=== PATIENT | male | born 1960 | race Caucasian/White ===

== ENCOUNTER 2019-11-17 08:56 | Emergency (ER) | payer MEDICARE, OTHER, SELFPAY ==
[2019-11-17 10:12] VITALS: BP 180/84; PULSE 76; RESP 14; TEMP 36.2; O2SAT 99
--- NOTE | 2019-11-17 10:22 | ED.SKABFB ---
HPI - Skin/Abscess/Foreign Bdy General Chief complaint: Skin/Abscess/Foreign Body Stated complaint: infected toe Time Seen by Provider: 11/17/19 09:05 Source: patient Mode of arrival: Ambulatory Limitations: no limitations History of Present Illness HPI narrative: 59-year-old male nonsmoking diabetic presents with a chief complaint of pain, swelling and redness of his left middle toe after he stubbed it a few days ago. He has known diabetic neuropathy and has a history toe infections. He is very comfortable providing his own wound care. He denies systemic findings such as fever, shaking chills nor nausea or vomiting. He has pain which increases with ambulation and range of motion and improves with rest. He is otherwise well and free of complaint. He refuses any labs or diagnostic evaluation other than x-ray MD complaint: abscess/boil Onset (ago): day(s) Tetanus up to date: yes Location: L foot Severity: moderate Quality: aching Pain Consistency: constant Relieving factors: none Exacerbating factors: none Associated symptoms: denies other symptoms Treatments prior to arrival: bandages Related Data Home Medications Medication Instructions Recorded Confirmed aspirin 81 mg PO QDAY #0 05/31/16 esomeprazole magnesium [Nexium] 40 mg PO QDAY #0 05/31/16 gabapentin 800 mg PO BID #0 05/31/16 insulin aspart U-100 [Novolog 25 unit SQ TIDCC #0 05/31/16 Flexpen U-100 Insulin] insulin glargine [Lantus U-100 70 unit SQ BID #0 05/31/16 Insulin] metoprolol tartrate PO QDAY #0 05/31/16 ranitidine HCl 75 mg PO QDAY #0 tab 05/31/16 amlodipine [Norvasc] 10 mg PO QDAY #0 11/02/16 atorvastatin [Lipitor] 80 mg PO QDAY #0 11/02/16 metformin [Glucophage XR] 500 mg PO BID #0 11/02/16 telmisartan-hydrochlorothiazid 1 tab PO QDAY #0 11/02/16 [Micardis HCT] Previous Rx's Medication Instructions Recorded clindamycin HCl 300 mg PO Q6H #28 cap 01/12/17 ciprofloxacin HCl 500 mg PO BID #20 tab 11/17/19 Allergies Allergy/AdvReac Type Severity Reaction Status Date / Time amitriptyline [AMITRIPTYLINE] Allergy Unknown Unverified 01/04/18 11:50 Review of Systems Constitutional Constitutional: Denies chills, Denies fatigue, Denies fever(s), Denies frequent falls, Denies lethargy and Denies weakness Eyes Eyes: Denies change in vision, Denies eye discharge, Denies irritation and Denies loss of vision ENT Ears, Nose, Mouth, and Throat: Denies change in voice, Denies dizziness, Denies neck pain, Denies sore throat and Denies throat swelling Cardiovascular Cardiovascular: Denies chest pain, Denies irregular heart rhythm, Denies lightheadedness, Denies palpitations, Denies dyspnea, Denies dyspnea on exertion and Denies orthopnea Respiratory Respiratory: Denies cough, Denies dyspnea, Denies dyspnea on exertion and Denies wheezing Gastrointestinal Gastrointestinal: Denies abdominal pain, Denies change in bowel habits, Denies diarrhea, Denies nausea and Denies vomiting Genitourinary Genitourinary: Denies hematuria, Denies flank pain, Denies urinary incontinence and Denies urinary urgency Musculoskeletal Musculoskeletal: Denies back pain, Reports joint swelling, Reports limited range of motion, Denies muscle weakness, Denies neck pain, Denies numbness and Denies tingling Integumentary/Breasts Skin/Breast: Denies pruritus, Denies erythema, Denies rash, Reports skin pain, Reports skin swelling, Reports skin ulcer and Denies wounds Neurologic Neurologic: Denies behavioral changes, Denies confusion, Denies dizziness, Denies frequent falls, Denies loss of vision, Denies numbness, Denies tingling and Denies weakness Psychiatric Psychiatric: Denies anxiety, Denies behavioral changes, Denies confusion, Denies depression, Denies homicidal ideation and Denies suicidal ideation Endocrine Endocrine: Denies fatigue, Denies flushing and Denies palpitations Hematologic/Lymphatic Hematologic/Lymphatic: Denies easy bruising Allergic/Immunologic Allergic/Immunologic: Denies urticaria, Denies throat swelling and Denies wheezing Patient History Substance Use Type: does not use Exam Narrative Exam Narrative: GEN: AOx3 and in mild distress EYES: Pupils are equal, round, and reactive to light and accommodation. Extraoccular muscles are intact bilaterally. There is no subconjunctival hemorrhage or exudate. CHEST: Lungs are clear to auscultation bilaterally and free of wheezes, rales, or rhonchi. Heart rate is regular rhythm, there are no murmurs, clicks, rubs, or gallops. There is no chest wall tenderness. ABD: Abdomen is soft and nontender. There is no guarding or rebound. Bowel sounds are normal in all 4 quadrants. There is no mass or organomegaly. EXT: Left 3rd toe erythematous with minimal swelling small black as sharp on tip, no drainage, no fluctuance or induration. Erythema limited to toe, no lymphangitis of Full painless ROM of all extremities with no loss of sensation or strength. SKIN: Warm, pink, and dry. No erythema or rash Initial Vital Signs Initial Vital Signs: Vital Signs Temperature 97.2 F L 11/17/19 10:12 Pulse Rate 76 11/17/19 10:12 Respiratory Rate 14 11/17/19 10:12 Blood Pressure 180/84 H 11/17/19 10:12 Pulse Oximetry 99 11/17/19 10:12 Course Orders Ordered: ED Orders 11/17/19 10:27 XR toe LT min 2V Stat Vital Signs Vital signs: Vital Signs - 8 hr 11/17/19 10:12 Temperature 97.2 F L Pulse Rate 76 Respiratory Rate 14 Blood Pressure 180/84 H Pulse Oximetry 99 MDM - Skin/Abscess/Foreign Bdy Imaging Data Extremity x-ray #1: Radiologist's Impression: [address] [address] XRay Report Signed Patient: Yasmany Ann [facility]#: [id number] : 8Acct:[id number] Age/Sex: 59 / MDate of Service: 11/17/19 Loc: ED Accession Number: [id number] Procedure: XR toe LT min 2V Ordering Provider: Peng Tobar D.O. PROCEDURE: XR TOE LT MIN 2V INDICATIONS: injury, infection, diabetic, osteo? TECHNIQUE: 3 views of the 2nd toe(s) acquired. COMPARISON: [facility], , TOE MINIMUM 2 VIEWS RIGHT, 01/12/2017, 14:17. FINDINGS: Bones: No acute fracture or dislocation is identified involving the osseous structures of the image portions of the left foot. No osseous erosions are appreciated. There is slight blunting of the distal phalanx of the 2nd toe, which is unchanged since 2017. No definitive osseous erosions are appreciated. The previously seen fracture involving the middle phalanx of the 3rd digit has healed in the interim. There are [id number] degenerative changes involving the joints of the great toe. Soft tissues: Soft tissue swelling of the 2nd toe is identified near the tip of the toe. No radiopaque foreign bodies are evident. No suspicious soft tissue densities. Scattered vascular calcifications are present. IMPRESSION: 1. No convincing radiographic evidence of osteomyelitis of the left 2nd toe. If osteomyelitis is of clinical concern, MRI may be helpful for better characterization with intravenous contrast. 2. Soft tissue swelling of the 2nd toe. No fractures. Dictated by: Ben Cisneros M.D. on 11/17/2019 at 10:09 Approved by: Ben Cisneros M.D. on 11/17/2019 at 10:11 Discharge Plan Departure Patient Disposition: Home Clinical Impression: Cellulitis of foot Discharge Date/Time: 11/17/19 11:18 Instructions: DI for Cellulitis -- Adult Activity Restrictions/Additional Instructions: *You have been diagnosed with [cellulitis of left middle toe] *What to do: *Take medications as directed *Follow up with your primary care provider in 2-3 days, call for an appointment. Let them know you were seen in the Emergency Department and that we ask that you be seen in follow up *Return to ER if you should have any new, worsening or concerning symptoms, such as [fever, shaking chills, worsening redness or swelling, other bothersome symptoms] Prescriptions: New ciprofloxacin HCl 500 mg tablet 500 mg PO BID Qty: 20 RF: 0 No Action insulin glargine [Lantus U-100 Insulin] 100 UNIT/1 ML solution 70 unit SQ BID Qty: 0 RF: 0 insulin aspart U-100 [Novolog Flexpen U-100 Insulin] 100 UNIT/1 ML insulin pen 25 unit SQ TIDCC Qty: 0 RF: 0 metoprolol tartrate 25 mg tablet PO QDAY Qty: 0 RF: 0 aspirin 81 MG tablet,delayed release (DR/EC) 81 mg PO QDAY Qty: 0 RF: 0 gabapentin 800 MG tablet 800 mg PO BID Qty: 0 RF: 0 ranitidine HCl 75 MG tablet 75 mg PO QDAY Qty: 0 RF: 0 esomeprazole magnesium [Nexium] 40 MG capsule,delayed release(DR/EC) 40 mg PO QDAY Qty: 0 RF: 0 atorvastatin [Lipitor] 80 MG tablet 80 mg PO QDAY Qty: 0 RF: 0 metformin [Glucophage XR] 500 MG tablet extended release 24 hr 500 mg PO BID Qty: 0 RF: 0 telmisartan-hydrochlorothiazid [Micardis HCT] 80 MG/25 MG tablet 1 tab PO QDAY Qty: 0 RF: 0 amlodipine [Norvasc] 10 MG tablet 10 mg PO QDAY Qty: 0 RF: 0 clindamycin HCl 300 MG capsule 300 mg PO Q6H Qty: 28 RF: 0
--- NOTE | 2019-11-17 10:27 | DI.RAD.S_ITS ---
PROCEDURE: XR TOE LT MIN 2V INDICATIONS: injury, infection, diabetic, osteo? TECHNIQUE: 3 views of the 2nd toe(s) acquired. COMPARISON: [facility], , TOE MINIMUM 2 VIEWS RIGHT, 01/12/2017, 14:17. FINDINGS: Bones: No acute fracture or dislocation is identified involving the osseous structures of the image portions of the left foot. No osseous erosions are appreciated. There is slight blunting of the distal phalanx of the 2nd toe, which is unchanged since 2017. No definitive osseous erosions are appreciated. The previously seen fracture involving the middle phalanx of the 3rd digit has healed in the interim. There are [id number] degenerative changes involving the joints of the great toe. Soft tissues: Soft tissue swelling of the 2nd toe is identified near the tip of the toe. No radiopaque foreign bodies are evident. No suspicious soft tissue densities. Scattered vascular calcifications are present. IMPRESSION: 1. No convincing radiographic evidence of osteomyelitis of the left 2nd toe. If osteomyelitis is of clinical concern, MRI may be helpful for better characterization with intravenous contrast. 2. Soft tissue swelling of the 2nd toe. No fractures. Dictated by: Ben Cisneros M.D. on 11/17/2019 at 10:09 Approved by: Ben Cisneros M.D. on 11/17/2019 at 10:11
--- NOTE | 2019-11-17 11:16 | PC.NURSE ---
scabbed over/ on toe/ no reddness noted/ will keep eye on by pt.
== END 2019-11-17 11:18 | disposition home or self-care (01) ==
PROVIDERS: Emergency Provider Emergency Medicine
DX: L03.116 Cellulitis of left lower limb (principal); E11.8 Type 2 diabetes mellitus with unspecified complications; Z79.4 Long term (current) use of insulin
CPT/HCPCS: 73660; 99283

== ENCOUNTER → 2019-11-29 13:01 | Outpatient (CLI) | payer MEDICARE, OTHER, SELFPAY | PROVIDERS: Referring Provider Podiatrist; Visit Provider Family Medicine | DX: E11.621 Type 2 diabetes mellitus with foot ulcer (principal); L97.524 Non-pressure chronic ulcer of other part of left foot with necrosis of bone; M86.172 Other acute osteomyelitis, left ankle and foot; E11.51 Type 2 diabetes mellitus with diabetic peripheral angiopathy without gangrene; E11.40 Type 2 diabetes mellitus with diabetic neuropathy, unspecified; Z79.4 Long term (current) use of insulin | CPT/HCPCS: 11044; 87070; 87075; 87077; 87176; 87186; 87205; 99203; 99214 ==

== ENCOUNTER → 2019-12-06 09:34 | Outpatient (CLI) | payer MEDICARE, OTHER, SELFPAY | PROVIDERS: Referring Provider Podiatrist; Visit Provider Family Medicine | DX: E11.621 Type 2 diabetes mellitus with foot ulcer (principal); L97.526 Non-pressure chronic ulcer of other part of left foot with bone involvement without evidence of necrosis; M86.672 Other chronic osteomyelitis, left ankle and foot; B95.7 Other staphylococcus as the cause of diseases classified elsewhere; E11.40 Type 2 diabetes mellitus with diabetic neuropathy, unspecified | CPT/HCPCS: 11042; 99214 ==

== ENCOUNTER → 2019-12-13 08:32 | Outpatient (CLI) | payer MEDICARE, OTHER, SELFPAY | PROVIDERS: PCP Internal Medicine; Referring Provider Podiatrist; Visit Provider Family Medicine | DX: E11.621 Type 2 diabetes mellitus with foot ulcer (principal); L97.526 Non-pressure chronic ulcer of other part of left foot with bone involvement without evidence of necrosis; E11.40 Type 2 diabetes mellitus with diabetic neuropathy, unspecified; M86.672 Other chronic osteomyelitis, left ankle and foot; B95.7 Other staphylococcus as the cause of diseases classified elsewhere; R60.0 Localized edema; L08.9 Local infection of the skin and subcutaneous tissue, unspecified | CPT/HCPCS: 11042; 36415; 80053; 84134; 85025; 85651; 86140 ==

== ENCOUNTER → 2019-12-13 09:28 | Outpatient (CLI) | payer MEDICARE, OTHER, SELFPAY ==
[2019-12-13 10:40] LABS: Add Manual Diff / Slide Review NO; Basophils Absolute Auto 0 /uL (0-100); Basophils Percent Auto 0.9 % (0-2); Eosinophils Absolute Auto 300 /uL (0-450); Eosinophils Percent Auto 5.2 % (2-4); Hematocrit 36.8 % (41-53); Hemoglobin 12.7 g/dL (13.5-17.5); Lymphocytes Absolute Auto 2000 /uL (1100-4500); Lymphocytes Percent Auto 40.2 % (25-40); Mean Corpuscular HGB Conc 34.6 % (30-36); Mean Corpuscular Hemoglobin 30.2 PG (26-34); Mean Corpuscular Volume 87.3 fL (80-100); Monocytes Absolute Auto 500 /uL (0-900); Neutrophils Absolute Auto 2300 /uL (1500-7000); Neutrophils Percent Auto 44.7 % (50-75); Platelet Count 189 X10^3/uL (150-400); Red Blood Cell Count 4.22 X10^6/uL (4.5-5.9); Red Cell Distribution Width 13.1 % (11.6-14.8)
[2019-12-13 10:55] LABS: Alanine Aminotransferase 16 IU/L (<50); Albumin 4.2 g/dL (3.5-5.0); Albumin Globulin Ratio 1.4 (1.0-2.8); Alkaline Phosphatase 119 U/L (38-126); Aspartate Aminotransferase 19 IU/L (17-59); Bilirubin Total 0.3 mg/dL (0.2-1.3); Blood Urea Nitrogen 17 mg/dL (9-20); Calcium 9.5 mg/dL (8.4-10.2); Carbon Dioxide 27 mmol/L (22-32); Chloride 102 mmol/L (98-107); Estimated Glomerular Filt Rate > 60.0 mL/min (>60); Globulin 3.1 g/dL (1.7-4.1); Glucose 256 mg/dL (80-110); HEMOLYSIS < 15 (0-50); Potassium 4.7 mmol/L (3.4-5.1); Sodium 138 mmol/L (137-145); Total Protein 7.3 g/dL (6.3-8.2)
[2019-12-13 10:57] LABS: C-Reactive Protein Quant < 0.5 mg/dL (<1.0)
[2019-12-13 11:00] LABS: Prealbumin 31.6 mg/dL (17.6-36.0)
[2019-12-13 14:58] LABS: Erythrocyte Sedimentation Rate 17 MM/HR (0-15)
== END ==
PROVIDERS: PCP Internal Medicine; Referring Provider Family Medicine; Visit Provider Family Medicine
DX: L08.9 Local infection of the skin and subcutaneous tissue, unspecified (principal)
CPT/HCPCS: 36415; 80053; 84134; 85025; 85651; 86140

== ENCOUNTER → 2020-03-03 14:01 | Outpatient (CLI) | payer MEDICARE, OTHER, SELFPAY | PROVIDERS: PCP Internal Medicine; Referring Provider Podiatrist; Visit Provider Family Medicine | DX: E11.621 Type 2 diabetes mellitus with foot ulcer (principal); L97.421 Non-pressure chronic ulcer of left heel and midfoot limited to breakdown of skin; E11.51 Type 2 diabetes mellitus with diabetic peripheral angiopathy without gangrene; G60.9 Hereditary and idiopathic neuropathy, unspecified | CPT/HCPCS: 97597; 99213; 99214 ==

== ENCOUNTER → 2020-03-11 09:32 | Outpatient (CLI) | payer MEDICARE, OTHER, SELFPAY | PROVIDERS: PCP Internal Medicine; Referring Provider Internal Medicine; Visit Provider Family Medicine | DX: E11.621 Type 2 diabetes mellitus with foot ulcer (principal); L97.421 Non-pressure chronic ulcer of left heel and midfoot limited to breakdown of skin; E11.40 Type 2 diabetes mellitus with diabetic neuropathy, unspecified; I16.0 Hypertensive urgency | CPT/HCPCS: 97597; 99213 ==

== ENCOUNTER → 2020-03-18 11:30 | Outpatient (CLI) | payer MEDICARE, OTHER, SELFPAY | PROVIDERS: PCP Internal Medicine; Referring Provider Internal Medicine; Visit Provider Family Medicine | DX: E11.621 Type 2 diabetes mellitus with foot ulcer (principal); L97.421 Non-pressure chronic ulcer of left heel and midfoot limited to breakdown of skin; G60.9 Hereditary and idiopathic neuropathy, unspecified; I10 Essential (primary) hypertension | CPT/HCPCS: 11042 ==

== ENCOUNTER → 2020-03-25 10:29 | Outpatient (CLI) | payer MEDICARE, OTHER, SELFPAY | PROVIDERS: PCP Internal Medicine; Referring Provider Internal Medicine; Visit Provider Family Medicine | DX: E11.621 Type 2 diabetes mellitus with foot ulcer (principal); L97.421 Non-pressure chronic ulcer of left heel and midfoot limited to breakdown of skin; G60.9 Hereditary and idiopathic neuropathy, unspecified; I10 Essential (primary) hypertension; L08.9 Local infection of the skin and subcutaneous tissue, unspecified | CPT/HCPCS: 11042; 87070; 87075; 87077; 87147; 87186; 87205; 99214 ==

== ENCOUNTER → 2020-03-27 13:41 | Outpatient (CLI) | payer MEDICARE, OTHER, SELFPAY | PROVIDERS: PCP Internal Medicine; Referring Provider Internal Medicine; Visit Provider Family Medicine | DX: E11.621 Type 2 diabetes mellitus with foot ulcer (principal); L97.421 Non-pressure chronic ulcer of left heel and midfoot limited to breakdown of skin | CPT/HCPCS: 93922; 93923; 99214 ==

== ENCOUNTER → 2020-04-01 09:57 | Outpatient (CLI) | payer MEDICARE, OTHER, SELFPAY | PROVIDERS: PCP Internal Medicine; Referring Provider Internal Medicine; Visit Provider Family Medicine | DX: E11.621 Type 2 diabetes mellitus with foot ulcer (principal); L97.421 Non-pressure chronic ulcer of left heel and midfoot limited to breakdown of skin | CPT/HCPCS: 11042 ==

== ENCOUNTER → 2020-04-03 13:30 | Outpatient (CLI) | payer MEDICARE, OTHER, SELFPAY | PROVIDERS: PCP Internal Medicine; Referring Provider Internal Medicine; Visit Provider Family Medicine | DX: E11.621 Type 2 diabetes mellitus with foot ulcer (principal); L97.421 Non-pressure chronic ulcer of left heel and midfoot limited to breakdown of skin | CPT/HCPCS: 29445; 99212 ==

== ENCOUNTER → 2020-04-08 11:02 | Outpatient (CLI) | payer MEDICARE, OTHER, SELFPAY | PROVIDERS: PCP Internal Medicine; Referring Provider Internal Medicine; Visit Provider Family Medicine | DX: E11.621 Type 2 diabetes mellitus with foot ulcer (principal); L97.421 Non-pressure chronic ulcer of left heel and midfoot limited to breakdown of skin | CPT/HCPCS: 97597 ==

== ENCOUNTER → 2020-04-15 11:14 | Outpatient (CLI) | payer MEDICARE, OTHER, SELFPAY | PROVIDERS: PCP Internal Medicine; Referring Provider Internal Medicine; Visit Provider Family Medicine | DX: E11.621 Type 2 diabetes mellitus with foot ulcer (principal); L97.421 Non-pressure chronic ulcer of left heel and midfoot limited to breakdown of skin | CPT/HCPCS: 15275; Q4105 ==

== ENCOUNTER → 2020-04-22 14:30 | Outpatient (CLI) | payer MEDICARE, OTHER, SELFPAY | PROVIDERS: PCP Internal Medicine; Referring Provider Internal Medicine; Visit Provider Family Medicine | DX: E11.621 Type 2 diabetes mellitus with foot ulcer (principal); L97.421 Non-pressure chronic ulcer of left heel and midfoot limited to breakdown of skin; L97.521 Non-pressure chronic ulcer of other part of left foot limited to breakdown of skin; L03.116 Cellulitis of left lower limb; Z91.19 Patient's noncompliance with other medical treatment and regimen | CPT/HCPCS: 97597; 99214 ==

== ENCOUNTER → 2020-04-29 10:07 | Outpatient (CLI) | payer MEDICARE, OTHER, SELFPAY | PROVIDERS: PCP Internal Medicine; Referring Provider Internal Medicine; Visit Provider Family Medicine | DX: E11.621 Type 2 diabetes mellitus with foot ulcer (principal); L97.421 Non-pressure chronic ulcer of left heel and midfoot limited to breakdown of skin; L97.521 Non-pressure chronic ulcer of other part of left foot limited to breakdown of skin; L03.116 Cellulitis of left lower limb; Z91.19 Patient's noncompliance with other medical treatment and regimen | CPT/HCPCS: 11042; 99213 ==

== ENCOUNTER → 2020-05-06 09:59 | Outpatient (CLI) | payer MEDICARE, OTHER, SELFPAY | PROVIDERS: PCP Internal Medicine; Referring Provider Internal Medicine; Visit Provider Family Medicine | DX: E11.621 Type 2 diabetes mellitus with foot ulcer (principal); L97.421 Non-pressure chronic ulcer of left heel and midfoot limited to breakdown of skin; L97.521 Non-pressure chronic ulcer of other part of left foot limited to breakdown of skin; Z91.19 Patient's noncompliance with other medical treatment and regimen; M79.672 Pain in left foot | CPT/HCPCS: 11042; 36415; 73630; 73650; 80053; 83036; 84134; 85025; 85651; 86140; 87070; 87075; 87077; 87186; 87205; 99213 ==

== ENCOUNTER → 2020-05-06 10:35 | Outpatient (CLI) | payer MEDICARE, OTHER, SELFPAY ==
--- NOTE | 2020-05-06 | DI.RAD.S_ITS ---
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 COMPARISON: [facility], , FOOT 3V LEFT, 06/06/2015, 8:59. FINDINGS: Bones: No fractures or dislocations. Tuft of the 2nd distal phalange is surgically absent. No suspicious bony lesions. No osseous erosive changes or periosteal reaction. Soft tissues: No tibiotalar joint effusion. Achilles tendon appears normal. Extensive atherosclerotic calcifications. No soft tissue gas. IMPRESSION: No ines evidence of osteomyelitis. Plain film radiographs can be insensitive to osteomyelitis during the initial 15 days of the disease process. If there is clinical concern for osteomyelitis, then three-phase nuclear medicine bone scan should be considered for further evaluation. Dictated by: Cinthia Gray MD, PhD on 05/06/2020 at 17:40 Approved by: Cinthia Gray MD, PhD on 05/06/2020 at 17:42
--- NOTE | 2020-05-06 | DI.RAD.S_ITS ---
PROCEDURE: XR CALCANEOUS LT MIN 2V INDICATIONS: non-pressue ulcer TECHNIQUE: Two views of the calcaneus were acquired. COMPARISON: None. FINDINGS: Bones: No fractures or dislocations. No suspicious bony lesions. Small dorsal and plantar calcaneal bone spurs. No osseous erosive changes or periosteal reaction. Soft tissues: No suspicious calcifications. Extensive vascular calcifications. Achilles tendon appears normal. No soft tissue gas. IMPRESSION: No ines evidence of osteomyelitis. Plain film radiographs can be insensitive to osteomyelitis during the initial 15 days of the disease process. If there is clinical concern for osteomyelitis, then three-phase nuclear medicine bone scan should be considered for further evaluation. Dictated by: Cinthia Gray MD, PhD on 05/06/2020 at 17:42 Approved by: Cinthia Gray MD, PhD on 05/06/2020 at 17:42
[2020-05-06 12:03] LABS: Add Manual Diff / Slide Review NO; Basophils Absolute Auto 100 /uL (0-100); Basophils Percent Auto 0.9 % (0-2); Eosinophils Absolute Auto 100 /uL (0-450); Eosinophils Percent Auto 2.5 % (2-4); Hematocrit 33.7 % (41-53); Hemoglobin 11.8 g/dL (13.5-17.5); Lymphocytes Absolute Auto 1800 /uL (1100-4500); Mean Corpuscular HGB Conc 34.9 % (30-36); Mean Corpuscular Volume 85.8 fL (80-100); Monocytes Absolute Auto 500 /uL (0-900); Monocytes Percent Auto 8.2 % (3-14); Neutrophils Absolute Auto 3500 /uL (1500-7000); Neutrophils Percent Auto 58.4 % (50-75); Platelet Count 191 X10^3/uL (150-400); Red Blood Cell Count 3.93 X10^6/uL (4.5-5.9); Red Cell Distribution Width 12.8 % (11.6-14.8)
[2020-05-06 12:10] LABS: Erythrocyte Sedimentation Rate 34 MM/HR (0-15)
[2020-05-06 12:14] LABS: Hemoglobin A1C% w Est Avg Glu 8.5 % (4.0-6.0)
[2020-05-06 12:36] LABS: Alanine Aminotransferase 16 IU/L (<50); Albumin 3.9 g/dL (3.5-5.0); Albumin Globulin Ratio 1.3 (1.0-2.8); Alkaline Phosphatase 78 U/L (38-126); Aspartate Aminotransferase 19 IU/L (17-59); BUN Creatinine Ratio 17.4 (6-22); Bilirubin Total 0.5 mg/dL (0.2-1.3); Blood Urea Nitrogen 21 mg/dL (9-20); Calcium 9.9 mg/dL (8.4-10.2); Carbon Dioxide 29 mmol/L (22-32); Chloride 105 mmol/L (98-107); Estimated Glomerular Filt Rate > 60.0 mL/min (>60); Glucose 156 mg/dL (80-110); HEMOLYSIS < 15 (0-50); Sodium 139 mmol/L (137-145); Total Protein 6.9 g/dL (6.3-8.2)
[2020-05-06 12:37] LABS: C-Reactive Protein Quant < 0.5 mg/dL (<1.0); Potassium 5.8 mmol/L (3.4-5.1)
[2020-05-06 12:40] LABS: Prealbumin 26.6 mg/dL (17.6-36.0)
== END ==
PROVIDERS: PCP Internal Medicine; Referring Provider Internal Medicine; Visit Provider Family Medicine
DX: E11.621 Type 2 diabetes mellitus with foot ulcer (principal); L97.421 Non-pressure chronic ulcer of left heel and midfoot limited to breakdown of skin
CPT/HCPCS: 36415; 73630; 73650; 80053; 83036; 84134; 85025; 85651; 86140

== ENCOUNTER → 2020-05-20 09:08 | Outpatient (CLI) | payer MEDICARE, OTHER, SELFPAY | PROVIDERS: PCP Internal Medicine; Referring Provider Internal Medicine; Visit Provider Family Medicine | DX: E11.621 Type 2 diabetes mellitus with foot ulcer (principal); L97.421 Non-pressure chronic ulcer of left heel and midfoot limited to breakdown of skin; L97.521 Non-pressure chronic ulcer of other part of left foot limited to breakdown of skin | CPT/HCPCS: 11042; 15275; Q4137 ==

== ENCOUNTER → 2020-05-27 13:27 | Outpatient (CLI) | payer MEDICARE, OTHER, SELFPAY | PROVIDERS: PCP Internal Medicine; Referring Provider Internal Medicine; Visit Provider Family Medicine | DX: E11.621 Type 2 diabetes mellitus with foot ulcer (principal); L97.421 Non-pressure chronic ulcer of left heel and midfoot limited to breakdown of skin; L97.521 Non-pressure chronic ulcer of other part of left foot limited to breakdown of skin; E11.40 Type 2 diabetes mellitus with diabetic neuropathy, unspecified | CPT/HCPCS: 15275; 97597; Q4137 ==

== ENCOUNTER → 2020-06-03 13:15 | Outpatient (CLI) | payer MEDICARE, OTHER, SELFPAY | PROVIDERS: PCP Internal Medicine; Referring Provider Internal Medicine; Visit Provider Family Medicine | DX: E11.621 Type 2 diabetes mellitus with foot ulcer (principal); L97.421 Non-pressure chronic ulcer of left heel and midfoot limited to breakdown of skin | CPT/HCPCS: 97597; 99213 ==

== ENCOUNTER → 2020-06-10 11:51 | Outpatient (CLI) | payer MEDICARE, OTHER, SELFPAY | PROVIDERS: PCP Internal Medicine; Referring Provider Internal Medicine; Visit Provider Family Medicine | DX: E11.621 Type 2 diabetes mellitus with foot ulcer (principal); L97.521 Non-pressure chronic ulcer of other part of left foot limited to breakdown of skin; L97.421 Non-pressure chronic ulcer of left heel and midfoot limited to breakdown of skin | CPT/HCPCS: 11042 ==

== ENCOUNTER → 2020-06-12 15:05 | Outpatient (CLI) | payer MEDICARE, OTHER, SELFPAY | PROVIDERS: PCP Internal Medicine; Referring Provider Internal Medicine; Visit Provider Family Medicine | DX: E11.621 Type 2 diabetes mellitus with foot ulcer (principal); L97.521 Non-pressure chronic ulcer of other part of left foot limited to breakdown of skin; E11.40 Type 2 diabetes mellitus with diabetic neuropathy, unspecified | CPT/HCPCS: 29445 ==

== ENCOUNTER → 2020-06-17 15:20 | Outpatient (CLI) | payer MEDICARE, OTHER, SELFPAY | PROVIDERS: PCP Internal Medicine; Referring Provider Internal Medicine; Visit Provider Family Medicine | DX: E11.621 Type 2 diabetes mellitus with foot ulcer (principal); L97.521 Non-pressure chronic ulcer of other part of left foot limited to breakdown of skin | CPT/HCPCS: 11042; 99213 ==

== ENCOUNTER → 2020-06-20 15:09 | Outpatient (CLI) | payer MEDICARE, OTHER, SELFPAY ==
--- NOTE | 2020-06-20 15:14 | DI.MRI.S_ITS ---
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 Post-contrast axial, coronal, and sagittal T1 spin echo with fat saturation through the ankle/hindfoot. COMPARISON: [facility], CR, XR FOOT LT MIN 3V, 05/06/2020, 9:44. [facility], CR, XR CALCANEOUS LT MIN 2V, 05/06/2020, 9:44. FINDINGS: Image quality: Excellent. Bones and joints: No bony cortical erosions or periosteal reaction. No bone marrow contusions or fractures. No hindfoot coalitions. No osteochondral injuries of the talar dome. No pathologic joint effusions. There is extensive periarticular subcutaneous edema and skin thickening suggestive of cellulitis without a discrete abscess collection. Medial structures: The posterior tibialis, flexor digitorum longus, and flexor hallucis longus tendons are intact. There is edema within the visualized flexor hallucis longus muscle with mild enhancement. No associated tenosynovial fluid. There is trace tenosynovial fluid along left posterior tibialis and flexor digitorum longus tendons. The posterior tibial neurovascular bundle appears normal within the tarsal tunnel, without extrinsic mass effect. The deltoid and spring ligaments appear intact. Lateral structures: The anterior talofibular, calcaneofibular, and posterior talofibular ligaments appear intact. More superiorly, the anterior and posterior tibiofibular ligaments appear intact, as is the intermalleolar ligament. The tibiofibular syndesmosis is normal in width at 2 mm or less. The peroneus longus and brevis tendons demonstrate normal location and morphology. Adjacent bony peroneal tubercle and retrotrochlear prominence are normal in size. The sinus tarsi demonstrates preserved fatty signal. The calcaneonavicular and calcaneocuboid components of the bifurcate ligament appear intact. The dorsal calcaneocuboid ligament appears intact. Anterior structures: The tibialis anterior, extensor hallucis longus, and extensor digitorum longus tendons appear intact. The dorsal talonavicular ligament appears intact. Posterior and plantar structures: Achilles tendon is intact. Medial and lateral bands of the plantar fascia are of normal thickness. No abductor digiti quinti muscle atrophy to suggest Quevedo neuropathy. There is soft tissue swelling and subcutaneous edema within the plantar soft tissues in the hindfoot with a small posterior cutaneous ulcer. No associated sinus tract or abscess collection identified. IMPRESSION: 1. Extensive periarticular soft tissue swelling with subcutaneous edema around the ankle and hindfoot are nonspecific but may reflect cellulitis. A small posterior cutaneous ulcer is demonstrated without evidence of underlying sinus tract or abscess collection. 2. No evidence of osteomyelitis. 3. Edema and enhancement of the visualized flexor hallucis longus muscle compatible with a nonspecific myositis which is incompletely evaluated on the current study. Recommend correlation clinically and if indicated dedicated imaging of the lower leg may be obtained for further evaluation. Dictated by: Yasmany Wynn M.D. on 06/20/2020 at 16:47 Approved by: Yasmany Wynn M.D. on 06/20/2020 at 17:01
== END ==
PROVIDERS: PCP Internal Medicine; Referring Provider Family Medicine; Visit Provider Family Medicine
DX: E11.621 Type 2 diabetes mellitus with foot ulcer (principal); L97.521 Non-pressure chronic ulcer of other part of left foot limited to breakdown of skin
CPT/HCPCS: 73723; A9579

== ENCOUNTER → 2020-06-24 14:17 | Outpatient (CLI) | payer MEDICARE, OTHER, SELFPAY | PROVIDERS: PCP Internal Medicine; Referring Provider Internal Medicine; Visit Provider Family Medicine | DX: E11.621 Type 2 diabetes mellitus with foot ulcer (principal); L97.421 Non-pressure chronic ulcer of left heel and midfoot limited to breakdown of skin | CPT/HCPCS: 99213 ==

== ENCOUNTER → 2020-07-01 13:51 | Outpatient (CLI) | payer MEDICARE, OTHER, SELFPAY | PROVIDERS: PCP Internal Medicine; Referring Provider Internal Medicine; Visit Provider Family Medicine | DX: E11.621 Type 2 diabetes mellitus with foot ulcer (principal); L97.521 Non-pressure chronic ulcer of other part of left foot limited to breakdown of skin; L08.9 Local infection of the skin and subcutaneous tissue, unspecified; L97.421 Non-pressure chronic ulcer of left heel and midfoot limited to breakdown of skin | CPT/HCPCS: 11042; 87070; 87075; 87205; 99214 ==

== ENCOUNTER → 2020-07-08 09:49 | Outpatient (CLI) | payer MEDICARE, OTHER, SELFPAY | PROVIDERS: PCP Internal Medicine; Referring Provider Internal Medicine; Visit Provider Family Medicine | DX: E11.621 Type 2 diabetes mellitus with foot ulcer (principal); L97.521 Non-pressure chronic ulcer of other part of left foot limited to breakdown of skin; L08.9 Local infection of the skin and subcutaneous tissue, unspecified; L03.116 Cellulitis of left lower limb | CPT/HCPCS: 36415; 80048; 85025; 85651; 86140; 99213 ==

== ENCOUNTER → 2020-07-08 10:42 | Outpatient (CLI) | payer MEDICARE, OTHER, SELFPAY ==
[2020-07-08 11:40] LABS: Add Manual Diff / Slide Review NO; Basophils Absolute Auto 0 /uL (0-100); Basophils Percent Auto 0.6 % (0-2); Eosinophils Absolute Auto 200 /uL (0-450); Hematocrit 34.8 % (41-53); Hemoglobin 11.9 g/dL (13.5-17.5); Lymphocytes Absolute Auto 1400 /uL (1100-4500); Lymphocytes Percent Auto 22.9 % (25-40); Mean Corpuscular HGB Conc 34.1 % (30-36); Mean Corpuscular Hemoglobin 29.9 PG (26-34); Mean Corpuscular Volume 87.9 fL (80-100); Monocytes Absolute Auto 500 /uL (0-900); Monocytes Percent Auto 8.3 % (3-14); Neutrophils Absolute Auto 3800 /uL (1500-7000); Neutrophils Percent Auto 64.2 % (50-75); Platelet Count 188 X10^3/uL (150-400); Red Blood Cell Count 3.97 X10^6/uL (4.5-5.9); Red Cell Distribution Width 13.8 % (11.6-14.8); White Blood Cell Count 5.9 X10^3/uL (4.5-11.0)
[2020-07-08 11:57] LABS: BUN Creatinine Ratio 15.5 (6-22); Blood Urea Nitrogen 17 mg/dL (9-20); Calcium 9.2 mg/dL (8.4-10.2); Carbon Dioxide 32 mmol/L (22-32); Chloride 106 mmol/L (98-107); Estimated Glomerular Filt Rate > 60.0 mL/min (>60); Glucose 154 mg/dL (80-110); HEMOLYSIS < 15 (0-50); Sodium 141 mmol/L (137-145)
[2020-07-08 11:59] LABS: C-Reactive Protein Quant < 0.5 mg/dL (<1.0); Potassium 5.4 mmol/L (3.4-5.1)
[2020-07-08 16:39] LABS: Erythrocyte Sedimentation Rate 23 MM/HR (0-15)
== END ==
PROVIDERS: PCP Internal Medicine; Referring Provider Family Medicine; Visit Provider Family Medicine
DX: L03.116 Cellulitis of left lower limb (principal)
CPT/HCPCS: 36415; 80048; 85025; 85651; 86140

== ENCOUNTER → 2020-07-15 10:38 | Outpatient (CLI) | payer MEDICARE, OTHER, SELFPAY | PROVIDERS: PCP Internal Medicine; Referring Provider Internal Medicine; Visit Provider Family Medicine | DX: E11.621 Type 2 diabetes mellitus with foot ulcer (principal); L97.421 Non-pressure chronic ulcer of left heel and midfoot limited to breakdown of skin | CPT/HCPCS: 99213 ==

== ENCOUNTER → 2020-07-22 09:55 | Outpatient (CLI) | payer MEDICARE, OTHER, SELFPAY | PROVIDERS: PCP Internal Medicine; Referring Provider Internal Medicine; Visit Provider Family Medicine | DX: E11.621 Type 2 diabetes mellitus with foot ulcer (principal); L97.521 Non-pressure chronic ulcer of other part of left foot limited to breakdown of skin; E87.5 Hyperkalemia; I10 Essential (primary) hypertension | CPT/HCPCS: 15275; 99213; Q4137 ==

== ENCOUNTER → 2020-07-29 10:00 | Outpatient (CLI) | payer MEDICARE, OTHER, SELFPAY | PROVIDERS: PCP Internal Medicine; Referring Provider Internal Medicine; Visit Provider Family Medicine | DX: E11.621 Type 2 diabetes mellitus with foot ulcer (principal); L97.521 Non-pressure chronic ulcer of other part of left foot limited to breakdown of skin | CPT/HCPCS: 15275; Q4105 ==

== ENCOUNTER → 2020-08-05 10:05 | Outpatient (CLI) | payer MEDICARE, OTHER, SELFPAY | PROVIDERS: PCP Internal Medicine; Referring Provider Internal Medicine; Visit Provider Family Medicine | DX: E11.621 Type 2 diabetes mellitus with foot ulcer (principal); L97.421 Non-pressure chronic ulcer of left heel and midfoot limited to breakdown of skin | CPT/HCPCS: 29445 ==

== ENCOUNTER → 2020-08-12 09:01 | Outpatient (CLI) | payer MEDICARE, OTHER, SELFPAY | PROVIDERS: PCP Internal Medicine; Referring Provider Internal Medicine; Visit Provider Family Medicine | DX: E11.621 Type 2 diabetes mellitus with foot ulcer (principal); L97.521 Non-pressure chronic ulcer of other part of left foot limited to breakdown of skin; S81.802A Unspecified open wound, left lower leg, initial encounter | CPT/HCPCS: 11042; 99214 ==

== ENCOUNTER → 2020-08-19 09:09 | Outpatient (CLI) | payer MEDICARE, OTHER, SELFPAY | PROVIDERS: PCP Internal Medicine; Referring Provider Internal Medicine; Visit Provider Family Medicine | DX: E11.621 Type 2 diabetes mellitus with foot ulcer (principal); L97.421 Non-pressure chronic ulcer of left heel and midfoot limited to breakdown of skin; S80.812A Abrasion, left lower leg, initial encounter | CPT/HCPCS: 99214 ==

== ENCOUNTER → 2020-08-26 13:02 | Outpatient (CLI) | payer MEDICARE, OTHER, SELFPAY | PROVIDERS: PCP Internal Medicine; Referring Provider Family Medicine; Visit Provider Internal Medicine | DX: E11.628 Type 2 diabetes mellitus with other skin complications (principal); S80.812A Abrasion, left lower leg, initial encounter; E11.51 Type 2 diabetes mellitus with diabetic peripheral angiopathy without gangrene; E11.40 Type 2 diabetes mellitus with diabetic neuropathy, unspecified | CPT/HCPCS: 97597; 99212 ==

== ENCOUNTER → 2020-09-02 10:35 | Outpatient (CLI) | payer MEDICARE, OTHER, SELFPAY | PROVIDERS: PCP Internal Medicine; Referring Provider Internal Medicine; Visit Provider Family Medicine | DX: E11.628 Type 2 diabetes mellitus with other skin complications (principal); S81.802A Unspecified open wound, left lower leg, initial encounter; E11.43 Type 2 diabetes mellitus with diabetic autonomic (poly)neuropathy | CPT/HCPCS: 99213 ==

== ENCOUNTER → 2020-09-09 09:22 | Outpatient (CLI) | payer MEDICARE, OTHER, SELFPAY | PROVIDERS: PCP Internal Medicine; Referring Provider Internal Medicine; Visit Provider Family Medicine | DX: E11.621 Type 2 diabetes mellitus with foot ulcer (principal); L97.421 Non-pressure chronic ulcer of left heel and midfoot limited to breakdown of skin; S80.812D Abrasion, left lower leg, subsequent encounter; E11.40 Type 2 diabetes mellitus with diabetic neuropathy, unspecified | CPT/HCPCS: 97597; 99213 ==

== ENCOUNTER → 2020-09-23 09:13 | Outpatient (CLI) | payer MEDICARE, OTHER, SELFPAY | PROVIDERS: PCP Internal Medicine; Referring Provider Internal Medicine; Visit Provider Family Medicine | DX: E11.621 Type 2 diabetes mellitus with foot ulcer (principal); E11.40 Type 2 diabetes mellitus with diabetic neuropathy, unspecified | CPT/HCPCS: 99212; 99213 ==

== ENCOUNTER → 2020-10-07 09:29 | Outpatient (CLI) | payer MEDICARE, OTHER, SELFPAY | PROVIDERS: PCP Internal Medicine; Referring Provider Internal Medicine; Visit Provider Family Medicine | DX: E11.621 Type 2 diabetes mellitus with foot ulcer (principal); E11.40 Type 2 diabetes mellitus with diabetic neuropathy, unspecified; L97.512 Non-pressure chronic ulcer of other part of right foot with fat layer exposed; R60.0 Localized edema; E11.51 Type 2 diabetes mellitus with diabetic peripheral angiopathy without gangrene; Z79.4 Long term (current) use of insulin; Z91.19 Patient's noncompliance with other medical treatment and regimen | CPT/HCPCS: 11042; 87070; 87075; 87077; 87147; 87186; 87205; 99214 ==

== ENCOUNTER 2020-10-11 20:38 | Emergency (ER) | payer MEDICARE, OTHER, SELFPAY ==
--- NOTE | 2020-10-11 20:47 | DI.RAD.S_ITS ---
PROCEDURE: XR FOOT LT MIN 3V INDICATIONS: injury to toes on left foot TECHNIQUE: 3 views of the foot were acquired. COMPARISON: [facility], CR, XR FOOT LT MIN 3V, 05/06/2020, 9:44. FINDINGS: Bones: No fractures or dislocations. No suspicious bony lesions. Scattered IP degenerative changes. Soft tissues: No tibiotalar joint effusion. Achilles tendon appears normal. IMPRESSION: No visualized acute fracture or dislocation. However, if clinical concern and/or pain persist, short interval imaging followup in 7-10 days is recommended, as occult injury cannot be definitively excluded. Dictated by: Bhavna Guevara M.D. on 10/11/2020 at 21:12 Approved by: Bhavna Guevara M.D. on 10/11/2020 at 21:13
[2020-10-11 20:50] VITALS: BP 232/100; PULSE 87; RESP 16; TEMP 37.2; O2SAT 97; BMI 27.3
--- NOTE | 2020-10-11 20:52 | ED_ITS ---
HPI - Extremity Injury (Lower) General Chief Complaint: Extremity Injury, Lower Stated Complaint: states diabetic foot issues, bruise, black toes Time Seen by Provider: 10/11/20 20:40 Source: patient and family Mode of arrival: Ambulatory Limitations: no limitations History of Present Illness HPI Narrative: 60-year-old male with a history of diabetic neuropathy presents with his significant other and injury to the toes on his left foot. He was walking and stubbed at least 3 of his toes yesterday and has developed bruising at the base of the toes. He is concerned about the presence of bruising because this is the pattern that happened when he developed osteomyelitis previously. He is currently being treated for an infection on 1 of the toes of his right foot by local wound care and is taking Augmentin. He has had a small amount of redness on the dorsum of his left foot without pain. He denies systemic findings such as fever, chills nor nausea or vomiting. MD complaint: foot injury Onset (ago): hour(s) Injury: Left: toes Type of Injury: blunt Place: home Severity: mild Relieving factors: nothing Exacerbating factors: nothing Context: direct blow Associated symptoms: ambulatory Other symptoms: none Related Data Home Medications Medication Instructions Recorded Confirmed aspirin 81 mg PO QDAY #0 05/31/16 esomeprazole magnesium [Nexium] 40 mg PO QDAY #0 05/31/16 gabapentin 800 mg PO BID #0 05/31/16 insulin aspart U-100 [Novolog 25 unit SQ TIDCC #0 05/31/16 Flexpen U-100 Insulin] insulin glargine [Lantus U-100 70 unit SQ BID #0 05/31/16 Insulin] metoprolol tartrate PO QDAY #0 05/31/16 ranitidine HCl 75 mg PO QDAY #0 tab 05/31/16 amlodipine [Norvasc] 10 mg PO QDAY #0 11/02/16 atorvastatin [Lipitor] 80 mg PO QDAY #0 11/02/16 metformin [Glucophage XR] 500 mg PO BID #0 11/02/16 telmisartan-hydrochlorothiazid 1 tab PO QDAY #0 11/02/16 [Micardis HCT] Previous Rx's Medication Instructions Recorded clindamycin HCl 300 mg PO Q6H #28 cap 01/12/17 ciprofloxacin HCl 500 mg PO BID #20 tab 11/17/19 Allergies Allergy/AdvReac Type Severity Reaction Status Date / Time amitriptyline [AMITRIPTYLINE] Allergy Unknown Unverified 01/04/18 11:50 Review of Systems Constitutional Constitutional: Denies chills, Denies fatigue, Denies fever(s), Denies frequent falls, Denies lethargy and Denies weakness Eyes Eyes: Denies change in vision, Denies eye discharge, Denies irritation and Denies loss of vision ENT Ears, Nose, Mouth, and Throat: Denies change in voice, Denies dizziness, Denies neck pain, Denies sore throat and Denies throat swelling Cardiovascular Cardiovascular: Denies chest pain, Denies irregular heart rhythm, Denies lightheadedness, Denies palpitations, Denies dyspnea, Denies dyspnea on exertion and Denies orthopnea Respiratory Respiratory: Denies cough, Denies dyspnea, Denies dyspnea on exertion and Denies wheezing Gastrointestinal Gastrointestinal: Denies abdominal pain, Denies change in bowel habits, Denies diarrhea, Denies nausea and Denies vomiting Musculoskeletal Musculoskeletal: Denies neck pain and Denies numbness Integumentary/Breasts Skin/Breast: Denies pruritus, Denies erythema, Denies rash and Denies wounds Comments: mild ecchymosis 2.3.4th toes Neurologic Neurologic: Denies behavioral changes, Denies confusion, Denies dizziness, Denies frequent falls, Denies loss of vision, Denies numbness and Denies weakness Psychiatric Psychiatric: Denies anxiety, Denies behavioral changes, Denies confusion, Denies depression, Denies homicidal ideation and Denies suicidal ideation Endocrine Endocrine: Denies fatigue, Denies flushing and Denies palpitations Hematologic/Lymphatic Hematologic/Lymphatic: Denies easy bruising Allergic/Immunologic Allergic/Immunologic: Denies urticaria, Denies throat swelling and Denies wheezing Patient History Substance Use Type: does not use Exam Narrative Exam Narrative: GEN: AOx3 and in mild distress EYES: Pupils are equal, round, and reactive to light and accommodation. Extraoccular muscles are intact bilaterally. There is no subconjunctival hemorrhage or exudate. CHEST: Lungs are clear to auscultation bilaterally and free of wheezes, rales, or rhonchi. Heart rate is regular rhythm, there are no murmurs, clicks, rubs, or gallops. There is no chest wall tenderness. ABD: Abdomen is soft and nontender. There is no guarding or rebound. Bowel sounds are normal in all 4 quadrants. There is no mass or organomegaly. EXT: Full range of motion, painless of toes of left foot. No breaks in the skin. Ecchymosis at the base of the toes, overlying metatarsophalangeal joint. Cap refill less than 2 seconds. There is some mild erythema on dorsum of foot which is free of lymphangitis, tenderness to palpation or warmth. SKIN: Otherwise exposed areas are warm, pink, and dry. No erythema or rash Initial Vital Signs Initial Vital Signs: Vital Signs Temperature 98.9 F 10/11/20 20:50 Pulse Rate 87 10/11/20 20:50 Respiratory Rate 16 10/11/20 20:50 Blood Pressure 232/100 H 10/11/20 20:50 Pulse Oximetry 97 10/11/20 20:50 Course Orders Ordered: ED Orders 10/11/20 20:47 XR foot LT min 3V Stat Vital Signs Vital signs: Vital Signs - 8 hr 10/11/20 20:50 10/11/20 21:31 Temperature 98.9 F Pulse Rate 87 80 Respiratory Rate 16 18 Blood Pressure 232/100 H 230/94 H Pulse Oximetry 97 97 MDM - Extremity Injury (Lower) Imaging Data Extremity x-ray #1: Radiologist's Impression: [address] [id number] ReportSigned Patient: Yasmany Ann [facility]#: [id number]: 8Acct:[id number]/Sex: 60 / MDate of Service: 10/11/20Loc: EDAccession Number: [id number] Procedure: XR foot LT min 3V Ordering Provider: Peng Tobar D.O. PROCEDURE: XR FOOT LT MIN 3V INDICATIONS: injury to toes on left foot TECHNIQUE: 3 views of the foot were acquired. COMPARISON: [facility] , XR FOOT LT MIN 3V, 05/06/2020, 9:44. FINDINGS: Bones: No fractures or dislocations. No suspicious bony lesions. Scattered IP degenerative changes. Soft tissues: No tibiotalar joint effusion. Achilles tendon appears normal. IMPRESSION: No visualized acute fracture or dislocation. However, if clinical concern and/or pain persist, short interval imaging followup in 7-10 days is recommended, as occult injury cannot be definitively excluded. Dictated by: Bhavna Guevara M.D. on 10/11/2020 at 21:12 Approved by: Bhavna Guevara M.D. on 10/11/2020 at 21:13 Discharge Plan Departure Patient Disposition: Home Clinical Impression: Contusion of toe of left foot Qualifiers: Encounter type: initial encounter Toe: lesser toe Damage to nail status: without damage Qualified Code(s): S90.122A - Contusion of left lesser toe(s) without damage to nail, initial encounter Instructions: DI for Contusion Activity Restrictions/Additional Instructions: *You have been diagnosed with [ contusions of toes of left foot. Xray does not show evidence of fracture or bone infection ] Your blood pressure is elevated, but you have no symptoms related to blood pressure and you have yet to take your meds tonight so there is no additional step needed. *What to do: *Continue to take medications as directed *Follow up with your wound care provider in 2-3 days, call for an appointment. Let them know you were seen in the Emergency Department and that we ask that you be seen in follow up *Return to ER if you should have any new, worsening or concerning symptoms Prescriptions: No Action insulin glargine [Lantus U-100 Insulin] 100 UNIT/1 ML solution 70 unit SQ BID Qty: 0 RF: 0 insulin aspart U-100 [Novolog Flexpen U-100 Insulin] 100 UNIT/1 ML insulin pen 25 unit SQ TIDCC Qty: 0 RF: 0 metoprolol tartrate 25 mg tablet PO QDAY Qty: 0 RF: 0 aspirin 81 MG tablet,delayed release (DR/EC) 81 mg PO QDAY Qty: 0 RF: 0 gabapentin 800 MG tablet 800 mg PO BID Qty: 0 RF: 0 ranitidine HCl 75 MG tablet 75 mg PO QDAY Qty: 0 RF: 0 esomeprazole magnesium [Nexium] 40 MG capsule,delayed release(DR/EC) 40 mg PO QDAY Qty: 0 RF: 0 atorvastatin [Lipitor] 80 MG tablet 80 mg PO QDAY Qty: 0 RF: 0 metformin [Glucophage XR] 500 MG tablet extended release 24 hr 500 mg PO BID Qty: 0 RF: 0 telmisartan-hydrochlorothiazid [Micardis HCT] 80 MG/25 MG tablet 1 tab PO QDAY Qty: 0 RF: 0 amlodipine [Norvasc] 10 MG tablet 10 mg PO QDAY Qty: 0 RF: 0 clindamycin HCl 300 MG capsule 300 mg PO Q6H Qty: 28 RF: 0 ciprofloxacin HCl 500 mg tablet 500 mg PO BID Qty: 20 RF: 0 Referrals: Sofie Orozco MD [Primary Care Provider] -
--- NOTE | 2020-10-11 21:16 | PC.NURSE ---
With OK from Dr Tobar, pt took his home BP meds: lisinopril and amlodipine for BP 230/94, will monitor for effect.
[2020-10-11 21:31] VITALS: BP 230/94; PULSE 80; RESP 18; O2SAT 97
== END 2020-10-11 21:32 | disposition home or self-care (01) ==
PROVIDERS: Emergency Provider Emergency Medicine; PCP Internal Medicine
DX: S90.122A Contusion of left lesser toe(s) without damage to nail, initial encounter (principal); W22.01XA Walked into wall, initial encounter; E11.40 Type 2 diabetes mellitus with diabetic neuropathy, unspecified; Z79.4 Long term (current) use of insulin
CPT/HCPCS: 73630; 99283

== ENCOUNTER → 2020-10-14 09:28 | Outpatient (CLI) | payer MEDICARE, OTHER, SELFPAY | PROVIDERS: PCP Internal Medicine; Referring Provider Internal Medicine; Visit Provider Family Medicine | DX: E11.621 Type 2 diabetes mellitus with foot ulcer (principal); L97.512 Non-pressure chronic ulcer of other part of right foot with fat layer exposed; E11.40 Type 2 diabetes mellitus with diabetic neuropathy, unspecified; Z91.19 Patient's noncompliance with other medical treatment and regimen | CPT/HCPCS: 11042 ==

== ENCOUNTER → 2020-10-21 08:41 | Outpatient (CLI) | payer MEDICARE, OTHER, SELFPAY | PROVIDERS: PCP Internal Medicine; Referring Provider Internal Medicine; Visit Provider Family Medicine | DX: E11.621 Type 2 diabetes mellitus with foot ulcer (principal); L97.512 Non-pressure chronic ulcer of other part of right foot with fat layer exposed; E11.40 Type 2 diabetes mellitus with diabetic neuropathy, unspecified; Z91.19 Patient's noncompliance with other medical treatment and regimen | CPT/HCPCS: 11042 ==

== ENCOUNTER → 2020-10-28 09:10 | Outpatient (CLI) | payer MEDICARE, OTHER, SELFPAY | PROVIDERS: PCP Internal Medicine; Referring Provider Internal Medicine; Visit Provider Family Medicine | DX: E11.40 Type 2 diabetes mellitus with diabetic neuropathy, unspecified (principal); L97.516 Non-pressure chronic ulcer of other part of right foot with bone involvement without evidence of necrosis; E11.621 Type 2 diabetes mellitus with foot ulcer; L97.421 Non-pressure chronic ulcer of left heel and midfoot limited to breakdown of skin; Z91.19 Patient's noncompliance with other medical treatment and regimen | CPT/HCPCS: 11042; 36415; 80053; 83036; 85025; 85651; 86140; 97597; 99214 ==

== ENCOUNTER → 2020-10-28 09:57 | Outpatient (CLI) | payer MEDICARE, OTHER, SELFPAY ==
[2020-10-28 10:49] LABS: Add Manual Diff / Slide Review NO; Basophils Absolute Auto 100 /uL (0-100); Basophils Percent Auto 0.8 % (0-2); Eosinophils Absolute Auto 300 /uL (0-450); Eosinophils Percent Auto 5.1 % (2-4); Hematocrit 31.8 % (41-53); Hemoglobin 10.8 g/dL (13.5-17.5); Lymphocytes Absolute Auto 1200 /uL (1100-4500); Lymphocytes Percent Auto 18.8 % (25-40); Mean Corpuscular HGB Conc 33.9 % (30-36); Mean Corpuscular Hemoglobin 30.5 PG (26-34); Mean Corpuscular Volume 89.9 fL (80-100); Monocytes Absolute Auto 600 /uL (0-900); Monocytes Percent Auto 9.6 % (3-14); Neutrophils Absolute Auto 4200 /uL (1500-7000); Neutrophils Percent Auto 65.7 % (50-75); Platelet Count 192 X10^3/uL (150-400); Red Blood Cell Count 3.54 X10^6/uL (4.5-5.9); Red Cell Distribution Width 12.5 % (11.6-14.8); White Blood Cell Count 6.5 X10^3/uL (4.5-11.0)
[2020-10-28 10:58] LABS: Alanine Aminotransferase 23 IU/L (<50); Albumin 3.7 g/dL (3.5-5.0); Albumin Globulin Ratio 1.2 (1.0-2.8); Alkaline Phosphatase 91 U/L (38-126); Aspartate Aminotransferase 25 IU/L (17-59); BUN Creatinine Ratio 16.7 (6-22); Bilirubin Total 0.2 mg/dL (0.2-1.3); Blood Urea Nitrogen 30 mg/dL (9-20); C-Reactive Protein Quant 0.7 mg/dL (<1.0); Calcium 9.3 mg/dL (8.4-10.2); Carbon Dioxide 29 mmol/L (22-32); Chloride 108 mmol/L (98-107); Estimated Glomerular Filt Rate 38.4 mL/min (>60); Glucose 90 mg/dL (80-110); HEMOLYSIS < 15 (0-50); Potassium 5.1 mmol/L (3.4-5.1); Sodium 141 mmol/L (137-145); Total Protein 6.7 g/dL (6.3-8.2)
[2020-10-28 12:29] LABS: Erythrocyte Sedimentation Rate 54 MM/HR (0-15)
[2020-10-28 14:47] LABS: Hemoglobin A1C% w Est Avg Glu 8.9 % (4.0-6.0)
== END ==
PROVIDERS: PCP Internal Medicine; Referring Provider Family Medicine; Visit Provider Family Medicine
DX: E11.40 Type 2 diabetes mellitus with diabetic neuropathy, unspecified (principal); L97.516 Non-pressure chronic ulcer of other part of right foot with bone involvement without evidence of necrosis
CPT/HCPCS: 36415; 80053; 83036; 85025; 85651; 86140

== ENCOUNTER → 2020-11-04 15:02 | Outpatient (CLI) | payer MEDICARE, OTHER, SELFPAY | PROVIDERS: PCP Internal Medicine; Referring Provider Internal Medicine; Visit Provider Family Medicine | DX: E11.621 Type 2 diabetes mellitus with foot ulcer (principal); L97.516 Non-pressure chronic ulcer of other part of right foot with bone involvement without evidence of necrosis; L97.421 Non-pressure chronic ulcer of left heel and midfoot limited to breakdown of skin; L97.521 Non-pressure chronic ulcer of other part of left foot limited to breakdown of skin; R60.0 Localized edema; E11.51 Type 2 diabetes mellitus with diabetic peripheral angiopathy without gangrene; E11.40 Type 2 diabetes mellitus with diabetic neuropathy, unspecified; Z91.19 Patient's noncompliance with other medical treatment and regimen | CPT/HCPCS: 97597; 99214 ==

== ENCOUNTER → 2020-11-07 11:23 | Outpatient (CLI) | payer MEDICARE, OTHER, SELFPAY ==
--- NOTE | 2020-11-07 | DI.MRI.S_ITS ---
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 Post-contrast short axis, long axis, and sagittal T1 spin echo with fat saturation through the forefoot. COMPARISON: [facility], CR, XR FOOT LT MIN 3V, 10/11/2020, 20:51. FINDINGS: Image quality: Evaluation is markedly limited by motion artifact and inhomogeneous fat saturation. Bones and joints: There is abnormal edema within the 2nd distal phalanx with associated enhancement and suspected small plantar erosion. Findings are compatible with osteomyelitis. No other definite abnormal bone marrow edema, enhancement, or erosions. There is mild degeneration at the 1st metatarsophalangeal joint. Soft tissues: There is soft tissue edema and enhancement in the 2nd toe with a suspected ulcer distally. No discrete loculated abscess collection identified. The plantar musculature demonstrates moderate fatty atrophy with diffuse mild edema. No definite associated abnormal enhancement. Visualized flexor and extensor tendons appear intact, without tenosynovitis. The distal insertions of the peroneus brevis and longus tendons appear intact. The principal Lisfranc ligament appears intact. No soft tissue ganglion cysts or bursal fluid collections. IMPRESSION: 1. Findings compatible with probable osteomyelitis involving the 2nd distal phalanx, with evaluation limited by motion artifact and inhomogeneous fat saturation. There is a suspected associated soft tissue ulcer and bony erosion. 2. No definite abscess collection identified. 3. Moderate fatty atrophy and edema within the visualized plantar musculature suggestive of denervation changes. No definite evidence of abnormal enhancement to suggest myositis. Recommend correlation clinically. Dictated by: Yasmany Wynn M.D. on 11/07/2020 at 15:25 Approved by: Yasmany Wynn M.D. on 11/07/2020 at 15:33
== END ==
PROVIDERS: PCP Internal Medicine; Referring Provider Family Medicine; Visit Provider Family Medicine
DX: L97.516 Non-pressure chronic ulcer of other part of right foot with bone involvement without evidence of necrosis (principal)
CPT/HCPCS: 73720

== ENCOUNTER → 2020-11-11 09:02 | Outpatient (CLI) | payer MEDICARE, OTHER, SELFPAY | PROVIDERS: PCP Internal Medicine; Referring Provider Internal Medicine; Visit Provider Family Medicine | DX: E11.621 Type 2 diabetes mellitus with foot ulcer (principal); L97.514 Non-pressure chronic ulcer of other part of right foot with necrosis of bone; L97.421 Non-pressure chronic ulcer of left heel and midfoot limited to breakdown of skin; L97.521 Non-pressure chronic ulcer of other part of left foot limited to breakdown of skin; L03.115 Cellulitis of right lower limb; E11.51 Type 2 diabetes mellitus with diabetic peripheral angiopathy without gangrene; E11.40 Type 2 diabetes mellitus with diabetic neuropathy, unspecified; R60.0 Localized edema; Z91.19 Patient's noncompliance with other medical treatment and regimen | CPT/HCPCS: 99213; 99215 ==

== ENCOUNTER 2020-11-11 10:04 | Inpatient (IN) | payer MEDICARE, OTHER, SELFPAY ==
[2020-11-11] VITALS (20 sets, daily range): BP systolic 149–170; BP diastolic 67–83; PULSE 70–96; RESP 14–18; TEMP 37.4–38.6; O2SAT 80–99; BMI 28.6
--- NOTE | 2020-11-11 11:05 | DI.RAD.S_ITS ---
PROCEDURE: XR CHEST FOR PICC 1V INDICATIONS: line placement COMPARISON: [facility], CHEST 2VW, 10/02/2009, 9:22. FINDINGS: PICC was placed by the intravenous therapy team from the left side. Fluoroscopic spot film demonstrates the tip of PICC projecting to the area of SVC. IMPRESSION: Tip of PICC projects to the area of SVC. Dictated by: Troy Alston M.D. on 11/11/2020 at 11:44 Approved by: Troy Alston M.D. on 11/11/2020 at 11:45
--- NOTE | 2020-11-11 11:20 | ED.EXTPRO ---
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 He stated that he was sent from Wound care clinic. Reports left foot have mild erythema started 4 days ago and became significant redness and swelling since 2 days ago with low grade fever. He reports did not started on antibiotic medication at that time on EHR it states he was on Augmentin. Patient denies fever, vomiting but has been having nausea for about a week after he had head injury. He reports shakes but not sure this is chills. The affected toe has been debrided at wound care clinic. According to the Dr. Bullock's note, on 09/26/20, patient was on his hands and knees cleaning the floor when he injured the top of his left foot. Was not wearing shoes or socks. On 09/30/20 appointment, a draining ulcer was noted at the tip of the right 2nd toe. Patient also injured Left 2nd toe after stubbed on 10/11/20. MRI test was done outpatiently on right foot by Dr. Bullock on 11/07/20 which indicated abnormal edema within the 2nd distal phalanx with associated enhancement and suspected small plantar erosion findings are compatible with osteomyelitis. there is soft tissue edema and enhancement in the 2nd toe with suspected ulcer distally. There is no discrete loculated abscess collection identified. Patient also reports he had to incidence of falls last week after wind knocked him over and hit his head. He had a brief duration of loss of consciousness for about 15-20 seconds. Since then he has been having nausea and dizziness with increased in balance difficulty. He also had injured left upper quadrant and lateral rib area when he was pushing grocery cart that was slammed on the door by strong wind and hit his side and left upper abdomen. Patient denies chest pain, breathing difficulty, dizziness prior to the fall. Patient takes baby aspirin daily but no other anticoagulants or platelets. No history of stroke or MIs. Patient has an appointment with his primary care physician today at [facility] to discuss pain management plan and he is currently takes oxycodone 30 mg q.6 hours daily. Related Data Home Medications Medication Instructions Recorded Confirmed Lantus U-100 Insulin 38 unit SQ BID #0 05/31/16 11/11/20 aspirin 81 mg PO QDAY #0 05/31/16 11/11/20 esomeprazole magnesium [Nexium] 20 mg PO QDAY #0 05/31/16 11/11/20 gabapentin 600 mg PO DAILY #0 05/31/16 11/11/20 insulin aspart U-100 [Novolog 8 unit SQ TIDCC #0 05/31/16 11/11/20 Flexpen U-100 Insulin] amlodipine [Norvasc] 10 mg PO QDAY #0 11/02/16 11/11/20 atorvastatin [Lipitor] 80 mg PO QDAY #0 11/02/16 11/11/20 lisinopril 40 mg PO DAILY 11/11/20 11/11/20 loperamide 2 mg PO Q4H PRN 11/11/20 11/11/20 oxycodone 30 mg PO Q6H 11/11/20 11/11/20 Allergies Allergy/AdvReac Type Severity Reaction Status Date / Time amitriptyline [AMITRIPTYLINE] Allergy Unknown Verified 11/11/20 12:33 Review of Systems <DANA Villa - Last Filed: 11/11/20 17:43> Review of Systems Narrative: General: Denies fever, chills, (+) shakes, fatigue, malaise, sweats. HEENT: Denies sinus pain, ear pain, sore throat, difficulty swallowing, (+) dizziness. Respiratory: Denies dyspnea, cough, wheezing, hemoptysis, sputum. Cardiovascular: Denies chest pain, palpitations, orthopnea, edema. Gastrointestinal: Denies nausea, vomiting, (+) LUQ abdominal pain, diarrhea, constipation, melena. : Denies dysuria, frequency, incontinence, hematuria, urinary retention. Musculoskeletal: See HPI Skin: See HPI Neurologic: Denies weakness, headache, numbness, change in speech, confusion, seizures, incoordination, (+) balance difficulty. Psychiatric: No concerning psychosocial issues. 12-point review of systems is negative except for those stated above. Patient History <DANA Villa - Last Filed: 11/11/20 17:43> Medical History Diabetes mellitus type 2 in nonobese Diabetic foot ulcer Fracture of left great toe Hyperlipidemia Hypertension Kidney disease, chronic, stage III (GFR 30-59 ml/min) Neuropathy Peripheral vascular disease Surgical History H/O cervical spine surgery History of appendectomy History of partial amputation of toe Social History household members: spouse Smoking Status: Never smoker alcohol intake: current Smoking Status: Former smoker alcohol intake frequency: 0-2 drinks per day Substance Use Type: does not use Exam <DANA Villa - Last Filed: 11/11/20 17:43> Narrative Exam Narrative: GEN: Alert, oriented x 3, well appearing and nourished, and in no acute distress. Head: Normal cephalic, atraumatic, no step offs. No scalp or temporal tenderness, palpable mass or rash. EYES: Pupils are equal, round, and reactive to light and accommodation. Extraocular muscles are intact bilaterally. There is no subconjunctival hemorrhage, exudate and sclera non-icteric. ENT: Hearing grossly intact. Nose without bleeding, purulent discharge or deviation. Airway patent. Neck: Trachea in midline. No JVD, non-tender without lymphadenopathy. No masses or thyroid megaly. Supple, non-tender, no step-offs and no meningeal signs. CARDIAC: Normal regular rate and rhythm without murmurs, gallops, or rubs. Left lower lateral rib pain to palpate. No step-offs, ecchymosis appreciated. No cyanosis or pallor. Capillary refill is less than 2 seconds. RESPIRATORY: Lungs are clear to auscultate bilaterally. No cough, wheezes, rales, or rhonchi. No stridor, respiratory distress, increase work of breathing, or accessary muscle used. ABD: Abdomen soft and non-distended. Tenderness to palpate in left upper quadrant. No bruise, obvious mass appreciated. No guarding or rebound tenderness to palpate. Bowel sounds are normal in all 4 quadrants. There is no palpable masses or organomegaly. SKIN/Extremity: Bright red erythema on distal to metatarsal of right foot in dorsal and plantar foot with edema which is warmth to palpate. Patient reports no sensation to bilateral foot due to neuropathy which is not new. Faint dorsal pedal pulse. Pale foot on left foot without edema. Left great toe and heel dressed with gauze and tape which is dry and intact. Right 2nd toe has small opening to the tip of distal phalange and purplish red discoloration in 2nd toe which is draining small amount of sanguinous drainage. Well healed partial amputation on left foot with 2nd distal phalange. Patient skin mildly pale, warm, dry. BACK: Nontender without deformity or crepitance. Tenderness to palpate in left flank region. NEUROLOGICAL: Alert and oriented to place, time and person. Sensation and motor function intact bilaterally. No facial droops, dysphasia. PSYCHIATRIC: Good judgement and reason, without hallucinations, abnormal affect or abnormal behaviors during the examination. Patient is not suicidal. Initial Vital Signs Initial Vital Signs: Vital Signs Temperature 99.4 F 11/11/20 10:10 Pulse Rate 96 H 11/11/20 10:10 Respiratory Rate 18 11/11/20 10:10 Blood Pressure 165/70 H 11/11/20 10:10 Pulse Oximetry 96 11/11/20 10:10 <Sharon Baires DO - Last Filed: 11/12/20 07:22> Initial Vital Signs Initial Vital Signs: Vital Signs Temperature 99.4 F 11/11/20 10:10 Pulse Rate 96 H 11/11/20 10:10 Respiratory Rate 18 11/11/20 10:10 Blood Pressure 165/70 H 11/11/20 10:10 Pulse Oximetry 96 11/11/20 10:10 Scores <DANA Villa - Last Filed: 11/11/20 17:43> GCS [place] coma scale eye opening: Spontaneous [place] coma scale verbal response: Orientated [place] coma scale motor response: Obey commands [place] coma scale total score: 15 qSOFA Altered Mental Status (GCS <15): No Respiratory rate greater than/equal to 22: No Systolic blood pressure less than or equal to 100: No qSOFA Total: 0 0-1 Not High Risk 1-3 High risk Course <DANA Villa - Last Filed: 11/11/20 17:43> Orders Ordered: Acetaminophen (Acetaminophen 325 Mg Tablet) 975 mg PO Q8H PRN PRN Reason: Pain, Mild (1-3) Amlodipine Besylate (Amlodipine 5 Mg Tablet) 10 mg PO DAILY [facility] Atorvastatin Calcium (Atorvastatin 20 Mg Tablet) 80 mg PO BEDTIME [facility] Last Admin: 11/11/20 21:06 Dose: 80 mg Documented by: LEOPOLDO Dextrose (Dextrose 50 % In Water 25 Gm/50 Ml Syringe) 25 gm IV PRN PRN PRN Reason: Hypoglycemia Dextrose (Dextrose 50 % In Water 25 Gm/50 Ml Syringe) 25 gm IV PRN PRN PRN Reason: Hypoglycemia Gabapentin (Gabapentin 600 Mg Tablet) 600 mg PO DAILY [facility] Sodium Chloride (Normal Saline 0.9%) 500 mls @ 21 mls/hr IV CONT [facility] Last Infusion: 11/12/20 05:09 Dose: 0 mls/hr Documented by: JAY JAY Infusion: 11/11/20 15:31 Dose: 0 mls/hr Documented by: Admin: 11/11/20 15:11 Dose: 21 mls/hr Documented by: SARA Cefepime HCl 2 gm/ Sodium (Chloride) 100 mls @ 200 mls/hr IV Q8H [facility] Last Admin: 11/12/20 05:44 Dose: 200 mls/hr Documented by: JAY JAY Infusion: 11/11/20 21:45 Dose: 200 mls/hr Documented by: JAY JAY Admin: 11/11/20 21:15 Dose: 200 mls/hr Documented by: LEOPOLDO Vancomycin HCl (Vancomycin) 1,250 mg in 250 mls @ 250 mls/hr IV Q24H [facility] Sodium Chloride (Normal Saline 0.9%) 1,000 mls @ 100 mls/hr IV CONT [facility] Last Infusion: 11/12/20 05:09 Dose: 125 mls/hr Documented by: JAY JAY Admin: 11/12/20 03:00 Dose: 100 mls/hr Documented by: JAY JAY Sodium Chloride (Normal Saline 0.9%) 1,000 mls @ 125 mls/hr IV CONT [facility] Insulin Aspart (Insulin Aspart 100 Unit/Ml Insuln Pen) 0 unit SUBCUT ACHS [facility]; Protocol Last Admin: 11/11/20 21:43 Dose: 3 unit Documented by: LEOPOLDO Cosigned by: CESARIO Insulin Glargine (Insulin Glargine 100 Unit/Ml 10ml Vial) 38 unit SUBCUT BID [facility] Last Admin: 11/11/20 21:44 Dose: Not Given Documented by: LEOPOLDO Lisinopril (Lisinopril 20 Mg Tablet) 40 mg PO DAILY [facility] Naloxone HCl (Naloxone 0.4 Mg/Ml Vial) 0.2 mg IV Q2MIN PRN PRN Reason: Opiate Reversal Non-Formulary Medication (Non-Formulary Medication) 0 each PO PRN PRN PRN Reason: HOME MEDICATION STORAGE Ondansetron HCl (Ondansetron 4 Mg/2 Ml Inj) 4 mg IV Q4HR PRN PRN Reason: Nausea And Vomiting Last Admin: 11/12/20 03:45 Dose: 4 mg Documented by: JAY JAY Oxycodone HCl (Oxycodone Ir 10 Mg Tablet) 30 mg PO Q6H [facility] Last Admin: 11/12/20 02:59 Dose: 30 mg Documented by: JAY JAY Admin: 11/11/20 21:08 Dose: 30 mg Documented by: LEOPOLDO Vancomycin HCl (Vancomycin Trough) 1 request MIS 1130 [facility] Stop: 11/14/20 11:31 Discontinued Medications Aspirin (Aspirin Ec 81 Mg Tablet) 81 mg PO DAILY [facility] Bacitracin (Bacitracin Oint 0.9 Gm Pckt) 1 applic TOP NOW ONE Stop: 11/11/20 14:29 Last Admin: 11/11/20 15:32 Dose: 1 applic Documented by: SARA Vancomycin HCl/Dextrose (Vancomycin) 1,500 mg in 300 mls @ 200 mls/hr IV NOW ONE Stop: 11/11/20 13:42 Last Infusion: 11/11/20 14:03 Dose: 0 mls/hr Documented by: Admin: 11/11/20 12:35 Dose: 200 mls/hr Documented by: TOM Cefepime HCl 1 gm/ Sodium (Chloride) 100 mls @ 200 mls/hr IV NOW ONE Stop: 11/11/20 13:00 Last Infusion: 11/11/20 15:09 Dose: 0 mls/hr Documented by: Admin: 11/11/20 14:03 Dose: 200 mls/hr Documented by: TOM Sodium Chloride (Normal Saline 0.9%) 1,000 mls @ 125 mls/hr IV CONT [facility] Last Admin: 11/12/20 05:08 Dose: Not Given Documented by: JAY JAY Oxycodone HCl (Oxycodone Ir 5 Mg Tablet) 30 mg PO NOW ONE Stop: 11/11/20 12:35 Last Admin: 11/11/20 12:39 Dose: 30 mg Documented by: TOM Reevaluation(s) Reevaluation #1: Patient is currently under procedure for PICC line insertion by MARCELA Boogie PICC line nurse at bedside due to unable to establish PIV access. Time: 11:21 Consultations Consultation #1: Dr. Bullock contsulted his commendation and treatment plan whether outpatient vs. inpatient and antibiotic medication treatment. Dr. Bullock requesting patient's admission to hospital since he is not compliant with off loading/no ambulation recommendation and will do better inpatient setting until infection improves with IV medication treatment with Vanco and Cefepime with renal adjusted dose. Time: 12:10 Consultation #2: Dr. Viramontes consulted with MRI, labs, physical findings and he recommended repeat foot/toe xray. Time: 13:15 Consultation #3: @1320- Waiting for Dr. Le's return call. Dr. Le consulted for admission and he kindly accepted the care for in patient for osteomyelitis, cellulitis, hyponatremia, stage III kidney disease, diabetes. Time: 14:00 Vital Signs Vital signs: Vital Signs - 8 hr 11/11/20 10:10 11/11/20 11:30 11/11/20 11:32 Temperature 99.4 F Pulse Rate 96 H Pulse Rate [Right Dorsalis Pedis] Respiratory Rate 18 Blood Pressure 165/70 H 162/83 H Pulse Oximetry 96 80 L 11/11/20 12:02 11/11/20 12:03 11/11/20 12:32 Temperature Pulse Rate 91 H 87 Pulse Rate [Right Dorsalis Pedis] Respiratory Rate Blood Pressure 152/77 H Pulse Oximetry 98 94 98 11/11/20 12:36 11/11/20 12:52 11/11/20 13:00 Temperature Pulse Rate 89 85 Pulse Rate [Right Dorsalis Pedis] Respiratory Rate 14 Blood Pressure 154/67 H 153/70 H Pulse Oximetry 98 92 11/11/20 13:31 11/11/20 13:33 11/11/20 13:57 Temperature Pulse Rate 84 Pulse Rate [Right Dorsalis Pedis] 70 Respiratory Rate Blood Pressure 153/72 H Pulse Oximetry 94 11/11/20 14:00 11/11/20 14:21 11/11/20 14:30 Temperature Pulse Rate 81 89 Pulse Rate [Right Dorsalis Pedis] Respiratory Rate Blood Pressure 161/72 H 170/74 H Pulse Oximetry 96 98 <Sharon Baires, DO - Last Filed: 11/12/20 07:22> Orders Ordered: Acetaminophen (Acetaminophen 325 Mg Tablet) 975 mg PO Q8H PRN PRN Reason: Pain, Mild (1-3) Amlodipine Besylate (Amlodipine 5 Mg Tablet) 10 mg PO DAILY [facility] Atorvastatin Calcium (Atorvastatin 20 Mg Tablet) 80 mg PO BEDTIME [facility] Last Admin: 11/11/20 21:06 Dose: 80 mg Documented by: LEOPOLDO Dextrose (Dextrose 50 % In Water 25 Gm/50 Ml Syringe) 25 gm IV PRN PRN PRN Reason: Hypoglycemia Dextrose (Dextrose 50 % In Water 25 Gm/50 Ml Syringe) 25 gm IV PRN PRN PRN Reason: Hypoglycemia Gabapentin (Gabapentin 600 Mg Tablet) 600 mg PO DAILY [facility] Sodium Chloride (Normal Saline 0.9%) 500 mls @ 21 mls/hr IV CONT [facility] Last Infusion: 11/12/20 05:09 Dose: 0 mls/hr Documented by: JAY JAY Infusion: 11/11/20 15:31 Dose: 0 mls/hr Documented by: Admin: 11/11/20 15:11 Dose: 21 mls/hr Documented by: SARA Cefepime HCl 2 gm/ Sodium (Chloride) 100 mls @ 200 mls/hr IV Q8H [facility] Last Admin: 11/12/20 05:44 Dose: 200 mls/hr Documented by: JAY JAY Infusion: 11/11/20 21:45 Dose: 200 mls/hr Documented by: JAY JAY Admin: 11/11/20 21:15 Dose: 200 mls/hr Documented by: LEOPOLDO Vancomycin HCl (Vancomycin) 1,250 mg in 250 mls @ 250 mls/hr IV Q24H [facility] Sodium Chloride (Normal Saline 0.9%) 1,000 mls @ 100 mls/hr IV CONT [facility] Last Infusion: 11/12/20 05:09 Dose: 125 mls/hr Documented by: JAY JAY Admin: 11/12/20 03:00 Dose: 100 mls/hr Documented by: JAY JAY Sodium Chloride (Normal Saline 0.9%) 1,000 mls @ 125 mls/hr IV CONT [facility] Insulin Aspart (Insulin Aspart 100 Unit/Ml Insuln Pen) 0 unit SUBCUT ACHS [facility]; Protocol Last Admin: 11/11/20 21:43 Dose: 3 unit Documented by: LEOPOLDO Cosigned by: CESARIO Insulin Glargine (Insulin Glargine 100 Unit/Ml 10ml Vial) 38 unit SUBCUT BID [facility] Last Admin: 11/11/20 21:44 Dose: Not Given Documented by: LEOPOLDO Lisinopril (Lisinopril 20 Mg Tablet) 40 mg PO DAILY [facility] Naloxone HCl (Naloxone 0.4 Mg/Ml Vial) 0.2 mg IV Q2MIN PRN PRN Reason: Opiate Reversal Non-Formulary Medication (Non-Formulary Medication) 0 each PO PRN PRN PRN Reason: HOME MEDICATION STORAGE Ondansetron HCl (Ondansetron 4 Mg/2 Ml Inj) 4 mg IV Q4HR PRN PRN Reason: Nausea And Vomiting Last Admin: 11/12/20 03:45 Dose: 4 mg Documented by: JAY JAY Oxycodone HCl (Oxycodone Ir 10 Mg Tablet) 30 mg PO Q6H [facility] Last Admin: 11/12/20 02:59 Dose: 30 mg Documented by: JAY JAY Admin: 11/11/20 21:08 Dose: 30 mg Documented by: LEOPOLDO Vancomycin HCl (Vancomycin Trough) 1 request MIS 1130 [facility] Stop: 11/14/20 11:31 Discontinued Medications Aspirin (Aspirin Ec 81 Mg Tablet) 81 mg PO DAILY [facility] Bacitracin (Bacitracin Oint 0.9 Gm Pckt) 1 applic TOP NOW ONE Stop: 11/11/20 14:29 Last Admin: 11/11/20 15:32 Dose: 1 applic Documented by: SARA Vancomycin HCl/Dextrose (Vancomycin) 1,500 mg in 300 mls @ 200 mls/hr IV NOW ONE Stop: 11/11/20 13:42 Last Infusion: 11/11/20 14:03 Dose: 0 mls/hr Documented by: Admin: 11/11/20 12:35 Dose: 200 mls/hr Documented by: TOM Cefepime HCl 1 gm/ Sodium (Chloride) 100 mls @ 200 mls/hr IV NOW ONE Stop: 11/11/20 13:00 Last Infusion: 11/11/20 15:09 Dose: 0 mls/hr Documented by: Admin: 11/11/20 14:03 Dose: 200 mls/hr Documented by: TOM Sodium Chloride (Normal Saline 0.9%) 1,000 mls @ 125 mls/hr IV CONT [facility] Last Admin: 11/12/20 05:08 Dose: Not Given Documented by: JAY JAY Oxycodone HCl (Oxycodone Ir 5 Mg Tablet) 30 mg PO NOW ONE Stop: 11/11/20 12:35 Last Admin: 11/11/20 12:39 Dose: 30 mg Documented by: TOM Vital Signs Vital signs: Vital Signs - 8 hr 11/11/20 10:10 11/11/20 11:30 11/11/20 11:32 Temperature 99.4 F Pulse Rate 96 H Pulse Rate [Right Dorsalis Pedis] Respiratory Rate 18 Blood Pressure 165/70 H 162/83 H Pulse Oximetry 96 80 L 11/11/20 12:02 11/11/20 12:03 11/11/20 12:32 Temperature Pulse Rate 91 H 87 Pulse Rate [Right Dorsalis Pedis] Respiratory Rate Blood Pressure 152/77 H Pulse Oximetry 98 94 98 11/11/20 12:36 11/11/20 12:52 11/11/20 13:00 Temperature Pulse Rate 89 85 Pulse Rate [Right Dorsalis Pedis] Respiratory Rate 14 Blood Pressure 154/67 H 153/70 H Pulse Oximetry 98 92 11/11/20 13:31 11/11/20 13:33 11/11/20 13:57 Temperature Pulse Rate 84 Pulse Rate [Right Dorsalis Pedis] 70 Respiratory Rate Blood Pressure 153/72 H Pulse Oximetry 94 11/11/20 14:00 11/11/20 14:21 11/11/20 14:30 Temperature Pulse Rate 81 89 Pulse Rate [Right Dorsalis Pedis] Respiratory Rate Blood Pressure 161/72 H 170/74 H Pulse Oximetry 96 98 MDM - Extremity (Nontraumatic) <DANA Villa - Last Filed: 11/11/20 17:43> Differential Diagnosis Differential diagnosis: Likely cellulitis and other (Osteomyelitis, hyponatremia, chronic kidney disease, closed head injury, intracranial bleed, spleen injury, renal injury, rib fracture, contusion to abdomen/ribs) Medical Records Attestation: I reviewed the patient's medical records. Lab Data Attestation: I reviewed the patient's lab results. Result diagrams: 11/12/20 05:35 11/12/20 05:35 Labs: Lab Results 11/11/20 11/11/20 11/11/20 Range/Units 11:35 11:35 11:35 WBC 20.8 H (4.5-11.0) X10^3/uL RBC 2.99 L (4.5-5.9) X10^6/uL Hgb 8.9 L (13.5-17.5) g/dL Hct 26.0 L (41-53) % MCV 87.0 (80-100) fL MCH 29.8 (26-34) PG MCHC 34.3 (30-36) % RDW 12.0 (11.6-14.8) % Plt Count 248 (150-400) X10^3/uL Neut % (Auto) 81.6 H (50-75) % Lymph % (Auto) 6.4 L (25-40) % [place] % (Auto) 10.8 (3-14) % Eos % (Auto) 0.7 L (2-4) % Baso % (Auto) 0.5 (0-2) % Neut # (Auto) 01140 H (8160-0423) /uL Lymph # (Auto) 1300 (7189-3118) /uL [place] # (Auto) 2300 H (0-900) /uL Eos # (Auto) 100 (0-450) /uL Baso # (Auto) 100 (0-100) /uL ESR 50 H (0-15) MM/HR PT 14.2 H (10.1-12.7) SECONDS INR 1.2 (0.9-1.3) APTT 28 (26.4-36.2) SECONDS Sodium 128 L (137-145) mmol/L Potassium 4.5 (3.4-5.1) mmol/L Chloride 93 L (98-107) mmol/L Carbon Dioxide 32 (22-32) mmol/L BUN 33 H (9-20) mg/dL Creatinine 2.16 H (0.66-1.25) mg/dL Estimated GFR 31.1 L (>60) mL/min BUN/Creatinine Ratio 15.3 (6-22) Glucose 297 H (80-110) mg/dL Lactate (0.7-2.1) mmol/L Calcium 8.4 (8.4-10.2) mg/dL Total Bilirubin 0.4 (0.2-1.3) mg/dL AST 24 (17-59) IU/L ALT 21 (<50) IU/L Alkaline Phosphatase 109 (38-126) U/L C-Reactive Protein 15.0 H (<1.0) mg/dL Total Protein 6.4 (6.3-8.2) g/dL Albumin 3.2 L (3.5-5.0) g/dL Globulin 3.2 (1.7-4.1) g/dL Albumin/Globulin Ratio 1.0 (1.0-2.8) Lipase 12 L (23-300) U/L Procalcitonin 0.62 H (<0.5) ng/mL SARS-CoV-2 (PCR) (Negative) 11/11/20 11/11/20 Range/Units 11:35 12:41 WBC (4.5-11.0) X10^3/uL RBC (4.5-5.9) X10^6/uL Hgb (13.5-17.5) g/dL Hct (41-53) % MCV (80-100) fL MCH (26-34) PG MCHC (30-36) % RDW (11.6-14.8) % Plt Count (150-400) X10^3/uL Neut % (Auto) (50-75) % Lymph % (Auto) (25-40) % [place] % (Auto) (3-14) % Eos % (Auto) (2-4) % Baso % (Auto) (0-2) % Neut # (Auto) (4070-8237) /uL Lymph # (Auto) (4380-0816) /uL [place] # (Auto) (0-900) /uL Eos # (Auto) (0-450) /uL Baso # (Auto) (0-100) /uL ESR (0-15) MM/HR PT (10.1-12.7) SECONDS INR (0.9-1.3) APTT (26.4-36.2) SECONDS Sodium (137-145) mmol/L Potassium (3.4-5.1) mmol/L Chloride (98-107) mmol/L Carbon Dioxide (22-32) mmol/L BUN (9-20) mg/dL Creatinine (0.66-1.25) mg/dL Estimated GFR (>60) mL/min BUN/Creatinine Ratio (6-22) Glucose (80-110) mg/dL Lactate 0.9 (0.7-2.1) mmol/L Calcium (8.4-10.2) mg/dL Total Bilirubin (0.2-1.3) mg/dL AST (17-59) IU/L ALT (<50) IU/L Alkaline Phosphatase (38-126) U/L C-Reactive Protein (<1.0) mg/dL Total Protein (6.3-8.2) g/dL Albumin (3.5-5.0) g/dL Globulin (1.7-4.1) g/dL Albumin/Globulin Ratio (1.0-2.8) Lipase (23-300) U/L Procalcitonin (<0.5) ng/mL SARS-CoV-2 (PCR) Negative (Negative) Point of Care Testing Glucose POC 219 Imaging Data XR-Foot Rt: Radiologist's Impression: [address] [id number] ReportSigned Patient: Yasmany Ann [facility]#: [id number]: 8Acct:[id number]/Sex: 60 / MDate of Service: 11/11/20Loc: [id number] Number: [id number] Procedure: XR foot RT min 3V Ordering Provider: Neto Jenkins PROCEDURE: XR FOOT RT MIN 3V INDICATIONS: right foot 2nd toe osteo and cellulitis TECHNIQUE: 3 views of the foot were acquired. COMPARISON: [facility], CR, XR FOOT LT MIN 3V, 10/11/2020, 20:51. FINDINGS: Bones: The distal phalanx of the 2nd toe is truncated, likely due to partial amputation with overlying soft tissue resection is well. The residual visualized bone of the distal phalanx of the 2nd toe demonstrates cortical irregularity consistent with osteomyelitis. There are degenerative changes of the interphalangeal joints. No focal osseous lesions. Soft tissues: No tibiotalar joint effusion. Achilles tendon appears normal. Vasculature has atherosclerotic calcifications. IMPRESSION: Likely postoperative changes of the right 2nd toe distally. The remaining visualized bone demonstrates cortical irregularity consistent with osteomyelitis. Dictated by: Toni Waters M.D. on 11/11/2020 at 17:25 Approved by: Toni Waters M.D. on 11/11/2020 at 17:29 MRI-Foot RT: Radiologist's Impression: [address] [id number] Resonance ReportSigned Patient: Yasmany Ann [facility]#: [id number]: 8Acct:[id number]/Sex: 60 / MDate of Service: 11/07/20Loc: MRIAccession Number: [id number] Procedure: MR foot RT wo/w con Ordering Provider: Nino Bullock MD PROCEDURE: MR FOOT RT WO/W CON INDICATIONS: Non-pressure chronic ulcer of other part of right TECHNIQUE: Noncontrast sagittal T1 spin echo and T2 fast spin echo with fat saturation, long-axis T1 spin echo and T2 fast spin echo with fat saturation; short-axis T1 spin echo, proton density fast spin echo, and T2 fast spin echo with fat saturation through the forefoot. Post-contrast short axis, long axis, and sagittal T1 spin echo with fat saturation through the forefoot. COMPARISON: [facility], CR, XR FOOT LT MIN 3V, 10/11/2020, 20:51. FINDINGS: Image quality: Evaluation is markedly limited by motion artifact and inhomogeneous fat saturation. Bones and joints: There is abnormal edema within the 2nd distal phalanx with associated enhancement and suspected small plantar erosion. Findings are compatible with osteomyelitis. No other definite abnormal bone marrow edema, enhancement, or erosions. There is mild degeneration at the 1st metatarsophalangeal joint. Soft tissues: There is soft tissue edema and enhancement in the 2nd toe with a suspected ulcer distally. No discrete loculated abscess collection identified. The plantar musculature demonstrates moderate fatty atrophy with diffuse mild edema. No definite associated abnormal enhancement. Visualized flexor and extensor tendons appear intact, without tenosynovitis. The distal insertions of the peroneus brevis and longus tendons appear intact. The principal Lisfranc ligament appears intact. No soft tissue ganglion cysts or bursal fluid collections. IMPRESSION: 1. Findings compatible with probable osteomyelitis involving the 2nd distal phalanx, with evaluation limited by motion artifact and inhomogeneous fat saturation. There is a suspected associated soft tissue ulcer and bony erosion. 2. No definite abscess collection identified. 3. Moderate fatty atrophy and edema within the visualized plantar musculature suggestive of denervation changes. No definite evidence of abnormal enhancement to suggest myositis. Recommend correlation clinically. Dictated by: Yasmany Wynn M.D. on 11/07/2020 at 15:25 Approved by: Yasmany Wynn M.D. on 11/07/2020 at 15:33 CT scan - head: Radiologist's Impression: [address] [id number] Scan ReportSigned Patient: Yasmany Ann [facility]#: [id number]: [id number]:[id number]/Sex: 60 / MDate of Service: 11/11/20Loc: EDAccession Number: [id number] Procedure: CT head/brain wo con Ordering Provider: Neto Jenkins [employer] PROCEDURE: CT HEAD/BRAIN WO CON INDICATIONS: head injury 1 week ago, loc, nausea since then TECHNIQUE: Noncontrast 4.5 mm thick angled axial sections acquired from the foramen magnum to the vertex, with coronal and sagittal reformats. For radiation dose reduction, the following was used: automated exposure control, adjustment of mA and/or kV according to patient size. COMPARISON: None. FINDINGS: Image quality: Excellent. CSF spaces: Basal cisterns are patent. No extra-axial fluid collections. The ventricles are symmetric in size and shape. Brain: No intracranial bleeds or masses. There is cerebral volume loss for age, with resultant ventricular and sulcal prominence. There are periventricular and deep white matter chronic small vessel ischemic changes. There is intracranial internal carotid artery atherosclerosis. Skull and face: Calvarium and visualized facial bones appear intact, without suspicious lesions. Sinuses: Visualized sinuses and mastoids are clear. IMPRESSION: No acute intracranial process is seen. No acute intracranial hemorrhage is seen. Dictated by: Hayes Seals M.D. on 11/11/2020 at 11:18 Approved by: Hayes Seals M.D. on 11/11/2020 at 11:18 XR-Ribs: Radiologist's Impression: [address] [id number] ReportSigned Patient: Yasmany Ann [facility]#: [id number]: [id number]:[id number]/Sex: 60 / MDate of Service: 11/11/20Loc: EDAccession Number: [id number] Procedure: XR ribs LT min 3V w CXR1V Ordering Provider: Neto Jenkins PROCEDURE: XR RIBS LT MIN 3V W CXR1V INDICATIONS: injury to left lower, lateral ribs 1 wks ago TECHNIQUE: 3 views of the left ribs were acquired, along with a single view chest. COMPARISON: None. FINDINGS: Surgical changes and devices: Partially visualized cervical spine fixation hardware. Left PICC line with the tip projecting in the lower SVC. Bones and chest wall: No fractures or dislocations. No suspicious bony lesions. Overlying soft tissues appear unremarkable. Lungs and pleura: No pleural effusions or pneumothorax. Lungs appear clear. Mediastinum: Mediastinal contours appear normal. Heart size is normal. IMPRESSION: No acute disease. No rib fracture radiographically identified. Dictated by: Dipak Kovacs M.D. on 11/11/2020 at 12:24 Approved by: Dipak Kovacs M.D. on 11/11/2020 at 12:26 US - abdomen: Radiologist's Impression: [address] [id number] ReportSigned Patient: Yasmany Ann [facility]#: [id number]: [id number]:[id number]/Sex: 60 / MDate of Service: 11/11/20Loc: EDAccession Number: [id number] Procedure: US abdomen limited Ordering Provider: Neto Jenkins PROCEDURE: US ABDOMEN LIMITED INDICATIONS: LUQ PAIN POST FALL 1 WEEK AGO TECHNIQUE: Real-time focused scanning was performed of the abdomen, with image documentation. COMPARISON: None. FINDINGS: The spleen and left kidney are normal in this patient with a presenting history of left upper quadrant pain post trauma. Negative for free fluid. IMPRESSION: Normal left kidney and spleen, without findings of laceration. Negative for free fluid. If there is strong clinical concern for a solid organ injury in this patient with this given history, please consider a dedicated CT of the abdomen and pelvis with IV contrast for further evaluation. Dictated by: Hayes Seals M.D. on 11/11/2020 at 11:20 Approved by: Hayes Seals M.D. on 11/11/2020 at 11:22 MDM Narrative Medical decision making narrative: This is a 60 year old male who was referred to ED from wound care clinic for osteomyelitis treatment by Dr. Terry. MRI test was done 4 days ago when he started notice mild erythema to affected foot. Patient reports significant swelling and redness since 2 days ago. Patient reports low grade temperture and shakes. Due to unable to obtain PIV access, PICC line IV nurse was contacted and established the PICC in anticipation for prolonged IV antibiotic medication therapy. Labs shows significant leukocytosis of 20.8 (10/28/20, WBC 6.5) with shift to left with neutrophil 81.6%. Mild anemia of H/H of 8.9/26 (2/2/- 10.8/31.8). Other inflammatory markers increased. ESR 50 (2/2-54), and increased CRP to 15 (10/28/20 0.7) and procalcitonin of 0.62. Normal lactate. Serum glucose elevated to 297. Decreased kidney function which is slightly decreased from his baseline. Cr 2.16 (1.8) with eGFR of 31.1 (38.4) and BUN of 33. Hyponatremia and hypochloridemia of 128/93. Normal K of 4.5. Covid test was negative. Blood cultures is pending. Head CT was negative for acute findings. Left-sided rib x-rays were negative for fractures. Left PICC line with tip projecting into lower SVC verification. No pleural effusion or pneumothorax. Abdomen ultrasound shows normal spleen and left kidney. There is negative for free fluid. Patient agrees with inpatient hospitalization for antibiotic medication treatment and taxi voucher was offered to so she could return to home. Dr. Le kindly accepted patient's care. <Sharon Baires, DO - Last Filed: 11/12/20 07:22> Lab Data Labs: Lab Results 11/11/20 11/11/20 11/11/20 Range/Units 11:35 11:35 11:35 WBC 20.8 H (4.5-11.0) X10^3/uL RBC 2.99 L (4.5-5.9) X10^6/uL Hgb 8.9 L (13.5-17.5) g/dL Hct 26.0 L (41-53) % MCV 87.0 (80-100) fL MCH 29.8 (26-34) PG MCHC 34.3 (30-36) % RDW 12.0 (11.6-14.8) % Plt Count 248 (150-400) X10^3/uL Neut % (Auto) 81.6 H (50-75) % Lymph % (Auto) 6.4 L (25-40) % [place] % (Auto) 10.8 (3-14) % Eos % (Auto) 0.7 L (2-4) % Baso % (Auto) 0.5 (0-2) % Neut # (Auto) 21565 H (5397-4979) /uL Lymph # (Auto) 1300 (9682-1947) /uL [place] # (Auto) 2300 H (0-900) /uL Eos # (Auto) 100 (0-450) /uL Baso # (Auto) 100 (0-100) /uL ESR 50 H (0-15) MM/HR PT 14.2 H (10.1-12.7) SECONDS INR 1.2 (0.9-1.3) APTT 28 (26.4-36.2) SECONDS Sodium 128 L (137-145) mmol/L Potassium 4.5 (3.4-5.1) mmol/L Chloride 93 L (98-107) mmol/L Carbon Dioxide 32 (22-32) mmol/L BUN 33 H (9-20) mg/dL Creatinine 2.16 H (0.66-1.25) mg/dL Estimated GFR 31.1 L (>60) mL/min BUN/Creatinine Ratio 15.3 (6-22) Glucose 297 H (80-110) mg/dL Lactate (0.7-2.1) mmol/L Calcium 8.4 (8.4-10.2) mg/dL Total Bilirubin 0.4 (0.2-1.3) mg/dL AST 24 (17-59) IU/L ALT 21 (<50) IU/L Alkaline Phosphatase 109 (38-126) U/L C-Reactive Protein 15.0 H (<1.0) mg/dL Total Protein 6.4 (6.3-8.2) g/dL Albumin 3.2 L (3.5-5.0) g/dL Globulin 3.2 (1.7-4.1) g/dL Albumin/Globulin Ratio 1.0 (1.0-2.8) Lipase 12 L (23-300) U/L Procalcitonin 0.62 H (<0.5) ng/mL SARS-CoV-2 (PCR) (Negative) 11/11/20 11/11/20 Range/Units 11:35 12:41 WBC (4.5-11.0) X10^3/uL RBC (4.5-5.9) X10^6/uL Hgb (13.5-17.5) g/dL Hct (41-53) % MCV (80-100) fL MCH (26-34) PG MCHC (30-36) % RDW (11.6-14.8) % Plt Count (150-400) X10^3/uL Neut % (Auto) (50-75) % Lymph % (Auto) (25-40) % [place] % (Auto) (3-14) % Eos % (Auto) (2-4) % Baso % (Auto) (0-2) % Neut # (Auto) (9432-7803) /uL Lymph # (Auto) (6704-0408) /uL [place] # (Auto) (0-900) /uL Eos # (Auto) (0-450) /uL Baso # (Auto) (0-100) /uL ESR (0-15) MM/HR PT (10.1-12.7) SECONDS INR (0.9-1.3) APTT (26.4-36.2) SECONDS Sodium (137-145) mmol/L Potassium (3.4-5.1) mmol/L Chloride (98-107) mmol/L Carbon Dioxide (22-32) mmol/L BUN (9-20) mg/dL Creatinine (0.66-1.25) mg/dL Estimated GFR (>60) mL/min BUN/Creatinine Ratio (6-22) Glucose (80-110) mg/dL Lactate 0.9 (0.7-2.1) mmol/L Calcium (8.4-10.2) mg/dL Total Bilirubin (0.2-1.3) mg/dL AST (17-59) IU/L ALT (<50) IU/L Alkaline Phosphatase (38-126) U/L C-Reactive Protein (<1.0) mg/dL Total Protein (6.3-8.2) g/dL Albumin (3.5-5.0) g/dL Globulin (1.7-4.1) g/dL Albumin/Globulin Ratio (1.0-2.8) Lipase (23-300) U/L Procalcitonin (<0.5) ng/mL SARS-CoV-2 (PCR) Negative (Negative) Point of Care Testing Glucose POC 219 Discharge Plan Departure Patient Disposition: Admitted As Inpatient Clinical Impression: Osteomyelitis, Cellulitis Admit Date/Time: 11/11/20 14:35 Admit Provider: Santy Le <Sharon Baires DO - Last Filed: 11/12/20 07:22> Cosign ED Attending Reneeature Attestation: I was immediately available in the department for consultation. Documentation has been reviewed. Agree with plan and case.
[2020-11-11 11:43] LABS: Add Manual Diff / Slide Review NO; Basophils Absolute Auto 100 /uL (0-100); Basophils Percent Auto 0.5 % (0-2); Eosinophils Absolute Auto 100 /uL (0-450); Eosinophils Percent Auto 0.7 % (2-4); Hemoglobin 8.9 g/dL (13.5-17.5); Lymphocytes Absolute Auto 1300 /uL (1100-4500); Lymphocytes Percent Auto 6.4 % (25-40); Mean Corpuscular HGB Conc 34.3 % (30-36); Mean Corpuscular Hemoglobin 29.8 PG (26-34); Monocytes Absolute Auto 2300 /uL (0-900); Monocytes Percent Auto 10.8 % (3-14); Neutrophils Absolute Auto 17000 /uL (1500-7000); Neutrophils Percent Auto 81.6 % (50-75); Platelet Count 248 X10^3/uL (150-400); Red Blood Cell Count 2.99 X10^6/uL (4.5-5.9); White Blood Cell Count 20.8 X10^3/uL (4.5-11.0)
--- NOTE | 2020-11-11 11:46 | DI.US.S_ITS ---
PROCEDURE: US ABDOMEN LIMITED INDICATIONS: LUQ PAIN POST FALL 1 WEEK AGO TECHNIQUE: Real-time focused scanning was performed of the abdomen, with image documentation. COMPARISON: None. FINDINGS: The spleen and left kidney are normal in this patient with a presenting history of left upper quadrant pain post trauma. Negative for free fluid. IMPRESSION: Normal left kidney and spleen, without findings of laceration. Negative for free fluid. If there is strong clinical concern for a solid organ injury in this patient with this given history, please consider a dedicated CT of the abdomen and pelvis with IV contrast for further evaluation. Dictated by: Hayes Seals M.D. on 11/11/2020 at 11:20 Approved by: Hayes Seals M.D. on 11/11/2020 at 11:22
--- NOTE | 2020-11-11 11:46 | DI.RAD.S_ITS ---
PROCEDURE: XR RIBS LT MIN 3V W CXR1V INDICATIONS: injury to left lower, lateral ribs 1 wks ago TECHNIQUE: 3 views of the left ribs were acquired, along with a single view chest. COMPARISON: None. FINDINGS: Surgical changes and devices: Partially visualized cervical spine fixation hardware. Left PICC line with the tip projecting in the lower SVC. Bones and chest wall: No fractures or dislocations. No suspicious bony lesions. Overlying soft tissues appear unremarkable. Lungs and pleura: No pleural effusions or pneumothorax. Lungs appear clear. Mediastinum: Mediastinal contours appear normal. Heart size is normal. IMPRESSION: No acute disease. No rib fracture radiographically identified. Dictated by: Dipak Kovacs M.D. on 11/11/2020 at 12:24 Approved by: Dipak Kovacs M.D. on 11/11/2020 at 12:26
--- NOTE | 2020-11-11 11:46 | DI.CT.S_ITS ---
PROCEDURE: CT HEAD/BRAIN WO CON INDICATIONS: head injury 1 week ago, loc, nausea since then TECHNIQUE: Noncontrast 4.5 mm thick angled axial sections acquired from the foramen magnum to the vertex, with coronal and sagittal reformats. For radiation dose reduction, the following was used: automated exposure control, adjustment of mA and/or kV according to patient size. COMPARISON: None. FINDINGS: Image quality: Excellent. CSF spaces: Basal cisterns are patent. No extra-axial fluid collections. The ventricles are symmetric in size and shape. Brain: No intracranial bleeds or masses. There is cerebral volume loss for age, with resultant ventricular and sulcal prominence. There are periventricular and deep white matter chronic small vessel ischemic changes. There is intracranial internal carotid artery atherosclerosis. Skull and face: Calvarium and visualized facial bones appear intact, without suspicious lesions. Sinuses: Visualized sinuses and mastoids are clear. IMPRESSION: No acute intracranial process is seen. No acute intracranial hemorrhage is seen. Dictated by: Hayes Seals M.D. on 11/11/2020 at 11:18 Approved by: Hayes Seals M.D. on 11/11/2020 at 11:18
[2020-11-11 11:50] LABS: INR 1.2 (0.9-1.3); Prothrombin Time 14.2 SECONDS (10.1-12.7)
[2020-11-11 11:53] LABS: PTT Partial Thromboplastin Tim 28 SECONDS (26.4-36.2)
[2020-11-11 11:58] LABS: Lactate (Lactic Acid) 0.9 mmol/L (0.7-2.1)
[2020-11-11 12:01] LABS: Alanine Aminotransferase 21 IU/L (<50); Albumin 3.2 g/dL (3.5-5.0); Alkaline Phosphatase 109 U/L (38-126); Aspartate Aminotransferase 24 IU/L (17-59); BUN Creatinine Ratio 15.3 (6-22); Bilirubin Total 0.4 mg/dL (0.2-1.3); Blood Urea Nitrogen 33 mg/dL (9-20); Calcium 8.4 mg/dL (8.4-10.2); Carbon Dioxide 32 mmol/L (22-32); Chloride 93 mmol/L (98-107); Estimated Glomerular Filt Rate 31.1 mL/min (>60); Globulin 3.2 g/dL (1.7-4.1); Glucose 297 mg/dL (80-110); HEMOLYSIS < 15 (0-50); Lipase 12 U/L (23-300); Potassium 4.5 mmol/L (3.4-5.1); Sodium 128 mmol/L (137-145); Total Protein 6.4 g/dL (6.3-8.2)
[2020-11-11 12:07] LABS: Erythrocyte Sedimentation Rate 50 MM/HR (0-15)
[2020-11-11 12:16] LABS: Procalcitonin 0.62 ng/mL (<0.5)
[2020-11-11] MEDS: VANCOMYCIN 1,500 MG/300 ML PIGGYBACK 200 MG IV (12:35)
[2020-11-11] MEDS: OXYCODONE IR 5 MG TABLET 30 MG PO (12:39)
[2020-11-11 13:03] LABS: COVID19 -Nasal RAPID Negative (Negative)
[2020-11-11] MEDS: CEFEPIME 1 GM in SODIUM CHLORIDE 0.9% 100 ML 200 ML IV (14:03)
[2020-11-11] MEDS: SODIUM CHLORIDE 0.9% 500 ML 21 ML IV (15:11)
[2020-11-11] MEDS: BACITRACIN OINT 0.9 GM PCKT 1 APPLIC TOP (15:32)
--- NOTE | 2020-11-11 16:53 | DI.RAD.S_ITS ---
PROCEDURE: XR FOOT RT MIN 3V INDICATIONS: right foot 2nd toe osteo and cellulitis TECHNIQUE: 3 views of the foot were acquired. COMPARISON: [facility], CR, XR FOOT LT MIN 3V, 10/11/2020, 20:51. FINDINGS: Bones: The distal phalanx of the 2nd toe is truncated, likely due to partial amputation with overlying soft tissue resection is well. The residual visualized bone of the distal phalanx of the 2nd toe demonstrates cortical irregularity consistent with osteomyelitis. There are degenerative changes of the interphalangeal joints. No focal osseous lesions. Soft tissues: No tibiotalar joint effusion. Achilles tendon appears normal. Vasculature has atherosclerotic calcifications. IMPRESSION: Likely postoperative changes of the right 2nd toe distally. The remaining visualized bone demonstrates cortical irregularity consistent with osteomyelitis. Dictated by: Toni Waters M.D. on 11/11/2020 at 17:25 Approved by: Toni Waters M.D. on 11/11/2020 at 17:29
[2020-11-11] MEDS: ATORVASTATIN 20 MG TABLET 80 MG PO (21:06)
--- NOTE | 2020-11-11 21:07 | PM.HP.1 ---
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 Rojo at the Wound care clinic. He states that that his right foot have mild erythema started 4 days ago, developed significant redness and swelling 2 days ago and had a low grade fever. He reports did not started on antibiotic medication at that time but notes from Dr. Gautam office indicates he was initiated on Augmentin. The affected toe was debrided at wound care clinic. Patient indicated to me, he was at [employer] when his right foot got wet, tripped and landed on a shopping cart. Per Dr. Bullock's note, on 09/26/20, patient was on his hands and knees cleaning the floor when he injured the top of his left foot. Was not wearing shoes or socks. On 09/30/20 appointment, a draining ulcer was noted at the tip of the right 2nd toe. Patient also injured Left 2nd toe after stubbed on 10/11/20. MRI test was ordered and done outpatiently on 11/07 on the right foot by Dr. Bullock on 11/07/20 which indicated abnormal edema within the 2nd distal phalanx with associated enhancement and suspected small plantar erosion findings are compatible with osteomyelitis. There is soft tissue edema and enhancement in the 2nd toe with suspected ulcer distally. There is no discrete loculated abscess collection identified. Patient also reports he had to incidence of falls last week after wind knocked him over and hit his head. He had a brief duration of loss of consciousness for about 15-20 seconds. Since then he has been having nausea and dizziness with increased in balance difficulty. He also had injured left upper quadrant and lateral rib area when he was pushing grocery cart that was slammed on the door by strong wind and hit his side and left upper abdomen. Patient denies chest pain, breathing difficulty, dizziness prior to the fall. Patient takes baby aspirin daily but no other anticoagulants or platelets. No history of stroke or MIs. Patient History Medical History Diabetes mellitus type 2 in nonobese Diabetic foot ulcer Fracture of left great toe Hyperlipidemia Hypertension Kidney disease, chronic, stage III (GFR 30-59 ml/min) Neuropathy Peripheral vascular disease Surgical History H/O cervical spine surgery History of appendectomy History of partial amputation of toe Family & Social History Social History: household members spouse Prior Living Arrangements House Safety & Behavioral: Feels Safe in Current Yes Environment Been Physically Hurt or No Threatened By a Person Suicidal Ideation Description None Suicide Plan Description No Plan Tobacco & Substance use: Smoking Status Never smoker alcohol intake current alcohol intake frequency 0-2 drinks per day Substance Use Type does not use Meds Home Medications and Allergies Home Medications Medication Instructions Recorded Confirmed Type Lantus U-100 Insulin 38 unit SQ BID #0 05/31/16 11/11/20 History aspirin 81 mg PO QDAY #0 05/31/16 11/11/20 History esomeprazole magnesium [Nexium] 20 mg PO QDAY #0 05/31/16 11/11/20 History gabapentin 600 mg PO DAILY #0 05/31/16 11/11/20 History insulin aspart U-100 [Novolog 8 unit SQ TIDCC #0 05/31/16 11/11/20 History Flexpen U-100 Insulin] amlodipine [Norvasc] 10 mg PO QDAY #0 11/02/16 11/11/20 History atorvastatin [Lipitor] 80 mg PO QDAY #0 11/02/16 11/11/20 History lisinopril 40 mg PO DAILY 11/11/20 11/11/20 History loperamide 2 mg PO Q4H PRN 11/11/20 11/11/20 History oxycodone 30 mg PO Q6H 11/11/20 11/11/20 History Allergies Allergy/AdvReac Type Severity Reaction Status Date / Time amitriptyline [AMITRIPTYLINE] Allergy Unknown Verified 11/11/20 12:33 Review of Systems Constitutional Constitutional: Reports fatigue, Reports frequent falls (5 in past 2 months) and Reports poor appetite Eyes Eyes: Reports requires corrective lenses ENT Ears, Nose, Mouth, and Throat: Yes dizziness (relieved with oxycodone) and Yes hearing loss (chronic) Cardiovascular Cardiovascular: Reports system reviewed and no additional complaints, except as documented Respiratory Respiratory: Reports system reviewed and no additional complaints, except as documented Gastrointestinal Gastrointestinal: Reports constipation (chronic), Reports nausea and Reports vomiting Genitourinary Genitourinary: Reports hematuria Musculoskeletal Musculoskeletal: Reports back pain, Reports myalgias, Reports arthralgias and Reports numbness (both feet) Neurologic Neurologic: Reports dizziness (relieved with oxycodone), Reports frequent falls (5 in past 2 months) and Reports numbness (both feet) Psychiatric Comments: Sees a pain clinician, has had unresolving pain and states has insisted on increased pain medication doses. States he does not feel high on his pain medications. Endocrine Endocrine: Reports fatigue Comments: Poorly controlled diabetes Exam Vital Signs (past 8 hours): - 11/11/20 13:31 11/11/20 13:33 11/11/20 13:57 Temperature Pulse Rate 84 Pulse Rate [Right Dorsalis Pedis] 70 Respiratory Rate Blood Pressure 153/72 H Pulse Oximetry 94 11/11/20 14:00 11/11/20 14:21 11/11/20 14:30 Temperature Pulse Rate 81 89 Pulse Rate [Right Dorsalis Pedis] Respiratory Rate Blood Pressure 161/72 H 170/74 H Pulse Oximetry 96 98 11/11/20 14:51 11/11/20 14:57 11/11/20 15:00 Temperature Pulse Rate 83 92 H 88 Pulse Rate [Right Dorsalis Pedis] Respiratory Rate 16 Blood Pressure 153/70 H Pulse Oximetry 90 L 90 L 99 11/11/20 15:40 11/11/20 20:44 Temperature 101.5 F H 99.4 F Pulse Rate 89 86 Pulse Rate [Right Dorsalis Pedis] Respiratory Rate 16 17 Blood Pressure 149/78 H 154/76 H Pulse Oximetry 98 97 Oxygen Delivery Method Room Air Oxygen Flow Rate 0 Narrative Exam Narrative: Gen: Alert, oriented, well-developed [] y.o. [] fe[]male, NAD HEENT: normocephalic, atraumatic, conjunctiva clear, sclera non-icteric, oral mucosa pink and moist Neck: supple, full ROM, no JVD, trachea is midline Resp: Lungs CTA, non-labored breathing CV: RRR, no murmur or rubs Abd: soft, non-tender, normoactive BTs Skin: no lesions or rashes, dry and intact Neuro: Alert and oriented X 4 w/no focal deficits. Speech clear and coherent. Extremities: right middle toe is purple though not necrotic appearing, large indurated area which has been outlined, moist and weeping. Appears to have a puncture wound at the tip. Left great toe and heel with healing ulcer. Multiple scars in various stages of healing, pale skin color where no wounds present. negative Ulises?s sign Psyche: anxious Objective Labs Result Diagrams: 11/11/20 11:35 11/11/20 11:35 Labs: Laboratory Results - last 24 hr 11/11/20 11/11/20 11/11/20 11:35 11:35 11:35 WBC 20.8 H RBC 2.99 L Hgb 8.9 L Hct 26.0 L MCV 87.0 MCH 29.8 MCHC 34.3 RDW 12.0 Plt Count 248 Neut % (Auto) 81.6 H Lymph % (Auto) 6.4 L [place] % (Auto) 10.8 Eos % (Auto) 0.7 L Baso % (Auto) 0.5 Neut # (Auto) 60707 H Lymph # (Auto) 1300 [place] # (Auto) 2300 H Eos # (Auto) 100 Baso # (Auto) 100 ESR 50 H PT 14.2 H INR 1.2 APTT 28 Sodium 128 L Potassium 4.5 Chloride 93 L Carbon Dioxide 32 BUN 33 H Creatinine 2.16 H Estimated GFR 31.1 L BUN/Creatinine Ratio 15.3 Glucose 297 H Lactate Calcium 8.4 Total Bilirubin 0.4 AST 24 ALT 21 Alkaline Phosphatase 109 C-Reactive Protein 15.0 H Total Protein 6.4 Albumin 3.2 L Globulin 3.2 Albumin/Globulin Ratio 1.0 Lipase 12 L Procalcitonin 0.62 H SARS-CoV-2 (PCR) 11/11/20 11/11/20 11:35 12:41 WBC RBC Hgb Hct MCV MCH MCHC RDW Plt Count Neut % (Auto) Lymph % (Auto) [place] % (Auto) Eos % (Auto) Baso % (Auto) Neut # (Auto) Lymph # (Auto) [place] # (Auto) Eos # (Auto) Baso # (Auto) ESR PT INR APTT Sodium Potassium Chloride Carbon Dioxide BUN Creatinine Estimated GFR BUN/Creatinine Ratio Glucose Lactate 0.9 Calcium Total Bilirubin AST ALT Alkaline Phosphatase C-Reactive Protein Total Protein Albumin Globulin Albumin/Globulin Ratio Lipase Procalcitonin SARS-CoV-2 (PCR) Negative Assessment & Plan Assessment & Plan narrative: Yasmany Ann will be admitted for further management and workup of a suspected osteomylitis as well as endocarditis. Osteomylitis of the right middle toe and cellulitis of the dorsal aspect of his right foot, acute and present on admission - He is intitiated on IV cefepime and vanco - Blood cultures are pending - Drs. 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 Viramontes and Darrel consult and involvement is appreciated. Patient is admitted under inpatient status with expected length of stay greater than 2 midnights due to severity of presenting symptoms, risk of adverse event, and complexity of treatment plan. FEN: NS at 100 ml/hour, NPO, BMP and magnesium in the am. Dispo: unknown at this time Code Status: Full code as discussed with patient COVID-19 COVID-19 status: Negative Result date/Date tested (Pos, Neg/Pending): 11/11/20 Scores Wells' Criteria for PE Clinical signs and symptoms of DVT: No PE is #1 Dx or equally likely: No Heart rate > 100: No Immobilization at least 3 days or surg in previous 4 weeks: No History of PE or DVT: No Hemoptysis: No Malignancy w/Treatment within 6 months or palliative: No Wells' PE Score total: 0 Quality VTE Deep Vein Thrombosis/Pulmonary Embolism Present on Admission: No
[2020-11-11] MEDS: OXYCODONE IR 10 MG TABLET 30 MG PO (21:08)
[2020-11-11] MEDS: CEFEPIME 2 GM in SODIUM CHLORIDE 0.9% 100 ML 200 ML IV (21:15)
[2020-11-11 21:35] LABS: Appearance Urine UA CLEAR; Bilirubin Urine UA NEGATIVE (NEGATIVE); Color Urine UA YELLOW; Glucose Urine UA 1+ g/dL (Negative); Ketones Urine UA NEGATIVE (NEGATIVE); Leukocyte Esterase Urine UA NEGATIVE (NEGATIVE); Nitrite Urine UA NEGATIVE (Negative); Occult Blood Urine UA TRACE-INTACT (Negative); Protein Urine UA 3+ (Negative); Urobilinogen Urine UA 0.2 E.U./dL (0.2)
[2020-11-11 21:42] LABS: Bacteria Urine Occasional (0-1); Culture Indicated Urine Cult Not Indicated; Granular Casts Urine 5-10/LPF; Hyaline Casts Urine 5-10/LPF; Mucus Urine 1+ (Negative); RBC Urine 0-1/HPF (0-5/HPF); WBC Urine 0-1/HPF (0-5/HPF)
[2020-11-11] MEDS: INSULIN ASPART 100 UNIT/ML INSULN PEN SUBCUT (21:43)
[2020-11-12] VITALS (17 sets, daily range): BP systolic 107–163; BP diastolic 52–72; PULSE 69–88; RESP 9–20; TEMP 36.4–38; O2SAT 94–100; BMI 28.6
--- NOTE | 2020-11-12 | PATH_ITS ---
[facility] Accession Number: [id number] . 01 Material submitted: . toe - RIGHT SECOND TOE . 01 Clinical history: . OSTEOMYELITIS BOTH FEET HAVE NEUROPATHY/INFECTED X3 WEEKS . 02 Diagnosis: Right Second Toe, Amputation: Toe with ulcer and deep soft tissue inflammation. Bone with paucicellular marrow; no evidence of osteomyelitis. No bacterial or fungal organisms identified on gram stain or GMS stain, respectively. No evidence of neoplasm. [facility] 11/19/2020 1146 Local . 02 Electronically signed: . Kali Butts MD, PhD, Pathologist NPI- [id number] . 01 Gross description: . The specimen is received in formalin, labeled right second toe and consists of a 3.0 x 2.5 x 2.4 cm disarticulated toe with a leyva-yellow hyperkeratotic unguis. The skin is leyva-pink near the margin and there is a 3.0 x 2.2 x 1.5 cm area of brown discoloration located 0.1 cm from the nearest skin and soft tissue margin and 1.2 cm from the nearest bone margin. Sectioning reveals leyva-pink trabeculated cut surfaces. Also received is a 1.0 x 0.8 x 0.6 cm leyva additional portion of bone. Reducer sections are submitted. . A1: bone margin, en face (following decalcification). A2: cross-section of toe (following decalcification). A3: additional fragment of bone, following decalcification. A4: entry level account representative perpendicular sections of skin in relation to skin and soft tissue margin (blue). ([id number]) /MRV 11/13/2020 1000 Local . 02 Microscopic: . A tissue gram stain is performed to evaluate for bacterial organisms, and none are identified. A GMS stain is performed to evaluate for fungal organisms, and none are identified. Control stains show appropriate reactivity. . 02 Pathologist provided ICD-10: L97.519 . 02 CPT . 034244, 960450, 189994, [id number] Performed at: 01 [facility] [address] [id number] MD Yasmany Smith MD Phone: [phone] Performed at: 02 [facility] [id number] [place] [id number] MD Estephania Lange MD Phone: [phone]
[2020-11-12] MEDS: OXYCODONE IR 10 MG TABLET 30 MG PO ×3 (02:59→20:31)
[2020-11-12] MEDS: SODIUM CHLORIDE 0.9% 1,000 ML 100 ML IV (03:00)
[2020-11-12] MEDS: ONDANSETRON 4 MG/2 ML INJ IV ×2 (03:45→09:03)
[2020-11-12] MEDS: CEFEPIME 2 GM in SODIUM CHLORIDE 0.9% 100 ML 200 ML IV ×2 (05:44→18:52)
[2020-11-12 05:52] LABS: Add Manual Diff / Slide Review NO; Basophils Absolute Auto 100 /uL (0-100); Basophils Percent Auto 0.6 % (0-2); Eosinophils Absolute Auto 300 /uL (0-450); Eosinophils Percent Auto 2.1 % (2-4); Hematocrit 22.5 % (41-53); Hemoglobin 7.7 g/dL (13.5-17.5); Lymphocytes Absolute Auto 1600 /uL (1100-4500); Lymphocytes Percent Auto 9.8 % (25-40); Mean Corpuscular HGB Conc 34.1 % (30-36); Mean Corpuscular Hemoglobin 29.6 PG (26-34); Mean Corpuscular Volume 86.7 fL (80-100); Monocytes Absolute Auto 1800 /uL (0-900); Neutrophils Absolute Auto 12500 /uL (1500-7000); Neutrophils Percent Auto 76.5 % (50-75); Platelet Count 228 X10^3/uL (150-400); Red Blood Cell Count 2.59 X10^6/uL (4.5-5.9); White Blood Cell Count 16.3 X10^3/uL (4.5-11.0)
[2020-11-12 06:01] LABS: Alanine Aminotransferase 21 IU/L (<50); Albumin 2.8 g/dL (3.5-5.0); Alkaline Phosphatase 107 U/L (38-126); Aspartate Aminotransferase 32 IU/L (17-59); BUN Creatinine Ratio 17.4 (6-22); Bilirubin Total 0.3 mg/dL (0.2-1.3); Bilirubin Unconjugated 0.2 mg/dL (0.0-1.1); Blood Urea Nitrogen 37 mg/dL (9-20); Calcium 8.1 mg/dL (8.4-10.2); Carbon Dioxide 30 mmol/L (22-32); Chloride 95 mmol/L (98-107); Estimated Glomerular Filt Rate 31.6 mL/min (>60); Globulin 2.9 g/dL (1.7-4.1); Glucose 171 mg/dL (80-110); HEMOLYSIS < 15 (0-50); Magnesium 2.3 mg/dL (1.6-2.3); Potassium 4.6 mmol/L (3.4-5.1); Sodium 126 mmol/L (137-145); Total Protein 5.7 g/dL (6.3-8.2)
--- NOTE | 2020-11-12 08:29 | P.CONS_ITS ---
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 Rojo at the Wound care clinic. He states that that his right foot have mild erythema started 4 days ago, developed significant redness and swelling 2 days ago and had a low grade fever. He reports did not started on antibiotic medication at that time but notes from Dr. Gautam office indicat es he was initiated on Augmentin. Patient has been on IV antibiotics overnight with no spreading of the cellulitis. Continues to have diffuse pain in the extremity. Meds Home Medications and Allergies Home Medications Medication Instructions Recorded Confirmed Type Lantus U-100 Insulin 38 unit SQ BID #0 05/31/16 11/11/20 History aspirin 81 mg PO QDAY #0 05/31/16 11/11/20 History esomeprazole magnesium [Nexium] 20 mg PO QDAY #0 05/31/16 11/11/20 History gabapentin 600 mg PO DAILY #0 05/31/16 11/11/20 History insulin aspart U-100 [Novolog 8 unit SQ TIDCC #0 05/31/16 11/11/20 History Flexpen U-100 Insulin] amlodipine [Norvasc] 10 mg PO QDAY #0 11/02/16 11/11/20 History atorvastatin [Lipitor] 80 mg PO QDAY #0 11/02/16 11/11/20 History lisinopril 40 mg PO DAILY 11/11/20 11/11/20 History loperamide 2 mg PO Q4H PRN 11/11/20 11/11/20 History oxycodone 30 mg PO Q6H 11/11/20 11/11/20 History Allergies Allergy/AdvReac Type Severity Reaction Status Date / Time amitriptyline [AMITRIPTYLINE] Allergy Unknown Verified 11/11/20 12:33 Exam Vital Signs (past 8 hours): - 11/12/20 03:54 11/12/20 04:00 11/12/20 08:00 Temperature 98.3 F 98.8 F Pulse Rate 86 86 Respiratory Rate 18 15 Blood Pressure 151/69 H 163/65 H Pulse Oximetry 95 95 99 Oxygen Delivery Method Room Air Oxygen Flow Rate 0 Narrative Exam Narrative: Decreased sensation in a stocking foot distribution of his right lower extremity. Sensation returned about 7-10 cm above the level of the ankle. The 2nd toe on the right foot is purple and nonviable. He has dorsal cellulitis spreading to the midfoot which had been marked by a marker yesterday at its distal extent and this has not spread outside this line since being initiated on IV antibiotics. Objective Labs Result Diagrams: 11/12/20 05:35 11/12/20 05:35 Labs: Laboratory Results - last 24 hr 11/11/20 11/11/20 11/11/20 11:35 11:35 11:35 WBC 20.8 H RBC 2.99 L Hgb 8.9 L Hct 26.0 L MCV 87.0 MCH 29.8 MCHC 34.3 RDW 12.0 Plt Count 248 Neut % (Auto) 81.6 H Lymph % (Auto) 6.4 L [place] % (Auto) 10.8 Eos % (Auto) 0.7 L Baso % (Auto) 0.5 Neut # (Auto) 82196 H Lymph # (Auto) 1300 [place] # (Auto) 2300 H Eos # (Auto) 100 Baso # (Auto) 100 ESR 50 H PT 14.2 H INR 1.2 APTT 28 Sodium 128 L Potassium 4.5 Chloride 93 L Carbon Dioxide 32 BUN 33 H Creatinine 2.16 H Estimated GFR 31.1 L BUN/Creatinine Ratio 15.3 Glucose 297 H Hemoglobin A1c Lactate Calcium 8.4 Magnesium Total Bilirubin 0.4 Conjugated Bilirubin Unconjugated Bilirubin AST 24 ALT 21 Alkaline Phosphatase 109 C-Reactive Protein 15.0 H Total Protein 6.4 Albumin 3.2 L Globulin 3.2 Albumin/Globulin Ratio 1.0 Lipase 12 L Procalcitonin 0.62 H Urine Color Urine Appearance Urine pH Ur Specific [place] Urine Protein Urine Glucose (UA) Urine Ketones Urine Occult Blood Urine Nitrate Urine Bilirubin Urine Urobilinogen Ur Leukocyte Esterase Urine RBC Urine WBC Urine Bacteria Hyaline Casts Granular Casts Urine Mucus Ur Culture Indicated? SARS-CoV-2 (PCR) 11/11/20 11/11/20 11/11/20 11:35 12:41 21:30 WBC RBC Hgb Hct MCV MCH MCHC RDW Plt Count Neut % (Auto) Lymph % (Auto) [place] % (Auto) Eos % (Auto) Baso % (Auto) Neut # (Auto) Lymph # (Auto) [place] # (Auto) Eos # (Auto) Baso # (Auto) ESR PT INR APTT Sodium Potassium Chloride Carbon Dioxide BUN Creatinine Estimated GFR BUN/Creatinine Ratio Glucose Hemoglobin A1c Lactate 0.9 Calcium Magnesium Total Bilirubin Conjugated Bilirubin Unconjugated Bilirubin AST ALT Alkaline Phosphatase C-Reactive Protein Total Protein Albumin Globulin Albumin/Globulin Ratio Lipase Procalcitonin Urine Color Yellow Urine Appearance Clear Urine pH 5.0 Ur Specific [place] 1.020 Urine Protein 3+ H Urine Glucose (UA) 1+ H Urine Ketones Negative Urine Occult Blood Trace-intact Urine Nitrate Negative Urine Bilirubin Negative Urine Urobilinogen 0.2 Ur Leukocyte Esterase Negative Urine RBC 0-1/hpf Urine WBC 0-1/hpf Urine Bacteria Occasional (0-1) Hyaline Casts 5-10/lpf Granular Casts 5-10/lpf Urine Mucus 1+ H Ur Culture Indicated? Cult not indicated SARS-CoV-2 (PCR) Negative 11/12/20 11/12/20 11/12/20 05:35 05:35 05:35 WBC 16.3 H RBC 2.59 L Hgb 7.7 L Hct 22.5 L MCV 86.7 MCH 29.6 MCHC 34.1 RDW 12.0 Plt Count 228 Neut % (Auto) 76.5 H Lymph % (Auto) 9.8 L [place] % (Auto) 11.0 Eos % (Auto) 2.1 Baso % (Auto) 0.6 Neut # (Auto) 29316 H Lymph # (Auto) 1600 [place] # (Auto) 1800 H Eos # (Auto) 300 Baso # (Auto) 100 ESR PT INR APTT Sodium 126 L Potassium 4.6 Chloride 95 L Carbon Dioxide 30 BUN 37 H Creatinine 2.13 H Estimated GFR 31.6 L BUN/Creatinine Ratio 17.4 Glucose 171 H D Hemoglobin A1c 8.0 H Lactate Calcium 8.1 L Magnesium 2.3 Total Bilirubin 0.3 Conjugated Bilirubin 0.0 Unconjugated Bilirubin 0.2 AST 32 ALT 21 Alkaline Phosphatase 107 C-Reactive Protein Total Protein 5.7 L Albumin 2.8 L Globulin 2.9 Albumin/Globulin Ratio 1.0 Lipase Procalcitonin Urine Color Urine Appearance Urine pH Ur Specific [place] Urine Protein Urine Glucose (UA) Urine Ketones Urine Occult Blood Urine Nitrate Urine Bilirubin Urine Urobilinogen Ur Leukocyte Esterase Urine RBC Urine WBC Urine Bacteria Hyaline Casts Granular Casts Urine Mucus Ur Culture Indicated? SARS-CoV-2 (PCR) Assessment & Plan Assessment & Plan narrative: Patient is a 60-year-old male who is diabetic peripheral neuropathy he has a chronic ulcer to the 2nd toe of his right foot which has been treated by the wound care clinic however this is advanced osteomyelitis with now cellulitis. Patient will require amputation of the 2nd toe. I discussed with the patient the risks and benefits of surgery. Patient demonstrates understanding and wishes to proceed. Plan will be for a 2nd toe amputation today. - NPO - OCTOR for 2nd toe amputation Time Spent With Patient Time with patient: 15-24 minutes
[2020-11-12] MEDS: GABAPENTIN 600 MG TABLET PO (08:55)
[2020-11-12] MEDS: lisinopriL 20 MG TABLET 40 MG PO (08:55)
[2020-11-12] MEDS: AMLODIPINE 5 MG TABLET 10 MG PO (08:55)
--- NOTE | 2020-11-12 11:33 | DI.US.S_ITS ---
PROCEDURE: US RENAL COMPLETE INDICATIONS: ACUTE KIDNEY INJURY. RULE OUT OBSTRUCTION. TECHNIQUE: Real-time scanning was performed of the kidneys and bladder, with image documentation. COMPARISON: None. FINDINGS: Kidneys: Kidneys are normal in size. Right kidney measures 15.4 cm long; left kidney measures 13.7 cm long. Right renal cortical thickness is 1.6 cm; left renal cortical thickness is 1.8 cm. Renal cortical echotexture is normal. No hydronephrosis or nephrolithiasis. Trace right pelvocaliectasis. No suspicious solid mass lesions. Right kidney is malrotated with the hilum directed toward Morison's pouch. Bladder: Bladder decompressed by Felton catheter. Miscellaneous: No free pelvic fluid. IMPRESSION: No hydronephrosis. Dictated by: Cinthia Gray MD, PhD on 11/12/2020 at 14:43 Approved by: Cinthia Gray MD, PhD on 11/12/2020 at 14:44
--- NOTE | 2020-11-12 11:47 | PC.NURSE ---
Addendum entered by Olga De La Cruz R.N. 11/14/20 06:11: Discussed discontinuation of urinary catheter with patient but he reports catheter placed due to urinary retention and is hesitant about having it taken out. Noted that no BPH medication has been ordered so discussed with Fermín CORTEZ, who stated not to remove catheter at this time and she will discuss medication with daytime hospitalist. Original Note: Patient has multiple skin issues please see under physical assessment. Patients r.second toe is black from toe nail bed to mid toe. into see patient and he will be having this toe removed and go to surgery at 1730. He denies pain to his r.foot as he has neuropathy and states that his l.side hurts as he had a fall a few days back. No bruising or skin issues noted when looking. Patient unable to void last night and unable to go this morning. Bladder scanned for over 400cc. Patient states that he does have some prostate issues but this has never been diagnosed. Dipak from ICU put a coude wooten in patient and was able to get a urine sample that has been sent. Patient is friendly and likes to converse alot and talk about politics. Given 30mg of oxycodone for pain and this has been helpful for discomfort. He is resting now until he goes to surgery.
--- NOTE | 2020-11-12 11:56 | PC.NURSE ---
Pt with acute urinary retention. SBA to BR, pt unable to void. On the way back to bed pt was noted to have small amount of bleeding to left 4th toe. Pt states that he had a blister there previously and denies hitting his toe on anything walking to and from bathroom. Cleaned with ns and patted dry with gauze. Pt positioned comfortably on bed and explained procedure regarding indwelling cath placement. First attempt with 16 fr unsuccessful- unable to advance cath tip past meatus. Spoke with hospitalist who requested I try a 14 fr coude. Second attempt successful and received back brisk clear/yellow urine. Pt tolerated well with minimal discomfort. Placed bed in low, call light in reach. Bed alarm on. Notified hospitalist and RN of catheter placement and open area to toe.
[2020-11-12] MEDS: INSULIN GLARGINE 100 UNIT/ML 3ML PEN 19 UNIT SUBCUT (12:40)
[2020-11-12] MEDS: SODIUM CHLORIDE 0.9% 1,000 ML 125 ML IV (12:41)
[2020-11-12] MEDS: VANCOMYCIN 1,250 MG/250 ML PIGGYBACK 250 MG IV (12:54)
[2020-11-12] MEDS: HYDROMORPHONE 2 MG INJ IV (15:44)
--- NOTE | 2020-11-12 15:55 | CM.DANOTE ---
DCP/Assessment: Reviewed chart. Patient is a 60yr old male admitted to [facility] with foot infection. PCP is Sofie Orozco. Primary payor is 1)Medicare 2)[employer]. Met with patient explained CM/SW role. Patient scheduled to undergo toe amputation this pm. Patient plans to d/c home when medically stable. It is unclear if IV abx will be needed after amputation? Patient reports that he drives and uses cane and walker to ambulate at baseline. P: CM team to follow closely for needs. JOHNSON Gill Discharge Planning/Care Management CM Discharge Assessment Start: 11/12/20 15:50 Freq: Status: Active Protocol: Document 11/12/20 15:51 KJS (Rec: 11/12/20 15:55 KJS [id number]) Discharge Planning Assessment Assigned Banking Pin Adjuster JOHNSON Gill Contact Information Jacob Ann (spouse) # [phone] Advance Directives? No History Provided By Patient,Medical Record Prior Living Arrangements House Household Members spouse Type of transporation used prior to Drives own vehicle admit Independent with ADL's Yes Is patient alert and oriented? Yes Caregiver for Another No DME Already Rented / Owned FWW / Walker,Cane Discharge Plan Home Additional Comment D/C needs pending Whiteboard Updated in Patient Room with Yes name and ext. # of Banking Pin Adjuster Review Status In Process Next Review Type Continued Stay Review
--- NOTE | 2020-11-12 16:34 | PM.PN.1 ---
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 His toe appeared necrotic, and he is scheduled for a toe amputation with Orthopedic surgery later today. A PICC line was placed in the emergency room, his blood cultures are negative. Creatinine minimally improved on todays labs. He complains of his chronic pain, and generalized malaise today. He has been nauseous recently, has known gastroparesis, but says that reglan made him feels worse. Exam Vital Signs (past 8 hours): - 11/12/20 12:00 11/12/20 15:20 Temperature 98.6 F 98.7 F Pulse Rate 88 81 Respiratory Rate 17 18 Blood Pressure 158/58 H 154/72 H Pulse Oximetry 100 100 Oxygen Delivery Method Room Air Oxygen Flow Rate 0 Narrative Exam Narrative: Gen: Alert, oriented, well-developed male in no acute distress. HEENT: normocephalic, atraumatic, conjunctiva clear, sclera non-icteric, oral mucosa pink and moist Neck: supple, full ROM, no JVD, trachea is midline Resp: Lungs CTA, non-labored breathing CV: RRR, no murmur or rubs Abd: soft, non-tender, normoactive BTs Skin: no lesions or rashes, dry and intact Neuro: Alert and oriented X 4 w/no focal deficits. Speech clear and coherent. Extremities: right 2nd toe is purple necrotic, large erythematous area which has been outlined without further progression, moist and weeping. Appears to have a puncture wound at the tip. Left great toe and heel with healing ulcer. Multiple scars in various stages of healing, pale skin color where no wounds present. negative Ulises?s sign Psyche: cooperative with stable behavior, mildly anxious Objective Labs Result Diagrams: 11/12/20 05:35 11/12/20 05:35 Labs: Laboratory Results - last 24 hr 11/11/20 11/12/20 11/12/20 21:30 05:35 05:35 WBC 16.3 H RBC 2.59 L Hgb 7.7 L Hct 22.5 L MCV 86.7 MCH 29.6 MCHC 34.1 RDW 12.0 Plt Count 228 Neut % (Auto) 76.5 H Lymph % (Auto) 9.8 L [place] % (Auto) 11.0 Eos % (Auto) 2.1 Baso % (Auto) 0.6 Neut # (Auto) 12676 H Lymph # (Auto) 1600 [place] # (Auto) 1800 H Eos # (Auto) 300 Baso # (Auto) 100 Sodium 126 L Potassium 4.6 Chloride 95 L Carbon Dioxide 30 BUN 37 H Creatinine 2.13 H Estimated GFR 31.6 L BUN/Creatinine Ratio 17.4 Glucose 171 H D Hemoglobin A1c Calcium 8.1 L Magnesium 2.3 Total Bilirubin 0.3 Conjugated Bilirubin 0.0 Unconjugated Bilirubin 0.2 AST 32 ALT 21 Alkaline Phosphatase 107 Total Protein 5.7 L Albumin 2.8 L Globulin 2.9 Albumin/Globulin Ratio 1.0 Urine Color Yellow Urine Appearance Clear Urine pH 5.0 Ur Specific [place] 1.020 Urine Protein 3+ H Urine Glucose (UA) 1+ H Urine Ketones Negative Urine Occult Blood Trace-intact Urine Nitrate Negative Urine Bilirubin Negative Urine Urobilinogen 0.2 Ur Leukocyte Esterase Negative Urine RBC 0-1/hpf Urine WBC 0-1/hpf Urine Bacteria Occasional (0-1) Hyaline Casts 5-10/lpf Granular Casts 5-10/lpf Urine Mucus 1+ H Ur Culture Indicated? Cult not indicated 11/12/20 05:35 WBC RBC Hgb Hct MCV MCH MCHC RDW Plt Count Neut % (Auto) Lymph % (Auto) [place] % (Auto) Eos % (Auto) Baso % (Auto) Neut # (Auto) Lymph # (Auto) [place] # (Auto) Eos # (Auto) Baso # (Auto) Sodium Potassium Chloride Carbon Dioxide BUN Creatinine Estimated GFR BUN/Creatinine Ratio Glucose Hemoglobin A1c 8.0 H Calcium Magnesium Total Bilirubin Conjugated Bilirubin Unconjugated Bilirubin AST ALT Alkaline Phosphatase Total Protein Albumin Globulin Albumin/Globulin Ratio Urine Color Urine Appearance Urine pH Ur Specific [place] Urine Protein Urine Glucose (UA) Urine Ketones Urine Occult Blood Urine Nitrate Urine Bilirubin Urine Urobilinogen Ur Leukocyte Esterase Urine RBC Urine WBC Urine Bacteria Hyaline Casts Granular Casts Urine Mucus Ur Culture Indicated? 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 Planned for amputation later today with orthopedic surgery. 1. Osteomylitis of the right middle toe and cellulitis of the dorsal aspect of his right foot, acute and present on admission - Started on cefepime and vancomycin per pharmacy, pending cultures. Plan for amputation of his R 2nd toe with orthopedic surgery, Dr. Viramontes. - Blood cultures are currently without growth. Fever and leukocytosis improving with antibiotics. If blood cultures are positive, PICC line placed in the ER should be removed. - further discussion regarding optimal length of antibiotics pending operative interventions. 2. 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 - Glargine 38 units bid, resume tonight. Given half usual dose this AM as he is NPO. - Medium correctional insulin dosing 3. RUPINDER on CKD 3, present on admission - Creatinine 2.18 on admission, slightly improved to 2.13. As of a few months ago Creatinine was 1.1. Likely in setting of active infection. Continue above therapies and fluids. Renal ultrasound without evidence of obstruction. 4. Opioid dependence for chronic pain syndrome - Continue home dose of oxycodone 30 mg po q 6 hours, may need adjustment after surgery slightly. 5. Essential hypertension, chronic - Continue home dose of amlodipine 10 mg po daily. Hold lisinopril for now given RUPINDER. Restart once improved. 6. Hyperlipidemia, chronic - Continue home dose of atorvastatin 80 po daily 7. Peripheral vascular disease - continue asa, statin therapy. Quality VTE Deep Vein Thrombosis/Pulmonary Embolism Present on Admission: No
--- NOTE | 2020-11-12 16:50 | PM.PREOP ---
Pre-operative Note COVID-19 COVID-19 status: Negative Result date/Date tested (Pos, Neg/Pending): 11/11/20 Interval Note History & Physical reviewed/Exam performed by Physician: Yes Changes to H&P: No H&P completed within 30 days and has changed as indicated here:: Plan for left 2nd toe amputation for diabetic ulcer with osteomyelitis
--- NOTE | 2020-11-12 17:32 | SUR.OPER ---
Supine on padded OR bed, head on pillow, arms secured on padded arm boards at <90 degrees abduction, legs uncrossed, safety belt at abdomen, tape over blanket over lower left leg, right leg controlled by surgeon.
--- NOTE | 2020-11-12 17:42 | P.OP_ITS ---
Operative Date/Time/Diagnoses Date of procedure: 11/12/20 Time of procedure: 17:42 Pre-op diagnosis: Right second toe osteomyelitis with diabetic ulcer Post-op diagnosis: same Procedure & Clinicians Procedure: Right 2nd toe transfer line joint mutation Same procedure as scheduled: Yes Indications: Right 2nd toe osteomyelitis with cellulitis and diabetic ulcer Surgeon: James Viramontes Click Yes if Unassisted: No Anesthesia Type: General Operative Notes Findings: Necrotic right 2nd toe with necrotic appearing bone nonviable soft tissue. Specimen(s): other (Bone culture) Estimated Blood Loss (mL): 5 Tourniquet time (min): 15 Procedure in detail: Patient was met in the preoperative holding area where the site and side of surgery were marked by . informed consent was reviewed with the patient including the risks and benefits of surgery risks include need for future surgeries damage to local structures such as vessels and nerves delayed wound healing etc.. Patient demonstrates understanding of the risks and benefits and wishes to proceed with a right 2nd toe amputation. Of note patient has previously had a left 2nd toe partial amputation. Patient was brought back in the operating room where she was induced under general anesthesia. A nonsterile tourniquet was then placed on right thigh and the right lower extremity was elevated for several minutes and then tourniquet was inflated 250 mm of mercury. A surgical incision of the 2nd toe was made in a fish[place] pattern for proximal phalanx transplant Hodan amputation a 15 blade was used to make the incision at which point the middle and distal phalanx were removed and the distal portion of the proximal phalanx was visualized a [place] was then used to elevate the soft tissues from the distal portion of the proximal phalanx and a bone cutter was then used to make the trans-phalangeal amputation. A bone rasp was then used to smooth out the sharp edges. No purulence was encountered. No pockets of necrotic tissue tracking proximally. The wound was then thoroughly irrigated with copious normal saline. And the plantar plate was then sutured to the extensor tendon provide a deep tissue coverage of the bone. Nylons were then loosely used to reapproximate the skin. Xeroform and 4 x 4 dressings were then applied. Complications: none Post-operative Condition: stable Disposition: PACU Plan for aftercare: Continue IV antibiotics, OK to heel weight bear RLE
--- NOTE | 2020-11-12 20:22 | RT ---
Went to assess from RT consult and eval at 1948. Pt refused.
[2020-11-12] MEDS: ATORVASTATIN 20 MG TABLET 80 MG PO (20:28)
[2020-11-12] MEDS: INSULIN GLARGINE 100 UNIT/ML 3ML PEN 38 UNIT SUBCUT (20:29)
[2020-11-13] VITALS (13 sets, daily range): BP systolic 128–158; BP diastolic 60–71; PULSE 73–88; RESP 16–19; TEMP 36.8–38.1; O2SAT 96–100
[2020-11-13] MEDS: SODIUM CHLORIDE 0.9% 1,000 ML 125 ML IV ×3 (00:38→20:56)
[2020-11-13] MEDS: ACETAMINOPHEN 325 MG TABLET 975 MG PO ×2 (02:13→23:22)
[2020-11-13] MEDS: OXYCODONE IR 10 MG TABLET 30 MG PO ×4 (02:13→22:01)
[2020-11-13] MEDS: CEFEPIME 2 GM in SODIUM CHLORIDE 0.9% 100 ML 200 ML IV (05:49)
[2020-11-13 06:28] LABS: Add Manual Diff / Slide Review NO; Basophils Absolute Auto 100 /uL (0-100); Basophils Percent Auto 0.5 % (0-2); Eosinophils Absolute Auto 300 /uL (0-450); Eosinophils Percent Auto 2.1 % (2-4); Hematocrit 23.4 % (41-53); Hemoglobin 7.9 g/dL (13.5-17.5); Lymphocytes Absolute Auto 1400 /uL (1100-4500); Lymphocytes Percent Auto 9.1 % (25-40); Mean Corpuscular HGB Conc 33.7 % (30-36); Mean Corpuscular Hemoglobin 29.4 PG (26-34); Mean Corpuscular Volume 87.4 fL (80-100); Monocytes Absolute Auto 1700 /uL (0-900); Monocytes Percent Auto 10.7 % (3-14); Neutrophils Absolute Auto 12300 /uL (1500-7000); Neutrophils Percent Auto 77.6 % (50-75); Platelet Count 253 X10^3/uL (150-400); Red Blood Cell Count 2.68 X10^6/uL (4.5-5.9); Red Cell Distribution Width 12.3 % (11.6-14.8); White Blood Cell Count 15.8 X10^3/uL (4.5-11.0)
[2020-11-13 06:35] LABS: Alanine Aminotransferase 32 IU/L (<50); Albumin 2.6 g/dL (3.5-5.0); Albumin Globulin Ratio 0.9 (1.0-2.8); Alkaline Phosphatase 99 U/L (38-126); Aspartate Aminotransferase 63 IU/L (17-59); BUN Creatinine Ratio 17.1 (6-22); Bilirubin Total 0.2 mg/dL (0.2-1.3); Bilirubin Unconjugated 0.1 mg/dL (0.0-1.1); Blood Urea Nitrogen 36 mg/dL (9-20); Calcium 7.9 mg/dL (8.4-10.2); Carbon Dioxide 29 mmol/L (22-32); Chloride 99 mmol/L (98-107); Estimated Glomerular Filt Rate 32.2 mL/min (>60); Glucose 79 mg/dL (80-110); HEMOLYSIS < 15 (0-50); Magnesium 2.3 mg/dL (1.6-2.3); Potassium 4.1 mmol/L (3.4-5.1); Sodium 130 mmol/L (137-145); Total Protein 5.6 g/dL (6.3-8.2)
--- NOTE | 2020-11-13 06:52 | PC.NURSE ---
Data Management Analyst Note-Patient dozed intermittently. CBG checked at 0200 to 55, patient was awake, alert, and oriented, ate cheese, crackers, and juice, CBG rechecked 1/2hr later 79, am lab also was 79. Tylenol given for Temp 100.4. SR. Dressing to Rt foot CDI, CMS intact.
[2020-11-13] MEDS: AMLODIPINE 5 MG TABLET 10 MG PO (09:46)
[2020-11-13] MEDS: OXYCODONE IR 5 MG TABLET PO (09:47)
[2020-11-13] MEDS: ONDANSETRON 4 MG/2 ML INJ IV ×2 (09:48→17:02)
[2020-11-13] MEDS: GABAPENTIN 600 MG TABLET PO (09:49)
--- NOTE | 2020-11-13 10:23 | P.PN_ITS ---
Subjective Subjective Date Patient Seen: 11/13/20 Time Patient Seen: 07:20 Interval history: Denies pain. no fever or chills. No N/V. Exam Vital Signs (past 8 hours): - 11/13/20 04:00 11/13/20 06:00 11/13/20 08:05 Temperature 98.3 F 98.7 F Pulse Rate 76 73 Respiratory Rate 18 17 Blood Pressure 143/63 H 139/60 Pulse Oximetry 97 96 100 Oxygen Delivery Method Nasal Cannula Oxygen Flow Rate 0 Narrative Exam Narrative: A&O. NAD. Splint and dressing is clean, dry and intact. Objective Labs Result Diagrams: 11/13/20 06:00 11/13/20 06:00 Labs: Laboratory Results - last 24 hr 11/13/20 11/13/20 06:00 06:00 WBC 15.8 H RBC 2.68 L Hgb 7.9 L Hct 23.4 L MCV 87.4 MCH 29.4 MCHC 33.7 RDW 12.3 Plt Count 253 Neut % (Auto) 77.6 H Lymph % (Auto) 9.1 L [place] % (Auto) 10.7 Eos % (Auto) 2.1 Baso % (Auto) 0.5 Neut # (Auto) 00662 H Lymph # (Auto) 1400 [place] # (Auto) 1700 H Eos # (Auto) 300 Baso # (Auto) 100 Sodium 130 L Potassium 4.1 Chloride 99 Carbon Dioxide 29 BUN 36 H Creatinine 2.10 H Estimated GFR 32.2 L BUN/Creatinine Ratio 17.1 Glucose 79 L Calcium 7.9 L Magnesium 2.3 Total Bilirubin 0.2 Conjugated Bilirubin 0.0 Unconjugated Bilirubin 0.1 AST 63 H ALT 32 Alkaline Phosphatase 99 Total Protein 5.6 L Albumin 2.6 L Globulin 3.0 Albumin/Globulin Ratio 0.9 L SPEC #: [id number] DERRICK: 11/12/20 STATUS: RES REQ #: [id number] SPDESC: Rt Second RECD: 11/12/20-[address]: James Viramontes MD SOURCE: TOE ENTR: 11/12/20-[address]: Sofie Orozco Richard D.O. FAX TO: ORDERED: WOUND Cx and GS COMMENTS: Comment right 2nd toeosteomyelitis (tissue) Procedure Result Verified Site Gram Stain Final 11/12/20- 2019 No Organism Seen No organisms seen White blood cells No WBC seen Epithelial cells Occasional (0-1) Aerobic Culture for wounds Preliminary 11/13/201001 Group B Strep pos Organism 1 Strep agalactiae - (group b) Growth HEAVY Action to follow Sensitivity to Follow Organism 2 Gram negative bacilli Growth LIGHT Action to follow Identification and Sensitivity to Follow Anaerobic Culture Pending [facility] Medical History Diabetes mellitus type 2 in nonobese Diabetic foot ulcer Fracture of left great toe Hyperlipidemia Hypertension Kidney disease, chronic, stage III (GFR 30-59 ml/min) Neuropathy Peripheral vascular disease Surgical History H/O cervical spine surgery History of appendectomy History of partial amputation of toe Social History household members: spouse Smoking Status: Never smoker alcohol intake: current Assessment & Plan Post-op Postoperative Procedures: Procedures Operation Date: 11/12/20 17:15 Actual Procedures Side Surgeon p 2nd Toe Amputation Right James Viramontes MD POD 1. Progressing as expected. Continue IV antibiotics, OK to heel weight bear RLE Quality VTE Deep Vein Thrombosis/Pulmonary Embolism Present on Admission: No
--- NOTE | 2020-11-13 11:20 | PT.IIE ---
Current Diagnoses Type 2 diabetes mellitus with other specified complication (11/11/20) Surgery Performed Operation Date: 11/12/20 17:15 Actual Procedures p 2nd Toe Amputation(Right) - James Viramontes MD Surgical History (Last Reviewed 11/13/20 @ 10:24 by Roddy Arce PA-C) H/O cervical spine surgery History of appendectomy History of partial amputation of toe Medical History (Last Reviewed 11/13/20 @ 10:24 by Roddy Arce PA-C) Diabetes mellitus type 2 in nonobese Diabetic foot ulcer Fracture of left great toe Hyperlipidemia Hypertension Kidney disease, chronic, stage III (GFR 30-59 ml/min) Neuropathy Peripheral vascular disease Physical Therapy Inpatient Evaluation/Re-Eval M1 PT/OT-IP Prior Functional Status Start: 11/13/20 13:51 Freq: NEEDED Status: Active Protocol: Document 11/13/20 11:20 AB (Rec: 11/13/20 14:46 AB [id number]) Medical Review Prior Functional Status Medical History Reviewed Yes Communication able to make needs known Mobility and Gait pt stated that he is able to mobilize by himself at home but is limited due to his vertigo and LE problems. stated that he usually stays on his couch and get up when he has to use the toilet; does not use any AD indoors but furniture cruise; uses SPC for outdoor mobility but stated that he had falls; was still able to drive Social History Household Members spouse Living Arrangements House Number of Floors (Floors) 3 or More Floors Number of Stairs To Enter/Railing? pt stays on first level of the house; has not steps to enter shower is upstairs and has ~ 35 steps with R rail to get to shower floor level Home Environment Standard Height Toilet,Tub/ Shower Home Equipment Front Wheel Walker,Straight Cane,Shower Seat with Backrest Additional Social History Comment stated that spouse works and he is alone most of the day M2 PT-IP Current Condition Start: 11/13/20 13:51 Freq: NEEDED Status: Active Protocol: Document 11/13/20 11:20 AB (Rec: 11/13/20 14:46 AB [id number]) Physical Therapy Current Condition Current Condition Evaluation Date 11/13/20 Treatment Diagnosis R 2nd toe osteomyelitis; difficulty in walking Onset Date 11/11/20 M3 PT-IP Subjective Start: 11/13/20 13:51 Freq: NEEDED Status: Active Protocol: Document 11/13/20 11:20 AB (Rec: 11/13/20 14:46 AB [id number]) Subjective Physical Therapy Visit Type Type Initial Evaluation Visit Start Time 11:20 Visit Stop Time 12:35 Total Visit Minutes 59 Notes split visits: 1120am to 1205 and 1221 to 1235 Number of [employer]LE[employer]F E[employer]REPRENEUR MEDIA PERSONALITY Visits 0 Physical Therapy Visit Comments Patient Comments pt initiall refusing to do PT stated that he cannot move; educated pt on importance of PT and agreed to try. M4 PT-IP Mobility and Gait Start: 11/13/20 13:51 Freq: NEEDED Status: Active Protocol: Document 11/13/20 11:20 AB (Rec: 11/13/20 14:46 AB [id number]) PT-Bed Mobility Assessment Supine to Sit Supine to Sit Standby Assistance Sit to Supine Sit to Supine Standby Assistance PT-Transfer Assessment Sit to and From Stand Sit to and from Stand Contact Guard Assistance,1 Person Assistance,Use of Upper Extremities Equipment Transfer Assistive Device Gait Belt,Front Wheeled Walker Orthotic/Prosthetic Devices or Brace: No Transfers Transfer Destination Toilet Transfer Technique ambulated using FWW Transfer Ability Level of Assist Standby Assistance,Use of Upper Extremities Comments Mobility Comments pt requires increase rest breaks in between tasks. educated on weight bearing restriction on RLE. assisted pt with donning of B post-op shoes. completed supine to sit SBA. pt was able to sit on EOB SBA but c/o vertigo and stated that this is chronic and he usually sits on EOB for ~ 15 before he tries to get up. completed sit to stand CGA and ambulated to the toilet SBA to CGA using FWW. reminded pt regarding RLE heel only weight bearing and pt directed his own care and did not follow direction. pt stated that he wants to use the toilet for awhile. call button placed next to pt. informed nurse. checked on pt again after using the toilet. informed pt regarding SPC but pt refused to do ambulation using SPC. stated that he already know how to use it. pt requested to lay back in bed and completed sit to supine SBA. positioned in bed. call light and table placed within reach . Gait Assessment Gait Gait Assistance Required: Standby Assistance Distance (Feet) 15 Able to Maintain Weight Bearing Status Yes During Gait Assistive Devices Assistive Device Gait Belt,Front Wheeled Walker Orthotic/Prosthetic Devices or Brace: No Gait Deviations General Gait Pattern Antalgic,Decreased Stride Length,Decreased Feet Clearance Factors Limiting Gait Function Factors Limiting Gait Function Decreased Activity Tolerance, Decreased Sensation,Decreased Strength,Difficulty Following Directions,Limited Range of Motion,Pain,Poor Balance,Poor Safety Awareness PT-Balance Assessment Sitting Balance and Reactions Static Sitting Balance Ability Good Dynamic Sitting Balance Ability Good Standing Balance and Reactions Static Standing Balance Ability Fair Dynamic Standing Balance Ability Fair Device Used FWW M5 PT-IP Objective Assessments Start: 11/13/20 13:51 Freq: NEEDED Status: Active Protocol: Document 11/13/20 11:20 AB (Rec: 11/13/20 14:46 AB [id number]) Orientation Orientation/Cognition Level of Alertness Alert Orientation Name Safety Awareness Decreased Safety Awareness Comments pt gets easily distracted Strength Lower Extremity Strength Assessment Bilaterally Impaired Hip 4-/5 Knee 4-/5 Sensation Assessment Sensation Gross Sensation Right UE Impaired,Left UE Impaired,Right LE Impaired, Left LE Impaired Light Touch Impaired Proprioception (Position) Impaired Sensation Description Numbness Muscle Tone Muscle Tone WNL Yes M6 PT-IP Treatment Start: 11/13/20 13:51 Freq: NEEDED Status: Active Protocol: Document 11/13/20 11:20 AB (Rec: 11/13/20 14:46 AB [id number]) Physical Therapy Treatment Education Education Provided Weight Bearing Status,Safety M7 PT-IP Assessment and Plan Start: 11/13/20 13:51 Freq: NEEDED Status: Active Protocol: Document 11/13/20 11:20 AB (Rec: 11/13/20 14:46 AB [id number]) PT Summary Assessment and Plan Potential Rehabilitation Potential Good Status of Condition at Evaluation Evolving Summary Impairments Pain,ROM,Strength,Balance, Coordination,Sensation,Tone, Cognition,Bed Mobility, Transfers,Gait,Activity Tolerance Assessment Summary pt requiring SBA to CGA with mobility using FWW. stated that a FWW will not work around his house and he is set up at home and can manage by himself. refused to do ambulation using SPC today but will attempt tomorrow. pt is not adhering to weight bearing restriction and will direct his own care. Goals Bed Mobility Goal Independent Transfer Goal Independent,Cane Gait Goal Independent,Cane Gait Distance 60 Other Goals ambulation without AD SBA 50 ft Days to Meet Goals 10 Frequency of Treatment Frequency Of Treatment Once a Day Treatment Plan Physical Therapy Treatment Plan Bed Mobility Training,Transfer Training,Gait Training, Therapeutic Exercise,Balance Retraining,Post Op Education, Discharge Planning,Hot or Cold Pack,Neuromuscular Re-ed, Coordination Retraining,Manual Therapy Other Recommendations and Next Treatment ambulation using SPC Focus Recommendations To Nursing Amount of Assist Needed 1 Person Assist Discharge Recommendations PT Discharge Recommendations Home with Assistance Transportation Needs at Discharge Private Vehicle
[2020-11-13] MEDS: INSULIN GLARGINE 100 UNIT/ML 3ML PEN 30 UNIT SUBCUT (11:54)
[2020-11-13] MEDS: VANCOMYCIN 1,250 MG/250 ML PIGGYBACK 250 MG IV (12:28)
--- NOTE | 2020-11-13 12:41 | DIET.PN ---
Dietary Progress Note Assessment: 60y M c hx of CKD3, DM2, s/p right second toe amputation c chronic diabetic foot ulcers followed by wound care referred to nutrition per admission assessment. Pt reports weight loss in MNA assessment but per [facility] records pt is wt stable at 88kg for past 1y. HT: 175.2cm WT: 88kg UBW: 88kg BMI: 28.6 Labs: admit BG >200, A1c 8.0, WBC 15.8 H, Cr 2.1 H, eGFR 32.2 L MNA: 9 @ risk for malnutrition [place]: 20 Pt has hx of partial left second toe amputation, has current unhealing wounds on left heel and left big toenail is purple. Pt reports vomiting after fatty meals and says he has gastroparesis. Pt has been consuming mostly a liquid diet for past 1.5y including soups, Naked Juice, full sugar red bull. Pt states he does not tolerate sugar free products, violeta those with sucralose so consumes regular sugar or skips. Pt states he ate a landjager meat stick a few weeks ago and vomited whole chunks of it up two days later. Pt is not currently followed by packing house laborer and reports not knowing what to do diet bishop to manage his kidney health. Pt was quite upset he didn't get antibiotics sooner to save his toe from being amputated. He has a bandaid on right fourth toe and states to RD he would like that one amputated too and doesn't understand why surgery won't do this. Nutrition Diagnosis: altered nutrition related laboratory values (BG, A1c, Cr, eGFR) r/t dietary indiscretion and nutrition related knowledge deficit aeb admit BG >200, A1c 8.0, eGFR 32.2, Cr 2.1, pt followed by wound care for unhealing wounds c neuropathy, pt s/p second toe amputation, pt doesn't seem to understand the gravity of his food choices in managing these chronic conditions. Interventions: 1. Discussed role of good BG management for resolving chronic wounds and avoiding further amputations. Encouraged pt to drastically reduce or eliminate intake of sugar sweetened beverages. 2. Discussed role of moderating sodium intake to preserve kidney function including reducing ultraprocessed food intake. 3. Discussed nutrients to support wound healing including pro, vit A and C as well as zinc. Diet Order: CCD3 recc low sodium EER: 2g sodium/d, 45g CHO @ meals, 30g @ snacks Monitoring/Evaluations: following POs, PO tolerance
--- NOTE | 2020-11-13 13:33 | PC.NURSE ---
c/m/s to BL feet present; PPP; drsgs c/d/i Pt is anxious about well-being, stating that his body is falling apart, and expressing concerns about infection and healing; this RN spent time educating patient about pathophysiology of neuropathy, and osteomyletis Pt reports sensitivity to smell; IV Zofran administered for nausea; pt reports moderate pain to back and feet; PO oxycodone scheduled and PRN administered
[2020-11-13] MEDS: ENOXAPARIN 40 MG/0.4 ML SYRINGE SUBCUT (14:49)
--- NOTE | 2020-11-13 15:10 | PC.NURSE ---
SUPERVISOR HOME RESTORATION SERVICE/CHIEF COMPLIANCE OFFICER Note: Patient has refused most care such as, oral care and bath/shower. Patient has not had an appetite. Martín notified. Will pass on report as well.
[2020-11-13] MEDS: BISACODYL 5 MG TABLET 10 MG PO (17:04)
[2020-11-13] MEDS: CEFTRIAXONE 1 GM/50 ML FROZ.PIGGY IV (18:04)
--- NOTE | 2020-11-13 18:17 | P.PN_ITS ---
Subjective Subjective Date Patient Seen: 11/13/20 Interval history: The patient is 60-year-old male who is status post amputation of the right 2nd digit. He has overlying cellulitis as well. The erythema of the foot is improving. The patient does however complain of nausea and constipation. His appetite is somewhat poor. Exam Vital Signs (past 8 hours): - 11/13/20 11:50 11/13/20 12:08 11/13/20 15:45 Temperature 98.5 F 99.4 F Pulse Rate 78 88 Respiratory Rate 19 17 Blood Pressure 128/71 158/70 H Pulse Oximetry 98 98 98 11/13/20 16:00 Temperature Pulse Rate Respiratory Rate Blood Pressure Pulse Oximetry 96 Oxygen Delivery Method Room Air Oxygen Flow Rate 0 Narrative Exam Narrative: Ill-appearing male lying in bed Lungs: Clear to auscultation Cardiac exam: Regular rate and rhythm normal S1-S2 Abdomen soft Extremities: Right foot with erythema progressing up the forefoot. Less warmth. It dressing in place over the 2nd Objective Labs Result Diagrams: 11/13/20 06:00 11/13/20 06:00 Labs: Laboratory Results - last 24 hr 11/13/20 11/13/20 06:00 06:00 WBC 15.8 H RBC 2.68 L Hgb 7.9 L Hct 23.4 L MCV 87.4 MCH 29.4 MCHC 33.7 RDW 12.3 Plt Count 253 Neut % (Auto) 77.6 H Lymph % (Auto) 9.[address] [place] % (Auto) 10.7 Eos % (Auto) 2.1 Baso % (Auto) 0.5 Neut # (Auto) 28264 H Lymph # (Auto) 1400 [place] # (Auto) 1700 H Eos # (Auto) 300 Baso # (Auto) 100 Sodium 130 L Potassium 4.1 Chloride 99 Carbon Dioxide 29 BUN 36 H Creatinine 2.10 H Estimated GFR 32.2 L BUN/Creatinine Ratio 17.1 Glucose 79 L Calcium 7.9 L Magnesium 2.3 Total Bilirubin 0.2 Conjugated Bilirubin 0.0 Unconjugated Bilirubin 0.1 AST 63 H ALT 32 Alkaline Phosphatase 99 Total Protein 5.6 L Albumin 2.6 L Globulin 3.0 Albumin/Globulin Ratio 0.9 L PFSH Medical History Diabetes mellitus type 2 in nonobese Diabetic foot ulcer Fracture of left great toe Hyperlipidemia Hypertension Kidney disease, chronic, stage III (GFR 30-59 ml/min) Neuropathy Peripheral vascular disease Surgical History H/O cervical spine surgery History of appendectomy History of partial amputation of toe Social History household members: spouse Smoking Status: Never smoker alcohol intake: current Assessment & Plan Assessment & Plan narrative: Assessment & Plan narrative: Yasmany Ann is a 60 -year-old male, nonsmoker, who has past medical history significant for 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 Planned for amputation later today with orthopedic surgery. 1. Osteomylitis of the right middle toe and cellulitis of the dorsal aspect of his right foot, acute and present on admission -patient is status post 2nd digit amputation -cultures growing strep agalactiae day, and Gram-negative rods -will discontinue vancomycin -will sit cefepime to ceftriaxone 2. 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 - Glargine 38 units bid, resume tonight. Given half usual dose this AM as he is NPO. - Medium correctional insulin dosing -patient became hypoglycemic overnight, his glargine was decreased to 30 units twice daily 3. RUPINDER on CKD 3, present on admission - Creatinine 2.18 on admission, slightly improved to 2.13. As of a few months ago Creatinine was 1.1. Likely in setting of active infection. Continue above therapies and fluids. Renal ultrasound without evidence of obstruction. 4. Opioid dependence for chronic pain syndrome - Continue home dose of oxycodone 30 mg po q 6 hours, may need adjustment after surgery slightly. 5. Essential hypertension, chronic - Continue home dose of amlodipine 10 mg po daily. Hold lisinopril for now given RUPINDER. Restart once improved. 6. Hyperlipidemia, chronic - Continue home dose of atorvastatin 80 po daily 7. Peripheral vascular disease - continue asa, statin therapy. Quality VTE Deep Vein Thrombosis/Pulmonary Embolism Present on Admission: No
--- NOTE | 2020-11-13 21:16 | PC.NURSE ---
emesis post med pass 2109 pt had approx 200 cc emesis. Emesis visualized and pills located whole in output.
--- NOTE | 2020-11-13 22:03 | PC.NURSE ---
bowel function/emesis 2199 pt now informed this RN that he chronically has nausea with emesis. states my stomach has been screwed up for a long time. I can really have any meat or sausage or mejia but this morning I decided to eat my mejia and than my [place] islander toast but the cinnamon and vanilla on it was horrible. Pt states food always feels to get stuck right here indicates epigastric region. Refusing cholesterol medication it just makes me feel sick. I don't think I'm going to take that anymore. Pt without BM since 11/10 and refusing miralax and senna. notified of above.
[2020-11-14] VITALS (10 sets, daily range): BP systolic 133–167; BP diastolic 72–88; PULSE 69–90; RESP 12–18; TEMP 36.3–37.5; O2SAT 97–100
[2020-11-14] MEDS: OXYCODONE IR 10 MG TABLET 30 MG PO ×4 (02:32→20:35)
--- NOTE | 2020-11-14 02:59 | PC.NURSE ---
Addendum entered by Olga De La Cruz R.N. 11/14/20 06:35: Earlier discussed discontinuation of catheter with patient and he is reluctant to do so as states catheter was placed due to urinary retention. Noted that no BPH medications have been initiated so discussed with Fermín CORTEZ, who stated to leave in catheter at this time and she will discuss medications with oncoming hospitalist. Addendum entered by Olga De La Cruz R.N. 11/14/20 06:30: Had 100cc brown liquid emesis. Patient states the nausea/vomiting started 1 week prior to hospitalization. Blames current emesis on the sandwich he ate earlier when CBG was low but that was several hours ago and no undigested food noted in emesis. Discussed with Fermín CORTEZ, and she states evening RN reported patient was self inducing vomiting. Do note patient was on Nexium prior to hospitalization. Original Note: 9984: patient is alert and oriented but vague in responses and with flat affect. Breath sounds CTA with RA sat of 98%. HRR with telemetry reading of SR. States he has chronic nausea/emesis related to gastroparesis. BT present and is passing flatus but has not had a BM since 11/10; reportedly refused Miralax and Senna on previous shift. Indwelling catheter is patent; urine is clear, yellow. Is able to move himself in bed. Up to chair with walker and 1 assist. Initially complained of generalized 4/10 pain but stated as tolerable. At this time is having 8/10 burning pain in right foot and was medicated with scheduled Oxycodone. Has chronic neuropathy in bilateral hands and bilateral LE from toe to just below knee. Dressing to right foot is CDI. CBG checked at 0235 as patient very diaphoretic and hs CBG was only 98; found to have CBG of 43 so was given snack and now CBG 64 so provided additional snack. Wearing bilateral calf SCD's. Fall risk score is high and bed/chair alarm are being used.
[2020-11-14] MEDS: SODIUM CHLORIDE 0.9% FLUSH 10 ML IV ×3 (05:25→09:51)
[2020-11-14] MEDS: ONDANSETRON 4 MG/2 ML INJ IV ×2 (05:25→09:50)
[2020-11-14 05:50] LABS: Add Manual Diff / Slide Review NO; Basophils Absolute Auto 100 /uL (0-100); Basophils Percent Auto 0.6 % (0-2); Eosinophils Absolute Auto 100 /uL (0-450); Eosinophils Percent Auto 0.6 % (2-4); Hematocrit 24.8 % (41-53); Hemoglobin 8.4 g/dL (13.5-17.5); Lymphocytes Absolute Auto 900 /uL (1100-4500); Lymphocytes Percent Auto 4.4 % (25-40); Mean Corpuscular HGB Conc 33.7 % (30-36); Mean Corpuscular Hemoglobin 29.3 PG (26-34); Monocytes Absolute Auto 2100 /uL (0-900); Monocytes Percent Auto 9.8 % (3-14); Neutrophils Absolute Auto 17800 /uL (1500-7000); Neutrophils Percent Auto 84.6 % (50-75); Platelet Count 278 X10^3/uL (150-400); Red Blood Cell Count 2.85 X10^6/uL (4.5-5.9); Red Cell Distribution Width 12.1 % (11.6-14.8)
[2020-11-14 05:57] LABS: Alanine Aminotransferase 61 IU/L (<50); Albumin 2.7 g/dL (3.5-5.0); Albumin Globulin Ratio 0.8 (1.0-2.8); Alkaline Phosphatase 143 U/L (38-126); Aspartate Aminotransferase 85 IU/L (17-59); BUN Creatinine Ratio 16.3 (6-22); Bilirubin Unconjugated 0.1 mg/dL (0.0-1.1); Blood Urea Nitrogen 33 mg/dL (9-20); Calcium 7.9 mg/dL (8.4-10.2); Carbon Dioxide 27 mmol/L (22-32); Chloride 97 mmol/L (98-107); Estimated Glomerular Filt Rate 33.6 mL/min (>60); Globulin 3.2 g/dL (1.7-4.1); Glucose 155 mg/dL (80-110); HEMOLYSIS < 15 (0-50); Magnesium 2.2 mg/dL (1.6-2.3); Potassium 4.3 mmol/L (3.4-5.1); Sodium 130 mmol/L (137-145); Total Protein 5.9 g/dL (6.3-8.2)
[2020-11-14 05:58] LABS: Bilirubin Total < 0.1 mg/dL (0.2-1.3)
[2020-11-14] MEDS: PROCHLORPERAZINE 10 MG/2 ML VIAL IV (06:52)
[2020-11-14] MEDS: PANTOPRAZOLE 40 MG VIAL IV (06:53)
--- NOTE | 2020-11-14 08:11 | PM.PNPO.1 ---
Subjective Subjective Date Patient Seen: 11/14/20 Time Patient Seen: 08:11 Interval history: POD #2 s/p amputation of the right 2nd digit with Dr. Viramontes. Patient's foot is doing fine. No complaints this AM. Exam Vital Signs (past 8 hours): - 11/14/20 00:56 11/14/20 03:00 11/14/20 06:52 Temperature 99.5 F 97.4 F L Pulse Rate 69 80 Respiratory Rate 18 Blood Pressure 133/88 161/72 H Pulse Oximetry 97 Oxygen Delivery Method Room Air Oxygen Flow Rate 0 Narrative Exam Narrative: Patient lying in bed in NAD. He is alert and oriented X3. Calves are soft, compressible, and nontender bilaterally. SILT throughout BLEs. SCDs on and functioning. Dressing on right foot is CDI. Erythema is looking much better in foot today. Objective Labs Result Diagrams: 11/14/20 05:30 11/14/20 05:30 Labs: Laboratory Results - last 24 hr 11/14/20 11/14/20 05:30 05:30 WBC 21.0 H RBC 2.85 L Hgb 8.4 L Hct 24.8 L MCV 87.0 MCH 29.3 MCHC 33.7 RDW 12.1 Plt Count 278 Neut % (Auto) 84.6 H Lymph % (Auto) 4.4 L [place] % (Auto) 9.8 Eos % (Auto) 0.6 L Baso % (Auto) 0.6 Neut # (Auto) 82507 H Lymph # (Auto) 900 L [place] # (Auto) 2100 H Eos # (Auto) 100 Baso # (Auto) 100 Sodium 130 L Potassium 4.3 Chloride 97 L Carbon Dioxide 27 BUN 33 H Creatinine 2.02 H Estimated GFR 33.6 L BUN/Creatinine Ratio 16.3 Glucose 155 H Calcium 7.9 L Magnesium 2.2 Total Bilirubin < 0.1 L Conjugated Bilirubin 0.0 Unconjugated Bilirubin 0.1 AST 85 H ALT 61 H Alkaline Phosphatase 143 H Total Protein 5.9 L Albumin 2.7 L Globulin 3.2 Albumin/Globulin Ratio 0.8 L PFSH Medical History Diabetes mellitus type 2 in nonobese Diabetic foot ulcer Fracture of left great toe Hyperlipidemia Hypertension Kidney disease, chronic, stage III (GFR 30-59 ml/min) Neuropathy Peripheral vascular disease Surgical History H/O cervical spine surgery History of appendectomy History of partial amputation of toe Social History household members: spouse Smoking Status: Never smoker alcohol intake: current Assessment & Plan Post-op Postoperative Procedures: Procedures Operation Date: 11/12/20 17:15 Actual Procedures Side Surgeon p 2nd Toe Amputation Right James Viramontes MD Patient can continue to mobilize with PT. Heel WB. Hospitalist managing multiple comorbidities. Quality VTE Deep Vein Thrombosis/Pulmonary Embolism Present on Admission: No
[2020-11-14] MEDS: polyethylene glycoL 3350 17 GM POWD.PACK PO (09:32)
[2020-11-14] MEDS: METOCLOPRAMIDE 10 MG/2 ML INJ IV (10:19)
[2020-11-14] MEDS: SODIUM CHLORIDE 0.9% 1,000 ML 125 ML IV ×2 (10:32→20:55)
[2020-11-14] MEDS: CEFEPIME 2 GM in SODIUM CHLORIDE 0.9% 100 ML 200 ML IV ×2 (10:33→20:54)
[2020-11-14] MEDS: ENOXAPARIN 40 MG/0.4 ML SYRINGE SUBCUT (10:51)
[2020-11-14] MEDS: TAMSULOSIN 0.4 MG CAPSULE PO (11:04)
[2020-11-14] MEDS: SENNOSIDES 8.6 MG TABLET 17.2 MG PO ×2 (11:04→20:35)
[2020-11-14] MEDS: AMLODIPINE 5 MG TABLET 10 MG PO (11:05)
[2020-11-14] MEDS: GABAPENTIN 600 MG TABLET PO (11:05)
[2020-11-14] MEDS: INSULIN ASPART 100 UNIT/ML INSULN PEN SUBCUT (13:25)
--- NOTE | 2020-11-14 15:30 | PT.IPTN ---
Current Diagnoses Type 2 diabetes mellitus with other specified complication (11/11/20) Surgery Performed Operation Date: 11/12/20 17:15 Actual Procedures p 2nd Toe Amputation(Right) - James Viramontes MD Physical Therapy Treatment Note M2 PT-IP Current Condition Start: 11/13/20 13:51 Freq: NEEDED Status: Active Protocol: Document 11/13/20 11:20 AB (Rec: 11/13/20 14:46 AB [id number]) Physical Therapy Current Condition Current Condition Evaluation Date 11/13/20 Treatment Diagnosis R 2nd toe osteomyelitis; difficulty in walking Onset Date 11/11/20 M3 PT-IP Subjective Start: 11/13/20 13:51 Freq: NEEDED Status: Active Protocol: Document 11/14/20 15:03 CLB (Rec: 11/14/20 16:16 CLB [id number]) Subjective Physical Therapy Visit Type Type Treatment Note Visit Start Time 15:03 Visit Stop Time 15:30 Total Visit Minutes 27 Number of PRESSURISED CONTAINER FILLER Visits 1 Physical Therapy Visit Comments Patient Comments Pt agreeable to get OOB, needed to use BR. Therapy Pain Assessment Pain When Pain Assessed At Rest Pain Present Pain Present Pain Reported Location right foot Intensity 7 Scale Used Numeric (0 - 10) Pain Management Techniques Timing of Activity with Medications M4 PT-IP Mobility and Gait Start: 11/13/20 13:51 Freq: NEEDED Status: Active Protocol: Document 11/14/20 15:03 CLB (Rec: 11/14/20 16:16 CLB [id number]) PT-Bed Mobility Assessment Supine to Sit Supine to Sit Standby Assistance Sit to Supine Sit to Supine Standby Assistance PT-Transfer Assessment Sit to and From Stand Sit to and from Stand Standby Assistance,1 Person Assistance,Use of Upper Extremities Equipment Transfer Assistive Device Gait Belt,Straight Cane Orthotic/Prosthetic Devices or Brace: No Transfers Transfer Destination Toilet Transfer Ability Level of Assist Standby Assistance,Use of Upper Extremities Comments Mobility Comments Pt required SBA to EOB then PRESSURISED CONTAINER FILLER assist pt with donning post op shoes. Pt stood SBA with SPC in right hand and pushing IV pole with other. Pt then ambulated to BR trying to urinate standing but was unable. Pt then turned and sat on toilet SBA with use of wall rails. Pt voided then performed pericare. Once in standing pt used IV pole and SPC to ambulate to sink. Pt stood SBA to wash hands then ambulated to EOB where PRESSURISED CONTAINER FILLER assist with doffing post op shoes and returned to Supine SBA. Left pt in bed with alarm on and all needs within reach , informed PLANT PRODUCTION WORKER of void. Gait Assessment Gait Gait Assistance Required: Standby Assistance Distance (Feet) 15 Assistive Devices Assistive Device Gait Belt,Straight Cane Gait Deviations General Gait Pattern Antalgic,Decreased Stride Length,Decreased Feet Clearance Factors Limiting Gait Function Factors Limiting Gait Function Decreased Activity Tolerance, Decreased Sensation,Decreased Strength,Difficulty Following Directions,Limited Range of Motion,Pain,Poor Balance,Poor Safety Awareness M5 PT-IP Objective Assessments Start: 11/13/20 13:51 Freq: NEEDED Status: Active Protocol: Document 11/13/20 11:20 AB (Rec: 11/13/20 14:46 AB [id number]) Orientation Orientation/Cognition Level of Alertness Alert Orientation Name Safety Awareness Decreased Safety Awareness Comments pt gets easily distracted Strength Lower Extremity Strength Assessment Bilaterally Impaired Hip 4-/5 Knee 4-/5 Sensation Assessment Sensation Gross Sensation Right UE Impaired,Left UE Impaired,Right LE Impaired, Left LE Impaired Light Touch Impaired Proprioception (Position) Impaired Sensation Description Numbness Muscle Tone Muscle Tone WNL Yes M6 PT-IP Treatment Start: 11/13/20 13:51 Freq: NEEDED Status: Active Protocol: Document 11/13/20 11:20 AB (Rec: 11/13/20 14:46 AB [id number]) Physical Therapy Treatment Education Education Provided Weight Bearing Status,Safety M7 PT-IP Assessment and Plan Start: 11/13/20 13:51 Freq: NEEDED Status: Active Protocol: Document 11/14/20 15:03 CLB (Rec: 11/14/20 16:16 CLB [id number]) PT Summary Assessment and Plan Potential Rehabilitation Potential Good Status of Condition at Evaluation Evolving Summary Impairments Pain,ROM,Strength,Balance, Coordination,Sensation,Tone, Cognition,Bed Mobility, Transfers,Gait,Activity Tolerance Assessment Summary Pt requiring SBA-CGA for all mobility. Pt ambulated with SPC and use of IV pole, at this time pt would benefit with continued use of FWW. Pt would also benefit from further ambulation training with SPC as pt states he can not use FWW in home. Pt has poor safety awareness and directs his own care. Goals Bed Mobility Goal Independent Transfer Goal Independent,Cane Gait Goal Independent,Cane Gait Distance 60 Other Goals ambulation without AD SBA 50 ft Days to Meet Goals 10 Frequency of Treatment Frequency Of Treatment Once a Day Treatment Plan Physical Therapy Treatment Plan Bed Mobility Training,Transfer Training,Gait Training, Therapeutic Exercise,Balance Retraining,Post Op Education, Discharge Planning,Hot or Cold Pack,Neuromuscular Re-ed, Coordination Retraining,Manual Therapy Other Recommendations and Next Treatment ambulation using SPC, gait as Focus tolerated. Recommendations To Nursing Amount of Assist Needed 1 Person Assist Discharge Recommendations PT Discharge Recommendations Home with Assistance Transportation Needs at Discharge Private Vehicle
--- NOTE | 2020-11-14 17:34 | P.PN_ITS ---
Subjective Subjective Date Patient Seen: 11/14/20 Interval history: Patient had a difficult night due to significant nausea and vomiting most likely related to his diabetic gastroparesis. He has requested to take his Nexium which has been initiated. He also has continued on IV hydration. His foot appears to be improving. He still has significant erythema, but overall the foot appears improved. Patient is very concerned about his narcotics. He apparently missed his doctor appointment and will not be able to get his follow-up medications until he sees his doctor in the office again. He requested to changes pain medication. I reiterated we will continue his usual outpatient regimen. Patient had several episodes of hypoglycemia yesterday. This appears to have improved with adjustment of his insulin Exam Vital Signs (past 8 hours): - 11/14/20 11:51 11/14/20 16:34 Temperature 98.3 F Pulse Rate 88 90 Respiratory Rate 12 18 Blood Pressure 146/73 H 139/83 Pulse Oximetry 99 98 Oxygen Delivery Method Room Air Oxygen Flow Rate 0 Narrative Exam Narrative: Pleasant gentleman resting comfortably Lungs: Clear to auscultation Cardiac exam regular rate rhythm normal S1-S2 Abdomen soft nontender nondistended Extremities: Right foot reveals amputated 2nd digit, there continues to be erythema of the forefoot and along the plantar surface which appears to be improving Objective Labs Result Diagrams: 11/14/20 05:30 11/14/20 05:30 Labs: Laboratory Results - last 24 hr 11/14/20 11/14/20 05:30 05:30 WBC 21.0 H RBC 2.85 L Hgb 8.4 L Hct 24.8 L MCV 87.0 MCH 29.3 MCHC 33.7 RDW 12.1 Plt Count 278 Neut % (Auto) 84.6 H Lymph % (Auto) 4.4 L [place] % (Auto) 9.8 Eos % (Auto) 0.6 L Baso % (Auto) 0.6 Neut # (Auto) 58242 H Lymph # (Auto) 900 L [place] # (Auto) 2100 H Eos # (Auto) 100 Baso # (Auto) 100 Sodium 130 L Potassium 4.3 Chloride 97 L Carbon Dioxide 27 BUN 33 H Creatinine 2.02 H Estimated GFR 33.6 L BUN/Creatinine Ratio 16.3 Glucose 155 H Calcium 7.9 L Magnesium 2.2 Total Bilirubin < 0.1 L Conjugated Bilirubin 0.0 Unconjugated Bilirubin 0.1 AST 85 H ALT 61 H Alkaline Phosphatase 143 H Total Protein 5.9 L Albumin 2.7 L Globulin 3.2 Albumin/Globulin Ratio 0.8 L [facility], [facility] Medical History Diabetes mellitus type 2 in nonobese Diabetic foot ulcer Fracture of left great toe Hyperlipidemia Hypertension Kidney disease, chronic, stage III (GFR 30-59 ml/min) Neuropathy Peripheral vascular disease Surgical History H/O cervical spine surgery History of appendectomy History of partial amputation of toe Social History household members: spouse Smoking Status: Never smoker alcohol intake: current Assessment & Plan Assessment & Plan narrative: Assessment & Plan narrative: Yasmany Ann is a 60-year-old male, nonsmoker, who has past medical history significant for 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 Planned for amputation later today with orthopedic surgery. 1. Osteomylitis of the right middle toe and cellulitis of the dorsal aspect of his right foot, acute and present on admission -patient is status post 2nd digit amputation -cultures growing strep agalactiae day, and Acinetobactoer -will discontinue vancomycin -given sensitivities will discontinue ceftriaxone -start cefepime -will follow white count, white count up to 21,000 today from 15,000 yesterday -will obtain procalcitonin, and repeat white count in the morning 2. 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 -insulin adjustment, resulted in improvement of blood sugars will continue - Medium correctional insulin dosing -patient became hypoglycemic overnight, his glargine was decreased to 30 units twice daily 3. RUPINDER on CKD 3, present on admission - Creatinine 2.18 on admission, slightly improved to 2.13. As of a few months ago Creatinine was 1.1. Likely in setting of active infection. Continue above therapies and fluids. Renal ultrasound without evidence of obstruction. 4. Opioid dependence for chronic pain syndrome - Continue home dose of oxycodone 30 mg po q 6 hours, may need adjustment after surgery slightly. 5. Essential hypertension, chronic - Continue home dose of amlodipine 10 mg po daily. Hold lisinopril for now given RUPINDER. Restart once improved. 6. Hyperlipidemia, chronic - Continue home dose of atorvastatin 80 po daily 7. Peripheral vascular disease - continue asa, statin therapy. 8. Anticipate discharge once white count improved Quality VTE Deep Vein Thrombosis/Pulmonary Embolism Present on Admission: No
[2020-11-15] VITALS (10 sets, daily range): BP systolic 131–176; BP diastolic 74–88; PULSE 89–96; RESP 16–18; TEMP 36.6–37.1; O2SAT 91–97
[2020-11-15] MEDS: OXYCODONE IR 10 MG TABLET 30 MG PO ×2 (02:43→08:49)
--- NOTE | 2020-11-15 02:57 | P.EN_ITS ---
Event Note Event Note: Nursing states patient is complaining of hallucinations. Complaining of nausea but will not take anti-emetics. Wants to be able to throw up. Was informed a couple of nights ago that he was observed he wasinducing vomiting. He told the nurse teofilo that scents of soaps, hand sanitizers and tissues make him nauseo us. Teofilo states he feels is going through narcotic withdrawal despite receiving the home dose of his oxycodone. He told the nurse it is different from the medication he is dispensed at the [facility]'s pain provider. She offered that he could take his own medication and he declined stating he did not have any. Recommend day team discuss with patient with intent for psyche evaluation if he is still here on Tuesday. Reported behavior sounds like drug induced cyclical vomiting.
--- NOTE | 2020-11-15 03:16 | PC.NURSE ---
pt was awake when this repairer typewriter came iin his room. pt was alert and oriented to self and place only. pt states that we were in the year 2016. pt was complaining of generalized pain, his bed, his wound dressing, and smell. pt instructed to not use the hand automation developer because of his odor sensitivity. Pt then proceeded to acuse this repairer typewriter of using hand automation developer, this repairer typewriter stated I have not used the hand automation developer, I have been washing my hands. pt then proceeded to say that it is your clothes and his clothes and the entire hospital just smells like hand automation developer this repairer typewriter offered options such as coffee grounds to mask the smell, or lip balm. Pt stated he has sensitivity to those too. pt states he was nauseaous but he does not want the anti emetics because I want to puke and it would just stop me from puking this wrter explained how antiemetics work and patient still refused to take them. wound dressing was changed to 2x2 gauze and coban to stay on his foot as he shuffles in his bed. pt was throwing pillow around and had a tantrum because his blankets were not straight. This repairer typewriter helped pt to straighten out his bed and proceeded to complain how his medications are making his body rot Pt was found making himself vomit. this repairer typewriter asked if there was a reason why he is forcing himself to vomit and pt states because I am nauseous this repairer typewriter offered anti emetic meds again but pt refused. pt states that he is having withdrawals. This repairer typewriter explained that he has 30 mg of oxycodone scheduled every 6 hours so it is highly unlikely but pt statesit is from a different hostel manager so it does not really work. This repairer typewriter offered if he has someone who can bring his meds from home and surrender it to the pharmacist and give it to him as soon as the pharmacist and doctor agrees that it is okay then we can possibly give his oxycodone that he takesfrom home. pt states he has none at home. pt complains he is hallucinating. this repairer typewriter asked for specificity and pt states when I close my eyes, I see people walking This repairer typewriter explained that RN and PERSONAL SUPPORT WORKER have been walking through the halls since it is a busy night, pt states no it is not you guys, it is in the room and in my head. pt also refused insulin for blood sugar of 218 This repairer typewriter called DANA Ortega, notified her of what is going on with pt and that his blood sugar is 218 and refused to take insulin. As per hospitalist i don't want to go in there and talk to him because he would just pull me in and jerk me around. As per hospitalist she will have a conversation with day hospitalist to see what can be done. no new orders received
[2020-11-15] MEDS: SODIUM CHLORIDE 0.9% 1,000 ML 125 ML IV (04:38)
[2020-11-15] MEDS: METOCLOPRAMIDE 10 MG/2 ML INJ IV (04:42)
[2020-11-15 05:20] LABS: Hematocrit 24.4 % (41-53); Hemoglobin 8.2 g/dL (13.5-17.5); Mean Corpuscular HGB Conc 33.4 % (30-36); Mean Corpuscular Volume 86.8 fL (80-100); Platelet Count 311 X10^3/uL (150-400); Red Blood Cell Count 2.81 X10^6/uL (4.5-5.9); Red Cell Distribution Width 12.6 % (11.6-14.8); White Blood Cell Count 27.7 X10^3/uL (4.5-11.0)
[2020-11-15 05:23] LABS: Add Manual Diff / Slide Review YES
[2020-11-15 05:34] LABS: BUN Creatinine Ratio 17.8 (6-22); Blood Urea Nitrogen 29 mg/dL (9-20); Calcium 7.9 mg/dL (8.4-10.2); Carbon Dioxide 24 mmol/L (22-32); Chloride 94 mmol/L (98-107); Estimated Glomerular Filt Rate 43.1 mL/min (>60); Glucose 210 mg/dL (80-110); HEMOLYSIS < 15 (0-50); Potassium 4.6 mmol/L (3.4-5.1); Sodium 125 mmol/L (137-145)
[2020-11-15 06:31] LABS: Neutrophils Absolute Manual 24930 /uL (3000-5900); Total Cells Counted 100
[2020-11-15] MEDS: PANTOPRAZOLE 40 MG TABLET PO (06:31)
[2020-11-15 06:32] LABS: RBC Morphology Normal Morphology
[2020-11-15] MEDS: TAMSULOSIN 0.4 MG CAPSULE PO (08:49)
[2020-11-15] MEDS: AMLODIPINE 5 MG TABLET 10 MG PO (08:49)
[2020-11-15] MEDS: SENNOSIDES 8.6 MG TABLET 17.2 MG PO ×2 (08:50→20:28)
[2020-11-15] MEDS: GABAPENTIN 600 MG TABLET PO (08:50)
[2020-11-15] MEDS: ENOXAPARIN 40 MG/0.4 ML SYRINGE SUBCUT (08:50)
[2020-11-15] MEDS: SODIUM CHLORIDE 0.9% FLUSH 10 ML IV (08:51)
[2020-11-15] MEDS: INSULIN GLARGINE 100 UNIT/ML 3ML PEN 30 UNIT SUBCUT ×2 (08:58→20:32)
[2020-11-15] MEDS: levoFLOXacin 500 MG/100 ML PIGGYBACK 100 MG IV (09:08)
--- NOTE | 2020-11-15 09:23 | PC.NURSE ---
pt refused taking vitals pt does not want me to in his room complaining about my strong odor. nurse notified. asked other nurse recruiting assistant to do it for me.
--- NOTE | 2020-11-15 10:37 | PM.PN.1 ---
Subjective Subjective Date Patient Seen: 11/15/20 Time Patient Seen: 10:37 Interval history: Patient complaining of back pain, stomach pain. His foot appears to be improving. He still has significant erythema, but overall the foot appears improved. Patient is very concerned about his narcotics. Exam Vital Signs (past 8 hours): - 11/15/20 04:00 11/15/20 05:00 Temperature 97.9 F Pulse Rate 92 H Respiratory Rate 18 Blood Pressure 131/80 Pulse Oximetry 93 96 Oxygen Delivery Method Room Air Oxygen Flow Rate 0 Narrative Exam Narrative: Dressing changed at bedside. Skin maceration from wet skin around the incision. Dry dressings placed. Receding erythema in the foot as compared to prior Objective Labs Result Diagrams: 11/15/20 04:55 11/15/20 04:55 Labs: Laboratory Results - last 24 hr 11/15/20 11/15/20 11/15/20 04:55 04:55 04:55 WBC 27.7 H RBC 2.81 L Hgb 8.2 L Hct 24.4 L MCV 86.8 MCH 29.0 MCHC 33.4 RDW 12.6 Plt Count 311 Neut % (Auto) Not Reportable Lymph % (Auto) Not Reportable [place] % (Auto) Not Reportable Eos % (Auto) Not Reportable Baso % (Auto) Not Reportable Lymph # (Auto) Not Reportable [place] # (Auto) Not Reportable Baso # (Auto) Not Reportable Total Counted 100 Seg Neutrophils % 88.0 H Band Neutrophils % 2.0 L Lymphocytes % (Manual) 4.0 L Monocytes % (Manual) 6.0 Eosinophils % (Manual) 0.0 L Neutrophils # (Manual) 91625 H RBC Morphology Normal morphology Sodium 125 L Potassium 4.6 Chloride 94 L Carbon Dioxide 24 BUN 29 H Creatinine 1.63 H Estimated GFR 43.1 L BUN/Creatinine Ratio 17.8 Glucose 210 H Calcium 7.9 L Procalcitonin 0.50 PFSH Medical History Diabetes mellitus type 2 in nonobese Diabetic foot ulcer Fracture of left great toe Hyperlipidemia Hypertension Kidney disease, chronic, stage III (GFR 30-59 ml/min) Neuropathy Peripheral vascular disease Surgical History H/O cervical spine surgery History of appendectomy History of partial amputation of toe Social History household members: spouse Smoking Status: Never smoker alcohol intake: current Assessment & Plan Assessment & Plan narrative: Foot appears to be improving despite increasing WBC count. No purulence at the incision. Recommend work-up for second source of infection. - Heal weight bearing - continue cefepime for Group B strep - Hospitalist managing multiple comorbidities. Quality VTE Deep Vein Thrombosis/Pulmonary Embolism Present on Admission: No
--- NOTE | 2020-11-15 11:15 | PT.IPTN ---
Current Diagnoses Type 2 diabetes mellitus with other specified complication (11/11/20) Surgery Performed Operation Date: 11/12/20 17:15 Actual Procedures p 2nd Toe Amputation(Right) - James Viramontes MD Physical Therapy Treatment Note M2 PT-IP Current Condition Start: 11/13/20 13:51 Freq: NEEDED Status: Active Protocol: Document 11/13/20 11:20 AB (Rec: 11/13/20 14:46 AB [id number]) Physical Therapy Current Condition Current Condition Evaluation Date 11/13/20 Treatment Diagnosis R 2nd toe osteomyelitis; difficulty in walking Onset Date 11/11/20 M3 PT-IP Subjective Start: 11/13/20 13:51 Freq: NEEDED Status: Active Protocol: Document 11/15/20 10:14 BRITTANY (Rec: 11/15/20 11:14 LJ [id number]) Subjective Physical Therapy Visit Type Type Treatment Note Visit Start Time 10:14 Visit Stop Time 10:45 Total Visit Minutes 29 Notes Co-tx with OT. OT got pt OOB prior to PT entering room. Pt needing to be taken to BR for shower Physical Therapy Visit Comments Patient Comments Pt agreeable to get OOB, needed to use BR. Therapy Pain Assessment Pain When Pain Assessed At Rest Pain Present Pain Present Pain Reported M4 PT-IP Mobility and Gait Start: 11/13/20 13:51 Freq: NEEDED Status: Active Protocol: Document 11/15/20 10:14 BRITTANY (Rec: 11/15/20 11:14 LJ [id number]) PT-Transfer Assessment Sit to and From Stand Sit to and from Stand Minimal Assistance,Moderate Assistance,2 Person Assistance ,Use of Upper Extremities Equipment Transfer Assistive Device Gait Belt,Front Wheeled Walker Orthotic/Prosthetic Devices or Brace: No Transfers Transfer Destination Chair,Toilet Transfer Technique ambulated using FWW Transfer Ability Level of Assist Minimal Assistance,Moderate Assistance,2 Person Assistance Comments Mobility Comments Pt required VENUS x2 for sit> stand from bed. Verbal cueing for hand placement required. Pt c/o shoulder painand weakness and paused shelter up in bent over position for several seconds prior to coming to complete standing position. Pt c/o lumbar pain and LE weakness, as well as inability to determine where his feet are going. Pt watched his feeet and the floor ambulating to the toilet. Pt sat onto toilet using grab bars with CGA required from one therapist. Pt sat on toilet several minutes to void and have BM. Pt then stood Venus x1 and verbal cues for hand placement using grab bars and FWW. Pt then took several small steps into the shower and used grab bars to hold onto while OT removed FWW and placed shower chair behind pt. Pt then instructed to reach back and lower himself onto shower chair using arm rails to do so. Pt able to lower himself with control. Gait Assessment Gait Gait Assistance Required: Minimum Assistance,Moderate Assistance,2 Person Assist Distance (Feet) 15 Assistive Devices Assistive Device Gait Belt,Front Wheeled Walker Gait Deviations General Gait Pattern Antalgic,Decreased Stride Length,Decreased Feet Clearance,Flexed Trunk,Narrow Based Gait Factors Limiting Gait Function Factors Limiting Gait Function Decreased Activity Tolerance, Decreased Sensation,Decreased Strength,Difficulty Following Directions,Limited Range of Motion,Pain,Poor Balance,Poor Safety Awareness Comments Gait Comments see mobility section M5 PT-IP Objective Assessments Start: 11/13/20 13:51 Freq: NEEDED Status: Active Protocol: Document 11/13/20 11:20 AB (Rec: 11/13/20 14:46 AB [id number]) Orientation Orientation/Cognition Level of Alertness Alert Orientation Name Safety Awareness Decreased Safety Awareness Comments pt gets easily distracted Strength Lower Extremity Strength Assessment Bilaterally Impaired Hip 4-/5 Knee 4-/5 Sensation Assessment Sensation Gross Sensation Right UE Impaired,Left UE Impaired,Right LE Impaired, Left LE Impaired Light Touch Impaired Proprioception (Position) Impaired Sensation Description Numbness Muscle Tone Muscle Tone WNL Yes M6 PT-IP Treatment Start: 11/13/20 13:51 Freq: NEEDED Status: Active Protocol: Document 11/15/20 10:14 BRITTANY (Rec: 11/15/20 11:14 LJ [id number]) Physical Therapy Treatment Education Education Provided Safety M7 PT-IP Assessment and Plan Start: 11/13/20 13:51 Freq: NEEDED Status: Active Protocol: Document 11/15/20 10:14 BRITTANY (Rec: 11/15/20 11:14 LJ [id number]) PT Summary Assessment and Plan Potential Rehabilitation Potential Good Status of Condition at Evaluation Evolving Summary Impairments Pain,ROM,Strength,Balance, Coordination,Sensation,Tone, Cognition,Bed Mobility, Transfers,Gait,Activity Tolerance Assessment Summary Pt requiring increased level of assistance and AD. He moves very slowly and c/o pain while ambulating. Safety awareness is poor and will need further training if sent home with FWW. Currently, pt will not be safe with SPC and will need training prior to DC home. FWW will be necessary if unable to resume using SPC and he will need training with FWW if that is the case. Pt continues to direct his care. This session he did not c/o dizziness and there was no nystagmus observed. Goals Bed Mobility Goal Independent Transfer Goal Independent,Cane Gait Goal Independent,Cane Gait Distance 60 Other Goals ambulation without AD SBA 50 ft Days to Meet Goals 10 Frequency of Treatment Frequency Of Treatment Once a Day Treatment Plan Physical Therapy Treatment Plan Bed Mobility Training,Transfer Training,Gait Training, Therapeutic Exercise,Balance Retraining,Post Op Education, Discharge Planning,Hot or Cold Pack,Neuromuscular Re-ed, Coordination Retraining,Manual Therapy Recommendations To Nursing Amount of Assist Needed 1 Person Assist Discharge Recommendations PT Discharge Recommendations Home with Assistance,Home Health Transportation Needs at Discharge Private Vehicle
--- NOTE | 2020-11-15 12:05 | PC.NURSE ---
Pt up to br to void and upon return to his bed his dressing applied by Dr. Viramontes at 1000 fell off of his foot. Replaced dsg to right foot. No drainage.
--- NOTE | 2020-11-15 12:09 | DI.CT.S_ITS ---
PROCEDURE: CT ABDOMEN PELVIS W CON INDICATIONS: LLQ abd pain, bloating, distension, rising WBC TECHNIQUE: After the administration of oral and intravenous contrast, 5 mm thick sections acquired from the diaphragms to the symphysis. 5 mm thick coronal and sagittal reformats were performed. For radiation dose reduction, the following was used: automated exposure control, adjustment of mA and/or kV according to patient size. COMPARISON: [facility], , US RENAL COMPLETE, 11/12/2020, 12:38. FINDINGS: Image quality: Excellent. ABDOMEN: Lung bases: Small bilateral pleural effusions are seen, right larger than left. Overlying presumed atelectasis can be seen. Mild cardiomegaly is seen. A small hiatal hernia is incidentally noted. Solid organs: Liver is normal in size and enhancement. Gallbladder wall is not thickened. Biliary system is non-dilated. Pancreas enhances normally. Spleen is normal in size and enhancement. No adrenal nodules. Kidneys are normal in size and enhancement, without hydronephrosis. The right kidney demonstrates a rotated axis, with an open face. Peritoneum and bowel: Stomach, small bowel, and colon loops are normal in caliber and wall thickness. No free fluid or air. Colonic diverticulosis is seen, without findings of active diverticulitis. Nodes and vessels: No retroperitoneal or mesenteric adenopathy. Aorta and inferior vena cava are normal in caliber. Atherosclerotic calcification is noted. Miscellaneous: No ventral hernias. Generalized body wall edema can be seen. PELVIS: Genitourinary: Bladder wall thickness is normal. Miscellaneous: No inguinal adenopathy. There is a right inguinal hernia seen, which contains mild fluid. Bones: No suspicious bony lesions. No vertebral body compression fractures. Mild levoconvex scoliotic curvature is noted. This patient has transitional lumbar anatomy. For the purposes of this examination, the level with the last well-developed pair of ribs is considered to be T12. By this numbering scheme, the L5 level is transitional and partially sacralized. Focal L4-L5 degenerative change is seen. IMPRESSION: Sigmoid diverticulosis can be seen, yet without findings of active diverticulitis in this patient with a presenting history of left lower quadrant pain. There is a small amount of ascites. On these images, no loculated abscess can be seen. Small bilateral pleural effusions are seen, right larger than left Anasarca is noted. Incidental note is made of: Mild cardiomegaly Small hiatal hernia Fluid containing right inguinal hernia Levoconvex scoliotic curvature Focal L4-L5 degenerative change Transitional lumbar anatomy, with a partially sacralized L5 level Dictated by: Hayes Seals M.D. on 11/15/2020 at 12:20 Approved by: Hayes Seals M.D. on 11/15/2020 at 12:28
--- NOTE | 2020-11-15 12:44 | PT-IP ANOTE ---
Pt refused 2x in am and 1x in pm. States he is going CT scan
--- NOTE | 2020-11-15 12:57 | PM.PN.1 ---
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 He has been persistently nauseous, had episodes of self induced emesis as well. He is anxious as well. Has a rising WBC count today up to 27K despite adequate antibiotic thearpy with cefepime. Based on cultures this was actually narrowed to levofloxacin today. unclear etiology at this time. Complains of abdominal bloating, distension, and nausea and some LLQ abdominal pain today. Will check an abdominal CT scan to see if there is any other infectious etiologies causing his discomfort and rising leukocytosis. Exam Vital Signs (past 8 hours): - 11/15/20 05:00 11/15/20 08:30 11/15/20 11:20 Temperature 98.7 F Pulse Rate 96 H Respiratory Rate 16 Blood Pressure 176/79 H Pulse Oximetry 96 91 91 Oxygen Delivery Method Room Air Oxygen Flow Rate 0 Narrative Exam Narrative: Gen: Alert, oriented, well-developed male in no acute distress. HEENT: normocephalic, atraumatic, conjunctiva clear, sclera non-icteric, oral mucosa pink and moist Neck: supple, full ROM, no JVD, trachea is midline Resp: Lungs CTA, non-labored breathing CV: RRR, no murmur or rubs Abd: soft, mildly distended, LLQ mild tenderness and fullness. Skin: no lesions or rashes, dry and intact Neuro: Alert and oriented X 4 w/no focal deficits. Speech clear and coherent. Extremities: R foot bandages in place appear c/d/i. LLE without edema or erythema. Objective Labs Result Diagrams: 11/15/20 04:55 11/15/20 04:55 Labs: Laboratory Results - last 24 hr 11/15/20 11/15/20 11/15/20 04:55 04:55 04:55 WBC 27.7 H RBC 2.81 L Hgb 8.2 L Hct 24.4 L MCV 86.8 MCH 29.0 MCHC 33.4 RDW 12.6 Plt Count 311 Neut % (Auto) Not Reportable Lymph % (Auto) Not Reportable [place] % (Auto) Not Reportable Eos % (Auto) Not Reportable Baso % (Auto) Not Reportable Lymph # (Auto) Not Reportable [place] # (Auto) Not Reportable Baso # (Auto) Not Reportable Total Counted 100 Seg Neutrophils % 88.0 H Band Neutrophils % 2.0 L Lymphocytes % (Manual) 4.0 L Monocytes % (Manual) 6.0 Eosinophils % (Manual) 0.0 L Neutrophils # (Manual) 99883 H RBC Morphology Normal morphology Sodium 125 L Potassium 4.6 Chloride 94 L Carbon Dioxide 24 BUN 29 H Creatinine 1.63 H Estimated GFR 43.1 L BUN/Creatinine Ratio 17.8 Glucose 210 H Calcium 7.9 L Procalcitonin 0.50 PFSH Medical History Diabetes mellitus type 2 in nonobese Diabetic foot ulcer Fracture of left great toe Hyperlipidemia Hypertension Kidney disease, chronic, stage III (GFR 30-59 ml/min) Neuropathy Peripheral vascular disease Surgical History H/O cervical spine surgery History of appendectomy History of partial amputation of toe Social History household members: spouse Smoking Status: Never smoker alcohol intake: current Assessment & Plan Assessment & Plan narrative: Yasmany Ann is a 60-year-old male, nonsmoker, who has past medical history significant for 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 S/p toe amputation with orthopedics on 11/12. 1. Osteomylitis of the right middle toe and cellulitis of the dorsal aspect of his right foot, acute and present on admission -patient is status post 2nd digit amputation -cultures growing strep agalactiae day, and Acinetobactoer -vancomycin discontinued, ceftriaxone swithched to cefepime yesterday for rising WBC. Given cultures will narrow to levaquin today. -will follow white count, white count trending up from 15 > 21 > 27 K today. Will begin to look for alternative diagnoses as noted below. -procalcitonin is not significantly changed since admission at 0.50. 2. Leukocytosis - unclear etiology at this time. Will further evaluate with abdominal CT given persistent nausea, bloating, LLQ pain. Consider leukemoid reaction or other hematologic process. - will discontinue picc line placed in the ER. 3. 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 -insulin adjustment, resulted in improvement of blood sugars will continue - Medium correctional insulin dosing -patient became hypoglycemic during his stay, his glargine was decreased to 30 units twice daily, patient stating he is only going to take 10 units today given worsened nausea. 4. RUPINDER on CKD 3, present on admission - Creatinine 2.18 on admission, slightly improved to 2.13. As of a few months ago Creatinine was 1.1. Likely in setting of active infection. Continue above therapies and fluids. Renal ultrasound without evidence of obstruction. Did improve to 1.63 today. 5. Opioid dependence for chronic pain syndrome - Continue home dose of oxycodone 30 mg po q 6 hours, may need adjustment after surgery slightly. 6. Essential hypertension, chronic - Continue home dose of amlodipine 10 mg po daily. Hold lisinopril for now given RUPINDER. Restart once improved. 7. Hyperlipidemia, chronic - Continue home dose of atorvastatin 80 po daily 8. Peripheral vascular disease - continue asa, statin therapy. 9. hyponatremia, acute, present on admission - suspect secondary to nausea and decreased PO intake as he had improved Na to 130 with fluids. Continue IVF with normal saline for now. Dispo: Anticipate discharge once white count improved Quality VTE Deep Vein Thrombosis/Pulmonary Embolism Present on Admission: No
--- NOTE | 2020-11-15 13:10 | PC.NURSE ---
pt refused lunch complaint the smell of the food
[2020-11-15] MEDS: HYDROMORPHONE 4 MG TABLET PO ×4 (13:21→23:45)
--- NOTE | 2020-11-15 14:41 | DI.ECHO.S_ITS ---
[place] +---------+ [facility] +---------+ : : [address] [place] : : : : [id number] : : : : Phone: [phone]---------+ Echocardiogram Report + + :Name: ARLETTE MORENO Study Date: 11/16/2020 Height: 69 in : :[facility] ReadingLocation: Weight: 200 lb : : Gender: Male BSA: 2.1 m2 : :: 1960 Age: 60 yrs BP: 128/92 mmHg: :Reason For Study: PLEURAL EFFUSIONS : :Ordering Physician: HILTON, : :TORY BOWMAN Performed By: Krysten Álvarez : :Referring: TORY CANELA : + + Interpretation Summary 1) Mildly enlarged left ventricle with normal wall motion and normal systolic function (EF 60-65%). 2) Normal right ventricular size and function. 3) There is mild to moderate mitral regurgitation. 4) The right ventricular systolic pressure is estimated to be at least 60 mmHg based on an estimated right atrial pressure of 15 mm Hg. 5) No prior Echo available for comparison. Procedure: A two-dimensional transthoracic echocardiogram with color flow and Doppler was performed. The study quality was technically adequate. There is no prior echocardiogram noted for this patient. The patient was in sinus rhythm with heart rates between 89-97 bpm during the exam. Left Ventricle: The left ventricle is mildly dilated. There is normal left ventricular wall thickness. The ejection fraction is estimated to be 60-65%. Left ventricular systolic function appears normal without focal wall motion abnormalities. Diastolic parameters suggest a pseudonormalization pattern, consistent with probable elevated filling pressures. Right Ventricle: The right ventricle is normal in size and function. Atria: The left atrium is moderately dilated. Right atrial size is normal. There is no Doppler evidence for an interatrial shunt. Mitral Valve: There is mild mitral annular calcification. There is mild to moderate mitral regurgitation. Aortic Valve: The aortic valve is slightly calcified. The aortic valve opens well. The aortic valve is trileaflet. There is no aortic valve stenosis. No aortic regurgitation is present. Tricuspid Valve: The tricuspid valve is normal in structure and function. There is mild tricuspid regurgitation. The right ventricular systolic pressure is estimated to be at least 60 mmHg based on an estimated right atrial pressure of 15 mm Hg. Pulmonic Valve: The pulmonic valve leaflets are thin and pliable; valve motion is normal. There is a trace or physiologic amount of pulmonic regurgitation. Great Vessels: The aortic root is normal size. The dimensions of the ascending aorta are normal. The IVC is dilated (diameter is greater than 2.1 cm) and it collapses less than 50% with a sniff. This suggests a high right atrial pressure of 15 mm Hg. Pericardium/ Pleura There is no pericardial effusion. MMode/2D Measurements & Calculations LVIDd: 6.1 cm LVOT diam: 2.1 cm LVIDs: 4.0 cm Ao root diam: 3.4 cm FS: 34.7 % asc Aorta Diam: 3.1 cm EPSS: 0.70 cm Ao Arch Diam (Prox Trans): 2.7 cm IVSd: 1.0 cm LVPWd: 0.93 cm LV nelson. diameter/BSA (cm/m^2): 3.0 LV sys. diameter/BSA (cm/m^2): 1.9 LA A2 area: 25.5 cm2 RA long axis: 4.9 cm LA A4 area: 24.3 cm2 RA area: 13.1 cm2 LA length (vol): 5.5 cm RA vol: 30.0 ml LA vol: 95.7 ml RA : 14.5 ml/m2 LA vol index: 46.3 ml/m2 RVD1 (basal): 3.2 cm TAPSE: 2.6 cm Doppler Measurements & Calculations Ao V2 max: 160.4 cm/sec LVOT Max David: 110.1 cm/sec Ao V2 mean: 119.3 cm/sec LV V1 max P.8 mmHg Ao max P.3 mmHg LV V1 VTI: 21.2 cm Ao mean P.1 mmHg LOUISA(I,D): 2.2 cm2 Ao V2 VTI: 32.7 cm LOUISA(V,D): 2.4 cm2 sev ratio: 0.65 LOUISA indexed to BSA (cm^2/m^2): 1.1 MV E max david: 107.0 cm/sec TR max david: 336.5 cm/sec MV A max david: 110.5 cm/sec TR max P.3 mmHg MV E/A: 0.97 PA V2 max: 81.9 cm/sec Med Peak E' David: 7.3 cm/sec PA V2 mean: 59.5 cm/sec E/E' med: 14.7 PA mean P.6 mmHg Lat Peak E' David: 11.2 cm/sec PA pr(Accel): 32.8 mmHg E/E' lat: 9.6 E/e' average: 12.2 MV dec time: 0.12 sec [facility] 73.0 ml Reading Physician:01:52 PM
--- NOTE | 2020-11-15 14:51 | CM.SWNOTE ---
BASKET WEAVER Note Patient discussed in multidisciplinary rounds this morning. Patient has a 2-3 day h/o challenging behaviors in room to include refusal of care and medication, complaining of severe odor sensitivity, refusing certain nurses due to smell and threatening to make himself throw up. Night provider Dr Kovacs and Dr Le this morning wonder if patient would benefit from a psych consult Tuesday (if available) as it seems these behaviors are negatively interfering w/patient's care. Met w/patient and introduced SW role. Had lengthy conversation: Patient makes good eye contact w/this BASKET WEAVER, affect is appropriate, patient tends to perseverate on the strength of all the hospital smells around him. Patient can only relate this heightened sense of smell w/the start of IV abx. Patient denies any h/o sensitivity to smells or h/o nausea. Patient admits yeah anxiety is definitely a part of it explains he cares for his who is now at home alone, also admits to a lot of financial burden and does not like being here in the hospital instead of being home. Patient has no h/o counseling, denies illicit drug use and states he does struggle w/anxiety however he will not consider any medication, states they tried that once and it made me go crazy. Patient discusses his nausea at great length, states nothing is making it better, denies being bulimic. Patient hopes his symptoms will improve, denies the need for counseling resources, states only if they can give me hernandez and refuses any anti-anxiety or anti-depressant. Patient agreeable to trying different narcotics to help in symptom management. Updated MARCELA Shi and Dr Le; According to this conversation, Psychiatric consultation does not appear to be needed, and patient would likely refuse medication management of anxiety/depressive symptoms even if offered. JW
[2020-11-15] MEDS: INSULIN ASPART 100 UNIT/ML INSULN PEN SUBCUT ×2 (17:26→20:32)
[2020-11-15] MEDS: MAGNESIUM HYDROXIDE 30 ML UDC PO (19:02)
[2020-11-15] MEDS: MAG HYDROX/ALUM/SIMETH 30 ML UDC PO (19:57)
[2020-11-15 23:54] LABS: Bacteria Urine None Seen; RBC Urine None Seen (0-5/HPF); WBC Urine None Seen (0-5/HPF)
[2020-11-15 23:55] LABS: Appearance Urine UA CLEAR; Bilirubin Urine UA NEGATIVE (NEGATIVE); Color Urine UA YELLOW; Glucose Urine UA TRACE g/dL (Negative); Ketones Urine UA NEGATIVE (NEGATIVE); Leukocyte Esterase Urine UA NEGATIVE (NEGATIVE); Nitrite Urine UA NEGATIVE (Negative); Occult Blood Urine UA 1+ (Negative); Protein Urine UA 2+ (Negative); Urobilinogen Urine UA 0.2 E.U./dL (0.2)
[2020-11-16] VITALS (12 sets, daily range): BP systolic 128–162; BP diastolic 60–92; PULSE 89–98; RESP 17–21; TEMP 36.7–37.3; O2SAT 91–99
[2020-11-16 00:11] LABS: Amorphous Sediment Urine 1+; Culture Indicated Urine Cult Not Indicated; Ur Creatinine Normal (Normal); Ur Specific Gravity Normal (Normal); Urine pH Normal (Normal)
[2020-11-16 00:12] LABS: UR Morphine/Opiate cutoff 300 Positive (Negative); Urine Amphetamines Negative (Negative); Urine Barbiturates Negative (Negative); Urine Benzodiazepines Negative (Negative); Urine Cocaine Negative (Negative); Urine MDMA Negative (Negative); Urine Methadone Negative (Negative); Urine Methamphetamines Negative (Negative); Urine Oxycodone Positive (Negative); Urine Phencyclidine Negative (Negative); Urine Tetrahydrocannabinol Negative (Negative); Urine Tricyclic Antidepressant Negative (Negative)
[2020-11-16] MEDS: SODIUM CHLORIDE 0.9% 1,000 ML 50 ML IV (01:06)
[2020-11-16] MEDS: HYDROMORPHONE 4 MG TABLET PO ×7 (02:30→23:55)
[2020-11-16] MEDS: PANTOPRAZOLE 40 MG TABLET PO (06:00)
[2020-11-16 06:54] LABS: Add Manual Diff / Slide Review NO; Basophils Absolute Auto 200 /uL (0-100); Basophils Percent Auto 1.2 % (0-2); Eosinophils Absolute Auto 200 /uL (0-450); Eosinophils Percent Auto 0.8 % (2-4); Hematocrit 24.4 % (41-53); Hemoglobin 8.3 g/dL (13.5-17.5); Lymphocytes Absolute Auto 1200 /uL (1100-4500); Lymphocytes Percent Auto 6.3 % (25-40); Mean Corpuscular HGB Conc 34.1 % (30-36); Mean Corpuscular Hemoglobin 29.1 PG (26-34); Mean Corpuscular Volume 85.4 fL (80-100); Monocytes Absolute Auto 1500 /uL (0-900); Monocytes Percent Auto 7.7 % (3-14); Neutrophils Absolute Auto 16600 /uL (1500-7000); Platelet Count 351 X10^3/uL (150-400); Red Blood Cell Count 2.85 X10^6/uL (4.5-5.9); Red Cell Distribution Width 12.5 % (11.6-14.8); White Blood Cell Count 19.7 X10^3/uL (4.5-11.0)
[2020-11-16 07:07] LABS: Alanine Aminotransferase 35 IU/L (<50); Albumin 2.6 g/dL (3.5-5.0); Albumin Globulin Ratio 0.9 (1.0-2.8); Alkaline Phosphatase 118 U/L (38-126); Aspartate Aminotransferase 30 IU/L (17-59); Bilirubin Total 0.2 mg/dL (0.2-1.3); Bilirubin Unconjugated 0.2 mg/dL (0.0-1.1); Blood Urea Nitrogen 31 mg/dL (9-20); Calcium 7.8 mg/dL (8.4-10.2); Carbon Dioxide 21 mmol/L (22-32); Chloride 96 mmol/L (98-107); Estimated Glomerular Filt Rate 45.7 mL/min (>60); Glucose 89 mg/dL (80-110); HEMOLYSIS < 15 (0-50); Magnesium 2.1 mg/dL (1.6-2.3); Potassium 4.7 mmol/L (3.4-5.1); Sodium 124 mmol/L (137-145); Total Protein 5.6 g/dL (6.3-8.2)
[2020-11-16] MEDS: SENNOSIDES 8.6 MG TABLET 17.2 MG PO ×2 (08:47→20:36)
[2020-11-16] MEDS: levoFLOXacin 500 MG/100 ML PIGGYBACK 100 MG IV (08:47)
[2020-11-16] MEDS: ENOXAPARIN 40 MG/0.4 ML SYRINGE SUBCUT (08:47)
[2020-11-16] MEDS: AMLODIPINE 5 MG TABLET 10 MG PO (08:47)
[2020-11-16] MEDS: GABAPENTIN 600 MG TABLET PO (08:47)
[2020-11-16] MEDS: TAMSULOSIN 0.4 MG CAPSULE PO (08:47)
--- NOTE | 2020-11-16 09:32 | PC.NURSE ---
pt refused breakfast pt wanted chicken broth and jello
--- NOTE | 2020-11-16 10:17 | PT-IP ANOTE ---
Pt refused working with PT
--- NOTE | 2020-11-16 10:29 | P.PN_ITS ---
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 He has been persistently nauseous, had episodes of self induced emesis as well. He is anxious as well. Had a rising WBC count up to 27K now improved to 19K after changing antibiotic therapy from cefepime to levaquin based on available cultures and removal of the patient's PICC line placed in the ER. Midline was placed instead. Complains of abdominal bloating, distension, and nausea. Abdominal CT imaging yesterday was unremarkable. UA was negative for infection, UDS only positive for opiates which have been given during his stay. His sodium has dropped to 124 today, likely in the setting of nausea / vomiting. He complains of pills getting stuck and reflux type symptoms, which he states is chronic and he has been told this was due to gastroparesis. Exam Vital Signs (past 8 hours): - 11/16/20 04:03 11/16/20 06:00 11/16/20 08:08 Temperature 98.6 F Pulse Rate 92 H Respiratory Rate 18 Blood Pressure 128/92 H Pulse Oximetry 97 99 99 11/16/20 08:15 Temperature 98.6 F Pulse Rate 90 Respiratory Rate 21 Blood Pressure 159/60 H Pulse Oximetry 91 Oxygen Delivery Method Room Air Oxygen Flow Rate 0 Narrative Exam Narrative: Gen: Alert, oriented, well-developed male in no acute distress. HEENT: normocephalic, atraumatic, conjunctiva clear, sclera non-icteric, oral mucosa pink and moist Neck: supple, full ROM, no JVD, trachea is midline Resp: Lungs CTA, non-labored breathing CV: RRR, no murmur or rubs Abd: soft, non-tender, mild distension. Skin: no lesions or rashes, dry and intact Neuro: Alert and oriented X 4 w/no focal deficits. Speech clear and coherent. Extremities: R foot bandages in place appear c/d/i. bilateral LE edema 2+ Objective Labs Result Diagrams: 11/16/20 06:05 11/16/20 06:05 Labs: Laboratory Results - last 24 hr 11/15/20 11/15/20 11/16/20 23:29 23:29 06:05 WBC 19.7 H RBC 2.85 L Hgb 8.3 L Hct 24.4 L MCV 85.4 MCH 29.1 MCHC 34.1 RDW 12.5 Plt Count 351 Neut % (Auto) 84.0 H Lymph % (Auto) 6.3 L [place] % (Auto) 7.7 Eos % (Auto) 0.8 L Baso % (Auto) 1.2 Neut # (Auto) 03906 H Lymph # (Auto) 1200 [place] # (Auto) 1500 H Eos # (Auto) 200 Baso # (Auto) 200 H Sodium Potassium Chloride Carbon Dioxide BUN Creatinine Estimated GFR BUN/Creatinine Ratio Glucose Calcium Magnesium Total Bilirubin Conjugated Bilirubin Unconjugated Bilirubin AST ALT Alkaline Phosphatase Total Protein Albumin Globulin Albumin/Globulin Ratio Urine Color Yellow Urine Appearance Clear Urine pH 5.0 Ur Specific [place] 1.010 Urine Protein 2+ H Urine Glucose (UA) Trace H Urine Ketones Negative Urine Occult Blood 1+ H Urine Nitrate Negative Urine Bilirubin Negative Urine Urobilinogen 0.2 Ur Leukocyte Esterase Negative Urine RBC None seen Urine WBC None seen Amorphous Sediment 1+ Urine Bacteria None seen Ur Culture Indicated? Cult not indicated U Opiates 300ng/mL cut Positive H Ur Oxycodone Screen Positive H Urine Methadone Screen Negative Ur Barbiturates Screen Negative U Tricyclic Antidepress Negative Ur Phencyclidine Scrn Negative Ur Amphetamines Screen Negative U Methamphetamines Scrn Negative Ur MDMA Scrn (Ecstasy) Negative U Benzodiazepines Scrn Negative Urine Cocaine Screen Negative U Marijuana (THC) Screen Negative 11/16/20 06:05 WBC RBC Hgb Hct MCV MCH MCHC RDW Plt Count Neut % (Auto) Lymph % (Auto) [place] % (Auto) Eos % (Auto) Baso % (Auto) Neut # (Auto) Lymph # (Auto) [place] # (Auto) Eos # (Auto) Baso # (Auto) Sodium 124 L Potassium 4.7 Chloride 96 L Carbon Dioxide 21 L BUN 31 H Creatinine 1.55 H Estimated GFR 45.7 L BUN/Creatinine Ratio 20.0 Glucose 89 D Calcium 7.8 L Magnesium 2.1 Total Bilirubin 0.2 Conjugated Bilirubin 0.0 Unconjugated Bilirubin 0.2 AST 30 ALT 35 Alkaline Phosphatase 118 Total Protein 5.6 L Albumin 2.6 L Globulin 3.0 Albumin/Globulin Ratio 0.9 L Urine Color Urine Appearance Urine pH Ur Specific [place] Urine Protein Urine Glucose (UA) Urine Ketones Urine Occult Blood Urine Nitrate Urine Bilirubin Urine Urobilinogen Ur Leukocyte Esterase Urine RBC Urine WBC Amorphous Sediment Urine Bacteria Ur Culture Indicated? U Opiates 300ng/mL cut Ur Oxycodone Screen Urine Methadone Screen Ur Barbiturates Screen U Tricyclic Antidepress Ur Phencyclidine Scrn Ur Amphetamines Screen U Methamphetamines Scrn Ur MDMA Scrn (Ecstasy) U Benzodiazepines Scrn Urine Cocaine Screen U Marijuana (THC) Screen [facility] Medical History Diabetes mellitus type 2 in nonobese Diabetic foot ulcer Fracture of left great toe Hyperlipidemia Hypertension Kidney disease, chronic, stage III (GFR 30-59 ml/min) Neuropathy Peripheral vascular disease Surgical History H/O cervical spine surgery History of appendectomy History of partial amputation of toe Social History household members: spouse Smoking Status: Never smoker alcohol intake: current Assessment & Plan Assessment & Plan narrative: Yasmany Ann is a 60-year-old male, nonsmoker, who has past medical history significant for 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 S/p toe amputation with orthopedics on 11/12. 1. Osteomylitis of the right middle toe and cellulitis of the dorsal aspect of his right foot, acute and present on admission -patient is status post 2nd digit amputation -cultures growing strep agalactiae day, and Acinetobactoer -vancomycin discontinued, ceftriaxone swithched to cefepime 11/14 for rising WBC without much improvement. Given cultures narrowed to levaquin 11/15 with improved WBC to 19K today. -will follow white count, 15 > 21 > 27 > 19K today. No obvious cause, consider alternative diagnoses as noted below. -procalcitonin is not significantly changed since admission at 0.50. 2. Leukocytosis - unclear etiology at this time. No obvious infectious etiologies for his leukocytosis other than his PICC line placed in the ER which was removed yesterday. Consider leukemoid reaction or hematologic process if this continues. - discontinued picc line placed in the ER. 3. 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 - A1c was 8.2 on 10/28, 7.9 on admission. -insulin adjustment, resulted in improvement of blood sugars will continue - Medium correctional insulin dosing -patient became hypoglycemic during his stay, his glargine was decreased to 30 units twice daily. -continue reglan, change to AC to see if improvement in gastroparesis symptoms should patient allow continued use (he had refused this previously). 4. RUPINDER on CKD 3, present on admission - Creatinine 2.18 on admission, slightly improved to 2.13. As of a few months ago Creatinine was 1.1. Likely in setting of active infection. Continue above therapies and fluids. Renal ultrasound without evidence of obstruction. Did improve to 1.55 today and continues to improve. 5. Opioid dependence for chronic pain syndrome - patient stating hospital medication was ineffective, changed to dilaudid with some improvement 11/15. 6. Essential hypertension, chronic - Continue home dose of amlodipine 10 mg po daily. Held lisinopril for now RUPINDER. Will resume tomorrow 11/17. 7. Hyperlipidemia, chronic - Continue home dose of atorvastatin 80 po daily 8. Peripheral vascular disease - continue asa, statin therapy. 9. hyponatremia, acute, present on admission - suspect secondary to nausea and decreased PO intake as he had improved Na to 130 with fluids. However he now appears volume overloaded on exam with LE edema and anasarca apparent on CT imaging. TTE is pending for further evaluation. 10. LE edema - possibly related to excessive fluids during hospital stay. TTE pending. Dispo: Anticipate discharge once white count improved COVID-19 COVID-19 status: Negative Quality VTE Deep Vein Thrombosis/Pulmonary Embolism Present on Admission: No
--- NOTE | 2020-11-16 10:59 | PM.PNPO.1 ---
Subjective Subjective Date Patient Seen: 11/16/20 Time Patient Seen: 11:00 Interval history: 60-year-old male with uncontrolled diabetes, chronic kidney disease and neuropathystatus post amputation partial right 2nd toe with Dr. Viramontes for osteomyelitis he has had a persistently high white blood cell count yesterday was 27 but is improved today to 19. this CT abdomen pelvis and no focal findings. Exam Vital Signs (past 8 hours): - 11/16/20 04:03 11/16/20 06:00 11/16/20 08:08 Temperature 98.6 F Pulse Rate 92 H Respiratory Rate 18 Blood Pressure 128/92 H Pulse Oximetry 97 99 99 11/16/20 08:15 Temperature 98.6 F Pulse Rate 90 Respiratory Rate 21 Blood Pressure 159/60 H Pulse Oximetry 91 Oxygen Delivery Method Room Air Oxygen Flow Rate 0 Narrative Exam Narrative: alert oriented male sitting in bed no acute distress respiratory breathing unlabored on room air CV regular rate and rhythm right foot dressing removed and changed today. Second toe partial toe amputation with sutures in place. Mild erythema no drainage. No fluctuance or purulence. A cellulitis within demarcations. Overall very dry skin moderate swelling. No focal tenderness to palpation. No evidence of ascending infection Objective Labs Result Diagrams: 11/16/20 06:05 11/16/20 06:05 Labs: Laboratory Results - last 24 hr 11/15/20 11/15/20 11/16/20 23:29 23:29 06:05 WBC 19.7 H RBC 2.85 L Hgb 8.3 L Hct 24.4 L MCV 85.4 MCH 29.1 MCHC 34.1 RDW 12.5 Plt Count 351 Neut % (Auto) 84.0 H Lymph % (Auto) 6.3 L [place] % (Auto) 7.7 Eos % (Auto) 0.8 L Baso % (Auto) 1.2 Neut # (Auto) 42629 H Lymph # (Auto) 1200 [place] # (Auto) 1500 H Eos # (Auto) 200 Baso # (Auto) 200 H Sodium Potassium Chloride Carbon Dioxide BUN Creatinine Estimated GFR BUN/Creatinine Ratio Glucose Calcium Magnesium Total Bilirubin Conjugated Bilirubin Unconjugated Bilirubin AST ALT Alkaline Phosphatase Total Protein Albumin Globulin Albumin/Globulin Ratio Urine Color Yellow Urine Appearance Clear Urine pH 5.0 Ur Specific [place] 1.010 Urine Protein 2+ H Urine Glucose (UA) Trace H Urine Ketones Negative Urine Occult Blood 1+ H Urine Nitrate Negative Urine Bilirubin Negative Urine Urobilinogen 0.2 Ur Leukocyte Esterase Negative Urine RBC None seen Urine WBC None seen Amorphous Sediment 1+ Urine Bacteria None seen Ur Culture Indicated? Cult not indicated U Opiates 300ng/mL cut Positive H Ur Oxycodone Screen Positive H Urine Methadone Screen Negative Ur Barbiturates Screen Negative U Tricyclic Antidepress Negative Ur Phencyclidine Scrn Negative Ur Amphetamines Screen Negative U Methamphetamines Scrn Negative Ur MDMA Scrn (Ecstasy) Negative U Benzodiazepines Scrn Negative Urine Cocaine Screen Negative U Marijuana (THC) Screen Negative 11/16/20 06:05 WBC RBC Hgb Hct MCV MCH MCHC RDW Plt Count Neut % (Auto) Lymph % (Auto) [place] % (Auto) Eos % (Auto) Baso % (Auto) Neut # (Auto) Lymph # (Auto) [place] # (Auto) Eos # (Auto) Baso # (Auto) Sodium 124 L Potassium 4.7 Chloride 96 L Carbon Dioxide 21 L BUN 31 H Creatinine 1.55 H Estimated GFR 45.7 L BUN/Creatinine Ratio 20.0 Glucose 89 D Calcium 7.8 L Magnesium 2.1 Total Bilirubin 0.2 Conjugated Bilirubin 0.0 Unconjugated Bilirubin 0.2 AST 30 ALT 35 Alkaline Phosphatase 118 Total Protein 5.6 L Albumin 2.6 L Globulin 3.0 Albumin/Globulin Ratio 0.9 L Urine Color Urine Appearance Urine pH Ur Specific [place] Urine Protein Urine Glucose (UA) Urine Ketones Urine Occult Blood Urine Nitrate Urine Bilirubin Urine Urobilinogen Ur Leukocyte Esterase Urine RBC Urine WBC Amorphous Sediment Urine Bacteria Ur Culture Indicated? U Opiates 300ng/mL cut Ur Oxycodone Screen Urine Methadone Screen Ur Barbiturates Screen U Tricyclic Antidepress Ur Phencyclidine Scrn Ur Amphetamines Screen U Methamphetamines Scrn Ur MDMA Scrn (Ecstasy) U Benzodiazepines Scrn Urine Cocaine Screen U Marijuana (THC) Screen [facility] Medical History Diabetes mellitus type 2 in nonobese Diabetic foot ulcer Fracture of left great toe Hyperlipidemia Hypertension Kidney disease, chronic, stage III (GFR 30-59 ml/min) Neuropathy Peripheral vascular disease Surgical History H/O cervical spine surgery History of appendectomy History of partial amputation of toe Social History household members: spouse Smoking Status: Never smoker alcohol intake: current Assessment & Plan Post-op Postoperative Procedures: Procedures Operation Date: 11/12/20 17:15 Actual Procedures Side Surgeon p 2nd Toe Amputation Right James Viramontes MD continue Antibiotics tailored for wound cultures. Dressing changes as needed. no current indication for further for surgery at this time. Did discuss with patient that a diabetic infections can worsened quickly and if his appearance worsens or does not improve may require additional larger amputations and debridement Quality VTE Deep Vein Thrombosis/Pulmonary Embolism Present on Admission: No
[2020-11-16] MEDS: METOCLOPRAMIDE 10 MG/2 ML INJ IV ×2 (12:07→16:09)
--- NOTE | 2020-11-16 15:06 | PT-IP ANOTE ---
Pt refused PT again at 1400 stating he is able to mobilize well with FWW and if his home environment is rearranged slightly, he will be able to use a FWW there. Pt denies PT needs at this time but is open to check-in in the AM. If pt refuses again, will consider discharging PT orders.
--- NOTE | 2020-11-16 15:07 | CM.DPC ---
DCP Cont: Per MD and Surgeon, pt continuing to make progress and seems less anxious but still waiting for white count to come down and then can d/c home. Pt's PICC had been changed to a midline, anticipate d/c on oral abx and meds. Per PT, pt refused today and yesterday but when pt had worked with PT prior the recommendation was home with assist and HH. SW met bedside with pt and explained role and pt confirms he is feeling a little better. SW discussed HH recommendation and discussed services and frequency and provided the HH Choice List. Per pt, he thinks he might be agreeable with HH as long as it's covered by insurance and was agreeable to SW at least initially making HH referral based on vendor calendar as he has no HH preference. Pt requesting SW make HH referral but then check in with him on day of discharge to determine if he still feels it is needed. Pt states he's been talking with his about transport home as he could be ready for d/c in the next 1-2 days pending white count. Pt states his does not drive and his truck is in the parking lot so she will likely find two people to drive over from [place] and one to take his truck home for him and the other to transport him and his home. SW made [facility] referral based on vendor calendar and faxed clinicals to review towards possible HH RN/PT at discharge pending if pt is still agreeable at discharge. If HH needed at d/c then F2F, d/c sum, and MD orders will be needed for [facility]. Plan: SW to follow closely to confirm oral meds at d/c and confirm with pt that he is still agreeable with HH at d/c and then will need to fax [facility] F2F, MD orders, and d/c summary. JOHNSON Randolph
[2020-11-16] MEDS: SODIUM CHLORIDE 0.9% FLUSH 10 ML IV ×2 (16:10→20:37)
[2020-11-16] MEDS: HYDROMORPHONE 2 MG INJ IV (17:57)
[2020-11-16] MEDS: ATORVASTATIN 20 MG TABLET 80 MG PO (20:36)
[2020-11-17] VITALS (11 sets, daily range): BP systolic 144–161; BP diastolic 69–74; PULSE 91–97; RESP 17–18; TEMP 36.5–37.5; O2SAT 92–98
[2020-11-17] MEDS: HYDROMORPHONE 4 MG TABLET PO ×5 (03:47→17:52)
[2020-11-17] MEDS: HYDROMORPHONE 2 MG INJ IV ×3 (06:05→20:47)
[2020-11-17] MEDS: PANTOPRAZOLE 40 MG TABLET PO (06:06)
[2020-11-17 06:21] LABS: Add Manual Diff / Slide Review NO; Basophils Absolute Auto 100 /uL (0-100); Basophils Percent Auto 0.9 % (0-2); Eosinophils Absolute Auto 200 /uL (0-450); Eosinophils Percent Auto 1.2 % (2-4); Hematocrit 23.7 % (41-53); Lymphocytes Absolute Auto 1100 /uL (1100-4500); Lymphocytes Percent Auto 6.5 % (25-40); Mean Corpuscular HGB Conc 33.7 % (30-36); Monocytes Absolute Auto 1500 /uL (0-900); Monocytes Percent Auto 9.3 % (3-14); Neutrophils Absolute Auto 13500 /uL (1500-7000); Neutrophils Percent Auto 82.1 % (50-75); Platelet Count 338 X10^3/uL (150-400); Red Blood Cell Count 2.76 X10^6/uL (4.5-5.9); Red Cell Distribution Width 12.6 % (11.6-14.8); White Blood Cell Count 16.4 X10^3/uL (4.5-11.0)
[2020-11-17 06:34] LABS: Alanine Aminotransferase 36 IU/L (<50); Albumin 2.6 g/dL (3.5-5.0); Albumin Globulin Ratio 0.9 (1.0-2.8); Alkaline Phosphatase 112 U/L (38-126); Aspartate Aminotransferase 36 IU/L (17-59); BUN Creatinine Ratio 20.5 (6-22); Bilirubin Total 0.3 mg/dL (0.2-1.3); Bilirubin Unconjugated 0.3 mg/dL (0.0-1.1); Blood Urea Nitrogen 34 mg/dL (9-20); Carbon Dioxide 22 mmol/L (22-32); Chloride 96 mmol/L (98-107); Estimated Glomerular Filt Rate 42.2 mL/min (>60); Glucose 101 mg/dL (80-110); HEMOLYSIS < 15 (0-50); Magnesium 2.2 mg/dL (1.6-2.3); Potassium 5.1 mmol/L (3.4-5.1); Sodium 125 mmol/L (137-145); Total Protein 5.6 g/dL (6.3-8.2)
[2020-11-17] MEDS: TAMSULOSIN 0.4 MG CAPSULE PO (08:57)
[2020-11-17] MEDS: SENNOSIDES 8.6 MG TABLET 17.2 MG PO ×2 (08:57→20:48)
[2020-11-17] MEDS: AMLODIPINE 5 MG TABLET 10 MG PO (08:57)
[2020-11-17] MEDS: GABAPENTIN 600 MG TABLET PO (08:57)
[2020-11-17] MEDS: lisinopriL 20 MG TABLET 40 MG PO (09:00)
[2020-11-17] MEDS: levoFLOXacin 500 MG/100 ML PIGGYBACK 100 MG IV (09:01)
[2020-11-17] MEDS: ENOXAPARIN 40 MG/0.4 ML SYRINGE SUBCUT (09:01)
[2020-11-17] MEDS: SODIUM CHLORIDE 0.9% FLUSH 10 ML IV ×3 (09:02→22:23)
[2020-11-17] MEDS: METOCLOPRAMIDE 10 MG/2 ML INJ IV ×3 (09:12→17:52)
--- NOTE | 2020-11-17 10:15 | PT-IP ANOTE ---
Pt refused therapy on multiple attempts to see him over the past few days. Discussed case with hospitalist at AM rounds. states ok to discharge PT orders.
--- NOTE | 2020-11-17 10:36 | P.PN_ITS ---
Subjective Subjective Date Patient Seen: 11/17/20 Interval history: The patient was seen examined at bedside. Overall patient has no new complaints today. He states his pain is well controlled. He denies fevers, chills, chest pain, shortness of breath. He reports being able to walk on his right foot without significant issue. Denies any drainage from his right toe wound. His white count continues to downtrend. It is down to 16 from 19 yesterday. He is still fairly hyponatremic with sodium down to 125. Overall he appears volume overloaded. Exam Vital Signs (past 8 hours): - 11/17/20 03:58 11/17/20 04:00 11/17/20 08:00 Temperature 98.6 F 98.1 F Pulse Rate 96 H 91 H Respiratory Rate 18 18 Blood Pressure 161/70 H 147/69 H Pulse Oximetry 93 97 92 11/17/20 08:40 Temperature Pulse Rate Respiratory Rate Blood Pressure Pulse Oximetry 98 Oxygen Delivery Method Room Air Oxygen Flow Rate 0 Const General: cooperative Orientation: alert, awake and oriented x3 [facility] Head: normal to inspection, normocephalic and atraumatic Eyes General: appearance normal, both eyes and all related structures Pupils: PERRL EOM: EOM intact bilaterally Neck Neck: normal visual inspection and full ROM Chest Chest: normal inspection of the chest and normal palpation of entire chest wall Resp Effort & Inspection: normal respiratory effort Auscultation: no rales, no rhonchi and no wheezes Cardio Palpation: normal PMI Rate: regular rate Rhythm: regular rhythm Heart Sounds: S1 normal and S2 normal GI Inspection: normal to inspection Palpation: soft, No guarding and No tender Auscultation: normal bowel sounds Neuro General: patient alert, patient awake, patient oriented x3 and CN's II-XI intact bilaterally Motor: muscle tone normal throughout Sensory Exam: no sensory deficits noted Extrem General: normal to inspection Psych Mood: congruent mood Affect: normal affect Attitude: cooperative Thought Content: normal Objective Labs Result Diagrams: 11/17/20 06:00 11/17/20 06:00 Labs: Laboratory Results - last 24 hr 11/17/20 11/17/20 06:00 06:00 WBC 16.4 H RBC 2.76 L Hgb 8.0 L Hct 23.7 L MCV 86.0 MCH 29.0 MCHC 33.7 RDW 12.6 Plt Count 338 Neut % (Auto) 82.1 H Lymph % (Auto) 6.5 L [place] % (Auto) 9.3 Eos % (Auto) 1.2 L Baso % (Auto) 0.9 Neut # (Auto) 71221 H Lymph # (Auto) 1100 [place] # (Auto) 1500 H Eos # (Auto) 200 Baso # (Auto) 100 Sodium 125 L Potassium 5.1 Chloride 96 L Carbon Dioxide 22 BUN 34 H Creatinine 1.66 H Estimated GFR 42.2 L BUN/Creatinine Ratio 20.5 Glucose 101 Calcium 8.0 L Magnesium 2.2 Total Bilirubin 0.3 Conjugated Bilirubin 0.0 Unconjugated Bilirubin 0.3 AST 36 ALT 36 Alkaline Phosphatase 112 Total Protein 5.6 L Albumin 2.6 L Globulin 3.0 Albumin/Globulin Ratio 0.9 L PFSH Medical History Diabetes mellitus type 2 in nonobese Diabetic foot ulcer Fracture of left great toe Hyperlipidemia Hypertension Kidney disease, chronic, stage III (GFR 30-59 ml/min) Neuropathy Peripheral vascular disease Surgical History H/O cervical spine surgery History of appendectomy History of partial amputation of toe Social History household members: spouse Smoking Status: Never smoker alcohol intake: current Assessment & Plan Assessment & Plan narrative: Assessment & Plan narrative: Yasmany Ann is a 60-year-old male, nonsmoker, who has past medical history significant for 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 S/p toe amputation with orthopedics on 11/12. 1. Osteomylitis of the right middle toe and cellulitis of the dorsal aspect of his right foot, acute and present on admission -patient is status post 2nd digit amputation -cultures growing strep agalactiae day, and Acinetobactoer -vancomycin discontinued, ceftriaxone swithched to cefepime 11/14 for rising WBC without much improvement. Given cultures narrowed to levaquin on 11/15. 2. Leukocytosis - unclear etiology at this time. No obvious infectious etiologies for his leukocytosis other than his PICC line placed in the ER which was removed and replaced with midline. Consider leukemoid reaction or hematologic process if this continues. - procalcitonin is not significantly changed since admission at 0.50. - downtrending, continue to monitor 3. 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 - A1c was 8.2 on 10/28, 7.9 on admission. -insulin adjustment, resulted in improvement of blood sugars will continue - Medium correctional insulin dosing -patient became hypoglycemic during his stay, his glargine was decreased to 30 units twice daily. -continue reglan, change to AC to see if improvement in gastroparesis symptoms should patient allow continued use (he had refused this previously). 4. RUPINDER on CKD 3, present on admission - Creatinine 2.18 on admission, slightly improved to 2.13. As of a few months ago Creatinine was 1.1. Likely in setting of active infection. Continue above therapies and fluids. Renal ultrasound without evidence of obstruction. -creatinine appears to have stabilized, suspect possible new baseline. Continue to monitor 5. Opioid dependence for chronic pain syndrome - patient stating hospital medication was ineffective, changed to dilaudid with some improvement 11/15. 6. Essential hypertension, chronic - Continue home amlodipine and lisinopril. 7. Hyperlipidemia, chronic - Continue home dose of atorvastatin 80 po daily 8. Peripheral vascular disease - continue asa, statin therapy. 9. hyponatremia, acute, present on admission -initially thought secondary to poor fluid intake. This improved with fluids and sodium mary to 130. Unfortunately, sodium is now down to 125. He has gross volume overload on exam. Will get urine sodium and osmolality. Will order lasix 20 mg IV x1 while awaiting results of studies. 10. LE edema -echo shows preserved EF. Does have some elevated right-sided pressures. Will attempt diuresis today. Dispo: Anticipate discharge once white count improves and Na stabalizes COVID-19 COVID-19 status: Negative Quality VTE Deep Vein Thrombosis/Pulmonary Embolism Present on Admission: No
[2020-11-17 11:46] LABS: Sodium Urine Random < 5 mmol/L (30-90)
[2020-11-17] MEDS: FUROSEMIDE 40 MG/4 ML VIAL 20 MG IV (12:30)
--- NOTE | 2020-11-17 13:40 | P.PN_ITS ---
Subjective Subjective Date Patient Seen: 11/17/20 Time Patient Seen: 13:40 Interval history: Patient states pain is well-controlled. He denies fever, chills, nausea or vomiting. Exam Vital Signs (past 8 hours): - 11/17/20 08:00 11/17/20 08:40 11/17/20 11:44 Temperature 98.1 F Pulse Rate 91 H Respiratory Rate 18 Blood Pressure 147/69 H Pulse Oximetry 92 98 97 Oxygen Delivery Method Room Air Oxygen Flow Rate 0 Narrative Exam Narrative: 60-year-old male resting comfortably in bed in no apparent distress. Dressing is clean, dry and intact. Bilateral lower extremities ed ashley. Objective Labs Result Diagrams: 11/17/20 06:00 11/17/20 06:00 Labs: Laboratory Results - last 24 hr 11/17/20 11/17/20 11/17/20 06:00 06:00 11:20 WBC 16.4 H RBC 2.76 L Hgb 8.0 L Hct 23.7 L MCV 86.0 MCH 29.0 MCHC 33.7 RDW 12.6 Plt Count 338 Neut % (Auto) 82.1 H Lymph % (Auto) 6.5 L [place] % (Auto) 9.3 Eos % (Auto) 1.2 L Baso % (Auto) 0.9 Neut # (Auto) 39874 H Lymph # (Auto) 1100 [place] # (Auto) 1500 H Eos # (Auto) 200 Baso # (Auto) 100 Sodium 125 L Potassium 5.1 Chloride 96 L Carbon Dioxide 22 BUN 34 H Creatinine 1.66 H Estimated GFR 42.2 L BUN/Creatinine Ratio 20.5 Glucose 101 Calcium 8.0 L Magnesium 2.2 Total Bilirubin 0.3 Conjugated Bilirubin 0.0 Unconjugated Bilirubin 0.3 AST 36 ALT 36 Alkaline Phosphatase 112 Total Protein 5.6 L Albumin 2.6 L Globulin 3.0 Albumin/Globulin Ratio 0.9 L Ur Random Sodium < 5 L PFSH Medical History Diabetes mellitus type 2 in nonobese Diabetic foot ulcer Fracture of left great toe Hyperlipidemia Hypertension Kidney disease, chronic, stage III (GFR 30-59 ml/min) Neuropathy Peripheral vascular disease Surgical History H/O cervical spine surgery History of appendectomy History of partial amputation of toe Social History household members: spouse Smoking Status: Never smoker alcohol intake: current Assessment & Plan Post-op Postoperative Procedures: Procedures Operation Date: 11/12/20 17:15 Actual Procedures Side Surgeon p 2nd Toe Amputation Right James Viramontes MD Status post right 2nd toe amputation November 12, 2020. Continue antibiotics per hospitalist. No current indication for further surgery at this time but will continue to monitor and if any worsening may require additional larger ampu tations and debridement. 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 due to poorly controlled with chronic gastroparesis followed by internal medicine RUPINDRE on CKD 3, present on admission followed by internal medicine Opioid dependence for chronic pain syndrome fold by Internal Medicine Essential hypertension, chronic followed by internal medicine Hyperlipidemia followed by internal medicine Peripheral vascular disease followed by internal medicine Hyponatremia followed by internal medicine placed on Lasix 20 mg IV x1 Lower extremity edema echo shows preserved EF Anticipate discharge once medically stable, internal medicine trending white count and sodium Quality VTE Deep Vein Thrombosis/Pulmonary Embolism Present on Admission: No
--- NOTE | 2020-11-17 14:53 | PM.CHAP ---
Short visit with Pt who is looking forward to getting home but concerned about transportation to [facility]. Please contact me if an additional otr tanker truck driver is needed to get Pt's truck home. [address], [facility] [phone]
--- NOTE | 2020-11-17 15:34 | CM.DPC ---
DCP Continued: ORDER CHECKER PACKER PROCESSER Student met with patient at bedside this date. Patient presented alert and oriented he is agreeable to potentially D/C to home with spouse on 11/18/20. Patient expressed a concern and enquired about wanting scripts for Oxycodone. Patient was educated this is a discussion for hospitalists/provider: Dr. Weir aware. Patient has a truck in the hospital parking lot he plans to call two friends to come and pick him up on D/C. He reported he does not have names of the friends yet. Encouraged patient to make calls to prepare for pending D/C. Patient expressed he does not want HH at this time and confirmed he and his will be able to manage wound care/dressing changes independently at home. Patient has also, refused PT for the last three days. Per previous CM notes HH initiated at this time it is unclear if patient will benefit or need HH at time of D/C. Nursing reported anticipation of dressing changes to be minimal, nursing plans to educate. Patient educated and informed about Medicare Rights: patient signed document this date. PLAN: Anticipate D/C home. CM Team to continue to follow patient for D/C needs. Will notify [facility] of HH decision if it is or is not appropriate for patient at time of D/C. JOHNSON Gill, ORDER CHECKER PACKER PROCESSER Student
[2020-11-17] MEDS: ATORVASTATIN 20 MG TABLET 80 MG PO (20:48)
[2020-11-17] MEDS: FUROSEMIDE 20 MG/2 ML VIAL IV (20:48)
[2020-11-18] VITALS: BP 161/76; PULSE 94; RESP 17; TEMP 36.8; O2SAT 95
[2020-11-18] MEDS: HYDROMORPHONE 4 MG TABLET PO ×2 (00:42→09:00)
[2020-11-18] MEDS: HYDROMORPHONE 2 MG INJ IV (03:15)
[2020-11-18 04:00] VITALS: BP 154/71; PULSE 88; RESP 16; TEMP 36.6; O2SAT 95
[2020-11-18 06:11] LABS: Add Manual Diff / Slide Review NO; Basophils Absolute Auto 100 /uL (0-100); Basophils Percent Auto 0.4 % (0-2); Eosinophils Absolute Auto 200 /uL (0-450); Eosinophils Percent Auto 1.9 % (2-4); Hemoglobin 7.4 g/dL (13.5-17.5); Lymphocytes Absolute Auto 900 /uL (1100-4500); Lymphocytes Percent Auto 7.9 % (25-40); Mean Corpuscular HGB Conc 33.3 % (30-36); Mean Corpuscular Hemoglobin 28.8 PG (26-34); Mean Corpuscular Volume 86.3 fL (80-100); Monocytes Absolute Auto 1200 /uL (0-900); Monocytes Percent Auto 10.1 % (3-14); Neutrophils Absolute Auto 9600 /uL (1500-7000); Neutrophils Percent Auto 79.7 % (50-75); Platelet Count 328 X10^3/uL (150-400); Red Blood Cell Count 2.57 X10^6/uL (4.5-5.9); Red Cell Distribution Width 12.5 % (11.6-14.8)
[2020-11-18 06:12] LABS: Hematocrit 22.2 % (41-53)
[2020-11-18] MEDS: levoFLOXacin 500 MG TABLET PO (06:16)
[2020-11-18] MEDS: PANTOPRAZOLE 40 MG TABLET PO (06:16)
[2020-11-18 06:18] LABS: Alanine Aminotransferase 33 IU/L (<50); Albumin 2.4 g/dL (3.5-5.0); Albumin Globulin Ratio 0.8 (1.0-2.8); Alkaline Phosphatase 96 U/L (38-126); Aspartate Aminotransferase 30 IU/L (17-59); BUN Creatinine Ratio 21.2 (6-22); Bilirubin Total 0.2 mg/dL (0.2-1.3); Bilirubin Unconjugated 0.2 mg/dL (0.0-1.1); Blood Urea Nitrogen 32 mg/dL (9-20); Carbon Dioxide 24 mmol/L (22-32); Chloride 99 mmol/L (98-107); Estimated Glomerular Filt Rate 47.1 mL/min (>60); Glucose 154 mg/dL (80-110); HEMOLYSIS < 15 (0-50); Magnesium 2.2 mg/dL (1.6-2.3); Potassium 5.1 mmol/L (3.4-5.1); Sodium 128 mmol/L (137-145); Total Protein 5.4 g/dL (6.3-8.2)
[2020-11-18 07:17] LABS: Chloride, Urine <20 mmol/L (Not Estab.)
[2020-11-18 07:25] VITALS: BP 162/72; PULSE 94; RESP 15; TEMP 37.2; O2SAT 96
[2020-11-18] MEDS: SENNOSIDES 8.6 MG TABLET 17.2 MG PO (08:46)
[2020-11-18] MEDS: SODIUM CHLORIDE 0.9% FLUSH 10 ML IV (08:46)
[2020-11-18 08:47] VITALS: BP 162/72; PULSE 94
[2020-11-18] MEDS: lisinopriL 20 MG TABLET 40 MG PO (08:47)
[2020-11-18] MEDS: GABAPENTIN 600 MG TABLET PO (08:47)
[2020-11-18] MEDS: ENOXAPARIN 40 MG/0.4 ML SYRINGE SUBCUT (08:47)
[2020-11-18] MEDS: AMLODIPINE 5 MG TABLET 10 MG PO (08:47)
[2020-11-18] MEDS: METOCLOPRAMIDE 10 MG/2 ML INJ IV (08:47)
[2020-11-18] MEDS: TAMSULOSIN 0.4 MG CAPSULE PO (08:47)
[2020-11-18] MEDS: FUROSEMIDE 20 MG/2 ML VIAL IV (09:50)
[2020-11-18 11:33] VITALS: BP 157/68; PULSE 95; RESP 18; O2SAT 99
--- NOTE | 2020-11-18 11:56 | CM.DPC ---
DCP Continued: ANIMAL BIOLOGIST student met with patient this date. He is agreeable to D/C from the hospital. Educated and offered HH to patient for wound care. Patient declined HH and expressed being comfortable with wound care, ?I have the wound care down?.and my can help.? Nursing staff Gabrielle reported she is familiar with the patient and will provide wound care training prior to D/C. Patient reported a friend Mario Burden will be providing transportation at time of D/C. Called Mr. Burden to inform him of time of D/C per nursing staff Gabrielle, he confirmed he will be here to pick-up patient. Patient will not be going home with IV medications. Called [facility] and canceled referral. PLAN: D/C to home with spouse and friend providing transportation, HH was declined. Message left with [facility] to cancel referral. JOHNSON Gill ANIMAL BIOLOGIST Student
--- NOTE | 2020-11-18 13:09 | PC.NURSE ---
Pt's midline was removed per MD order. Discharge education given to pt, discussed- wound care, s/s of infection, to contact surgeon's office for f/u, other f/u appts, medications, medication safety, s/s of stroke, and reasons to seek medical attention. Pt was given his home medications, all belongings packed up and given to pt. Extra dressing supplies sent with pt. All questions answered. Pt left via w/c to friend's POV, assisted by JULIA.
--- NOTE | 2020-11-18 14:00 | P.DS_ITS ---
History of Present Illness History of Present Illness Date Patient Seen: 11/18/20 Chief complaint: both feet have neuropathy/infected x3 weeks Discharge Providers Provider Date of admission: 11/11/20 14:35 Discharge Date: 11/18/20 Primary care physician: Sofie Orozco MD Consults: 11/11/20 14:06 Consult to Orthopedic Surgery Stat Comment: Consulting Provider: James Viramontes Reason for consultation: osteomyelitis 11/11/20 16:23 Consult to Dietitian, Adult Routine Comment: Reason For Exam: Reflexed from admission 11/12/20 18:36 Consult to Discharge Planning Routine Comment: Consult to Physical Therapy Evaluate & Treat Comment: Physician Instructions: Evaluate and Treat Consult to Respiratory Therapy Evaluate & Treat Comment: Physician Instructions: Evaluate and treat 11/15/20 11:31 Consult to Respiratory Therapy Evaluate & Treat Comment: Physician Instructions: Evaluate and treat Discharge provider: Edmund Weir DO Summary Hospital Course Discharge Diagnosis: Osteomyelitis of right 2nd toe Status post amputation right 2nd toe Leukocytosis Type 2 diabetes RUPINDER on CKD 3 Opioid dependence Essential hypertension Hyperlipidemia Peripheral vascular disease Hyponatremia Hospital Course: This is a 60-year-old male with past medical history of type 2 diabetes, CKD, opioid dependence on chronic pain medications, hypertension, hyperlipidemia, PVD who presented to the hospital from wound care clinic with concern for osteomyelitis of his right 2nd toe. This was seen on MRI. He was taken to the OR for amputation on 11/[address] Viramontes. He was initially treated with vancomycin. Those antibiotics were discontinued and he was switched to ceftriaxone. Due to rising white blood cell count this was again switched on 11/14 to cefepime. After cultures resulted, antibiotics were narrowed to Levaquin on 11/15. Culture grew strep agalactiae and Acinetobacter. His leukocytosis began to improve on Levaquin. Other complicating hospital problems included RUPINDER on CKD. His renal function was recovering at time of discharge. Additionally, he was found to be hyponatremic in the setting of suspected volume overload. Urine studies also appeared consistent with volume overload. He had echocardiogram which showed preserved EF. He was diuresed with improvement in his serum sodium. He will follow-up with orthopedics at discharge. Status at Discharge Cognitive/behavioral status at discharge: oriented Functional status at discharge: independent ambulation Overall status at discharge: patient is progressing back to baseline Time Spent with Patient Time spent: Greater than 30 minutes Exam Vital Signs (past 8 hours): - 11/18/20 07:25 11/18/20 08:47 11/18/20 11:33 Temperature 99 F Pulse Rate 94 H 94 H 95 H Respiratory Rate 15 18 Blood Pressure 162/72 H 162/72 H 157/68 H Pulse Oximetry 96 99 Oxygen Delivery Method Room Air Oxygen Flow Rate 0 Narrative Exam Narrative: Const General: cooperative Orientation: alert, awake and oriented x3 HENMT Head: normal to inspection, normocephalic and atraumatic Eyes General: appearance normal, both eyes and all related structures Pupils: PERRL EOM: EOM intact bilaterally Neck Neck: normal visual inspection and full ROM Chest Chest: normal inspection of the chest and normal palpation of entire chest wall Resp Effort & Inspection: normal respiratory effort Auscultation: no rales, no rhonchi and no wheezes Cardio Palpation: normal PMI Rate: regular rate Rhythm: regular rhythm Heart Sounds: S1 normal and S2 normal GI Inspection: normal to inspection Palpation: soft, No guarding and No tender Auscultation: normal bowel sounds Neuro General: patient alert, patient awake, patient oriented x3 and CN's II-XI intact bilaterally Motor: muscle tone normal throughout Sensory Exam: no sensory deficits noted Extrem Right lower extremity: Bandage is clean, dry, intact. Psych Mood: congruent mood Affect: normal affect Attitude: cooperative Thought Content: normal Objective Labs Result Diagrams: 11/18/20 05:50 11/18/20 05:50 Labs: Laboratory Results - last 24 hr 11/17/20 11/18/20 11/18/20 11:52 05:50 05:50 WBC 12.0 H RBC 2.57 L Hgb 7.4 L Hct 22.2 L MCV 86.3 MCH 28.8 MCHC 33.3 RDW 12.5 Plt Count 328 Neut % (Auto) 79.7 H Lymph % (Auto) 7.9 L [place] % (Auto) 10.1 Eos % (Auto) 1.9 L Baso % (Auto) 0.4 Neut # (Auto) 9600 H Lymph # (Auto) 900 L [place] # (Auto) 1200 H Eos # (Auto) 200 Baso # (Auto) 100 Sodium 128 L Potassium 5.1 Chloride 99 Carbon Dioxide 24 BUN 32 H Creatinine 1.51 H Estimated GFR 47.1 L BUN/Creatinine Ratio 21.2 Glucose 154 H Calcium 8.0 L Magnesium 2.2 Total Bilirubin 0.2 Conjugated Bilirubin 0.0 Unconjugated Bilirubin 0.2 AST 30 ALT 33 Alkaline Phosphatase 96 Total Protein 5.4 L Albumin 2.4 L Globulin 3.0 Albumin/Globulin Ratio 0.8 L Urine Chloride <20 [facility] Medical History Diabetes mellitus type 2 in nonobese Diabetic foot ulcer Fracture of left great toe Hyperlipidemia Hypertension Kidney disease, chronic, stage III (GFR 30-59 ml/min) Neuropathy Peripheral vascular disease Surgical History H/O cervical spine surgery History of appendectomy History of partial amputation of toe Social History household members: spouse Smoking Status: Never smoker alcohol intake: current Discharge Assessment & Plan Assessment and Plan Assessment: Assessment & Plan narrative: Assessment & Plan narrative: Yasmany Ann is a 60-year-old male, nonsmoker, who has past medical history significant for 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 S/p toe amputation with orthopedics on 11/12. 1. Osteomylitis of the right middle toe and cellulitis of the dorsal aspect of his right foot, acute and present on admission Status post amputation of right 2nd toe on 11/[address] Viramontes. Cultures grew strep agalactiae day, and Acinetobactoer sensitive to Levaquin. Initially treated with vancomycin, then switched to ceftriaxone, then cefepime due to rising white count. Was eventually switched to Levaquin on 11/15 based on results of cultures. At discharge his leukocytosis is improving. He is to continue on Levaquin to complete 10 days of antibiotics post-day of amputation. 2. Leukocytosis Had rising leukocytosis post-procedurally. No focal symptoms. Procalcitonin unchanged. It was thought that he had a leukomoid reaction but her leukocytosis appeared to in addition of Levaquin, so he was continued on Levaquin for a 10 day total course of antibiotics. 3. 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 Continued on home insulin regimen. 4. RUPINDER on CKD 3, present on admission Creatinine 2.18 on admission. As of a few months ago Creatinine was 1.1. His RUPINDER was presumed to be prerenal. Renal ultrasound was normal. His creatinine improved with IV fluid hydration and is down trending on discharge. 5. Opioid dependence for chronic pain syndrome He has a pain contract with Dr. Marcus at the [facility]. He was discharged with 5 days of oxycodone 30 mg q.6 hours as needed per discussion with his outpatient PCP. 6. Essential hypertension, chronic Continued on home antihypertensives. 7. Hyperlipidemia, chronic - Continue home dose of atorvastatin 80 po daily 8. Peripheral vascular disease - continue asa, statin therapy. 9. hyponatremia, acute, present on admission This was initially thought secondary to poor fluid intake. His sodium at presentation was 128 and improved to 130 with IV fluids. However, later dropped to 125. Fluids were held and urine studies appeared to be consistent with volume overload. Clinically the patient appeared to be volume overloaded as well. Patient was diuresed with IV Lasix and his sodium steadily improved. Discharge Plan Discharge Plan Patient Disposition: Home Provider Discharge Comment: Please schedule follow up with your PCP in 5 days Discharge orders & Medications Prescriptions: New tamsulosin [Flomax] 0.4 mg Capsule 0.4 mg PO DAILY Qty: 30 RF: 0 levofloxacin 500 mg Tablet 500 mg PO DAILY@0700 Qty: 5 RF: 0 oxycodone 30 mg tablet 30 mg PO Q6H PRN (Reason: pain) Qty: 20 RF: 0 metoclopramide HCl [Reglan] 10 mg tablet 10 mg PO Q6H PRN (Reason: nausea and vomiting) Qty: 14 RF: 0 Continued Lantus U-100 Insulin 100 UNIT/1 ML solution 38 unit SQ BID Qty: 0 RF: 0 insulin aspart U-100 [Novolog Flexpen U-100 Insulin] 100 UNIT/1 ML insulin pen 8 unit SQ TIDCC Qty: 0 RF: 0 aspirin 81 MG tablet,delayed release (DR/EC) 81 mg PO QDAY Qty: 0 RF: 0 gabapentin 800 MG tablet 600 mg PO DAILY Qty: 0 RF: 0 esomeprazole magnesium [Nexium] 40 MG capsule,delayed release(DR/EC) 20 mg PO QDAY Qty: 0 RF: 0 atorvastatin [Lipitor] 80 MG tablet 80 mg PO QDAY Qty: 0 RF: 0 amlodipine [Norvasc] 10 MG tablet 10 mg PO QDAY Qty: 0 RF: 0 loperamide 2 mg Capsule 2 mg PO Q4H PRN (Reason: Diarrhea) RF: 0 lisinopril 40 mg tablet 40 mg PO DAILY RF: 0 Discontinued oxycodone 5 mg Capsule 30 mg PO Q6H RF: 0 Follow up/Referrals: Sofie Orozco MD [Primary Care Provider] - Diet/Activity/Treatments Diet: Carb-consistent/Diabetic Skin/Wound/Dressing Care Report to your healthcare provider any signs of infection, such as:: chills, fever, night sweats, increased pain, unusual drainage and unusual redness Visit Report/Discharge Packet Instructions: [facility]: Wound Care Discharge Data Primary Care Provider: Sofie Orozco Quality VTE Deep Vein Thrombosis/Pulmonary Embolism Present on Admission: No
[2020-11-18 14:21] LABS: Osmolality Urine 207 mOsmol/kg (.)
== END 2020-11-18 12:50 | disposition home or self-care (01) | DRG 617 ==
LOC: ED 11:17 → AC 14:37
PROVIDERS: Emergency Medicine; Hospitalist; Internal Medicine; Nurse Practitioner Family; Orthopaedic Surgery Adult Reconstructive Orthopaedic Surgery; Admitting Provider Internal Medicine; Emergency Provider Nurse Practitioner Family; PCP Internal Medicine; Referring Provider Nurse Practitioner Family; Visit Provider Internal Medicine
PROC: 0Y6R0Z3 Detachment at Right 2nd Toe, Low, Open Approach (ICD-10-PCS; principal; 2020-11-12 17:15)
DX: E11.69 Type 2 diabetes mellitus with other specified complication (principal); M86.8X7 Other osteomyelitis, ankle and foot; L03.115 Cellulitis of right lower limb; E87.1 Hypo-osmolality and hyponatremia; F11.20 Opioid dependence, uncomplicated; L97.514 Non-pressure chronic ulcer of other part of right foot with necrosis of bone; E11.65 Type 2 diabetes mellitus with hyperglycemia; E11.621 Type 2 diabetes mellitus with foot ulcer; E11.40 Type 2 diabetes mellitus with diabetic neuropathy, unspecified; E87.8 Other disorders of electrolyte and fluid balance, not elsewhere classified; I12.9 Hypertensive chronic kidney disease with stage 1 through stage 4 chronic kidney disease, or unspecified chronic kidney disease; E11.22 Type 2 diabetes mellitus with diabetic chronic kidney disease; N18.30 Chronic kidney disease, stage 3 unspecified; N17.9 Acute kidney failure, unspecified; E11.43 Type 2 diabetes mellitus with diabetic autonomic (poly)neuropathy; E11.51 Type 2 diabetes mellitus with diabetic peripheral angiopathy without gangrene; K31.84 Gastroparesis; D63.8 Anemia in other chronic diseases classified elsewhere; D72.829 Elevated white blood cell count, unspecified; E87.70 Fluid overload, unspecified; E78.5 Hyperlipidemia, unspecified; G89.29 Other chronic pain; Z20.822 Contact with and (suspected) exposure to COVID-19
CPT/HCPCS: 36415; 36569; 36592; 70450; 71101; 73630; 74177; 76705; 76770; 80048; 80053; 80076; 80305; 81001; 82436; 82962; 83036; 83605; 83690; 83735; 83935; 84145; 84300; 85007; 85025; 85610; 85651; 85730; 86140; 87040; 87070; 87075; 87077; 87147; 87176; 87186; 87205; 87635; 93306; 96361; 96365; 96367; 97116; 97162; 97530; 99213; 99283; 99285; C9803; C9113; J0692; J0780; J1170; J1642; J1650; J1940; J1956; J2250; J2405; J2704; J2765; J3010; Q9967

== ENCOUNTER → 2020-11-28 11:26 | Outpatient (CLI) | payer MEDICARE, OTHER, SELFPAY ==
[2020-11-11 16:07] VITALS: BMI 28.6
== END ==
PROVIDERS: PCP Internal Medicine; Referring Provider Orthopaedic Surgery Adult Reconstructive Orthopaedic Surgery; Visit Provider Nurse Practitioner Family
DX: E11.621 Type 2 diabetes mellitus with foot ulcer (principal); L97.421 Non-pressure chronic ulcer of left heel and midfoot limited to breakdown of skin; L97.511 Non-pressure chronic ulcer of other part of right foot limited to breakdown of skin; E11.51 Type 2 diabetes mellitus with diabetic peripheral angiopathy without gangrene; E11.40 Type 2 diabetes mellitus with diabetic neuropathy, unspecified; L03.115 Cellulitis of right lower limb; Z79.4 Long term (current) use of insulin
CPT/HCPCS: 11042; 97597; 99214

== ENCOUNTER → 2020-11-28 13:43 | Outpatient (CLI) | payer MEDICARE, OTHER, SELFPAY ==
[2020-11-11 16:07] VITALS: BMI 28.6
[2020-11-28 14:38] LABS: Add Manual Diff / Slide Review NO; Basophils Absolute Auto 0 /uL (0-100); Basophils Percent Auto 0.4 % (0-2); Eosinophils Absolute Auto 100 /uL (0-450); Hematocrit 25.3 % (41-53); Hemoglobin 8.6 g/dL (13.5-17.5); Lymphocytes Absolute Auto 1000 /uL (1100-4500); Lymphocytes Percent Auto 15.3 % (25-40); Mean Corpuscular HGB Conc 33.8 % (30-36); Mean Corpuscular Volume 85.6 fL (80-100); Monocytes Absolute Auto 600 /uL (0-900); Monocytes Percent Auto 9.1 % (3-14); Neutrophils Absolute Auto 5000 /uL (1500-7000); Neutrophils Percent Auto 73.2 % (50-75); Platelet Count 291 X10^3/uL (150-400); Red Blood Cell Count 2.96 X10^6/uL (4.5-5.9); Red Cell Distribution Width 13.5 % (11.6-14.8); White Blood Cell Count 6.8 X10^3/uL (4.5-11.0)
== END ==
PROVIDERS: PCP Internal Medicine; Referring Provider Nurse Practitioner Family; Visit Provider Nurse Practitioner Family
DX: A49.9 Bacterial infection, unspecified (principal)
CPT/HCPCS: 36415; 85025; 87070; 87077; 87147; 87186; 87205

== ENCOUNTER 2020-12-01 16:21 | Inpatient (IN) | payer MEDICARE, OTHER, SELFPAY ==
[2020-11-11 16:07] VITALS: BMI 28.6
[2020-12-01] VITALS (7 sets, daily range): BP systolic 157–189; BP diastolic 78–87; PULSE 86–97; RESP 16–22; TEMP 36.7–37.3; O2SAT 94–98; BMI 30.4
--- NOTE | 2020-12-01 17:20 | DI.RAD.S_ITS ---
PROCEDURE: XR FOOT RT MIN 3V INDICATIONS: pain, drainage, concern for osteo TECHNIQUE: 3 views of the foot were acquired. COMPARISON: [facility], CR, XR FOOT RT MIN 3V, 11/11/2020, 17:03. FINDINGS: Bones: Interval 2nd toe amputation at the level of the neck of the proximal phalanx. The tip of the residual proximal phalanx is not well corticated. Surgery has occurred in the recent past. No suspicious findings involving other bones. Soft tissues: No tibiotalar joint effusion. Achilles tendon appears normal. Extensive small vessel calcifications are consistent with diabetes. IMPRESSION: Interval 2nd toe amputation at the level of the neck of the proximal phalanx. No findings in other bones which are suspicious for osteomyelitis. Comment: Consider right foot MRI with without contrast to exclude osteomyelitis. However, the 2nd toe proximal phalanx will likely have an abnormal appearance in the setting of recent surgery. Dictated by: Nestor Squires M.D. on 12/01/2020 at 16:47 Approved by: Nestor Squires M.D. on 12/01/2020 at 16:51
--- NOTE | 2020-12-01 17:20 | ED.SKABFB ---
HPI - Skin/Abscess/Foreign Bdy General Chief complaint: Skin/Abscess/Foreign Body Stated complaint: red swollen right foot / leg sp toe am 11/12 Time Seen by Provider: 12/01/20 17:00 Source: patient Mode of arrival: Ambulatory Limitations: no limitations History of Present Illness HPI narrative: 60M nonsmoker with history of poorly controlled DM presents with rapidly worsening R foot wound over the past few days. He was admitted here a few weeks ago with osteomyelitis of the 2nd toe of his right foot which required admission, antibiotics and amputation by Orthopedics. He has been taking antibiotics as directed and following up with wound care here at the hospital. He was seen and evaluated at home by his wound care nurse who noted increased redness and drainage at the base of the 2nd toe as well as increased skin breakdown in the plantar surface of that same foot and was sent to wound care. He was evaluated a wound care and they to agree that his foot looks significantly worse and sent him here for evaluation. He does have an order for an outpatient MRI but it is too late in the day to obtain this here in the department MD complaint: abscess/boil and discoloration Onset (ago): day(s) Tetanus up to date: yes Location: R foot Severity: moderate Quality: aching Relieving factors: none Exacerbating factors: none Associated symptoms: denies other symptoms Treatments prior to arrival: bandages and antibiotic Related Data Home Medications Medication Instructions Recorded Confirmed Lantus U-100 Insulin 38 unit SQ BID #0 05/31/16 12/02/20 aspirin 81 mg PO QDAY #0 05/31/16 12/02/20 esomeprazole magnesium [Nexium] 20 mg PO QDAY #0 05/31/16 12/02/20 gabapentin 600 mg PO DAILY #0 05/31/16 12/02/20 insulin aspart U-100 [Novolog 8 unit SQ TIDCC #0 05/31/16 12/02/20 Flexpen U-100 Insulin] amlodipine [Norvasc] 10 mg PO QDAY #0 11/02/16 12/01/20 atorvastatin [Lipitor] 80 mg PO QDAY #0 11/02/16 12/02/20 lisinopril 40 mg PO DAILY 11/11/20 12/02/20 loperamide 2 mg PO PRN PRN 02/16/21 02/16/21 furosemide 20 mg PO DAILY 12/01/20 12/01/20 oxycodone 10 mg PO Q6H PRN 12/01/20 12/01/20 oxycodone 30 mg PO Q12H 12/01/20 12/01/20 Previous Rx's Medication Instructions Recorded levofloxacin 500 mg PO DAILY@0700 #5 tab 11/18/20 metoclopramide HCl [Reglan] 10 mg PO Q6H PRN #14 tab 11/18/20 tamsulosin [Flomax] 0.4 mg PO DAILY #30 cap 11/18/20 Allergies Allergy/AdvReac Type Severity Reaction Status Date / Time amitriptyline [AMITRIPTYLINE] Allergy Unknown Verified 11/11/20 12:33 Review of Systems Constitutional Constitutional: Denies chills, Denies fatigue, Denies fever(s), Denies frequent falls, Denies lethargy and Denies weakness Eyes Eyes: Denies change in vision, Denies eye discharge, Denies irritation and Denies loss of vision ENT Ears, Nose, Mouth, and Throat: Denies change in voice, Denies dizziness, Denies neck pain, Denies sore throat and Denies throat swelling Cardiovascular Cardiovascular: Denies chest pain, Denies irregular heart rhythm, Denies lightheadedness, Denies palpitations, Denies dyspnea, Denies dyspnea on exertion and Denies orthopnea Respiratory Respiratory: Denies cough, Denies dyspnea, Denies dyspnea on exertion and Denies wheezing Gastrointestinal Gastrointestinal: Denies abdominal pain, Denies change in bowel habits, Denies diarrhea, Denies nausea and Denies vomiting Musculoskeletal Musculoskeletal: Denies neck pain and Denies numbness Integumentary/Breasts Skin/Breast: Denies pruritus, Denies erythema, Denies rash, Reports skin ulcer and Denies wounds Neurologic Neurologic: Denies behavioral changes, Denies confusion, Denies dizziness, Denies frequent falls, Denies loss of vision, Denies numbness and Denies weakness Psychiatric Psychiatric: Denies anxiety, Denies behavioral changes, Denies confusion, Denies depression, Denies homicidal ideation and Denies suicidal ideation Endocrine Endocrine: Denies fatigue, Denies flushing and Denies palpitations Hematologic/Lymphatic Hematologic/Lymphatic: Denies easy bruising Allergic/Immunologic Allergic/Immunologic: Denies urticaria, Denies throat swelling and Denies wheezing Patient History Medical History Diabetes mellitus type 2 in nonobese Diabetic foot ulcer Fracture of left great toe Hyperlipidemia Hypertension Kidney disease, chronic, stage III (GFR 30-59 ml/min) Neuropathy Peripheral vascular disease Surgical History H/O cervical spine surgery History of appendectomy History of partial amputation of toe Family History (Updated 12/01/20 @ 22:34 by DANA Todd) Father Diabetes mellitus Mother Alcohol abuse Smoker Hypertension Social History household members: spouse Smoking Status: Never smoker alcohol intake: current Smoking Status: Never smoker alcohol intake frequency: 0-2 drinks per day Substance Use Type: does not use Exam Narrative Exam Narrative: GENERAL: [60] year old patient appears stated age. Well-nourished, well-developed patient, in mild distress. HEAD: Atraumatic. Normocephalic. EYES: Pupils equal round and reactive. Extraocular motions intact. No scleral icterus. No injection or drainage. ENT: Nose without bleeding, purulent drainage. Throat without erythema, tonsillar hypertrophy or exudate. Airway patent. NECK: Trachea midline. Non tender CARDIOVASCULAR: Regular rate and rhythm without murmurs, gallops, or rubs. RESPIRATORY: Clear to auscultation. Breath sounds equal bilaterally. No wheezes, rales, or rhonchi. GASTROINTESTINAL: Abdomen soft, non-tender, nondistended. EXTREMITIES: Discoloration and drainage at the surgical site of the 2nd toe, increased skin breakdown over metatarsophalangeal joint. Some drainage noted, largely insensate. Sutures remain intact. A 2nd deep, insensate ulcer in the arch on the plantar surface is cultured. There is increased erythema on the dorsum of the foot with some extension onto the right anterior bernardo. BACK: Nontender without deformity or crepitance. No flank tenderness. NEURO: AOx3. SKIN: No rash or erythema of visible areas Initial Vital Signs Initial Vital Signs: Vital Signs Temperature 99.2 F 12/01/20 16:30 Pulse Rate 87 12/01/20 16:30 Respiratory Rate 22 12/01/20 16:30 Blood Pressure 183/81 H 12/01/20 16:30 Pulse Oximetry 98 12/01/20 16:30 Course Orders Ordered: Acetaminophen (Acetaminophen 325 Mg Tablet) 975 mg PO Q8H PRN PRN Reason: Pain, Mild (1-3) Al Hydrox/Mg Hydrox/Simethicone (Mag Hydrox/Alum/Simeth 30 Ml Udc) 30 ml PO Q6HR PRN PRN Reason: Dyspepsia Amlodipine Besylate (Amlodipine 5 Mg Tablet) 10 mg PO DAILY [facility] Last Admin: 12/02/20 09:19 Dose: 10 mg Documented by: MEGHAN Aspirin (Aspirin Ec 81 Mg Tablet) 81 mg PO DAILY [facility] Last Admin: 12/02/20 09:20 Dose: 81 mg Documented by: MEGHAN Atorvastatin Calcium (Atorvastatin 20 Mg Tablet) 80 mg PO BEDTIME [facility] Bisacodyl (Bisacodyl 10 Mg Supp) 10 mg TN DAILY PRN PRN Reason: Constipation Calcium Carbonate (Calcium Carbonate 500 Mg Tab) 1,000 mg PO Q4HR PRN PRN Reason: Dyspepsia Dextrose (Dextrose 50 % In Water 25 Gm/50 Ml Syringe) 25 gm IV PRN PRN; Protocol PRN Reason: Hypoglycemia Docusate Sodium (Docusate 100 Mg Capsule) 100 mg PO BID [facility] Last Admin: 12/02/20 09:19 Dose: 100 mg Documented by: Admin: 12/01/20 21:14 Dose: 100 mg Documented by: [place] Furosemide (Furosemide 20 Mg Tablet) 20 mg PO DAILY [facility] Last Admin: 12/02/20 09:23 Dose: 20 mg Documented by: MEGHAN Heparin Sodium (Porcine) (Heparin 5,000 Unit/Ml Vial) 5,000 unit SUBCUT BID [facility] Vancomycin HCl (Vancomycin) 1,000 mg in 200 mls @ 200 mls/hr IV Q12H [facility] Last Infusion: 12/02/20 10:21 Dose: 0 mls/hr Documented by: Admin: 12/02/20 06:05 Dose: 200 mls/hr Documented by: LULA Sodium Chloride (Normal Saline 0.9%) 250 mls @ 21 mls/hr IV Q24H PRN PRN Reason: Flush Cefepime HCl 2 gm/ Sodium (Chloride) 100 mls @ 200 mls/hr IV Q12H [facility] Last Infusion: 12/02/20 10:21 Dose: 0 mls/hr Documented by: Admin: 12/02/20 09:20 Dose: 150 mls/hr Documented by: MEGHAN Insulin Aspart (Insulin Aspart 100 Unit/Ml Insuln Pen) 0 unit SUBCUT ACHS [facility]; Protocol Last Admin: 12/02/20 16:58 Dose: 2 unit Documented by: TIP Cosigned by: CHANTE Admin: 12/02/20 12:26 Dose: Not Given Documented by: Admin: 12/02/20 08:48 Dose: Not Given Documented by: Admin: 12/01/20 22:13 Dose: Not Given Documented by: [place] Insulin Glargine (Insulin Glargine 100 Unit/Ml 3ml Pen) 30 unit SUBCUT BID [facility] Last Admin: 12/02/20 09:21 Dose: Not Given Documented by: MEGHAN Lisinopril (Lisinopril 20 Mg Tablet) 40 mg PO DAILY [facility] Last Admin: 12/02/20 09:19 Dose: 40 mg Documented by: MEGHAN Metoclopramide HCl (Metoclopramide Hcl 10 Mg Tablet) 10 mg PO Q6H PRN PRN Reason: nausea and vomiting Naloxone HCl (Naloxone 0.4 Mg/Ml Vial) 0.2 mg IV Q2MIN PRN PRN Reason: Opiate Reversal Non-Formulary Medication (Non-Formulary Medication) 0 each PO PRN PRN PRN Reason: HOME MEDICATION STORAGE Nf - Nexium 20 Mg 20 mg PO DAILY [facility] Last Admin: 12/02/20 17:03 Dose: 20 mg Documented by: TIP Oxycodone HCl (Oxycodone Ir 5 Mg Tablet) 5 mg PO Q6HR PRN PRN Reason: Pain, Moderate (4-6) Last Admin: 12/02/20 06:19 Dose: 5 mg Documented by: LULA Oxycodone HCl (Oxycodone Er 10 Mg Tab) 30 mg PO Q12H [facility] Last Admin: 12/02/20 09:30 Dose: 30 mg Documented by: Admin: 12/01/20 23:42 Dose: 30 mg Documented by: EDDIERSRICARDO Oxycodone HCl (Oxycodone Ir 10 Mg Tablet) 10 mg PO Q6H PRN PRN Reason: Pain, Moderate Last Admin: 12/02/20 12:29 Dose: 10 mg Documented by: BERT Sennosides (Sennosides 8.6 Mg Tablet) 17.2 mg PO BEDTIME [facility] Sodium Chloride (Sodium Chloride 0.9% Flush) 10 ml IV PRN PRN PRN Reason: Flush Last Admin: 12/02/20 06:05 Dose: 10 ml Documented by: Admin: 12/01/20 23:32 Dose: 10 ml Documented by: LULA Sodium Chloride (Sodium Chloride 0.9% Flush) 10 ml IV BID [facility] Last Admin: 12/02/20 09:21 Dose: 10 ml Documented by: Admin: 12/01/20 21:14 Dose: 10 ml Documented by: [place] Tamsulosin HCl (Tamsulosin 0.4 Mg Capsule) 0.4 mg PO DAILY [facility] Last Admin: 12/02/20 09:19 Dose: 0.4 mg Documented by: MEGHAN Vancomycin HCl (Vancomycin Trough) 1 request [facility] Stop: 12/03/20 05:31 Discontinued Medications Sodium Chloride (Normal Saline 0.9%) 1,000 mls @ 125 mls/hr IV CONT [facility] Last Infusion: 12/01/20 20:00 Dose: 0 mls/hr Documented by: Admin: 12/01/20 18:21 Dose: 125 mls/hr Documented by: NATALIA Vancomycin HCl/Dextrose (Vancomycin) 1,500 mg in 300 mls @ 200 mls/hr IV Q24H [facility] Last Infusion: 12/01/20 19:53 Dose: 0 mls/hr Documented by: Admin: 12/01/20 18:21 Dose: 200 mls/hr Documented by: NATALIA Cefepime HCl 2 gm/ Sodium (Chloride) 100 mls @ 200 mls/hr IV DAILY [facility] Last Infusion: 12/02/20 00:16 Dose: 0 mls/hr Documented by: Admin: 12/01/20 23:31 Dose: 200 mls/hr Documented by: LULA Insulin Glargine (Insulin Glargine 100 Unit/Ml 3ml Pen) 38 unit SUBCUT BID [facility] Last Admin: 12/01/20 22:13 Dose: Not Given Documented by: [place] Vital Signs Vital signs: Vital Signs - 8 hr 12/01/20 16:30 Temperature 99.2 F Pulse Rate 87 Respiratory Rate 22 Blood Pressure 183/81 H Pulse Oximetry 98 MDM - Skin/Abscess/Foreign Bdy Lab Data Result diagrams: 12/02/20 05:16 12/02/20 05:16 Labs: Lab Results 12/01/20 12/01/20 Range/Units 18:00 18:00 WBC 7.0 (4.5-11.0) X10^3/uL RBC 3.03 L (4.5-5.9) X10^6/uL Hgb 8.6 L (13.5-17.5) g/dL Hct 25.9 L (41-53) % MCV 85.6 (80-100) fL MCH 28.3 (26-34) PG MCHC 33.1 (30-36) % RDW 13.5 (11.6-14.8) % Plt Count 243 (150-400) X10^3/uL Neut % (Auto) 70.7 (50-75) % Lymph % (Auto) 17.8 L (25-40) % [place] % (Auto) 7.7 (3-14) % Eos % (Auto) 3.2 (2-4) % Baso % (Auto) 0.6 (0-2) % Neut # (Auto) 4900 (3125-4608) /uL Lymph # (Auto) 1200 (1788-3477) /uL [place] # (Auto) 500 (0-900) /uL Eos # (Auto) 200 (0-450) /uL Baso # (Auto) 0 (0-100) /uL ESR 83 H (0-15) MM/HR Sodium 135 L (137-145) mmol/L Potassium 4.6 (3.4-5.1) mmol/L Chloride 101 (98-107) mmol/L Carbon Dioxide 29 (22-32) mmol/L BUN 19 (9-20) mg/dL Creatinine 1.29 H (0.66-1.25) mg/dL Estimated GFR 56.4 L (>60) mL/min BUN/Creatinine Ratio 14.7 (6-22) Glucose 198 H (80-110) mg/dL Calcium 8.7 (8.4-10.2) mg/dL Total Bilirubin 0.2 (0.2-1.3) mg/dL AST 22 (17-59) IU/L ALT 21 (<50) IU/L Alkaline Phosphatase 184 H (38-126) U/L C-Reactive Protein 0.5 (<1.0) mg/dL Total Protein 7.2 (6.3-8.2) g/dL Albumin 3.6 (3.5-5.0) g/dL Globulin 3.6 (1.7-4.1) g/dL Albumin/Globulin Ratio 1.0 (1.0-2.8) Discharge Plan Departure Patient Disposition: Admitted As Inpatient Clinical Impression: Cellulitis Admit Date/Time: 12/01/20 18:31 Admit Provider: Santy Le
[2020-12-01 18:18] LABS: Add Manual Diff / Slide Review NO; Basophils Absolute Auto 0 /uL (0-100); Basophils Percent Auto 0.6 % (0-2); Eosinophils Absolute Auto 200 /uL (0-450); Eosinophils Percent Auto 3.2 % (2-4); Hematocrit 25.9 % (41-53); Hemoglobin 8.6 g/dL (13.5-17.5); Lymphocytes Absolute Auto 1200 /uL (1100-4500); Lymphocytes Percent Auto 17.8 % (25-40); Mean Corpuscular HGB Conc 33.1 % (30-36); Mean Corpuscular Hemoglobin 28.3 PG (26-34); Mean Corpuscular Volume 85.6 fL (80-100); Monocytes Absolute Auto 500 /uL (0-900); Monocytes Percent Auto 7.7 % (3-14); Neutrophils Absolute Auto 4900 /uL (1500-7000); Neutrophils Percent Auto 70.7 % (50-75); Platelet Count 243 X10^3/uL (150-400); Red Blood Cell Count 3.03 X10^6/uL (4.5-5.9); Red Cell Distribution Width 13.5 % (11.6-14.8)
[2020-12-01] MEDS: SODIUM CHLORIDE 0.9% 1,000 ML 125 ML IV (18:21)
[2020-12-01] MEDS: VANCOMYCIN 1,500 MG/300 ML PIGGYBACK 200 MG IV (18:21)
[2020-12-01 18:37] LABS: Erythrocyte Sedimentation Rate 83 MM/HR (0-15)
[2020-12-01 18:46] LABS: Alanine Aminotransferase 21 IU/L (<50); Albumin 3.6 g/dL (3.5-5.0); Alkaline Phosphatase 184 U/L (38-126); Aspartate Aminotransferase 22 IU/L (17-59); BUN Creatinine Ratio 14.7 (6-22); Bilirubin Total 0.2 mg/dL (0.2-1.3); Blood Urea Nitrogen 19 mg/dL (9-20); C-Reactive Protein Quant 0.5 mg/dL (<1.0); Calcium 8.7 mg/dL (8.4-10.2); Carbon Dioxide 29 mmol/L (22-32); Chloride 101 mmol/L (98-107); Estimated Glomerular Filt Rate 56.4 mL/min (>60); Globulin 3.6 g/dL (1.7-4.1); Glucose 198 mg/dL (80-110); HEMOLYSIS < 15 (0-50); Potassium 4.6 mmol/L (3.4-5.1); Sodium 135 mmol/L (137-145); Total Protein 7.2 g/dL (6.3-8.2)
--- NOTE | 2020-12-01 19:15 | PC.NURSE ---
pulse is palpable in rt foot. sutures noted to 2nd toe. foot is edematous, red, dry, flaky skin, yellow/lyeva drainage to 2nd toe.
--- NOTE | 2020-12-01 19:21 | P.CONS_ITS ---
History of Present Illness Consult details Date Patient Seen: 12/01/20 Time Patient Seen: 19:21 Chief complaint: red swollen right foot / leg sp toe am 11/12 Reason for consult: Right diabetic foot infection Requesting provider: Peng Tobar Narrative: Patient is a 60-year-old gentleman with diabetes mellitus. He un derwent a partial amputation of his right 2nd toe by my partner Dr. James Viramontes on November 12, 2020. This was for necrosis of the 2nd toe. The wound on his 2nd toe has healed well. Since that time he has [facility] He has had home visits from wound care nurse as well. Notes from those visits are not available. The patient describes a series of increasingly aggressive debridements removing dried skin and areas of ulceration over the 2nd metatarsal head and in the longitudinal arch of his foot. He reports there has been an increase in drainage as well. He returns to the emergency room today on the recommendation of his wound care team. They do not provide inpatient operative care, so an orthopedic consultation has been obtained. Meds Home Medications and Allergies Home Medications Medication Instructions Recorded Confirmed Type Lantus U-100 Insulin 38 unit SQ BID #0 05/31/16 11/11/20 History aspirin 81 mg PO QDAY #0 05/31/16 11/11/20 History esomeprazole magnesium [Nexium] 20 mg PO QDAY #0 05/31/16 11/11/20 History gabapentin 600 mg PO DAILY #0 05/31/16 11/11/20 History insulin aspart U-100 [Novolog 8 unit SQ TIDCC #0 05/31/16 11/11/20 History Flexpen U-100 Insulin] amlodipine [Norvasc] 10 mg PO QDAY #0 11/02/16 11/11/20 History atorvastatin [Lipitor] 80 mg PO QDAY #0 11/02/16 11/11/20 History lisinopril 40 mg PO DAILY 11/11/20 11/11/20 History loperamide 2 mg PO Q4H PRN 11/11/20 11/11/20 History levofloxacin 500 mg PO DAILY@0700 #5 tab 11/18/20 Rx metoclopramide HCl [Reglan] 10 mg PO Q6H PRN #14 tab 11/18/20 Rx oxycodone 30 mg PO Q6H PRN #20 tab 11/18/20 Rx tamsulosin [Flomax] 0.4 mg PO DAILY #30 cap 11/18/20 Rx Allergies Allergy/AdvReac Type Severity Reaction Status Date / Time amitriptyline [AMITRIPTYLINE] Allergy Unknown Verified 11/11/20 12:33 Exam Vital Signs (past 8 hours): - 12/01/20 16:30 Temperature 99.2 F Pulse Rate 87 Respiratory Rate 22 Blood Pressure 183/81 H Pulse Oximetry 98 Oxygen Delivery Method Room Air Narrative Exam Narrative: Right foot is examined. There is a healed amputation wound of the 2nd toe with sutures still in place. There is an approximately 5 mm x 10 mm superficial ulcer underlying the 2nd metatarsal head. There is white material potentially a tendon in the base of this but no surrounding erythema or drainage. In the longitudinal arch of the foot there is an approximately 5 mm diameter superficial ulcer which again has a white base. There is no significant surrounding erythema and no drainage. Both lower extremities are quite swollen and there is significant dried callused skin on both feet. He has a barely palpable dorsalis pedis pulse. Objective Labs Result Diagrams: 12/01/20 18:00 12/01/20 18:00 Labs: Laboratory Results - last 24 hr 12/01/20 12/01/20 18:00 18:00 WBC 7.0 RBC 3.03 L Hgb 8.6 L Hct 25.9 L MCV 85.6 MCH 28.3 MCHC 33.1 RDW 13.5 Plt Count 243 Neut % (Auto) 70.7 Lymph % (Auto) 17.8 L [place] % (Auto) 7.7 Eos % (Auto) 3.2 Baso % (Auto) 0.6 Neut # (Auto) 4900 Lymph # (Auto) 1200 [place] # (Auto) 500 Eos # (Auto) 200 Baso # (Auto) 0 ESR 83 H Sodium 135 L Potassium 4.6 Chloride 101 Carbon Dioxide 29 BUN 19 Creatinine 1.29 H Estimated GFR 56.4 L BUN/Creatinine Ratio 14.7 Glucose 198 H Calcium 8.7 Total Bilirubin 0.2 AST 22 ALT 21 Alkaline Phosphatase 184 H C-Reactive Protein 0.5 Total Protein 7.2 Albumin 3.6 Globulin 3.6 Albumin/Globulin Ratio 1.0 Radiographs of the right foot obtained December 01, 2020 show vascular calcification and amputation of the 2nd toe through the distal end of the proximal phalanx. There is no sign of osteomyelitis of the remaining proximal phalanx. There is mild soft tissue swelling but no sign of significant air or potential soft tissue abscess on the x-ray. Assessment & Plan Assessment & Plan narrative: The patient appears have a diabetic foot infection with 2 small ulcers on the sole of the foot. This is been treated aggressively with outpatient wound care. There is concern that he is having a significant infection here possibly with deep osteomyelitis. He does not appear to have cur rent sepsis or an ascending infection. I would recommend that we obtain an MRI to evaluate for deep abscess or osteomyelitis in the foot. After the MRI is available we should be able to determine whether additional treatment can be handled by the wound care center, whether more aggressive debridement is necessary or whether he requires an amputation of the foot. Time Spent With Patient Time with patient: 15-24 minutes
--- NOTE | 2020-12-01 19:33 | DI.MRI.S_ITS ---
PROCEDURE: MR FOOT RT WO/W CON INDICATIONS: evaluate for abscess and osteomyelitis TECHNIQUE: Noncontrast coronal T1 spin echo and STIR, sagittal T1 spin echo with fat saturation and STIR, axial T1 spin echo and T2 fast spin echo with fat saturation. After the administration of contrast, axial/sagittal/coronal T1 spin echo with fat saturation through the right foot. COMPARISON: [facility], MR, MR FOOT RT WO/W CON, 11/07/2020, 11:38. FINDINGS: Image quality: Excellent. Bones: There is extensive marrow edema involving mid to distal 2nd metatarsal shaft distal 3rd metatarsal shaft/head and inferior portion of 4th metatarsal head. Extensive marrow edema are also seen throughout 2nd through 4th proximal, middle and distal phalanges. Heterogeneous contrast enhancement in the above-mentioned areas are seen. Finding is consistent with extensive osteomyelitis in forefoot. No pathologic fracture. No definite bony erosion or cortical destruction. Midfoot and forefoot joint osteoarthritic changes are again seen. Soft tissues: No soft tissue masses are visualized. The scanned muscles demonstrate normal overall bulk and internal signal. Soft tissue edema and swelling predominantly over dorsal aspect of midfoot and forefoot is seen and show heterogeneous contrast enhancement. No discrete drainable fluid collection is identified. IMPRESSION: 1. Interval progression of osteomyelitis now involving 2nd through 4th metatarsal shaft/head, proximal, middle and distal phalanges as described above. No pathologic fracture. No definite bony erosion. 2. Cellulitis over dorsal aspect of midfoot and forefoot and surrounding 2nd through 4th metatarsal bones and phalanges. No discrete drainable abscess collection. Forefoot tendons and ligaments are grossly intact. Dictated by: Bud Lawrence M.D. on 12/02/2020 at 12:38 Approved by: Bud Lawrence M.D. on 12/02/2020 at 12:46
[2020-12-01 19:45] LABS: COVID19 -Nasal RAPID Negative (Negative)
[2020-12-01] MEDS: DOCUSATE 100 MG CAPSULE PO (21:14)
[2020-12-01] MEDS: SODIUM CHLORIDE 0.9% FLUSH 10 ML IV ×2 (21:14→23:32)
--- NOTE | 2020-12-01 21:25 | P.HP_ITS ---
History of Present Illness History of Present Illness Date Patient Seen: 12/01/20 Time Patient Seen: 21:18 Chief complaint: red swollen right foot / leg sp toe am 11/12 Narrative: Mr. Yasmany Ann is a 60-year-old male with past medical history significant for insulin-dependent diabetes type 2, CKD stage III, opioid dependence on chronic pain medications, hypertension, hyperlipidemia and peripheral vascular disease who presents to the ER for worsening redness and swelling of his right foot. The patient was admitted to the hospital 11/11/2020 through for wound infection with necrosis and osteomyelitis of the 2nd toe resulting in a toe amputation with preserved metatarsal head amputation by Dr. Viramontes on 11/12/2020. The patient had been gone through multiple antibiotics including vancomycin, Rocephin cefepime pain and finding Levaquin which the patient was discharged on continuing course Levaquin and followed by the wound care clinic. The patient reports progressively aggressive debridements and evolving ulcers developing what appears to be a 0.5 cm x 1 cm wound to the plantar surface underneath the 2nd metatarsal as well as a another ulcer presenting towards the medial side of the arch of the right foot. Patient has discoloration of the distal 3rd of his lower extremity which he describes as consistent since his initial hospitalization. He reports his foot has been more swollen and red and more painful despite diabetic neuropathy. Wound cultures obtained during previous hospitalization identified agalactiae and anterobacter species both susceptible to Levaquin. The patient reports continuing Levaquin 5 500 mg daily with worsening pain redness and swelling. The patient denies fevers and affect describes chills but reports this has been longstanding. Denies complaints of headaches dizziness or visual changes. He does endorse nasal congestion and will cough with phlegm. Denies chest pain or palpitations and has no shortness of breath or wheezing. He denies complaints of abdominal pain and has had no changes in bowel or bladder habits. Upon arrival to the ER the patient has temperature of 99.2?, heart rate of 87, blood pressure 183/81, respiratory rate 22 saturating 98% on room air. And x- rays taken of the foot which finds no evidence of osteo myelitis. On laboratory analysis he has white count of 7.0 with no shift, hemoglobin of 8.6, hematocrit of 25.9 and platelets of 243. His electrolytes are within normal limits and has a BUN of 19 and creatinine 1.29. His nonfasting glucose is 198. He has a total bilirubin of 0.2, AST of 22, ALT of 21 and elevated alkaline phosphatase of 184. He has an elevated ESR of 83. COVID-19 screening is negative. Orthopedics is contacted through the emergency department related to probable postoperative wound infection. Dr. Moore has evaluated the patient in the ER recommend follow-up MRI results of which will D find plan of care. The patient is admitted to the hospitalist service due to multiple comorbidities for wound infection and diabetic ulcer. Patient History Medical History Diabetes mellitus type 2 in nonobese Diabetic foot ulcer Fracture of left great toe Hyperlipidemia Hypertension Kidney disease, chronic, stage III (GFR 30-59 ml/min) Neuropathy Peripheral vascular disease Surgical History H/O cervical spine surgery History of appendectomy History of partial amputation of toe Family & Social History Family History (Updated 12/01/20 @ 22:34 by DANA Todd) Father Diabetes mellitus Mother Alcohol abuse Smoker Hypertension Social History: household members spouse Tobacco & Substance use: Smoking Status Never smoker alcohol intake current alcohol intake frequency 0-2 drinks per day Substance Use Type does not use Meds Home Medications and Allergies Home Medications Medication Instructions Recorded Confirmed Type Lantus U-100 Insulin 38 unit SQ BID #0 05/31/16 11/11/20 History aspirin 81 mg PO QDAY #0 05/31/16 11/11/20 History esomeprazole magnesium [Nexium] 20 mg PO QDAY #0 05/31/16 11/11/20 History gabapentin 600 mg PO DAILY #0 05/31/16 11/11/20 History insulin aspart U-100 [Novolog 8 unit SQ TIDCC #0 05/31/16 11/11/20 History Flexpen U-100 Insulin] amlodipine [Norvasc] 10 mg PO QDAY #0 11/02/16 12/01/20 History atorvastatin [Lipitor] 80 mg PO QDAY #0 11/02/16 11/11/20 History lisinopril 40 mg PO DAILY 11/11/20 11/11/20 History loperamide 2 mg PO PRN PRN 11/11/20 11/11/20 History levofloxacin 500 mg PO DAILY@0700 #5 tab 11/18/20 Rx metoclopramide HCl [Reglan] 10 mg PO Q6H PRN #14 tab 11/18/20 Rx tamsulosin [Flomax] 0.4 mg PO DAILY #30 cap 11/18/20 Rx furosemide 20 mg PO DAILY 12/01/20 12/01/20 History oxycodone 10 mg PO Q6H PRN 12/01/20 12/01/20 History oxycodone 30 mg PO Q12H 12/01/20 12/01/20 History Allergies Allergy/AdvReac Type Severity Reaction Status Date / Time amitriptyline [AMITRIPTYLINE] Allergy Unknown Verified 11/11/20 12:33 Review of Systems Review of Systems ROS: Yes All systems reviewed with the patient and are negative except as otherwise documented Exam Vital Signs (past 8 hours): - 12/01/20 16:30 12/01/20 19:13 12/01/20 19:30 Temperature 99.2 F Pulse Rate 87 95 H 96 H Respiratory Rate 22 Blood Pressure 183/81 H 189/87 H Pulse Oximetry 98 97 97 12/01/20 19:44 Temperature Pulse Rate 97 H Respiratory Rate 16 Blood Pressure 169/78 H Pulse Oximetry 97 Oxygen Delivery Method Room Air Narrative Exam Narrative: GENERAL APPEARANCE: well developed, overweight male in mild discomfort but in no acute distress. HEENT: Normocephalic, PERRLA, conjunctiva clear, EOMs intact without nystagmus, mucous membranes are moist and pink. NECK/THYROID: neck supple, no JVD, no thyromegaly, trachea midline. LYMPH NODES: no cervical or supraclavicular lymphadenopathy. SKIN: [place], warm and dry, multiple skin lesions bilateral lower extremities, healing surgical wound with stitches in place post amputation right 2nd toe, 0.5 x 1.0 cm ulcer plantar surface underlying right 2nd metatarsal, 5 mm wound medial arch right foot. HEART: regular rate and rhythm, S1-S2, no murmur, no rubs or gallops, brisk capillary refill, 1+ bilateral lower extremity edema LUNGS: clear to auscultation bilaterally, no coarseness crackles or wheezing, no cough present CHEST: Symmetrical movement, no accessory muscle use, good tidal volume. ABDOMEN: Soft, no distention, no abdominal tenderness, no guarding or peritoneal signs, no organomegaly, no flank or suprapubic tenderness, active bowel tones. BACK: Normal curvature, nontender to palpation. EXTREMITIES: moves all extremities, strength is 5/5 and symmetrical, no deformities or joint effusions. NEUROLOGIC: AAO x 3, cranial nerves II-XII grossly intact, fine tremors bilateral hands, peripheral neuropathy in all extremities, hearing grossly normal to speech. PSYCH: Hyperverbal, tangential thought process, cooperative, anxious appearing Objective Labs Result Diagrams: 12/01/20 18:00 12/01/20 18:00 Labs: Laboratory Results - last 24 hr 12/01/20 12/01/20 12/01/20 18:00 18:00 19:10 WBC 7.0 RBC 3.03 L Hgb 8.6 L Hct 25.9 L MCV 85.6 MCH 28.3 MCHC 33.1 RDW 13.5 Plt Count 243 Neut % (Auto) 70.7 Lymph % (Auto) 17.8 L [place] % (Auto) 7.7 Eos % (Auto) 3.2 Baso % (Auto) 0.6 Neut # (Auto) 4900 Lymph # (Auto) 1200 [place] # (Auto) 500 Eos # (Auto) 200 Baso # (Auto) 0 ESR 83 H Sodium 135 L Potassium 4.6 Chloride 101 Carbon Dioxide 29 BUN 19 Creatinine 1.29 H Estimated GFR 56.4 L BUN/Creatinine Ratio 14.7 Glucose 198 H Calcium 8.7 Total Bilirubin 0.2 AST 22 ALT 21 Alkaline Phosphatase 184 H C-Reactive Protein 0.5 Total Protein 7.2 Albumin 3.6 Globulin 3.6 Albumin/Globulin Ratio 1.0 SARS-CoV-2 (PCR) Negative Assessment & Plan Assessment & Plan narrative: This is a s a 60-year-old male, nonsmoker, who has past medical history significant for 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 1. Postoperative wound infection status post amputation right 2nd toe with plantar surface ulceration, acute and present on admission -patient is status post 2nd digit amputation, stitches remain in place. Macerated appearing plantar surface ulcer 0.5 x 1 cm underlying 2nd metatarsal head. -wound healing complicated by history poorly controlled diabetes with diabetic foot ulcers and peripheral vascular disease. -white count is normal at 7.0 with no apparent shift, chronic infection marked with elevated ESR at 83. -previous cultures growing strep agalactiae day, and Acinetobactoer patient has been treated with amoxicillin clavulanate and Levaquin with progressive redness and swelling. -antibiotics broadened to vancomycin IV pharmacy to dose and added cefepime 2 g IV daily (renal dosing). -Dr. Moore has agreed to consult and has evaluated the patient we appreciate his evaluation recommendations. -will obtain MRI the right foot from which the results dictate plan of care. 2. Diabetes type 2 with hyperglycemia, present on admission, active. -hemoglobin A1c on 11/12/2020 was 8.0, patient states he has improved his dietar y regimen, he reports continues taking Lantus 38 units twice daily however notes he has experienced low sugars in the 70s at night. -ordered Lantus 30 units twice daily. -fingerstick blood sugars a.c. and hs with low-dose correctional insulin. -will follow blood sugars closely. 3. Chronic kidney disease stage 3, present on admission, stable. -patient with a hay I during previous admission with creatinine as high as 2.16 improved 1.51 on discharge and today is found to be 1.29 with an EGFR of 54.4. -creatinine still not back to previous baseline of 1.1, the patient continues Lasix 20 mg daily. -will renally dose medications as indicated and avoid renal toxic agents able. -will follow renal function on serial chemistries. 4. Opioid dependence for chronic pain syndrome -will continue patient's home regimen of oxycodone 30 mg q.12 hours with 10 mg every 6 as needed. 5. Essential hypertension, chronic - Continue home regimen of amlodipine 10 mg and lisinopril 40 mg daily 6. Hyperlipidemia, chronic - Continue home regimen of atorvastatin 80 po daily 7. Peripheral vascular disease -continue current aspirin 81 mg and atorvastatin 80 mg daily. 8. 1+ bilateral lower extremity edema, stable -prior echocardiogram 11/07/2020 finds an EF of 60 65% with LV dilation and normal thickness, RV normal in size and function. -the patient is saline locked and will continue Lasix 20 mg daily. VTE prophylaxis: Heparin starting tomorrow night following surgical evaluation and possible debridement. IV fluid: Saline lock Diet: Consistent carbohydrate, heart healthy low-sodium Code status: Full code, the patient designates his brother to be his surrogate decision maker. The patient is admitted to the hospital due to the progression in severity of his wounds requiring IV antibiotics, further imaging and surgical evaluation. The patient is admitted as an inpatient with expected length of stay to be greater than 2 midnights. Scores GCS [place] coma scale eye opening: Spontaneous [place] coma scale verbal response: Orientated [place] coma scale motor response: Obey commands [place] coma scale total score: 15
[2020-12-01] MEDS: CEFEPIME 2 GM in SODIUM CHLORIDE 0.9% 100 ML 200 ML IV (23:31)
[2020-12-01] MEDS: OXYCODONE ER 10 MG TAB 30 MG PO (23:42)
[2020-12-02] VITALS (9 sets, daily range): BP systolic 158–182; BP diastolic 77–86; PULSE 80–95; RESP 18; TEMP 36.6–37.1; O2SAT 96–99
--- NOTE | 2020-12-02 02:01 | PC.NURSE ---
0016: patient is alert and oriented. Breath sounds CTA with RA sat of 98%. HRR with elevated BP of 159/87. Denies nausea. BT present and states he is passing flatus. Has been getting out of bed with 1 assist + cane to stand at bedside and use urinal. Is able to move himself in bed. Has 2+ bilateral LE edema. Wounds present on plantar surface of right foot as well as on heel of left foot. Amputated right 2nd toe with intact stitches. Skin on lower legs is dry and flaky and on foot is crusty in appearance. Has neuropathy in bilateral hands/feet. Complained of 5/10 sharp back pain and right foot pain and was medicated with scheduled oxycodone. Refused SCD's so machine not set up. CBG was 180 and CRUSHER AND BLENDER OPERATOR informed and he wanted patient to be given sliding scale coverage based on day time protocol but patient declined to be given insulin. Patient is on contact isolation per [employer] BLENDER OPERATOR order as he states patient has resistant bacteria and wants precautions used until bacteria can be identified; current wound culture is growing gram negative rods on gram stain. Fall risk score is high and bed alarm is activated.
[2020-12-02 05:42] LABS: Add Manual Diff / Slide Review NO; Basophils Absolute Auto 0 /uL (0-100); Basophils Percent Auto 0.9 % (0-2); Eosinophils Absolute Auto 300 /uL (0-450); Eosinophils Percent Auto 6.3 % (2-4); Hemoglobin 7.9 g/dL (13.5-17.5); Lymphocytes Absolute Auto 1100 /uL (1100-4500); Mean Corpuscular HGB Conc 33.6 % (30-36); Mean Corpuscular Hemoglobin 28.9 PG (26-34); Mean Corpuscular Volume 85.9 fL (80-100); Monocytes Absolute Auto 500 /uL (0-900); Monocytes Percent Auto 13.2 % (3-14); Neutrophils Absolute Auto 2100 /uL (1500-7000); Neutrophils Percent Auto 51.6 % (50-75); Platelet Count 188 X10^3/uL (150-400); Red Blood Cell Count 2.74 X10^6/uL (4.5-5.9); Red Cell Distribution Width 13.4 % (11.6-14.8); White Blood Cell Count 4.1 X10^3/uL (4.5-11.0)
[2020-12-02 05:45] LABS: BUN Creatinine Ratio 15.3 (6-22); Blood Urea Nitrogen 17 mg/dL (9-20); Calcium 8.4 mg/dL (8.4-10.2); Carbon Dioxide 31 mmol/L (22-32); Chloride 104 mmol/L (98-107); Estimated Glomerular Filt Rate > 60.0 mL/min (>60); Glucose 124 mg/dL (80-110); HEMOLYSIS < 15 (0-50); Potassium 4.9 mmol/L (3.4-5.1); Sodium 137 mmol/L (137-145)
[2020-12-02 05:50] LABS: Hematocrit 23.6 % (41-53)
[2020-12-02] MEDS: SODIUM CHLORIDE 0.9% FLUSH 10 ML IV ×3 (06:05→20:47)
[2020-12-02] MEDS: VANCOMYCIN 1,000 MG/200 ML PIGGYBACK 200 MG IV ×2 (06:05→18:09)
[2020-12-02] MEDS: OXYCODONE IR 5 MG TABLET PO (06:19)
--- NOTE | 2020-12-02 08:31 | PM.PN.1 ---
Subjective Subjective Date Patient Seen: 12/02/20 Time Patient Seen: 08:31 Interval history: Patient states fever and chills have decreased. No nausea or vomiting. Pain is under control. Exam Vital Signs (past 8 hours): - 12/02/20 04:05 12/02/20 07:58 12/02/20 08:00 Temperature 97.9 F 97.8 F Pulse Rate 80 85 Respiratory Rate 18 18 Blood Pressure 158/83 H 164/86 H Pulse Oximetry 99 97 98 Oxygen Delivery Method Room Air Oxygen Flow Rate 0 Narrative Exam Narrative: 60-year-old male sitting in bedside chair having breakfast in no apparent distress. Objective Labs Result Diagrams: 12/02/20 05:16 12/02/20 05:16 Labs: Laboratory Results - last 24 hr 12/01/20 12/01/20 12/01/20 18:00 18:00 19:10 WBC 7.0 RBC 3.03 L Hgb 8.6 L Hct 25.9 L MCV 85.6 MCH 28.3 MCHC 33.1 RDW 13.5 Plt Count 243 Neut % (Auto) 70.7 Lymph % (Auto) 17.8 L [place] % (Auto) 7.7 Eos % (Auto) 3.2 Baso % (Auto) 0.6 Neut # (Auto) 4900 Lymph # (Auto) 1200 [place] # (Auto) 500 Eos # (Auto) 200 Baso # (Auto) 0 ESR 83 H Sodium 135 L Potassium 4.6 Chloride 101 Carbon Dioxide 29 BUN 19 Creatinine 1.29 H Estimated GFR 56.4 L BUN/Creatinine Ratio 14.7 Glucose 198 H Calcium 8.7 Total Bilirubin 0.2 AST 22 ALT 21 Alkaline Phosphatase 184 H C-Reactive Protein 0.5 Total Protein 7.2 Albumin 3.6 Globulin 3.6 Albumin/Globulin Ratio 1.0 SARS-CoV-2 (PCR) Negative 12/02/20 12/02/20 05:16 05:16 WBC 4.1 L RBC 2.74 L Hgb 7.9 L Hct 23.6 L MCV 85.9 MCH 28.9 MCHC 33.6 RDW 13.4 Plt Count 188 Neut % (Auto) 51.6 Lymph % (Auto) 28.0 [place] % (Auto) 13.2 Eos % (Auto) 6.3 H Baso % (Auto) 0.9 Neut # (Auto) 2100 Lymph # (Auto) 1100 [place] # (Auto) 500 Eos # (Auto) 300 Baso # (Auto) 0 ESR Sodium 137 Potassium 4.9 Chloride 104 Carbon Dioxide 31 BUN 17 Creatinine 1.11 Estimated GFR > 60.0 BUN/Creatinine Ratio 15.3 Glucose 124 H Calcium 8.4 Total Bilirubin AST ALT Alkaline Phosphatase C-Reactive Protein Total Protein Albumin Globulin Albumin/Globulin Ratio SARS-CoV-2 (PCR) [facility] Medical History Diabetes mellitus type 2 in nonobese Diabetic foot ulcer Fracture of left great toe Hyperlipidemia Hypertension Kidney disease, chronic, stage III (GFR 30-59 ml/min) Neuropathy Peripheral vascular disease Surgical History H/O cervical spine surgery History of appendectomy History of partial amputation of toe Family History (Updated 12/01/20 @ 22:34 by DANA Todd) Father Diabetes mellitus Mother Alcohol abuse Smoker Hypertension Social History household members: spouse Smoking Status: Never smoker alcohol intake: current Assessment & Plan Assessment & Plan narrative: MRI scheduled for 10:30 a.m. this morning. The results from the MRI will determine whether additional treatment will be necessary surgically or can be managed through wound care center. Quality VTE Deep Vein Thrombosis/Pulmonary Embolism Present on Admission: No
[2020-12-02] MEDS: DOCUSATE 100 MG CAPSULE PO ×2 (09:19→20:41)
[2020-12-02] MEDS: lisinopriL 20 MG TABLET 40 MG PO (09:19)
[2020-12-02] MEDS: AMLODIPINE 5 MG TABLET 10 MG PO (09:19)
[2020-12-02] MEDS: TAMSULOSIN 0.4 MG CAPSULE PO (09:19)
[2020-12-02] MEDS: CEFEPIME 2 GM in SODIUM CHLORIDE 0.9% 100 ML 150 ML IV (09:20)
[2020-12-02] MEDS: ASPIRIN EC 81 MG TABLET PO (09:20)
[2020-12-02] MEDS: FUROSEMIDE 20 MG TABLET PO (09:23)
[2020-12-02] MEDS: OXYCODONE ER 10 MG TAB 30 MG PO ×2 (09:30→21:56)
--- NOTE | 2020-12-02 10:33 | PC.NURSE ---
Day shift: Pt off AC unit for MRI at approx 1033. No c/o elevated pain at this time.
--- NOTE | 2020-12-02 10:40 | CM.DANOTE ---
Addendum entered by Odilia Bravo R.N. 12/02/20 13:10: Confirmed with Nathaly at [facility] that patient is under their services for nursing only, three times a week. Noted MRI indicated osteomyelitis. Called Carlo at [facility], in case patient needs senior care IV antibiotics. Carlo indicated that secondary, [employer] would have a co-payment of approximately 20%. Faxed him over the referral, including face sheet, MRI report, H&P, as well as medication list. He will review. Original Note: DCP: Case received, EMR reviewed and called to check in on patient from his room. Introduced self and role over the phone. Was able to obtain information from patient regarding his current baseline status at home as far as mobility, and wound care. DCP assessment completed with information currently available. Patient is a 60 year old male who admitted yesterday afternoon to the care of the hospitalist team. PCP: Dr. Orozco at [facility]. Payer: confirmed: Medicare/[employer] for [place]. Patient came to the hospital via private vehicle secondary to having increased redness and swelling to his right foot. Patient has history of diabetes, and was here recently for amputation to his 2nd right toe. This occurred on 11/12. Patient is noted to have 2 ulcers on the sole of his foot, and is here for cellulitis. Patient is to be having an MRI today to rule out osteomyelitis. Called patient from his room, since he is on precautions. Confirmed that he is currently under [facility] services, nursing comes to his home 3 times a week for dressing changes. The nurse encouraged him to come to the hospital secondary to concerns of infection. He no longer has home P.T, they had seen him once and discharged. Patient resides with his , Jacob, in [place]. He is independent, other than dressing changes, and wears a boot over his foot. Discussed with him if he needs home infusion, and stated, he hasn't had to have them, but can manage at home. He is also going to [facility] wound [facility] to see Dr. Rojo. P: DCP to continue to follow. Will see what MRI notes. May need terminal make up operator IV antibiotics, he will also follow up with orthopedics. Will contact [facility] if he is positive for osteomyelitis. He has [employer] as his secondary, which could cover home infusions. Odilia Bravo RN/Janitor Supervisor
[2020-12-02] MEDS: OXYCODONE IR 10 MG TABLET PO ×2 (12:29→18:21)
--- NOTE | 2020-12-02 13:32 | P.PN_ITS ---
Subjective Subjective Date Patient Seen: 12/02/20 Time Patient Seen: 13:35 Interval history: Mr. Yasmany Ann is a 60-year-old male with past medical history significant for insulin-dependent diabetes type 2, CKD stage III, opioid dependence on chronic pain medications, hypertension, hyperlipidemia and peripheral vascular disease who presents to the ER for worsening redness and swelling of his right foot. The patient was admitted to the hospital 11/11/2020 through for wound infection with necrosis and osteomyelitis of the 2nd toe resulting in a toe amputation with preserved metatarsal head amputation by Dr. Viramontes on 11/12/2020. He had progression of his wound and was admitted over concern for possible worsening of his infection and need for IV antibiotics. MRI showing osteomyelitis of the 2nd -4th digits today, pending orthopedic surgery for potential options including possible amputation. Exam Vital Signs (past 8 hours): - 12/02/20 07:58 12/02/20 08:00 12/02/20 12:20 Temperature 97.8 F Pulse Rate 85 Respiratory Rate 18 Blood Pressure 164/86 H Pulse Oximetry 97 98 96 Oxygen Delivery Method Room Air Oxygen Flow Rate 0 Narrative Exam Narrative: GENERAL APPEARANCE: well developed, overweight male in mild discomfort but in no acute distress. HEENT: Normocephalic, PERRLA, conjunctiva clear, EOMs intact without nystagmus, mucous membranes are moist and pink. NECK/THYROID: neck supple, no JVD, no thyromegaly, trachea midline. LYMPH NODES: no cervical or supraclavicular lymphadenopathy. SKIN: [place], warm and dry, multiple skin lesions bilateral lower extremities, healing surgical wound with stitches in place post amputation right 2nd toe, 0.5 x 1.0 cm ulcer plantar surface underlying right 2nd metatarsal, 5 mm wound medial arch right foot. HEART: regular rate and rhythm, S1-S2, no murmur, no rubs or gallops, brisk capillary refill, 1+ bilateral lower extremity edema LUNGS: clear to auscultation bilaterally, no coarseness crackles or wheezing, no cough present CHEST: Symmetrical movement, no accessory muscle use, good tidal volume. ABDOMEN: Soft, no distention, no abdominal tenderness, no guarding or peritoneal signs, no organomegaly, no flank or suprapubic tenderness, active bowel tones. BACK: Normal curvature, nontender to palpation. EXTREMITIES: moves all extremities, strength is 5/5 and symmetrical, no deformities or joint effusions. NEUROLOGIC: AAO x 3, cranial nerves II-XII grossly intact, fine tremors bilater al hands, peripheral neuropathy in all extremities, hearing grossly normal to speech. PSYCH: Hyperverbal, tangential thought process, cooperative Objective Labs Result Diagrams: 12/02/20 05:16 12/02/20 05:16 Labs: Laboratory Results - last 24 hr 12/01/20 12/01/20 12/01/20 18:00 18:00 19:10 WBC 7.0 RBC 3.03 L Hgb 8.6 L Hct 25.9 L MCV 85.6 MCH 28.3 MCHC 33.1 RDW 13.5 Plt Count 243 Neut % (Auto) 70.7 Lymph % (Auto) 17.8 L [place] % (Auto) 7.7 Eos % (Auto) 3.2 Baso % (Auto) 0.6 Neut # (Auto) 4900 Lymph # (Auto) 1200 [place] # (Auto) 500 Eos # (Auto) 200 Baso # (Auto) 0 ESR 83 H Sodium 135 L Potassium 4.6 Chloride 101 Carbon Dioxide 29 BUN 19 Creatinine 1.29 H Estimated GFR 56.4 L BUN/Creatinine Ratio 14.7 Glucose 198 H Calcium 8.7 Total Bilirubin 0.2 AST 22 ALT 21 Alkaline Phosphatase 184 H C-Reactive Protein 0.5 Total Protein 7.2 Albumin 3.6 Globulin 3.6 Albumin/Globulin Ratio 1.0 SARS-CoV-2 (PCR) Negative 12/02/20 12/02/20 05:16 05:16 WBC 4.1 L RBC 2.74 L Hgb 7.9 L Hct 23.6 L MCV 85.9 MCH 28.9 MCHC 33.6 RDW 13.4 Plt Count 188 Neut % (Auto) 51.6 Lymph % (Auto) 28.0 [place] % (Auto) 13.2 Eos % (Auto) 6.3 H Baso % (Auto) 0.9 Neut # (Auto) 2100 Lymph # (Auto) 1100 [place] # (Auto) 500 Eos # (Auto) 300 Baso # (Auto) 0 ESR Sodium 137 Potassium 4.9 Chloride 104 Carbon Dioxide 31 BUN 17 Creatinine 1.11 Estimated GFR > 60.0 BUN/Creatinine Ratio 15.3 Glucose 124 H Calcium 8.4 Total Bilirubin AST ALT Alkaline Phosphatase C-Reactive Protein Total Protein Albumin Globulin Albumin/Globulin Ratio SARS-CoV-2 (PCR) [facility] Medical History Diabetes mellitus type 2 in nonobese Diabetic foot ulcer Fracture of left great toe Hyperlipidemia Hypertension Kidney disease, chronic, stage III (GFR 30-59 ml/min) Neuropathy Peripheral vascular disease Surgical History H/O cervical spine surgery History of appendectomy History of partial amputation of toe Family History (Updated 12/01/20 @ 22:34 by DANA Todd) Father Diabetes mellitus Mother Alcohol abuse Smoker Hypertension Social History household members: spouse Smoking Status: Never smoker alcohol intake: current Assessment & Plan Assessment & Plan narrative: This is a s a 60-year-old male, nonsmoker, who has past medical history significant for 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 MRI showing osteomyelitis today. 1. Progressive osteomyelitis of the right foot, acute and present on admission -patient is status post 2nd digit amputation, stitches remain in place. Macerated appearing plantar surface ulcer 0.5 x 1 cm underlying 2nd metatarsal head. -wound healing complicated by history poorly controlled diabetes with diabetic foot ulcers and peripheral vascular disease. -white count is normal at 7.0 with no apparent shift, chronic infection marked with elevated ESR at 83. -previous cultures growing strep agalactiae day, and Acinetobactoer patient has been treated with amoxicillin clavulanate and Levaquin with progressive redness and swelling. -antibiotics broadened to vancomycin IV pharmacy to dose and added cefepime 2 g IV daily (renal dosing). -Dr. Moore has agreed to consult and has evaluated the patient we appreciate his evaluation recommendations. -MRI showing osteomyelitis of the 2nd -4th digits, will await formal recommendations from orthopedic surgery regarding treatment options. 2. Diabetes type 2 with hyperglycemia, present on admission, active. -hemoglobin A1c on 11/12/2020 was 8.0, patient states he has improved his dietary regimen, he reports continues taking Lantus 38 units twice daily however notes he has experienced low sugars in the 70s at night. -ordered Lantus 30 units twice daily. -fingerstick blood sugars a.c. and hs with low-dose correctional insulin. -will follow blood sugars closely. 3. Chronic kidney disease stage 3, present on admission, stable. -patient during previous admission with creatinine as high as 2.16 improved 1.51 on discharge and today is found to be 1.29 with an EGFR of 54.4. -creatinine still not back to previous baseline of 1.1, the patient continues Lasix 20 mg daily. -will renally dose medications as indicated and avoid renal toxic agents able. -will follow renal function on serial chemistries. 4. Opioid dependence for chronic pain syndrome -will continue patient's home regimen of oxycodone 30 mg q.12 hours with 10 mg every 6 as needed. 5. Essential hypertension, chronic - Continue home regimen of amlodipine 10 mg and lisinopril 40 mg daily 6. Hyperlipidemia, chronic - Continue home regimen of atorvastatin 80 po daily 7. Peripheral vascular disease -continue current aspirin 81 mg and atorvastatin 80 mg daily. 8. 1+ bilateral lower extremity edema, stable -prior echocardiogram 11/07/2020 finds an EF of 60 65% with LV dilation and normal thickness, RV normal in size and function. -the patient is saline locked and will continue Lasix 20 mg daily. Dispo: remains inpatient, disposition depending on course moving forward with orthopedics and / or podiatry. Quality VTE Deep Vein Thrombosis/Pulmonary Embolism Present on Admission: No
--- NOTE | 2020-12-02 15:28 | DI.US.S_ITS ---
PROCEDURE: US ARTERIAL DUPLEX LE BI INDICATIONS: PVD TECHNIQUE: Color and pulse Doppler interrogation was performed of both lower extremity arterial systems, with image documentation. COMPARISON: None. FINDINGS: Right lower extremity: Common femoral artery: 122 cm/sec, with triphasic flow. Deep femoral artery: 104 cm/sec, with biphasic flow. Proximal superficial femoral artery: 86 cm/sec, with triphasic flow. Mid superficial femoral artery: 99 cm/sec, with the triphasic flow. Distal superficial femoral artery: 116 cm/sec, with biphasic flow. Popliteal artery: 171 cm/sec, with triphasic flow. Posterior tibial artery: 137 cm/sec, with monophasic flow. Anterior tibial artery/dorsalis pedis: 82 cm/sec, with monophasic flow. Soliz-scale imaging description: [id number] scattered plaque. Left lower extremity: Common femoral artery: 154 cm/sec, with triphasic flow. Deep femoral artery: 148 cm/sec, with biphasic flow. Proximal superficial femoral artery: 135 cm/sec, with triphasic flow. Mid superficial femoral artery: 125 cm/sec, with triphasic flow. Distal superficial femoral artery: 82 cm/sec, with triphasic flow. Popliteal artery: 118 cm/sec, with biphasic flow. Posterior tibial artery: 125 cm/sec, with monophasic flow. Anterior tibial artery/dorsalis pedis: 112 cm/sec, with biphasic flow. Soliz-scale imaging description: [id number] scattered plaque. IMPRESSION: No significant focal stenosis. Dictated by: Toni Waters M.D. on 12/03/2020 at 8:51 Approved by: Toni Waters M.D. on 12/03/2020 at 8:54
[2020-12-02] MEDS: INSULIN ASPART 100 UNIT/ML INSULN PEN SUBCUT ×2 (16:58→20:47)
[2020-12-02] MEDS: NEXIUM 20 MG 20 EACH PO (17:03)
[2020-12-02] MEDS: SENNOSIDES 8.6 MG TABLET 17.2 MG PO (20:41)
[2020-12-02] MEDS: CEFEPIME 2 GM in SODIUM CHLORIDE 0.9% 100 ML 200 ML IV (20:41)
[2020-12-02] MEDS: ATORVASTATIN 20 MG TABLET 80 MG PO (20:41)
[2020-12-02] MEDS: HEPARIN 5,000 UNIT/ML VIAL 5000 UNIT SUBCUT (20:42)
[2020-12-03] MEDS: ALPRAZolam 0.25 MG TABLET PO (00:33)
[2020-12-03] MEDS: OXYCODONE IR 5 MG TABLET PO (00:34)
--- NOTE | 2020-12-03 03:37 | PC.NURSE ---
patient seen and assessed at 0047. Is alert and oriented but very restless and anxious at start of shift. Had received some insurance/Medicare notification and took it to mean he was being kicked out of the hospital. Despite reassurances continues highly anxious. Willard CORTEZ, was notified and he discussed situation with patient and ordered one time dose of Alprazolam. Patient also complaining that he is cold so thermostat adjusted. Warm blankets offered but patient declined. K-pad provided per [facility] order but after being set up patient refused to use stating it was too confining. Breath sounds CTA with RA sat of 99%. HRR. BP quite elevated at 182/83 but likely increased due to anxiety. Denies nausea. BT present and is passing flatus. Voiding per urinal and denies dysuria, frequency or urgency. Is able to move himself in bed. At shift change was refusing bed alarm/staff assist and was up in room with cane and wearing ortho boot on right foot. Skin condition unchanged. Has foot cradle on bed to keep pressure off right foot. Does complain of pain in lower back and right foot and was medicated with Oxycodone. Fall risk score is high and once patient calmed down and back in bed was agreeable to having bed alarm activated again. On contact isolation per order until cultures back.
[2020-12-03 05:35] VITALS: BP 160/80; PULSE 82; RESP 18; TEMP 36.9; O2SAT 98
[2020-12-03 05:37] LABS: Add Manual Diff / Slide Review NO; Basophils Absolute Auto 0 /uL (0-100); Basophils Percent Auto 0.8 % (0-2); Eosinophils Absolute Auto 200 /uL (0-450); Hemoglobin 7.2 g/dL (13.5-17.5); Lymphocytes Absolute Auto 1200 /uL (1100-4500); Lymphocytes Percent Auto 27.2 % (25-40); Mean Corpuscular HGB Conc 33.3 % (30-36); Mean Corpuscular Hemoglobin 28.3 PG (26-34); Mean Corpuscular Volume 85.1 fL (80-100); Monocytes Absolute Auto 400 /uL (0-900); Monocytes Percent Auto 9.7 % (3-14); Neutrophils Absolute Auto 2500 /uL (1500-7000); Neutrophils Percent Auto 57.3 % (50-75); Platelet Count 183 X10^3/uL (150-400); Red Blood Cell Count 2.56 X10^6/uL (4.5-5.9); Red Cell Distribution Width 13.5 % (11.6-14.8); White Blood Cell Count 4.4 X10^3/uL (4.5-11.0)
[2020-12-03 05:46] LABS: BUN Creatinine Ratio 17.4 (6-22); Blood Urea Nitrogen 20 mg/dL (9-20); Calcium 8.3 mg/dL (8.4-10.2); Carbon Dioxide 31 mmol/L (22-32); Chloride 103 mmol/L (98-107); Estimated Glomerular Filt Rate > 60.0 mL/min (>60); Glucose 185 mg/dL (80-110); HEMOLYSIS < 15 (0-50); Potassium 4.5 mmol/L (3.4-5.1); Sodium 134 mmol/L (137-145)
[2020-12-03 05:48] LABS: Vancomycin Trough 13.9 ug/mL (10-20)
[2020-12-03 05:57] LABS: Hematocrit 21.8 % (41-53)
[2020-12-03] MEDS: VANCOMYCIN 1,000 MG/200 ML PIGGYBACK 200 MG IV (05:58)
[2020-12-03] MEDS: SODIUM CHLORIDE 0.9% 250 ML 21 ML IV (05:58)
[2020-12-03] MEDS: SODIUM CHLORIDE 0.9% FLUSH 10 ML IV (05:59)
--- NOTE | 2020-12-03 07:51 | PM.CN ---
History of Present Illness Consult details Date Patient Seen: 12/03/20 Time Patient Seen: 07:51 Chief complaint: red swollen right foot / leg sp toe am 11/12 Requesting provider: Nic Moore Narrative: Mr. Yasmany Ann is a 60-year-old male with past medical history significant for insulin-dependent diabetes type 2, CKD stage III, opioid dependence on chronic pain medications, hypertension, hyperlipidemia and peripheral vascular disease who Admitted to the hospital for worsening redness and swelling of his right foot. The patient was admitted to the hospital 11/11/2020 through 11/18/2020 for wound infection with necrosis and osteomyelitis of the 2nd toe resulting in a toe amputation with preserved metatarsal head amputation by Dr. Viramontes on 11/12/2020. He has been getting dressing changes at the [facility].He had Concern for progression of his wound and was admitted over concern for possible worsening of his infection and need for IV antibiotics. MRI read as worseningosteomyelitis of the 2nd -4th digits today, but no abscess or fluid collection identified. Additional concern for ulceration in the longitudinal arch of the foot. patient states that worsening appearance followed some moisture and is dressings. States he had some debridements at wound care and believes that the area of his longitudinal arch has been there for a long time possibly years but some of the callus and skin of fell off after his last hospitalization. Last hemoglobin A1c in October reportedly 8. has a history of a left 2nd toe partial amputation by myself about a year ago. Meds Home Medications and Allergies Home Medications Medication Instructions Recorded Confirmed Type Lantus U-100 Insulin 38 unit SQ BID #0 05/31/16 12/02/20 History aspirin 81 mg PO QDAY #0 05/31/16 12/02/20 History esomeprazole magnesium [Nexium] 20 mg PO QDAY #0 05/31/16 12/02/20 History gabapentin 600 mg PO DAILY #0 05/31/16 12/02/20 History insulin aspart U-100 [Novolog 8 unit SQ TIDCC #0 05/31/16 12/02/20 History Flexpen U-100 Insulin] amlodipine [Norvasc] 10 mg PO QDAY #0 11/02/16 12/01/20 History atorvastatin [Lipitor] 80 mg PO QDAY #0 11/02/16 12/02/20 History lisinopril 40 mg PO DAILY 11/11/20 12/02/20 History loperamide 2 mg PO PRN PRN 11/11/20 11/11/20 History levofloxacin 500 mg PO DAILY@0700 #5 tab 11/18/20 12/02/20 Rx metoclopramide HCl [Reglan] 10 mg PO Q6H PRN #14 tab 11/18/20 Rx tamsulosin [Flomax] 0.4 mg PO DAILY #30 cap 11/18/20 12/02/20 Rx furosemide 20 mg PO DAILY 12/01/20 12/01/20 History oxycodone 10 mg PO Q6H PRN 12/01/20 12/01/20 History oxycodone 30 mg PO Q12H 12/01/20 12/01/20 History Allergies Allergy/AdvReac Type Severity Reaction Status Date / Time amitriptyline [AMITRIPTYLINE] Allergy Unknown Verified 11/11/20 12:33 Exam Vital Signs (past 8 hours): - 12/03/20 05:35 Temperature 98.5 F Pulse Rate 82 Respiratory Rate 18 Blood Pressure 160/80 H Pulse Oximetry 98 Oxygen Delivery Method Room Air Oxygen Flow Rate 0 Narrative Exam Narrative: alert oriented male lying in bed answers questions appropriately, pleasant HEENT exam normocephalic atraumatic respiratory exam unlabored on room air musculoskeletal examination: right lower extremity: demonstrates a partial 2nd toe amputation with sutures in place. There is dry skin along the plantar forefoot. There is some dried blood and scab over a 2nd metatarsal head partial thickness ulceration no drainage no malodor. no ascending erythema edema. No clear cellulitis demarcation. Slightly more pink than the contralateral side. Dorsalis pedis pulses not palpable but capillary refill is brisk there is a small 0.5 by 0.5 cm full-thickness ulceration at the longitudinal arch on the plantar surface. There is no surrounding erythema. No drainage. There is some fibrin exudate, this is gentlydebrided today. Tissue bleeds well. demonstrates dorsiflexion plantar flexion of the ankle. Can reach 10? of dorsiflexion. Stocking-glove neuropathy and dorsal and plantar at the right foot. calf is soft no palpable pulse at the dorsalis pedis but brisk capillary refill. ( States he believes the site was dopplerable in wound clinic). left heel shows a her medial heel pressure lesion no drainage or erythema. Patient states has been present for a long time Objective Imaging MRI right foot: My impression: right foot MRI with and without contrast 12/02/2020 [facility]. There is a enhancement of the 2nd through 4th metatarsals and cellulitis present. There is no apparent drainable abscess demonstrated. No cortical breakthrough or erosions. Labs Result Diagrams: 12/03/20 05:16 12/03/20 05:16 Labs: Laboratory Results - last 24 hr 12/03/20 12/03/20 12/03/20 05:16 05:16 05:16 WBC 4.4 L RBC 2.56 L Hgb 7.2 L Hct 21.8 L MCV 85.1 MCH 28.3 MCHC 33.3 RDW 13.5 Plt Count 183 Neut % (Auto) 57.3 Lymph % (Auto) 27.2 [place] % (Auto) 9.7 Eos % (Auto) 5.0 H Baso % (Auto) 0.8 Neut # (Auto) 2500 Lymph # (Auto) 1200 [place] # (Auto) 400 Eos # (Auto) 200 Baso # (Auto) 0 Sodium 134 L Potassium 4.5 Chloride 103 Carbon Dioxide 31 BUN 20 Creatinine 1.15 Estimated GFR > 60.0 BUN/Creatinine Ratio 17.4 Glucose 185 H Calcium 8.3 L Vancomycin Trough 13.9 Assessment & Plan Assessment and plan (1) Cellulitis: Status: Acute (2) Osteomyelitis: Problem details: Osteomylitis of the right middle toe and cellulitis of the dorsal aspect of his right foot, acute and present on admission -patient is status post 2nd digit amputation -cultures growing strep agalactiae day, and Acinetobactoer -vancomycin discontinued, ceftriaxone swithched to cefepime 11/14 for rising WBC without much improvement. Given cultures narrowed to levaquin 11/15 with improved WBC to 19K today. -will follow white count, 15 > 21 > 27 > 19K today. No obvious cause, consider alternative diagnoses as noted below. -procalcitonin is not significantly changed since admission at 0.50. Status: Acute (3) Diabetic foot ulcer: Status: Inactive Assessment & Plan narrative: Patient is a 60-year-old male uncontrolled diabetic with a right foot and diabetic foot ulcer. Last month the had obvious cellulitis with extremely elevated inflammatory markers and white count. He had a partial 2nd toe amputation and has had antibiotics. A since this time his white cell count has completely normalized and has been between 4 and 7 at throughout his hospitalization. He has been afebrile. His ESR does remain high 87 but his CRP is stone cold normal at 0.5 I certainly in a worsening infection I would not expect this not to be normal. Does have some enhancement of his metatarsals on the MRI but no abscess and on clinical examination he has no fluctuance or signs of absence or really any sign of at and is cellulitic demarcation. He has no drainage or malodor and frankly has a more consistent appearance with a at a chronic diabetic ulcers I due to neuropathy. He is actually able to demonstrate decent ankle dorsiflexion so I do not think he needs necessarily an Achilles tendon lengthening at this point but I would do some strongly recommend nonweightbearing and the offloading with either a boot or a total contact casting. Given his ulceration I would recommend a boot at this point to facilitate dressing changes and wound checks. I want him to be nonweightbearing on the right side. Given the tissue swab came back with a highly resistant Staph I think he would benefit from IV antibiotics and would recommend Infectious Disease follow-up for this but I do not think he needs an amputation at this point and do not think any additional surgery at this juncture would do him any benefit. I would like to obtain arterial studies to make sure there is not any reversible have vascular disease that we can address to aid in his healing. I did discuss with him that diabetic foot ulcers osteomyelitis and Charcot neural arthropathy at can have overlapping presentations and reinforce the importance of nonweightbearing on that side. I discussed if he has worsening appearance as certainly amputation is always a risk factor for him and will need to pay close attention but I do not see any indication to do this at this point expectedly once his normal vital signs normal white blood cell count and normal CRP. an overall relatively benign appearance of his foot. I would like him to follow up closely with me in clinic. regarding his left foot he has a at risk a heel of her ulceration he needs to offload this strictly and obtain a heel offloading shoe COVID-19 COVID-19 status: Negative Time Spent With Patient Time with patient: 15-24 minutes
[2020-12-03 08:00] VITALS: BP 166/80; PULSE 112; RESP 14; TEMP 37.2; O2SAT 97
[2020-12-03] MEDS: DOCUSATE 100 MG CAPSULE PO (08:43)
[2020-12-03] MEDS: TAMSULOSIN 0.4 MG CAPSULE PO (08:43)
[2020-12-03] MEDS: ASPIRIN EC 81 MG TABLET PO (08:43)
[2020-12-03] MEDS: AMLODIPINE 5 MG TABLET 10 MG PO (08:48)
[2020-12-03 08:49] VITALS: BP 166/80; PULSE 112
[2020-12-03] MEDS: lisinopriL 20 MG TABLET 40 MG PO (08:49)
[2020-12-03] MEDS: NEXIUM 20 MG 20 EACH PO (08:50)
[2020-12-03] MEDS: HEPARIN 5,000 UNIT/ML VIAL 5000 UNIT SUBCUT (08:50)
[2020-12-03] MEDS: FUROSEMIDE 20 MG TABLET PO (08:52)
[2020-12-03] MEDS: OXYCODONE IR 10 MG TABLET PO (08:54)
[2020-12-03] MEDS: CEFEPIME 2 GM in SODIUM CHLORIDE 0.9% 100 ML 200 ML IV (08:57)
[2020-12-03] MEDS: INSULIN ASPART 100 UNIT/ML INSULN PEN SUBCUT (09:01)
[2020-12-03] MEDS: OXYCODONE ER 10 MG TAB 30 MG PO (10:26)
--- NOTE | 2020-12-03 11:24 | CM.DPC ---
DCP Discharge Home Per MD, Ortho Consult determined that pt does not currently have osteomyelitis and no need for further surgical intervention at this time. requests CC Lory determine if pt's insurance covers new med Linezolid oral abx otherwise pt will need to d/c on IV-Abx. NORMAN met briefly bedside with pt and his preferred Pharmacy is [facility] and he is agreeable to d/c home today and hoping to d/c by 1100 with his friend to provide transport. Per CC Lory, pt's insurance covers most of the high cost with only a $13 copay. NORMAN updated MD who is completing pt's discharge at this time for home with [facility]. NORMAN called [facility] and updated on pt d/c home today with Resume orders and faxed the d/c summary for review. Plan: Patient to d/c home today via friend POV and oral abx and Resume [facility]. JOHNSON Randolph
--- NOTE | 2020-12-03 12:07 | PC.NURSE ---
Patient is going to go home around 1300. He is non weight bearing on his r. foot as he had his 2nd toe amputated and he does have sutures. L.foot has a calused area that has a heel protector present. Patient bs 153,209. He is noncompliant with his lantus insulin and often times refuses it when his sugar is in the 200s, he has been taking his fast acting insulin. Oxycodone 10mg given for breakthrough pain, and long acting oxycontin given around 1030. He has seen ot/pt and and will be getting a special boot for that r.foot. His friend will be picking him up at 1300 or so.
--- NOTE | 2020-12-03 13:34 | OT.IPNOTE ---
Pt being discharged and PT working with pt for mobility and order for left heel off shoe therefore unable to see for OT eval.
--- NOTE | 2020-12-03 13:59 | PT.IIE ---
Current Diagnoses Type 2 diabetes mellitus with foot ulcer (12/01/20) Cellulitis of right lower limb (12/01/20) Cellulitis, unspecified (12/01/20) Non-pressure chronic ulcer of other part of unspecified foot with unspecified severity (12/01/20) Osteomyelitis, unspecified (12/01/20) Surgical History (Last Reviewed 12/01/20 @ 21:52 by DANA Todd) H/O cervical spine surgery History of appendectomy History of partial amputation of toe Medical History (Last Updated 12/03/20 @ 08:06 by Molly Small MD) Diabetes mellitus type 2 in nonobese Diabetic foot ulcer Fracture of left great toe Hyperlipidemia Hypertension Kidney disease, chronic, stage III (GFR 30-59 ml/min) Neuropathy Peripheral vascular disease Physical Therapy Inpatient Evaluation/Re-Eval M1 PT/OT-IP Prior Functional Status Start: 12/03/20 10:39 Freq: NEEDED Status: Discharge Protocol: Document 12/03/20 13:41 (Rec: 12/03/20 13:59 [email or web address]) Medical Review Prior Functional Status Medical History Reviewed Yes Diet/Fluid Consistency Regular Communication able to make needs known Mobility and Gait pt stated that he is able to mobilize by himself at home but is limited d/t his vertigo and LE problems. He usually stays on his couch and get to use bathroom. Uses SPC for outdoor mobility and he did have falls. Social History Household Members spouse Living Arrangements House Number of Floors (Floors) 3 or More Floors Number of Stairs To Enter/Railing? pt stays on main floor, no IVAN shower is upstairs and has 35 steps with R rail to get to shower floor level Home Environment Standard Height Toilet,Tub/ Shower Home Equipment Front Wheel Walker,Four Wheel Walker,Straight Cane,Shower Seat with Backrest Employment Status Unemployed Additional Social History Comment Spose works and he is alone most of the day. M2 PT-IP Current Condition Start: 12/03/20 10:39 Freq: NEEDED Status: Discharge Protocol: Document 12/03/20 13:41 HH (Rec: 12/03/20 13:59 [email or web address]) Physical Therapy Current Condition Current Condition Evaluation Date 12/03/20 Treatment Diagnosis Osteomyelitis of R foot s/p 2nd toe amputation, difficulty in walking Onset Date 12/02/20 Weight Bearing Status Weight Bearing Status Non-Weight Bearing Allowed Weight Bearing Amount (enter % per Dr Small, NWB on R side or #) (%) , wear heel offloading shoes on L side M3 PT-IP Subjective Start: 12/03/20 10:39 Freq: NEEDED Status: Discharge Protocol: Document 12/03/20 13:41 (Rec: 12/03/20 13:59 [email or web address]) Subjective Physical Therapy Visit Type Type Initial Evaluation Visit Start Time 13:01 Visit Stop Time 13:20 Total Visit Minutes 19 Number of METER RECORD CLERK Visits 0 Physical Therapy Visit Comments Patient Comments Im ready to go home Therapy Pain Assessment Pain When Pain Assessed At Rest Pain Present Pain Present Denied Pain M4 PT-IP Mobility and Gait Start: 12/03/20 10:39 Freq: NEEDED Status: Discharge Protocol: Document 12/03/20 13:41 (Rec: 12/03/20 13:59 [email or web address]) PT-Transfer Assessment Sit to and From Stand Sit to and from Stand Standby Assistance Equipment Transfer Assistive Device Gait Belt,Front Wheeled Walker ,Axillary Crutches Orthotic/Prosthetic Devices or Brace: No Transfers Transfer Destination Bed Transfer Technique Stand Step Pivot Transfer Ability Level of Assist Contact Guard Assistance,1 Person Assistance,Use of Upper Extremities Comments Mobility Comments Pt was sitting at the EOB getting ready to be DC upon PT arrival. Educated pt his current WB status : NWB on RLE and wear heel offloading shoes on Lfoot. Pt showed good understanding and agreed to try gait training with axillary crutches. Pt stood up from elevated bed with crutches. He then began to use 2point pattern by hopping with his LLE but appeared to be unsteady and slightly uncoordinated. Pt walked5 ft x 4 in total but unsafe d/t excessive sway laterally. Pt then sat down on bed and attempted with FWW. He stood up steadily first followed by hopping with LLE and FWW SBA. Pt also was able to turn well without LOB SBA. He walked 5ft x 4 again and able to keep his RLE NWB. He then went back to safely and ready for DC Gait Assessment Gait Gait Assistance Required: Contact Guard Assist Distance (Feet) 20 Able to Maintain Weight Bearing Status Yes During Gait Assistive Devices Assistive Device Gait Belt,Front Wheeled Walker ,Axillary Crutches Gait Deviations General Gait Pattern Antalgic,Decreased Stride Length,Decreased Feet Clearance,Flexed Trunk,Step-to Gait Factors Limiting Gait Function Factors Limiting Gait Function Decreased Activity Tolerance, Decreased Strength,Limited Range of Motion,Pain,Poor Balance,Poor Safety Awareness Comments Gait Comments see mboility comments. Stair Climbing Assessment Comments Stair Climbing Comments no IVAN PT-Balance Assessment Sitting Balance and Reactions Static Sitting Balance Ability Normal Dynamic Sitting Balance Ability Normal Standing Balance and Reactions Static Standing Balance Ability Good Dynamic Standing Balance Ability Fair Device Used FWW M5 PT-IP Objective Assessments Start: 12/03/20 10:39 Freq: NEEDED Status: Discharge Protocol: Document 12/03/20 13:41 (Rec: 12/03/20 13:59 [email or web address]) Orientation Orientation/Cognition Level of Alertness Alert Orientation Name,Age,Birthday,Month,Date, Year,Day of Week,Place, Situation Language Function Ability No Deficits Noted Safety Awareness Understands Safety Issues Memory Description No Deficits Noted Gross Range of Motion Upper Extremity ROM Assessment Within Functional Limits Lower Extremity ROM Assessment Right Impaired Impairments R foot is wrapped with bandage d/t osteomyelitis and ulcers Strength Upper Extremity Strength Assessment Within Functional Limits Lower Extremity Strength Assessment Right Impaired Coordination Assessment Gross Coordination Gross Coordination WNL Sensation Assessment Sensation Gross Sensation Right LE Impaired,Left LE Impaired Light Touch Impaired Proprioception (Position) Impaired M6 PT-IP Treatment Start: 12/03/20 10:39 Freq: NEEDED Status: Discharge Protocol: Document 12/03/20 13:41 (Rec: 12/03/20 13:59 [id number]) Physical Therapy Treatment Education Education Provided Precautions,Weight Bearing Status,Post-Op Packet,Safety Equipment Issued Equipment Type and Company heel off loading shoes size L M7 PT-IP Assessment and Plan Start: 12/03/20 10:39 Freq: NEEDED Status: Discharge Protocol: Document 12/03/20 13:41 (Rec: 12/03/20 13:59 [id number]) PT Summary Assessment and Plan Potential Rehabilitation Potential Good Status of Condition at Evaluation Evolving Summary Impairments Pain,ROM,Strength,Balance,Bed Mobility,Transfers,Gait, Activity Tolerance Assessment Summary Pt is a 60yo male admitted to d/t Osteomyelitis of R foot s/p 2nd toe amputation on . Orthopedic surgeon Dr. Small was consulted and she recommend pt to be NWB on RLE and wears heel offloading shoes on L foot. Upon assessment, pt was unsteady to use axillary crutches but safe and stable with FWW for 2point gait pattern. He is safe to go home at this point with home health to improve his mobility and strength. Frequency of Treatment Frequency Of Treatment Discharge Recommendations To Nursing Amount of Assist Needed 1 Person Assist Discharge Recommendations PT Discharge Recommendations Home with Assistance,Home Health Transportation Needs at Discharge Private Vehicle
--- NOTE | 2020-12-03 14:44 | PM.DS.1 ---
History of Present Illness History of Present Illness Date Patient Seen: 12/03/20 Chief complaint: red swollen right foot / leg sp toe am 11/12 Narrative: Mr. Yasmany Ann is a 60-year-old male with past medical history significant for insulin-dependent diabetes type 2, CKD stage III, opioid dependence on chronic pain medications, hypertension, hyperlipidemia and peripheral vascular disease who presents to the ER for worsening redness and swelling of his right foot. The patient was admitted to the hospital 11/11/2020 through for wound infection with necrosis and osteomyelitis of the 2nd toe resulting in a toe amputation with preserved metatarsal head amputation by Dr. Viramontes on 11/12/2020. The patient had been gone through multiple antibiotics including vancomycin, Rocephin cefepime pain and finding Levaquin which the patient was discharged on continuing course Levaquin and followed by the wound care clinic. The patient reports progressively aggressive debridements and evolving ulcers developing what appears to be a 0.5 cm x 1 cm wound to the plantar surface underneath the 2nd metatarsal as well as a another ulcer presenting towards the medial side of the arch of the right foot. Patient has discoloration of the distal 3rd of his lower extremity which he describes as consistent since his initial hospitalization. He reports his foot has been more swollen and red and more painful despite diabetic neuropathy. Wound cultures obtained during previous hospitalization identified agalactiae and anterobacter species both susceptible to Levaquin. The patient reports continuing Levaquin 5 500 mg daily with worsening pain redness and swelling. The patient denies fevers and affect describes chills but reports this has been longstanding. Denies complaints of headaches dizziness or visual changes. He does endorse nasal congestion and will cough with phlegm. Denies chest pain or palpitations and has no shortness of breath or wheezing. He denies complaints of abdominal pain and has had no changes in bowel or bladder habits. Upon arrival to the ER the patient has temperature of 99.2?, heart rate of 87, blood pressure 183/81, respiratory rate 22 saturating 98% on room air. And x-rays taken of the foot which finds no evidence of osteo myelitis. On laboratory analysis he has white count of 7.0 with no shift, hemoglobin of 8.6, hematocrit of 25.9 and platelets of 243. His electrolytes are within normal limits and has a BUN of 19 and creatinine 1.29. His nonfasting glucose is 198. He has a total bilirubin of 0.2, AST of 22, ALT of 21 and elevated alkaline phosphatase of 184. He has an elevated ESR of 83. COVID-19 screening is negative. Orthopedics is contacted through the emergency department related to probable postoperative wound infection. Dr. Moore has evaluated the patient in the ER recommend follow-up MRI results of which will D find plan of care. The patient is admitted to the hospitalist service due to multiple comorbidities for wound infection and diabetic ulcer. Discharge Providers Provider Date of admission: 12/01/20 18:31 Discharge Date: 12/03/20 Primary care physician: Sofie Orozco MD Consults: 12/01/20 18:31 Consult to Orthopedic Surgery Stat Comment: Consulting Provider: Nic Moore Reason for consultation: deep infection, likely osteomyelitis Has provider been notified: Yes 12/01/20 20:09 Consult to Discharge Planning Routine Comment: 12/03/20 08:12 Consult to Occupational Therapy Evaluate & Treat Comment: NWB RLE - equipmiment + heel offloading shoe for L Physician Instructions: Evaluate and treat 12/03/20 10:30 Consult to Physical Therapy Evaluate & Treat Comment: Physician Instructions: Evaluate and Treat Discharge provider: Arelis Vergara MD Summary Hospital Course Discharge Diagnosis: 1. Staphylococcal skin and soft tissue infection of the right foot 2. Charcot joint, on the right 3. Type 2 diabetes, poorly controlled 4. Hyperlipidemia 5. GERD 6. Hypertension 7. Chronic pain 8. Chronic kidney disease, stage III Hospital Course: Patient was admitted to the hospital for treatment of the right foot diabetic ulcer and Charcot joint. Patient underwent an MRI which initially was suggestive of osteomyelitis involving the 2nd through the 4th digits on the right foot. Patient was seen in consultation by Orthopedics. After careful evaluation it was felt that there was no evidence of osteomyelitis. It was felt that the patient had a Charcot joint with a macerated ulcerated plantar ulcer. Patient was placed on vancomycin and cefepime. Wound cultures grew resistant Staphylococcus. This was resistant to oxacillin. The patient was afebrile, white count improved, as there was felt to be no need for surgical intervention or long-term treatment for osteomyelitis patient was deemed appropriate for discharge and discharged home on linezolid, 600 mg twice daily for 14 days. The patient is followed by [facility], he will follow-up with Dr. James the next week, he is to continue nonweightbearing on the right foot and continue evaluation with wound care. Patient was in no acute distress, was deemed appropriate for discharge and discharged home accordingly. Exam Vital Signs (past 8 hours): - 12/03/20 08:00 12/03/20 08:49 Temperature 98.9 F Pulse Rate 112 H 112 H Respiratory Rate 14 Blood Pressure 166/80 H 166/80 H Pulse Oximetry 97 Oxygen Delivery Method Room Air Oxygen Flow Rate 0 Narrative Exam Narrative: Ill-appearing male lying in bed Lungs: Clear to auscultation Cardiac exam: Regular rate and rhythm normal S1-S2 with a 2/6 systolic ejection murmur Abdomen: Soft and nontender Extremities: 2+ pitting edema bilaterally, right foot with dressing in place Objective Labs Result Diagrams: 12/03/20 05:16 12/03/20 05:16 Labs: Laboratory Results - last 24 hr 12/03/20 12/03/20 12/03/20 05:16 05:16 05:16 WBC 4.4 L RBC 2.56 L Hgb 7.2 L Hct 21.8 L MCV 85.1 MCH 28.3 MCHC 33.3 RDW 13.5 Plt Count 183 Neut % (Auto) 57.3 Lymph % (Auto) 27.2 [place] % (Auto) 9.7 Eos % (Auto) 5.0 H Baso % (Auto) 0.8 Neut # (Auto) 2500 Lymph # (Auto) 1200 [place] # (Auto) 400 Eos # (Auto) 200 Baso # (Auto) 0 Sodium 134 L Potassium 4.5 Chloride 103 Carbon Dioxide 31 BUN 20 Creatinine 1.15 Estimated GFR > 60.0 BUN/Creatinine Ratio 17.4 Glucose 185 H Calcium 8.3 L Vancomycin Trough 13.9 PFSH Medical History (Updated 12/03/20 @ 08:06 by Molly Small MD) Diabetes mellitus type 2 in nonobese Diabetic foot ulcer Fracture of left great toe Hyperlipidemia Hypertension Kidney disease, chronic, stage III (GFR 30-59 ml/min) Neuropathy Peripheral vascular disease Surgical History H/O cervical spine surgery History of appendectomy History of partial amputation of toe Family History (Updated 12/01/20 @ 22:34 by DANA Todd) Father Diabetes mellitus Mother Alcohol abuse Smoker Hypertension Social History household members: spouse Smoking Status: Never smoker alcohol intake: current Discharge Assessment & Plan Assessment and Plan Assessment: 1. Resistant staphylococcal foot infection on the right 2. Charcot joint of the right lower extremity 3. Type 2 diabetes 4. Acute on chronic kidney injury, present on admission, improved 5. Hypertension 6. Hyperlipidemia Plan of Treatment: Discharge home on linezolid 600 mg twice daily for 14 days Follow-up with Dr. Viramontes as scheduled on Tuesday Discharge Plan Discharge Plan Patient Disposition: Home Discharge orders & Medications Prescriptions: New linezolid 600 mg tablet 600 mg PO BID 14 Days Qty: 28 RF: 0 Continued Lantus U-100 Insulin 100 UNIT/1 ML solution 38 unit SQ BID Qty: 0 RF: 0 insulin aspart U-100 [Novolog Flexpen U-100 Insulin] 100 UNIT/1 ML insulin pen 8 unit SQ TIDCC Qty: 0 RF: 0 aspirin 81 MG tablet,delayed release (DR/EC) 81 mg PO QDAY Qty: 0 RF: 0 gabapentin 800 MG tablet 600 mg PO DAILY Qty: 0 RF: 0 esomeprazole magnesium [Nexium] 40 MG capsule,delayed release(DR/EC) 20 mg PO QDAY Qty: 0 RF: 0 atorvastatin [Lipitor] 80 MG tablet 80 mg PO QDAY Qty: 0 RF: 0 amlodipine [Norvasc] 10 MG tablet 10 mg PO QDAY Qty: 0 RF: 0 lisinopril 40 mg tablet 40 mg PO DAILY RF: 0 tamsulosin [Flomax] 0.4 mg Capsule 0.4 mg PO DAILY Qty: 30 RF: 0 metoclopramide HCl [Reglan] 10 mg tablet 10 mg PO Q6H PRN (Reason: nausea and vomiting) Qty: 14 RF: 0 furosemide 20 mg Tablet 20 mg PO DAILY RF: 0 oxycodone 10 mg Tablet 10 mg PO Q6H PRN (Reason: Pain, Moderate) RF: 0 oxycodone 30 mg Tablet,Oral Only,Ext.Rel.12 Hr 30 mg PO Q12H RF: 0 Discontinued loperamide 2 mg Capsule 2 mg PO PRN PRN (Reason: Diarrhea) RF: 0 levofloxacin 500 mg Tablet 500 mg PO DAILY@0700 Qty: 5 RF: 0 Follow up/Referrals: Sofie Orozco MD [Primary Care Provider] - Discharge Health Status Multidrug resistant organism: MRSA Diet/Activity/Treatments Diet: Carb-consistent/Diabetic Skin/Wound/Dressing Care Report to your healthcare provider any signs of infection, such as:: chills, fever Visit Report/Discharge Packet Instructions: DI for Toe Amputation, Amputation of the Foot or Toe, Amputation -- General Overview, Oxycodone Discharge Data Primary Care Provider: Sofie Orozco Quality VTE Deep Vein Thrombosis/Pulmonary Embolism Present on Admission: No
== END 2020-12-03 13:35 | disposition home health service (06) | DRG 74 ==
LOC: ED 17:20 → AC 20:27
PROVIDERS: Nurse Practitioner Adult Health; Admitting Provider Internal Medicine; Emergency Provider Emergency Medicine; PCP Internal Medicine; Referring Provider Emergency Medicine; Visit Provider Internal Medicine
DX: E11.610 Type 2 diabetes mellitus with diabetic neuropathic arthropathy (principal); L97.411 Non-pressure chronic ulcer of right heel and midfoot limited to breakdown of skin; L03.115 Cellulitis of right lower limb; Z16.19 Resistance to other specified beta lactam antibiotics; L97.421 Non-pressure chronic ulcer of left heel and midfoot limited to breakdown of skin; E11.69 Type 2 diabetes mellitus with other specified complication; E11.65 Type 2 diabetes mellitus with hyperglycemia; E11.621 Type 2 diabetes mellitus with foot ulcer; E11.40 Type 2 diabetes mellitus with diabetic neuropathy, unspecified; I12.9 Hypertensive chronic kidney disease with stage 1 through stage 4 chronic kidney disease, or unspecified chronic kidney disease; E11.22 Type 2 diabetes mellitus with diabetic chronic kidney disease; E11.51 Type 2 diabetes mellitus with diabetic peripheral angiopathy without gangrene; G89.29 Other chronic pain; N18.30 Chronic kidney disease, stage 3 unspecified; B95.7 Other staphylococcus as the cause of diseases classified elsewhere; E78.5 Hyperlipidemia, unspecified; Z20.822 Contact with and (suspected) exposure to COVID-19; Z79.4 Long term (current) use of insulin; Z89.421 Acquired absence of other right toe(s); Z98.890 Other specified postprocedural states
CPT/HCPCS: 11042; 36415; 73630; 73720; 80048; 80053; 80202; 82962; 85025; 85651; 86140; 87040; 87070; 87075; 87077; 87147; 87186; 87205; 87635; 93925; 96365; 96366; 97162; 97597; 99214; 99282; 99284; C9803; J0692; J1644

== ENCOUNTER → 2020-12-05 12:28 | Outpatient (CLI) | payer MEDICARE, OTHER, SELFPAY ==
[2020-12-01 18:49] VITALS: BMI 30.4
== END ==
PROVIDERS: PCP Internal Medicine; Referring Provider Internal Medicine; Visit Provider Family Medicine
DX: E11.621 Type 2 diabetes mellitus with foot ulcer (principal); L97.412 Non-pressure chronic ulcer of right heel and midfoot with fat layer exposed; L97.421 Non-pressure chronic ulcer of left heel and midfoot limited to breakdown of skin; E11.40 Type 2 diabetes mellitus with diabetic neuropathy, unspecified; E11.51 Type 2 diabetes mellitus with diabetic peripheral angiopathy without gangrene; L97.411 Non-pressure chronic ulcer of right heel and midfoot limited to breakdown of skin; L03.115 Cellulitis of right lower limb; M86.171 Other acute osteomyelitis, right ankle and foot; Z91.19 Patient's noncompliance with other medical treatment and regimen
CPT/HCPCS: 11042; 97597; 99214

== ENCOUNTER → 2020-12-19 09:32 | Outpatient (CLI) | payer MEDICARE, OTHER, SELFPAY ==
[2020-12-01 18:49] VITALS: BMI 30.4
== END ==
PROVIDERS: PCP Internal Medicine; Referring Provider Internal Medicine; Visit Provider Nurse Practitioner Family
DX: E11.621 Type 2 diabetes mellitus with foot ulcer (principal); L97.412 Non-pressure chronic ulcer of right heel and midfoot with fat layer exposed; L97.421 Non-pressure chronic ulcer of left heel and midfoot limited to breakdown of skin; L03.115 Cellulitis of right lower limb; L97.512 Non-pressure chronic ulcer of other part of right foot with fat layer exposed; M86.371 Chronic multifocal osteomyelitis, right ankle and foot; E11.40 Type 2 diabetes mellitus with diabetic neuropathy, unspecified; R60.0 Localized edema; Z91.19 Patient's noncompliance with other medical treatment and regimen
CPT/HCPCS: 11042; 87070; 87077; 87147; 87186; 87205; 97597; 99215

== ENCOUNTER → 2020-12-26 09:51 | Outpatient (CLI) | payer MEDICARE, OTHER, SELFPAY ==
[2020-12-01 18:49] VITALS: BMI 30.4
== END ==
PROVIDERS: PCP Internal Medicine; Referring Provider Internal Medicine; Visit Provider Nurse Practitioner Family
DX: L08.89 Other specified local infections of the skin and subcutaneous tissue (principal); E11.621 Type 2 diabetes mellitus with foot ulcer; L03.115 Cellulitis of right lower limb; L97.512 Non-pressure chronic ulcer of other part of right foot with fat layer exposed; L97.515 Non-pressure chronic ulcer of other part of right foot with muscle involvement without evidence of necrosis; S91.301A Unspecified open wound, right foot, initial encounter; L97.421 Non-pressure chronic ulcer of left heel and midfoot limited to breakdown of skin; E11.65 Type 2 diabetes mellitus with hyperglycemia; E11.40 Type 2 diabetes mellitus with diabetic neuropathy, unspecified; E11.51 Type 2 diabetes mellitus with diabetic peripheral angiopathy without gangrene; Z91.19 Patient's noncompliance with other medical treatment and regimen; R60.0 Localized edema
CPT/HCPCS: 11042; 36415; 85025; 97597; 99214

== ENCOUNTER → 2020-12-26 10:59 | Outpatient (CLI) | payer MEDICARE, OTHER, SELFPAY ==
[2020-12-01 18:49] VITALS: BMI 30.4
[2020-12-26 11:34] LABS: Add Manual Diff / Slide Review NO; Basophils Absolute Auto 100 /uL (0-100); Eosinophils Absolute Auto 300 /uL (0-450); Eosinophils Percent Auto 4.3 % (2-4); Hematocrit 25.6 % (41-53); Hemoglobin 8.2 g/dL (13.5-17.5); Lymphocytes Absolute Auto 1700 /uL (1100-4500); Lymphocytes Percent Auto 22.6 % (25-40); Mean Corpuscular Hemoglobin 27.3 PG (26-34); Mean Corpuscular Volume 85.2 fL (80-100); Monocytes Absolute Auto 800 /uL (0-900); Monocytes Percent Auto 9.9 % (3-14); Neutrophils Absolute Auto 4800 /uL (1500-7000); Neutrophils Percent Auto 62.2 % (50-75); Platelet Count 239 X10^3/uL (150-400); Red Cell Distribution Width 14.9 % (11.6-14.8); White Blood Cell Count 7.7 X10^3/uL (4.5-11.0)
== END ==
PROVIDERS: PCP Internal Medicine; Referring Provider Nurse Practitioner Family; Visit Provider Nurse Practitioner Family
DX: L08.89 Other specified local infections of the skin and subcutaneous tissue (principal)
CPT/HCPCS: 36415; 85025

== ENCOUNTER → 2021-01-02 09:07 | Outpatient (CLI) | payer MEDICARE, OTHER, SELFPAY ==
[2020-12-01 18:49] VITALS: BMI 30.4
== END ==
PROVIDERS: PCP Internal Medicine; Referring Provider Internal Medicine; Visit Provider Nurse Practitioner Family
DX: E11.621 Type 2 diabetes mellitus with foot ulcer (principal); L97.412 Non-pressure chronic ulcer of right heel and midfoot with fat layer exposed; L97.421 Non-pressure chronic ulcer of left heel and midfoot limited to breakdown of skin; S91.301A Unspecified open wound, right foot, initial encounter; T87.89 Other complications of amputation stump; M86.371 Chronic multifocal osteomyelitis, right ankle and foot; E11.40 Type 2 diabetes mellitus with diabetic neuropathy, unspecified; E11.51 Type 2 diabetes mellitus with diabetic peripheral angiopathy without gangrene
CPT/HCPCS: 11042

== ENCOUNTER → 2021-01-02 09:46 | Outpatient (CLI) | payer MEDICARE, OTHER, SELFPAY ==
[2020-12-01 18:49] VITALS: BMI 30.4
== END ==
PROVIDERS: PCP Internal Medicine; Referring Provider Nurse Practitioner Family; Visit Provider Nurse Practitioner Family
DX: M86.371 Chronic multifocal osteomyelitis, right ankle and foot (principal)

== ENCOUNTER → 2021-01-05 11:03 | Outpatient (CLI) | payer MEDICARE, OTHER, SELFPAY ==
[2020-12-01 18:49] VITALS: BMI 30.4
== END ==
PROVIDERS: PCP Internal Medicine; Referring Provider Internal Medicine; Visit Provider Family Medicine
DX: M86.371 Chronic multifocal osteomyelitis, right ankle and foot (principal); E11.621 Type 2 diabetes mellitus with foot ulcer; L97.412 Non-pressure chronic ulcer of right heel and midfoot with fat layer exposed; L97.421 Non-pressure chronic ulcer of left heel and midfoot limited to breakdown of skin; E11.40 Type 2 diabetes mellitus with diabetic neuropathy, unspecified
CPT/HCPCS: 99183; 99214; G0277

== ENCOUNTER → 2021-01-06 11:29 | Outpatient (CLI) | payer MEDICARE, OTHER, SELFPAY ==
[2020-12-01 18:49] VITALS: BMI 30.4
== END ==
PROVIDERS: PCP Internal Medicine; Referring Provider Internal Medicine; Visit Provider Family Medicine
DX: M86.371 Chronic multifocal osteomyelitis, right ankle and foot (principal); L97.412 Non-pressure chronic ulcer of right heel and midfoot with fat layer exposed; E11.40 Type 2 diabetes mellitus with diabetic neuropathy, unspecified; L97.421 Non-pressure chronic ulcer of left heel and midfoot limited to breakdown of skin; E11.621 Type 2 diabetes mellitus with foot ulcer
CPT/HCPCS: 99213; G0277

== ENCOUNTER → 2021-01-07 12:04 | Outpatient (CLI) | payer MEDICARE, OTHER, SELFPAY ==
[2020-12-01 18:49] VITALS: BMI 30.4
== END ==
PROVIDERS: PCP Internal Medicine; Referring Provider Internal Medicine; Visit Provider Family Medicine
DX: E11.621 Type 2 diabetes mellitus with foot ulcer (principal); M86.371 Chronic multifocal osteomyelitis, right ankle and foot; L97.412 Non-pressure chronic ulcer of right heel and midfoot with fat layer exposed; L97.421 Non-pressure chronic ulcer of left heel and midfoot limited to breakdown of skin; E11.40 Type 2 diabetes mellitus with diabetic neuropathy, unspecified
CPT/HCPCS: 99183; G0277

== ENCOUNTER → 2021-01-08 13:12 | Outpatient (CLI) | payer MEDICARE, OTHER, SELFPAY ==
[2020-12-01 18:49] VITALS: BMI 30.4
== END ==
PROVIDERS: PCP Internal Medicine; Referring Provider Internal Medicine; Visit Provider Family Medicine
DX: E11.621 Type 2 diabetes mellitus with foot ulcer (principal); L97.514 Non-pressure chronic ulcer of other part of right foot with necrosis of bone; L97.515 Non-pressure chronic ulcer of other part of right foot with muscle involvement without evidence of necrosis; L97.421 Non-pressure chronic ulcer of left heel and midfoot limited to breakdown of skin; E11.40 Type 2 diabetes mellitus with diabetic neuropathy, unspecified; M86.371 Chronic multifocal osteomyelitis, right ankle and foot; L08.9 Local infection of the skin and subcutaneous tissue, unspecified; Z79.2 Long term (current) use of antibiotics
CPT/HCPCS: 11042; 87070; 87077; 87205; 97597; 99214

== ENCOUNTER → 2021-01-12 11:29 | Outpatient (CLI) | payer MEDICARE, OTHER, SELFPAY ==
[2020-12-01 18:49] VITALS: BMI 30.4
== END ==
PROVIDERS: PCP Internal Medicine; Referring Provider Internal Medicine; Visit Provider Family Medicine
DX: E11.621 Type 2 diabetes mellitus with foot ulcer (principal); M86.371 Chronic multifocal osteomyelitis, right ankle and foot; L97.412 Non-pressure chronic ulcer of right heel and midfoot with fat layer exposed; L97.421 Non-pressure chronic ulcer of left heel and midfoot limited to breakdown of skin; E11.40 Type 2 diabetes mellitus with diabetic neuropathy, unspecified
CPT/HCPCS: 99183; 99215; G0277

== ENCOUNTER → 2021-01-14 11:12 | Outpatient (CLI) | payer MEDICARE, OTHER, SELFPAY ==
[2020-12-01 18:49] VITALS: BMI 30.4
== END ==
PROVIDERS: PCP Internal Medicine; Referring Provider Internal Medicine; Visit Provider Family Medicine
DX: L97.412 Non-pressure chronic ulcer of right heel and midfoot with fat layer exposed (principal); E11.40 Type 2 diabetes mellitus with diabetic neuropathy, unspecified; L97.421 Non-pressure chronic ulcer of left heel and midfoot limited to breakdown of skin; M86.371 Chronic multifocal osteomyelitis, right ankle and foot; E11.621 Type 2 diabetes mellitus with foot ulcer
CPT/HCPCS: 99183; G0277

== ENCOUNTER → 2021-01-15 08:51 | Outpatient (CLI) | payer MEDICARE, OTHER, SELFPAY ==
[2020-12-01 18:49] VITALS: BMI 30.4
== END ==
PROVIDERS: PCP Internal Medicine; Referring Provider Internal Medicine; Visit Provider Family Medicine
DX: E11.621 Type 2 diabetes mellitus with foot ulcer (principal); L97.421 Non-pressure chronic ulcer of left heel and midfoot limited to breakdown of skin; L97.512 Non-pressure chronic ulcer of other part of right foot with fat layer exposed; S91.301A Unspecified open wound, right foot, initial encounter
CPT/HCPCS: 99213

== ENCOUNTER → 2021-01-15 09:19 | Outpatient (CLI) | payer MEDICARE, OTHER, SELFPAY ==
[2021-01-15 09:12] VITALS: BMI 30.4
[2021-01-15 10:01] LABS: Glucose 269 mg/dL (80-110)
== END ==
PROVIDERS: PCP Internal Medicine; Referring Provider Orthopaedic Surgery Foot and Ankle Surgery; Visit Provider Orthopaedic Surgery Foot and Ankle Surgery
DX: Z01.812 Encounter for preprocedural laboratory examination (principal); I10 Essential (primary) hypertension
CPT/HCPCS: 36415; 82947

== ENCOUNTER → 2021-01-16 10:36 | Outpatient (CLI) | payer MEDICARE, OTHER, SELFPAY ==
[2021-01-15 09:12] VITALS: BMI 30.4
== END ==
PROVIDERS: PCP Internal Medicine; Referring Provider Internal Medicine; Visit Provider Nurse Practitioner Family
DX: L97.412 Non-pressure chronic ulcer of right heel and midfoot with fat layer exposed (principal); E11.40 Type 2 diabetes mellitus with diabetic neuropathy, unspecified; L97.421 Non-pressure chronic ulcer of left heel and midfoot limited to breakdown of skin; M86.371 Chronic multifocal osteomyelitis, right ankle and foot; E11.621 Type 2 diabetes mellitus with foot ulcer
CPT/HCPCS: 99183; G0277

== ENCOUNTER → 2021-01-16 13:51 | Outpatient (CLI) | payer MEDICARE, OTHER, SELFPAY ==
[2021-01-15 09:12] VITALS: BMI 30.4
[2021-01-16 14:13] LABS: BUN Creatinine Ratio 24.2 (6-22); Blood Urea Nitrogen 39 mg/dL (9-20); Calcium 9.7 mg/dL (8.4-10.2); Carbon Dioxide 28 mmol/L (22-32); Chloride 99 mmol/L (98-107); Estimated Glomerular Filt Rate 43.7 mL/min (>60); Glucose 262 mg/dL (80-110); HEMOLYSIS < 15 (0-50); Potassium 4.8 mmol/L (3.4-5.1); Sodium 136 mmol/L (137-145)
== END ==
PROVIDERS: PCP Internal Medicine; Referring Provider Internal Medicine; Visit Provider Internal Medicine
DX: N18.32 Chronic kidney disease, stage 3b (principal); D50.8 Other iron deficiency anemias; N18.31 Chronic kidney disease, stage 3a; D63.1 Anemia in chronic kidney disease
CPT/HCPCS: 80048

== ENCOUNTER → 2021-01-17 11:28 | Outpatient (CLI) | payer MEDICARE, OTHER, SELFPAY ==
[2021-01-15 09:12] VITALS: BMI 30.4
[2021-01-17 13:08] LABS: COVID19 -Nasal RAPID Negative (Negative)
== END ==
PROVIDERS: PCP Internal Medicine; Visit Provider Physician Assistant
DX: Z20.822 Contact with and (suspected) exposure to COVID-19 (principal)
CPT/HCPCS: 87635; C9803

== ENCOUNTER 2021-01-19 09:23 | Day surgery (SDC) | payer MEDICARE, OTHER, SELFPAY ==
[2020-12-01 18:49] VITALS: BMI 30.4
[2021-01-15 09:12] VITALS: BMI 30.4
[2021-01-19] VITALS (8 sets, daily range): BP systolic 133–165; BP diastolic 53–87; PULSE 61–78; RESP 8–16; TEMP 36.1–37.4; O2SAT 97–100; BMI 26.1
--- NOTE | 2021-01-19 | PATH_ITS ---
[facility] Accession Number: [id number] . 01 Material submitted: . toe - RIGHT 2ND TOE . 02 Diagnosis: Right Second Toe, Amputation: Skin with ulceration and acute inflammation extending to the deep subcutaneous tissue; adipose tissue at the inked, deep soft tissue margin appears non-viable. Acute osteomyelitis is present. Regions of the inked bony margin appear non-viable. . MRV 01/26/2021 1540 Local . 02 Electronically signed: . Yadira Matt MD, Pathologist NPI- [id number] . 01 Gross description: . The specimen is received in formalin labeled right second toe and consists of a 5.5 x 4.5 x 2.5 cm disarticulated toe with a 0.6 x 0.3 cm leyva unguis. The leyva-pink skin displays an irregular 2.5 x 1.5 cm leyva-pink hemorrhagic ulcerated lesion located 0.2 cm from the bone margin and 0.2 cm from the skin and soft tissue margins. The margin is inked blue, and the specimen is sectioned to reveal leyva trabeculated cut surfaces with no grossly identifiable underlying bone involvement with the ulcerative lesion. [place] sections are submitted. . A1 - Lesion to skin and soft tissue margins (blue). A2 - Bone margin, en face (following decalcification). A3 - Bone underlying lesion, following decalcification. ([id number]) /[facility] 01/20/2021 1718 Local . 02 Pathologist provided ICD-10: E11.621 . 02 CPT . 553741, [id number] Performed at: [address], [place], [place] [id number] MD Yasmany Smith MD Phone: [phone] Performed at: 02 [facility] [place] [address] [place] [id number] MD Estephania Lange MD Phone: [phone]
[2021-01-19] MEDS: LACTATED RINGERS 1,000 ML 42 ML IV ×2 (11:21→14:36)
--- NOTE | 2021-01-19 11:36 | PM.PREOP ---
Pre-operative Note COVID-19 COVID-19 status: Negative Interval Note History & Physical reviewed/Exam performed by Physician: Yes Changes to H&P: No
[2021-01-19] MEDS: INSULIN LISPRO 100 UNIT/ML 3ML VIAL SUBCUT (11:54)
--- NOTE | 2021-01-19 11:59 | SUR.PREOP ---
4U lispro given to pt for CBg 202
[2021-01-19] MEDS: CEFAZOLIN 2 GM/100 ML FROZ.PIGGY IV (12:36)
[2021-01-19] MEDS: VANCOMYCIN 1,000 MG VIAL 1000 MG TOP (13:37)
--- NOTE | 2021-01-19 14:14 | PM.OP.1 ---
Operative Date/Time/Diagnoses Date of procedure: 01/19/21 Time of procedure: 12:45 Pre-op diagnosis: diabetic ulcer right foot with osteomyelitis and bone necrosis Post-op diagnosis: same Procedure & Clinicians Procedure: 1. Ray amputation right 2nd toe CPT code 85616 procedures performed with a modifier 58 and a T6 modifier for the 2nd toe right foot. Modifier 58 for more extensive procedure ( Ray amputation) than a partial toe amputation completed by previous surgeon. Same procedure as scheduled: Yes Indications: the patient is a 60-year-old diabetic male that had a ulceration infection of his right 2nd toe he underwent a partial toe amputation with another surgeon about 2 months ago and since that time he had the wound reopened continue to be infected and draining there is necrosis of the remaining bone and exposed bone. There was additional full-thickness ulceration under the metatarsal head. The patient has been managed with infectious disease and wound care with persistent problems. He has been indicated for ray amputation to remove the toe and most of the metatarsal to relieve the plantar pressure as well. The risks and benefits of the procedure have been discussed with the patient even opportunity to ask questions. The risks of surgery include but are not limited to infection, malunion, nonunion, persistence of pain, damage to nerves and blood vessels, posttraumatic arthritis, Amputation,DVT, PE, cardiopulmonary complications and . The patient expressed a thorough understanding of the risks and benefits of surgery and has elected to proceed. Consent was signed in the office. Additionally we discussed curette of the arch and incision and the possible placement of the suture. We discussed this may reopen. Surgeon: Molly Small Click Yes if Unassisted: Yes Anesthesia Type: General Operative Notes Findings: the history is on the wound at the end of the 2nd toe through the previous partial amputation site. This is grossly opened and tracks directly down to bone. There is no purulence. There was also full-thickness plantar ulceration to the location of the 2nd metatarsal head that is approximately 2 x 3 cm. There is a small subcentimeter laceration along the plantar medial arch without surrounding erythema or drainage. There is some fibrin and exudate. There is no cellulitis drainage or malodor. Upon removing the 2nd toe from the 2nd metatarsal excision soft tissues explored there was some scarred thickened tissue but no purulence pockets are encountered. Soft tissues bleed well. Closure Type: primary Specimen(s): other ( Bone and soft tissue were sent for culture pathology including Gram stain, aerobic anaerobic fungal and atypical) Estimated Blood Loss (mL): 30 Blood products transfused: none Tourniquet time (min): 8 Procedure in detail: Patient was seen in the preoperative area the site of surgery marked informed consent confirmed. He was brought back to the operating room by the anesthesia team positioned supine on operative table. General anesthetic was administered. The right lower extremities prepped and draped in the standard sterile fashion formal time-out procedure was performed confirming the patient's side and site of surgery and administration of antibiotics. The patient has been on scheduled antibiotics so preoperative antibiotics were given as routine. Attention was turned to the right foot. The findings above were noted. [place] exsanguination was used and the tourniquet was elevated on the thigh to 250 mm of mercury. This was only elevated for about 8 minutes until the 1st metatarsal osteotomy and then let down. Attention was turned to the right 2nd toe previous amputation site was noted an elliptical incision was taken around the toe and to include the plantar ulceration and this was extended in a Y fashion dorsally along the 2nd metatarsal. This was taken through the skin subcutaneous tissues. The remainder of the phalanges was dissected and removed and sent for pathology. Next the metatarsal shaft with isolated and under C-arm guidance was transected proximal metatarsal. This bone was divided and sent with soft tissue for cultures. Soft tissues were explored. No abscess cavity was demonstrated. Thorough debridement of the soft tissues remaining a tendon stumps was completed. The wound was thoroughly irrigated with 2 L of saline. Gloves were changed. This 1 g of vancomycin powder was placed deep into the wound. 2-0 PDS was used to approximate the web space and deep tissues. 4-0 Monocryl was then used subcutaneously and 4-0 and 3-0 nylon in the skin. This approximated the amputation site of very well. Hemostasis was achieved prior to closure. Attention was then turned to the small sub cm ulceration in the midfoot. This did have some tunneling no malodor. This was gently debrided with a curette and a 1 nylon suture was placed for approximation. The foot was washed and dressed with gauze and Xeroform 4x4s Kerlix and an Matteo bandage. The patient was woken from anesthesia and taken to recovery room in good condition. There no immediate complications from this procedure. Counts were correct. Complications: none Post-operative Condition: stable Disposition: PACU Plan for aftercare: may weightbear in the forefoot offloading shoe. Keep dressings clean dry and intact. If they become saturated may be changed. Sutures will remain in place for 4 weeks. Will continue on his home amoxicillin. Will follow up on cultures and pathology.
== END 2021-01-19 15:29 | disposition home or self-care (01) ==
PROVIDERS: PCP Internal Medicine; Referring Provider Orthopaedic Surgery Foot and Ankle Surgery; Visit Provider Orthopaedic Surgery Foot and Ankle Surgery
PROC: (CPT 28810; principal; 2021-01-19 12:15)
DX: E11.621 Type 2 diabetes mellitus with foot ulcer (principal); L97.514 Non-pressure chronic ulcer of other part of right foot with necrosis of bone; E11.69 Type 2 diabetes mellitus with other specified complication; G47.30 Sleep apnea, unspecified; I10 Essential (primary) hypertension; Z79.4 Long term (current) use of insulin; M86.9 Osteomyelitis, unspecified
CPT/HCPCS: 28810; 82962; 87070; 87075; 87077; 87102; 87116; 87205; 87206; J0690; J1815; J2405; J2704; J3010

== ENCOUNTER → 2021-01-21 16:16 | Outpatient (CLI) | payer MEDICARE, OTHER, SELFPAY ==
[2021-01-15 09:12] VITALS: BMI 30.4
== END ==
PROVIDERS: PCP Internal Medicine; Referring Provider Internal Medicine; Visit Provider Family Medicine
DX: E11.621 Type 2 diabetes mellitus with foot ulcer (principal); L97.421 Non-pressure chronic ulcer of left heel and midfoot limited to breakdown of skin
CPT/HCPCS: 99213

== ENCOUNTER → 2021-01-22 12:59 | Outpatient (CLI) | payer MEDICARE, OTHER, SELFPAY ==
[2021-01-15 09:12] VITALS: BMI 30.4
== END ==
PROVIDERS: PCP Internal Medicine; Referring Provider Internal Medicine; Visit Provider Family Medicine
DX: L97.412 Non-pressure chronic ulcer of right heel and midfoot with fat layer exposed (principal); E11.40 Type 2 diabetes mellitus with diabetic neuropathy, unspecified; L97.421 Non-pressure chronic ulcer of left heel and midfoot limited to breakdown of skin; M86.371 Chronic multifocal osteomyelitis, right ankle and foot; E11.621 Type 2 diabetes mellitus with foot ulcer
CPT/HCPCS: 99183; G0277

== ENCOUNTER → 2021-01-23 13:28 | Outpatient (CLI) | payer MEDICARE, OTHER, SELFPAY ==
[2021-01-15 09:12] VITALS: BMI 30.4
== END ==
PROVIDERS: PCP Internal Medicine; Referring Provider Internal Medicine; Visit Provider Family Medicine
DX: E11.621 Type 2 diabetes mellitus with foot ulcer (principal); L97.421 Non-pressure chronic ulcer of left heel and midfoot limited to breakdown of skin
CPT/HCPCS: 99213

== ENCOUNTER → 2021-01-27 10:58 | Outpatient (CLI) | payer MEDICARE, OTHER, SELFPAY ==
[2021-01-15 09:12] VITALS: BMI 30.4
== END ==
PROVIDERS: PCP Internal Medicine; Referring Provider Internal Medicine; Visit Provider Nurse Practitioner Family
DX: E11.621 Type 2 diabetes mellitus with foot ulcer (principal); L97.421 Non-pressure chronic ulcer of left heel and midfoot limited to breakdown of skin; L97.412 Non-pressure chronic ulcer of right heel and midfoot with fat layer exposed; E11.40 Type 2 diabetes mellitus with diabetic neuropathy, unspecified; M86.371 Chronic multifocal osteomyelitis, right ankle and foot
CPT/HCPCS: 99183; 99213; G0277

== ENCOUNTER → 2021-01-28 11:12 | Outpatient (CLI) | payer MEDICARE, OTHER, SELFPAY ==
[2021-01-15 09:12] VITALS: BMI 30.4
== END ==
PROVIDERS: PCP Internal Medicine; Referring Provider Internal Medicine; Visit Provider Nurse Practitioner Family
DX: L97.412 Non-pressure chronic ulcer of right heel and midfoot with fat layer exposed (principal); E11.40 Type 2 diabetes mellitus with diabetic neuropathy, unspecified; L97.421 Non-pressure chronic ulcer of left heel and midfoot limited to breakdown of skin; M86.371 Chronic multifocal osteomyelitis, right ankle and foot; E11.621 Type 2 diabetes mellitus with foot ulcer
CPT/HCPCS: 99183; G0277

== ENCOUNTER → 2021-01-29 11:33 | Outpatient (CLI) | payer MEDICARE, OTHER, SELFPAY ==
[2021-01-15 09:12] VITALS: BMI 30.4
== END ==
PROVIDERS: PCP Internal Medicine; Referring Provider Internal Medicine; Visit Provider Nurse Practitioner Family
DX: L97.412 Non-pressure chronic ulcer of right heel and midfoot with fat layer exposed (principal); E11.40 Type 2 diabetes mellitus with diabetic neuropathy, unspecified; L97.421 Non-pressure chronic ulcer of left heel and midfoot limited to breakdown of skin; M86.371 Chronic multifocal osteomyelitis, right ankle and foot; E11.621 Type 2 diabetes mellitus with foot ulcer
CPT/HCPCS: 99183; G0277

== ENCOUNTER → 2021-01-29 15:12 | Outpatient (CLI) | payer MEDICARE, OTHER, SELFPAY ==
[2021-01-15 09:12] VITALS: BMI 30.4
[2021-01-29 15:13] LABS: Add Manual Diff / Slide Review NO; Eosinophils Absolute Auto 400 /uL (0-450); Lymphocytes Absolute Auto 1500 /uL (1100-4500); Monocytes Absolute Auto 600 /uL (0-900); White Blood Cell Count 6.5 X10^3/uL (4.5-11.0)
[2021-01-29 15:17] LABS: Basophils Absolute Auto 100 /uL (0-100); Basophils Percent Auto 0.8 % (0-2); Eosinophils Percent Auto 5.6 % (2-4); Lymphocytes Percent Auto 23.7 % (25-40); Mean Corpuscular HGB Conc 33.3 % (30-36); Mean Corpuscular Volume 81.3 fL (80-100); Monocytes Percent Auto 9.5 % (3-14); Neutrophils Absolute Auto 3900 /uL (1500-7000); Neutrophils Percent Auto 60.4 % (50-75); Platelet Count 234 X10^3/uL (150-400); Red Blood Cell Count 2.52 X10^6/uL (4.5-5.9)
[2021-01-29 15:21] LABS: BUN Creatinine Ratio 15.2 (6-22); Blood Urea Nitrogen 23 mg/dL (9-20); Calcium 8.7 mg/dL (8.4-10.2); Carbon Dioxide 31 mmol/L (22-32); Chloride 103 mmol/L (98-107); Estimated Glomerular Filt Rate 47.1 mL/min (>60); Glucose 177 mg/dL (80-110); HEMOLYSIS < 15 (0-50); Potassium 4.2 mmol/L (3.4-5.1); Sodium 139 mmol/L (137-145)
[2021-01-29 15:29] LABS: Hematocrit 20.5 % (41-53); Hemoglobin 6.8 g/dL (13.5-17.5)
[2021-01-29 15:49] VITALS: BP 147/77; PULSE 72; RESP 18; TEMP 37; O2SAT 100
--- NOTE | 2021-01-29 15:50 | PC.NURSE ---
HH 6.8/20.5; This RN called these results to Helen MEDRANO at [facility] nephrology. Orders received by Dr. Lozano for fit test and 1 unit PRBC tomorrow. pt will receive procrit today.
[2021-01-29] MEDS: EPOETIN ALFA-EPBX 10,000 UNIT/ML VIAL 20000 UNIT SUBCUT (16:04)
[2021-01-30 11:21] VITALS: BP 176/86; PULSE 71; RESP 18; TEMP 36.9
[2021-01-30 11:42] VITALS: BP 163/78; PULSE 70; RESP 18; TEMP 37.1
[2021-01-30 13:50] VITALS: BP 173/86; PULSE 72; RESP 16; TEMP 36.8
[2021-02-02 09:43] LABS: Fecal Immunochemical Test Negative (Negative)
== END ==
PROVIDERS: Physician Assistant; PCP Internal Medicine; Referring Provider Internal Medicine; Visit Provider Internal Medicine
DX: E11.22 Type 2 diabetes mellitus with diabetic chronic kidney disease (principal); N18.30 Chronic kidney disease, stage 3 unspecified; D63.1 Anemia in chronic kidney disease; E11.621 Type 2 diabetes mellitus with foot ulcer; L97.412 Non-pressure chronic ulcer of right heel and midfoot with fat layer exposed; L97.421 Non-pressure chronic ulcer of left heel and midfoot limited to breakdown of skin; E11.40 Type 2 diabetes mellitus with diabetic neuropathy, unspecified; M86.371 Chronic multifocal osteomyelitis, right ankle and foot
CPT/HCPCS: 36430; 80048; 82274; 85025; 86850; 86900; 86901; 96372; 99213; P9016; G0277; Q5106

== ENCOUNTER → 2021-01-30 11:49 | Outpatient (CLI) | payer MEDICARE, OTHER, SELFPAY ==
[2021-01-15 09:12] VITALS: BMI 30.4
== END ==
PROVIDERS: PCP Internal Medicine; Referring Provider Internal Medicine; Visit Provider Nurse Practitioner Family
DX: E11.621 Type 2 diabetes mellitus with foot ulcer (principal); L97.421 Non-pressure chronic ulcer of left heel and midfoot limited to breakdown of skin
CPT/HCPCS: 99213

== ENCOUNTER → 2021-02-02 11:33 | Outpatient (CLI) | payer MEDICARE, OTHER, SELFPAY ==
[2021-01-15 09:12] VITALS: BMI 30.4
== END ==
PROVIDERS: PCP Internal Medicine; Referring Provider Internal Medicine; Visit Provider Family Medicine
DX: E11.621 Type 2 diabetes mellitus with foot ulcer (principal); M86.371 Chronic multifocal osteomyelitis, right ankle and foot; L97.515 Non-pressure chronic ulcer of other part of right foot with muscle involvement without evidence of necrosis; E11.40 Type 2 diabetes mellitus with diabetic neuropathy, unspecified
CPT/HCPCS: 99183; 99214; G0277

== ENCOUNTER → 2021-02-03 11:25 | Outpatient (CLI) | payer MEDICARE, OTHER, SELFPAY ==
[2021-01-15 09:12] VITALS: BMI 30.4
== END ==
PROVIDERS: PCP Internal Medicine; Referring Provider Internal Medicine; Visit Provider Family Medicine
DX: M86.371 Chronic multifocal osteomyelitis, right ankle and foot (principal); E11.621 Type 2 diabetes mellitus with foot ulcer; L97.412 Non-pressure chronic ulcer of right heel and midfoot with fat layer exposed; L97.421 Non-pressure chronic ulcer of left heel and midfoot limited to breakdown of skin; E11.40 Type 2 diabetes mellitus with diabetic neuropathy, unspecified
CPT/HCPCS: 99183; G0277

== ENCOUNTER → 2021-02-05 11:20 | Outpatient (CLI) | payer MEDICARE, OTHER, SELFPAY ==
[2021-01-15 09:12] VITALS: BMI 30.4
== END ==
PROVIDERS: PCP Internal Medicine; Referring Provider Internal Medicine; Visit Provider Family Medicine
DX: E11.621 Type 2 diabetes mellitus with foot ulcer (principal); L97.412 Non-pressure chronic ulcer of right heel and midfoot with fat layer exposed; L97.421 Non-pressure chronic ulcer of left heel and midfoot limited to breakdown of skin; M86.371 Chronic multifocal osteomyelitis, right ankle and foot; E11.40 Type 2 diabetes mellitus with diabetic neuropathy, unspecified
CPT/HCPCS: 99183; G0277

== ENCOUNTER → 2021-02-06 13:48 | Outpatient (CLI) | payer MEDICARE, OTHER, SELFPAY ==
[2021-01-15 09:12] VITALS: BMI 30.4
== END ==
PROVIDERS: PCP Internal Medicine; Referring Provider Internal Medicine; Visit Provider Nurse Practitioner Family
DX: E11.621 Type 2 diabetes mellitus with foot ulcer (principal); L97.412 Non-pressure chronic ulcer of right heel and midfoot with fat layer exposed; L97.421 Non-pressure chronic ulcer of left heel and midfoot limited to breakdown of skin; M86.371 Chronic multifocal osteomyelitis, right ankle and foot; E11.40 Type 2 diabetes mellitus with diabetic neuropathy, unspecified
CPT/HCPCS: 99183; G0277

== ENCOUNTER → 2021-02-09 09:39 | Outpatient (CLI) | payer MEDICARE, OTHER, SELFPAY ==
[2021-01-15 09:12] VITALS: BMI 30.4
== END ==
PROVIDERS: PCP Internal Medicine; Referring Provider Internal Medicine; Visit Provider Family Medicine
DX: E11.622 Type 2 diabetes mellitus with other skin ulcer (principal); M86.371 Chronic multifocal osteomyelitis, right ankle and foot; L97.412 Non-pressure chronic ulcer of right heel and midfoot with fat layer exposed; L97.421 Non-pressure chronic ulcer of left heel and midfoot limited to breakdown of skin; E11.40 Type 2 diabetes mellitus with diabetic neuropathy, unspecified; S91.301A Unspecified open wound, right foot, initial encounter; Z48.01 Encounter for change or removal of surgical wound dressing
CPT/HCPCS: 99183; 99213; G0277

== ENCOUNTER → 2021-02-10 08:31 | Outpatient (CLI) | payer MEDICARE, OTHER, SELFPAY ==
[2021-01-15 09:12] VITALS: BMI 30.4
== END ==
PROVIDERS: PCP Internal Medicine; Referring Provider Internal Medicine; Visit Provider Family Medicine
DX: L97.412 Non-pressure chronic ulcer of right heel and midfoot with fat layer exposed (principal); E11.40 Type 2 diabetes mellitus with diabetic neuropathy, unspecified; L97.421 Non-pressure chronic ulcer of left heel and midfoot limited to breakdown of skin; M86.371 Chronic multifocal osteomyelitis, right ankle and foot; E11.621 Type 2 diabetes mellitus with foot ulcer
CPT/HCPCS: 99183; G0277

== ENCOUNTER → 2021-02-11 09:23 | Outpatient (CLI) | payer MEDICARE, OTHER, SELFPAY ==
[2021-01-15 09:12] VITALS: BMI 30.4
== END ==
PROVIDERS: PCP Internal Medicine; Referring Provider Internal Medicine; Visit Provider Family Medicine
DX: E11.621 Type 2 diabetes mellitus with foot ulcer (principal); L97.412 Non-pressure chronic ulcer of right heel and midfoot with fat layer exposed; L97.421 Non-pressure chronic ulcer of left heel and midfoot limited to breakdown of skin; M86.371 Chronic multifocal osteomyelitis, right ankle and foot; E11.40 Type 2 diabetes mellitus with diabetic neuropathy, unspecified
CPT/HCPCS: 99183; G0277

== ENCOUNTER → 2021-02-12 11:51 | Outpatient (CLI) | payer MEDICARE, OTHER, SELFPAY ==
[2021-01-15 09:12] VITALS: BMI 30.4
== END ==
PROVIDERS: PCP Internal Medicine; Referring Provider Internal Medicine; Visit Provider Family Medicine
DX: E11.621 Type 2 diabetes mellitus with foot ulcer (principal); L97.412 Non-pressure chronic ulcer of right heel and midfoot with fat layer exposed; M86.371 Chronic multifocal osteomyelitis, right ankle and foot; L97.421 Non-pressure chronic ulcer of left heel and midfoot limited to breakdown of skin; E11.40 Type 2 diabetes mellitus with diabetic neuropathy, unspecified
CPT/HCPCS: 99183; G0277

== ENCOUNTER → 2021-02-12 13:42 | Outpatient (CLI) | payer MEDICARE, OTHER, SELFPAY ==
[2021-01-15 09:12] VITALS: BMI 30.4
[2021-02-12 13:59] VITALS: BP 164/78; PULSE 67; RESP 18; TEMP 36.6; O2SAT 97
[2021-02-12] MEDS: EPOETIN ALFA 10,000 UNIT/ML VIAL 20000 UNIT SUBCUT (14:10)
== END ==
PROVIDERS: PCP Internal Medicine; Referring Provider Internal Medicine; Visit Provider Internal Medicine
DX: N18.30 Chronic kidney disease, stage 3 unspecified (principal); D63.1 Anemia in chronic kidney disease; E11.621 Type 2 diabetes mellitus with foot ulcer; L97.412 Non-pressure chronic ulcer of right heel and midfoot with fat layer exposed; M86.371 Chronic multifocal osteomyelitis, right ankle and foot; L97.421 Non-pressure chronic ulcer of left heel and midfoot limited to breakdown of skin; E11.40 Type 2 diabetes mellitus with diabetic neuropathy, unspecified
CPT/HCPCS: 36415; 80048; 85025; 96372; G0277; J0885

== ENCOUNTER → 2021-02-13 09:11 | Outpatient (CLI) | payer MEDICARE, OTHER, SELFPAY ==
[2021-01-15 09:12] VITALS: BMI 30.4
== END ==
PROVIDERS: PCP Internal Medicine; Referring Provider Internal Medicine; Visit Provider Family Medicine
DX: E11.621 Type 2 diabetes mellitus with foot ulcer (principal); L97.412 Non-pressure chronic ulcer of right heel and midfoot with fat layer exposed; L97.421 Non-pressure chronic ulcer of left heel and midfoot limited to breakdown of skin; M86.371 Chronic multifocal osteomyelitis, right ankle and foot; E11.40 Type 2 diabetes mellitus with diabetic neuropathy, unspecified
CPT/HCPCS: 99183; 99213; G0277

== ENCOUNTER → 2021-02-16 09:05 | Outpatient (CLI) | payer MEDICARE, OTHER, SELFPAY ==
[2021-01-15 09:12] VITALS: BMI 30.4
== END ==
PROVIDERS: PCP Internal Medicine; Referring Provider Internal Medicine; Visit Provider Family Medicine
DX: L97.412 Non-pressure chronic ulcer of right heel and midfoot with fat layer exposed (principal); E11.40 Type 2 diabetes mellitus with diabetic neuropathy, unspecified; L97.421 Non-pressure chronic ulcer of left heel and midfoot limited to breakdown of skin; M86.371 Chronic multifocal osteomyelitis, right ankle and foot; E11.621 Type 2 diabetes mellitus with foot ulcer
CPT/HCPCS: 99183; 99213; G0277

== ENCOUNTER → 2021-02-17 09:26 | Outpatient (CLI) | payer MEDICARE, OTHER, SELFPAY ==
[2021-01-15 09:12] VITALS: BMI 30.4
== END ==
PROVIDERS: PCP Internal Medicine; Referring Provider Internal Medicine; Visit Provider Family Medicine
DX: E11.621 Type 2 diabetes mellitus with foot ulcer (principal); L97.412 Non-pressure chronic ulcer of right heel and midfoot with fat layer exposed; L97.421 Non-pressure chronic ulcer of left heel and midfoot limited to breakdown of skin; M86.371 Chronic multifocal osteomyelitis, right ankle and foot; E11.40 Type 2 diabetes mellitus with diabetic neuropathy, unspecified
CPT/HCPCS: 99183; G0277

== ENCOUNTER → 2021-02-18 09:06 | Outpatient (CLI) | payer MEDICARE, OTHER, SELFPAY ==
[2021-01-15 09:12] VITALS: BMI 30.4
== END ==
PROVIDERS: PCP Internal Medicine; Referring Provider Internal Medicine; Visit Provider Family Medicine
DX: L97.412 Non-pressure chronic ulcer of right heel and midfoot with fat layer exposed (principal); E11.621 Type 2 diabetes mellitus with foot ulcer; L97.421 Non-pressure chronic ulcer of left heel and midfoot limited to breakdown of skin; M86.371 Chronic multifocal osteomyelitis, right ankle and foot; E11.40 Type 2 diabetes mellitus with diabetic neuropathy, unspecified
CPT/HCPCS: 99183; G0277

== ENCOUNTER → 2021-02-20 14:13 | Outpatient (CLI) | payer MEDICARE, OTHER, SELFPAY ==
[2021-01-15 09:12] VITALS: BMI 30.4
== END ==
PROVIDERS: PCP Internal Medicine; Referring Provider Internal Medicine; Visit Provider Nurse Practitioner Family
DX: L08.9 Local infection of the skin and subcutaneous tissue, unspecified (principal); E11.21 Type 2 diabetes mellitus with diabetic nephropathy; N28.9 Disorder of kidney and ureter, unspecified; E11.628 Type 2 diabetes mellitus with other skin complications; E11.621 Type 2 diabetes mellitus with foot ulcer; L97.511 Non-pressure chronic ulcer of other part of right foot limited to breakdown of skin; T81.31XA Disruption of external operation (surgical) wound, not elsewhere classified, initial encounter; S91.312A Laceration without foreign body, left foot, initial encounter; L97.512 Non-pressure chronic ulcer of other part of right foot with fat layer exposed; M86.371 Chronic multifocal osteomyelitis, right ankle and foot; E11.40 Type 2 diabetes mellitus with diabetic neuropathy, unspecified
CPT/HCPCS: 11042; 36415; 73630; 80069; 85651; 86140; 87070; 87075; 87077; 87205; 97597

== ENCOUNTER → 2021-02-20 16:28 | Outpatient (CLI) | payer MEDICARE, OTHER, SELFPAY ==
[2021-01-15 09:12] VITALS: BMI 30.4
--- NOTE | 2021-02-20 | DI.RAD.S_ITS ---
PROCEDURE: XR FOOT RT MIN 3V INDICATIONS: Infection to skin and subcutaneous tissue TECHNIQUE: 3 views of the foot were acquired. COMPARISON: [facility], MR, MR FOOT RT WO/W CON, 12/02/2020, 10:50. [facility], CR, XR FOOT RT MIN 3V, 12/01/2020, 17:26. [facility], CR, XR FOOT RT MIN 3V, 11/11/2020, 17:03. FINDINGS: Bones: Right 2nd digit ray resection at the proximal metatarsal, new in the interval compared to November 2020. No obvious osseous erosion or periosteal reaction. No fractures or dislocations. No suspicious bony lesions. Soft tissues: No tibiotalar joint effusion. Achilles tendon appears normal. Vascular calcifications. IMPRESSION: No obvious erosion or periosteal reaction. However, of note the marrow edema was seen on recent MRI involving the 2nd through 4th metatarsals. Repeat MRI or three-phase bone scan could be helpful to evaluate for extent of suspected osteomyelitis. Interval 2nd digit ray resection. Dictated by: Rashawn Finnegan M.D. on 02/20/2021 at 17:14 Approved by: Rashawn Finnegan M.D. on 02/20/2021 at 17:26
[2021-02-20 18:25] LABS: Albumin 3.8 g/dL (3.5-5.0); BUN Creatinine Ratio 15.8 (6-22); Blood Urea Nitrogen 30 mg/dL (9-20); C-Reactive Protein Quant < 0.5 mg/dL (<1.0); Calcium 9.3 mg/dL (8.4-10.2); Carbon Dioxide 32 mmol/L (22-32); Chloride 101 mmol/L (98-107); Estimated Glomerular Filt Rate 36.1 mL/min (>60); Glucose 342 mg/dL (80-110); HEMOLYSIS < 15 (0-50); Potassium 4.4 mmol/L (3.4-5.1); Sodium 138 mmol/L (137-145)
[2021-02-20 18:27] LABS: Erythrocyte Sedimentation Rate 31 MM/HR (0-15)
== END ==
PROVIDERS: PCP Internal Medicine; Referring Provider Nurse Practitioner Family; Visit Provider Nurse Practitioner Family
DX: L08.9 Local infection of the skin and subcutaneous tissue, unspecified (principal); E11.21 Type 2 diabetes mellitus with diabetic nephropathy; N28.9 Disorder of kidney and ureter, unspecified
CPT/HCPCS: 36415; 73630; 80069; 85651; 86140

== ENCOUNTER → 2021-02-25 11:02 | Outpatient (CLI) | payer MEDICARE, OTHER, SELFPAY ==
[2021-01-15 09:12] VITALS: BMI 30.4
== END ==
PROVIDERS: PCP Internal Medicine; Referring Provider Internal Medicine; Visit Provider Family Medicine
DX: E11.621 Type 2 diabetes mellitus with foot ulcer (principal); L97.511 Non-pressure chronic ulcer of other part of right foot limited to breakdown of skin; L97.412 Non-pressure chronic ulcer of right heel and midfoot with fat layer exposed; L97.521 Non-pressure chronic ulcer of other part of left foot limited to breakdown of skin; S91.104A Unspecified open wound of right lesser toe(s) without damage to nail, initial encounter; M86.371 Chronic multifocal osteomyelitis, right ankle and foot
CPT/HCPCS: 11042; 11043; 97597

== ENCOUNTER → 2021-02-26 09:02 | Outpatient (CLI) | payer MEDICARE, OTHER, SELFPAY ==
[2021-01-15 09:12] VITALS: BMI 30.4
== END ==
PROVIDERS: PCP Internal Medicine; Referring Provider Internal Medicine; Visit Provider Family Medicine
DX: L97.412 Non-pressure chronic ulcer of right heel and midfoot with fat layer exposed (principal); E11.40 Type 2 diabetes mellitus with diabetic neuropathy, unspecified; L97.421 Non-pressure chronic ulcer of left heel and midfoot limited to breakdown of skin; M86.371 Chronic multifocal osteomyelitis, right ankle and foot; E11.621 Type 2 diabetes mellitus with foot ulcer
CPT/HCPCS: 99183; G0277

== ENCOUNTER → 2021-02-26 12:10 | Outpatient (CLI) | payer MEDICARE, OTHER, SELFPAY ==
[2021-01-15 09:12] VITALS: BMI 30.4
[2021-02-26 12:40] LABS: Add Manual Diff / Slide Review NO; Basophils Absolute Auto 100 /uL (0-100); Eosinophils Absolute Auto 300 /uL (0-450); Eosinophils Percent Auto 5.3 % (2-4); Hematocrit 30.4 % (41-53); Hemoglobin 10.2 g/dL (13.5-17.5); Lymphocytes Absolute Auto 1600 /uL (1100-4500); Lymphocytes Percent Auto 27.7 % (25-40); Mean Corpuscular HGB Conc 33.6 % (30-36); Mean Corpuscular Hemoglobin 27.5 PG (26-34); Mean Corpuscular Volume 81.9 fL (80-100); Monocytes Absolute Auto 500 /uL (0-900); Monocytes Percent Auto 7.7 % (3-14); Neutrophils Absolute Auto 3500 /uL (1500-7000); Neutrophils Percent Auto 58.3 % (50-75); Platelet Count 196 X10^3/uL (150-400); Red Blood Cell Count 3.71 X10^6/uL (4.5-5.9); Red Cell Distribution Width 16.9 % (11.6-14.8)
[2021-02-26 13:01] LABS: Albumin 3.7 g/dL (3.5-5.0); BUN Creatinine Ratio 15.5 (6-22); Blood Urea Nitrogen 25 mg/dL (9-20); Calcium 9.3 mg/dL (8.4-10.2); Carbon Dioxide 29 mmol/L (22-32); Chloride 101 mmol/L (98-107); Estimated Glomerular Filt Rate 43.7 mL/min (>60); Glucose 231 mg/dL (80-110); HEMOLYSIS < 15 (0-50); Phosphorous 4.2 mg/dL (2.3-3.7); Potassium 4.2 mmol/L (3.4-5.1); Sodium 138 mmol/L (137-145)
== END ==
PROVIDERS: PCP Internal Medicine; Referring Provider Internal Medicine; Visit Provider Internal Medicine
DX: D63.1 Anemia in chronic kidney disease (principal); N18.30 Chronic kidney disease, stage 3 unspecified
CPT/HCPCS: 36415; 80069; 85025

== ENCOUNTER → 2021-02-26 12:44 | Outpatient (CLI) | payer MEDICARE, OTHER, SELFPAY ==
[2021-01-15 09:12] VITALS: BMI 30.4
[2021-02-26 12:57] VITALS: BP 159/77; PULSE 66; RESP 18; TEMP 37.1; O2SAT 100
[2021-02-26] MEDS: EPOETIN ALFA-EPBX 10,000 UNIT/ML VIAL 20000 UNIT SUBCUT (13:24)
--- NOTE | 2021-02-26 13:24 | PHA.NOTE ---
EPO Injection: Patient is here for EPO 20,000 units SubQ injection every 2 weeks. Today Hgb/Hct = 10.2/30.4, BP = 159/77 Plan to give EPO dose as written today.
== END ==
PROVIDERS: PCP Internal Medicine; Referring Provider Internal Medicine; Visit Provider Internal Medicine
DX: E11.22 Type 2 diabetes mellitus with diabetic chronic kidney disease (principal); N18.30 Chronic kidney disease, stage 3 unspecified; D63.1 Anemia in chronic kidney disease; L97.412 Non-pressure chronic ulcer of right heel and midfoot with fat layer exposed; E11.40 Type 2 diabetes mellitus with diabetic neuropathy, unspecified; L97.421 Non-pressure chronic ulcer of left heel and midfoot limited to breakdown of skin; M86.371 Chronic multifocal osteomyelitis, right ankle and foot; E11.621 Type 2 diabetes mellitus with foot ulcer
CPT/HCPCS: 36415; 80069; 85025; 96372; G0277; Q5106

== ENCOUNTER → 2021-02-27 10:53 | Outpatient (CLI) | payer MEDICARE, OTHER, SELFPAY ==
[2021-01-15 09:12] VITALS: BMI 30.4
== END ==
PROVIDERS: PCP Internal Medicine; Referring Provider Internal Medicine; Visit Provider Nurse Practitioner Family
DX: E11.621 Type 2 diabetes mellitus with foot ulcer (principal); M86.371 Chronic multifocal osteomyelitis, right ankle and foot; L97.412 Non-pressure chronic ulcer of right heel and midfoot with fat layer exposed; L97.421 Non-pressure chronic ulcer of left heel and midfoot limited to breakdown of skin; E11.40 Type 2 diabetes mellitus with diabetic neuropathy, unspecified; L97.511 Non-pressure chronic ulcer of other part of right foot limited to breakdown of skin; S91.301A Unspecified open wound, right foot, initial encounter; S91.115A Laceration without foreign body of left lesser toe(s) without damage to nail, initial encounter
CPT/HCPCS: 99183; 99213; G0277

== ENCOUNTER → 2021-03-02 09:19 | Outpatient (CLI) | payer MEDICARE, OTHER, SELFPAY ==
[2021-01-15 09:12] VITALS: BMI 30.4
== END ==
PROVIDERS: PCP Internal Medicine; Referring Provider Internal Medicine; Visit Provider Family Medicine
DX: L97.412 Non-pressure chronic ulcer of right heel and midfoot with fat layer exposed (principal); E11.40 Type 2 diabetes mellitus with diabetic neuropathy, unspecified; L97.421 Non-pressure chronic ulcer of left heel and midfoot limited to breakdown of skin; M86.371 Chronic multifocal osteomyelitis, right ankle and foot; E11.621 Type 2 diabetes mellitus with foot ulcer
CPT/HCPCS: 99183; G0277

== ENCOUNTER → 2021-03-03 08:23 | Outpatient (CLI) | payer MEDICARE, OTHER, SELFPAY ==
[2021-01-15 09:12] VITALS: BMI 30.4
== END ==
PROVIDERS: PCP Internal Medicine; Referring Provider Internal Medicine; Visit Provider Family Medicine
DX: L97.412 Non-pressure chronic ulcer of right heel and midfoot with fat layer exposed (principal); E11.40 Type 2 diabetes mellitus with diabetic neuropathy, unspecified; L97.421 Non-pressure chronic ulcer of left heel and midfoot limited to breakdown of skin; M86.371 Chronic multifocal osteomyelitis, right ankle and foot; E11.621 Type 2 diabetes mellitus with foot ulcer
CPT/HCPCS: 99183; G0277

== ENCOUNTER → 2021-03-04 09:19 | Outpatient (CLI) | payer MEDICARE, OTHER, SELFPAY ==
[2021-01-15 09:12] VITALS: BMI 30.4
--- NOTE | 2021-03-04 | DI.MRI.S_ITS ---
PROCEDURE: MR FOOT RT WO/W CON INDICATIONS: Local infection of the skin TECHNIQUE: Noncontrast coronal T1 spin echo and STIR, sagittal T1 spin echo with fat saturation and STIR, axial T1 spin echo and T2 fast spin echo with fat saturation. After the administration of contrast, axial/sagittal/coronal T1 spin echo with fat saturation through the right foot. COMPARISON: [facility], CR, XR FOOT RT MIN 3V, 02/20/2021, 16:45. [facility], MR, MR FOOT RT WO/W CON, 12/02/2020, 10:50. FINDINGS: Image quality: Diagnostic. Patient motion is noted. Bones: There is interval amputation of 2nd toe at the level of proximal 2nd metatarsal shaft. Surgical margin appears clean. Very mild edema is seen at the 2nd metatarsal stump most consistent with postsurgical changes. There is mild residual marrow edema within 3rd metatarsal head and 3rd proximal phalanx. No bony erosive changes are seen. Mild marrow edema in 4th middle and distal phalanges are seen. Mild contrast enhancement in the above-mentioned areas are noted. No fracture or dislocation. No other area of abnormal marrow signal. Soft tissues: There is soft tissue edema and swelling over dorsal aspect of midfoot and forefoot and surrounding 2nd toe stump. No discrete drainable abscess collection is seen. Postsurgical changes are noted midfoot soft tissue adjacent to amputation site. Visualized flexor and extensor tendons are grossly intact. No gross marrow signal abnormality. IMPRESSION: 1. Interval amputation of 2nd toe at the level of proximal 2nd metatarsal shaft with minimal amount of edema and enhancement at 2nd metatarsal stump most consistent with postsurgical changes. 2. Mild marrow edema and contrast enhancement involving 3rd metatarsal head and 3rd proximal phalanx as well as 4th middle and distal phalanges improved compared to previous study suggestive of residual osteomyelitis. No bony erosive changes are seen. No fracture or dislocation. 3. Extensive cellulitis in dorsal aspect of midfoot and forefoot without discrete drainable abscess collection. Dictated by: Bud Lawrence M.D. on 03/04/2021 at 12:27 Approved by: Bud Lawrence M.D. on 03/04/2021 at 12:43
== END ==
PROVIDERS: PCP Internal Medicine; Referring Provider Nurse Practitioner Family; Visit Provider Nurse Practitioner Family
DX: L08.9 Local infection of the skin and subcutaneous tissue, unspecified (principal); L03.115 Cellulitis of right lower limb; Z89.421 Acquired absence of other right toe(s)
CPT/HCPCS: 73720

== ENCOUNTER → 2021-03-05 14:50 | Outpatient (CLI) | payer MEDICARE, OTHER, SELFPAY ==
[2021-01-15 09:12] VITALS: BMI 30.4
== END ==
PROVIDERS: PCP Internal Medicine; Referring Provider Internal Medicine; Visit Provider Family Medicine
DX: L97.412 Non-pressure chronic ulcer of right heel and midfoot with fat layer exposed (principal); E11.40 Type 2 diabetes mellitus with diabetic neuropathy, unspecified; L97.421 Non-pressure chronic ulcer of left heel and midfoot limited to breakdown of skin; M86.371 Chronic multifocal osteomyelitis, right ankle and foot; E11.621 Type 2 diabetes mellitus with foot ulcer
CPT/HCPCS: 99183; G0277

== ENCOUNTER → 2021-03-06 14:18 | Outpatient (CLI) | payer MEDICARE, OTHER, SELFPAY ==
[2021-01-15 09:12] VITALS: BMI 30.4
== END ==
PROVIDERS: PCP Internal Medicine; Referring Provider Internal Medicine; Visit Provider Nurse Practitioner Family
DX: L97.412 Non-pressure chronic ulcer of right heel and midfoot with fat layer exposed (principal); E11.40 Type 2 diabetes mellitus with diabetic neuropathy, unspecified; L97.421 Non-pressure chronic ulcer of left heel and midfoot limited to breakdown of skin; M86.371 Chronic multifocal osteomyelitis, right ankle and foot; E11.621 Type 2 diabetes mellitus with foot ulcer
CPT/HCPCS: 99183; G0277

== ENCOUNTER → 2021-03-09 09:17 | Outpatient (CLI) | payer MEDICARE, OTHER, SELFPAY ==
[2021-01-15 09:12] VITALS: BMI 30.4
== END ==
PROVIDERS: PCP Internal Medicine; Referring Provider Internal Medicine; Visit Provider Family Medicine
DX: S91.301A Unspecified open wound, right foot, initial encounter (principal); S91.104A Unspecified open wound of right lesser toe(s) without damage to nail, initial encounter; M86.671 Other chronic osteomyelitis, right ankle and foot; E11.621 Type 2 diabetes mellitus with foot ulcer; E11.40 Type 2 diabetes mellitus with diabetic neuropathy, unspecified; Z79.2 Long term (current) use of antibiotics; N18.32 Chronic kidney disease, stage 3b; L97.412 Non-pressure chronic ulcer of right heel and midfoot with fat layer exposed; L97.421 Non-pressure chronic ulcer of left heel and midfoot limited to breakdown of skin; M86.371 Chronic multifocal osteomyelitis, right ankle and foot
CPT/HCPCS: 11042; 15275; 99183; 99212; 99214; G0277; Q4110

== ENCOUNTER → 2021-03-10 08:14 | Outpatient (CLI) | payer MEDICARE, OTHER, SELFPAY ==
[2021-01-15 09:12] VITALS: BMI 30.4
== END ==
PROVIDERS: PCP Internal Medicine; Referring Provider Internal Medicine; Visit Provider Family Medicine
DX: L97.412 Non-pressure chronic ulcer of right heel and midfoot with fat layer exposed (principal); E11.40 Type 2 diabetes mellitus with diabetic neuropathy, unspecified; L97.421 Non-pressure chronic ulcer of left heel and midfoot limited to breakdown of skin; M86.371 Chronic multifocal osteomyelitis, right ankle and foot; E11.621 Type 2 diabetes mellitus with foot ulcer
CPT/HCPCS: 99183; G0277

== ENCOUNTER → 2021-03-12 11:46 | Outpatient (CLI) | payer MEDICARE, OTHER, SELFPAY ==
[2021-01-15 09:12] VITALS: BMI 30.4
[2021-03-12 13:21] LABS: Add Manual Diff / Slide Review NO; Basophils Absolute Auto 0 /uL (0-100); Basophils Percent Auto 0.6 % (0-2); Eosinophils Absolute Auto 400 /uL (0-450); Eosinophils Percent Auto 6.5 % (2-4); Hematocrit 30.4 % (41-53); Hemoglobin 10.2 g/dL (13.5-17.5); Lymphocytes Absolute Auto 1700 /uL (1100-4500); Lymphocytes Percent Auto 27.2 % (25-40); Mean Corpuscular HGB Conc 33.4 % (30-36); Mean Corpuscular Hemoglobin 27.5 PG (26-34); Mean Corpuscular Volume 82.2 fL (80-100); Monocytes Absolute Auto 700 /uL (0-900); Monocytes Percent Auto 11.5 % (3-14); Neutrophils Absolute Auto 3300 /uL (1500-7000); Neutrophils Percent Auto 54.2 % (50-75); Platelet Count 165 X10^3/uL (150-400); Red Cell Distribution Width 15.8 % (11.6-14.8); White Blood Cell Count 6.1 X10^3/uL (4.5-11.0)
[2021-03-12 13:43] LABS: Albumin 3.4 g/dL (3.5-5.0); BUN Creatinine Ratio 17.6 (6-22); Blood Urea Nitrogen 30 mg/dL (9-20); Calcium 9.2 mg/dL (8.4-10.2); Carbon Dioxide 31 mmol/L (22-32); Chloride 101 mmol/L (98-107); Glucose 133 mg/dL (80-110); HEMOLYSIS < 15 (0-50); Phosphorous 4.4 mg/dL (2.3-3.7); Potassium 4.9 mmol/L (3.4-5.1); Sodium 137 mmol/L (137-145)
== END ==
PROVIDERS: PCP Internal Medicine; Referring Provider Internal Medicine; Visit Provider Internal Medicine
DX: D63.1 Anemia in chronic kidney disease (principal); N18.30 Chronic kidney disease, stage 3 unspecified
CPT/HCPCS: 36415; 80069; 85025

== ENCOUNTER → 2021-03-12 13:30 | Outpatient (CLI) | payer MEDICARE, OTHER, SELFPAY ==
[2021-01-15 09:12] VITALS: BMI 30.4
[2021-03-12 13:46] VITALS: BP 166/76; PULSE 64; RESP 16; TEMP 36.9; O2SAT 97
--- NOTE | 2021-03-12 14:12 | PHA.NOTE ---
EPO Injection: Patient is here for EPO 20,000 units SubQ injection every 2 weeks order written by Dr. Mc on 01/26/2021. Today Hgb/Hct = 10.2/30.4, BP = 166/76 (around baseline) Plan to give EPO dose as written today.
[2021-03-12] MEDS: EPOETIN ALFA 10,000 UNIT/ML VIAL 20000 UNIT SUBCUT (14:31)
== END ==
PROVIDERS: PCP Internal Medicine; Referring Provider Internal Medicine; Visit Provider Internal Medicine
DX: N18.30 Chronic kidney disease, stage 3 unspecified (principal); D63.1 Anemia in chronic kidney disease
CPT/HCPCS: 36415; 80069; 85025; 96372; J0885

== ENCOUNTER → 2021-03-12 14:52 | Outpatient (CLI) | payer MEDICARE, OTHER, SELFPAY ==
[2021-01-15 09:12] VITALS: BMI 30.4
== END ==
PROVIDERS: PCP Internal Medicine; Referring Provider Internal Medicine; Visit Provider Family Medicine
DX: E11.628 Type 2 diabetes mellitus with other skin complications (principal); E11.621 Type 2 diabetes mellitus with foot ulcer; S91.301A Unspecified open wound, right foot, initial encounter; L97.511 Non-pressure chronic ulcer of other part of right foot limited to breakdown of skin; T87.89 Other complications of amputation stump; E11.22 Type 2 diabetes mellitus with diabetic chronic kidney disease; N18.30 Chronic kidney disease, stage 3 unspecified; D63.1 Anemia in chronic kidney disease
CPT/HCPCS: 36415; 80069; 85025; 96372; 99212; J0885

== ENCOUNTER → 2021-03-16 09:40 | Outpatient (CLI) | payer MEDICARE, OTHER, SELFPAY ==
[2021-01-15 09:12] VITALS: BMI 30.4
== END ==
PROVIDERS: PCP Internal Medicine; Referring Provider Internal Medicine; Visit Provider Family Medicine
DX: S91.301A Unspecified open wound, right foot, initial encounter (principal)
CPT/HCPCS: 99214

== ENCOUNTER → 2021-03-18 13:09 | Outpatient (CLI) | payer MEDICARE, OTHER, SELFPAY ==
[2021-01-15 09:12] VITALS: BMI 30.4
== END ==
PROVIDERS: PCP Internal Medicine; Referring Provider Internal Medicine; Visit Provider Nurse Practitioner Family
DX: L97.412 Non-pressure chronic ulcer of right heel and midfoot with fat layer exposed (principal); M86.371 Chronic multifocal osteomyelitis, right ankle and foot; L97.421 Non-pressure chronic ulcer of left heel and midfoot limited to breakdown of skin; E11.40 Type 2 diabetes mellitus with diabetic neuropathy, unspecified; E11.621 Type 2 diabetes mellitus with foot ulcer
CPT/HCPCS: 99183; G0277

== ENCOUNTER → 2021-03-19 08:42 | Outpatient (CLI) | payer MEDICARE, OTHER, SELFPAY ==
[2021-01-15 09:12] VITALS: BMI 30.4
== END ==
PROVIDERS: PCP Internal Medicine; Referring Provider Internal Medicine; Visit Provider Nurse Practitioner Family
DX: E11.621 Type 2 diabetes mellitus with foot ulcer (principal); L97.412 Non-pressure chronic ulcer of right heel and midfoot with fat layer exposed; L97.421 Non-pressure chronic ulcer of left heel and midfoot limited to breakdown of skin; E11.40 Type 2 diabetes mellitus with diabetic neuropathy, unspecified; M86.371 Chronic multifocal osteomyelitis, right ankle and foot; S91.301A Unspecified open wound, right foot, initial encounter
CPT/HCPCS: 99183; 99214; G0277

== ENCOUNTER → 2021-03-20 11:24 | Outpatient (CLI) | payer MEDICARE, OTHER, SELFPAY ==
[2021-01-15 09:12] VITALS: BMI 30.4
== END ==
PROVIDERS: PCP Internal Medicine; Referring Provider Internal Medicine; Visit Provider Nurse Practitioner Family
DX: L97.412 Non-pressure chronic ulcer of right heel and midfoot with fat layer exposed (principal); E11.40 Type 2 diabetes mellitus with diabetic neuropathy, unspecified; L97.421 Non-pressure chronic ulcer of left heel and midfoot limited to breakdown of skin; M86.371 Chronic multifocal osteomyelitis, right ankle and foot; E11.621 Type 2 diabetes mellitus with foot ulcer
CPT/HCPCS: 99183; G0277

== ENCOUNTER → 2021-03-23 09:53 | Outpatient (CLI) | payer MEDICARE, OTHER, SELFPAY ==
[2021-01-15 09:12] VITALS: BMI 30.4
== END ==
PROVIDERS: PCP Internal Medicine; Referring Provider Internal Medicine; Visit Provider Family Medicine
DX: E11.621 Type 2 diabetes mellitus with foot ulcer (principal); L97.412 Non-pressure chronic ulcer of right heel and midfoot with fat layer exposed; L97.421 Non-pressure chronic ulcer of left heel and midfoot limited to breakdown of skin; M86.371 Chronic multifocal osteomyelitis, right ankle and foot; E11.40 Type 2 diabetes mellitus with diabetic neuropathy, unspecified
CPT/HCPCS: 99183; G0277

== ENCOUNTER → 2021-03-24 08:51 | Outpatient (CLI) | payer MEDICARE, OTHER, SELFPAY ==
[2021-01-15 09:12] VITALS: BMI 30.4
== END ==
PROVIDERS: PCP Internal Medicine; Referring Provider Internal Medicine; Visit Provider Family Medicine
DX: L97.412 Non-pressure chronic ulcer of right heel and midfoot with fat layer exposed (principal); E11.40 Type 2 diabetes mellitus with diabetic neuropathy, unspecified; L97.421 Non-pressure chronic ulcer of left heel and midfoot limited to breakdown of skin; M86.371 Chronic multifocal osteomyelitis, right ankle and foot; E11.621 Type 2 diabetes mellitus with foot ulcer; T87.89 Other complications of amputation stump; L97.411 Non-pressure chronic ulcer of right heel and midfoot limited to breakdown of skin; L97.512 Non-pressure chronic ulcer of other part of right foot with fat layer exposed; Z79.2 Long term (current) use of antibiotics
CPT/HCPCS: 11042; 97597; 99183; 99214; G0277

== ENCOUNTER → 2021-03-25 10:02 | Outpatient (CLI) | payer MEDICARE, OTHER, SELFPAY ==
[2021-01-15 09:12] VITALS: BMI 30.4
== END ==
PROVIDERS: PCP Internal Medicine; Referring Provider Internal Medicine; Visit Provider Family Medicine
DX: L97.412 Non-pressure chronic ulcer of right heel and midfoot with fat layer exposed (principal); E11.40 Type 2 diabetes mellitus with diabetic neuropathy, unspecified; L97.421 Non-pressure chronic ulcer of left heel and midfoot limited to breakdown of skin; M86.371 Chronic multifocal osteomyelitis, right ankle and foot; E11.621 Type 2 diabetes mellitus with foot ulcer
CPT/HCPCS: 99183; G0277

== ENCOUNTER → 2021-03-26 11:30 | Outpatient (CLI) | payer MEDICARE, OTHER, SELFPAY ==
[2021-01-15 09:12] VITALS: BMI 30.4
== END ==
PROVIDERS: PCP Internal Medicine; Referring Provider Internal Medicine; Visit Provider Family Medicine
DX: E11.40 Type 2 diabetes mellitus with diabetic neuropathy, unspecified (principal); L97.412 Non-pressure chronic ulcer of right heel and midfoot with fat layer exposed; E11.621 Type 2 diabetes mellitus with foot ulcer; L97.421 Non-pressure chronic ulcer of left heel and midfoot limited to breakdown of skin
CPT/HCPCS: 99183; G0277

== ENCOUNTER → 2021-03-26 11:54 | Outpatient (CLI) | payer MEDICARE, OTHER, SELFPAY ==
[2021-01-15 09:12] VITALS: BMI 30.4
[2021-03-26 13:24] LABS: Add Manual Diff / Slide Review NO; Basophils Absolute Auto 0 /uL (0-100); Basophils Percent Auto 0.6 % (0-2); Eosinophils Absolute Auto 300 /uL (0-450); Eosinophils Percent Auto 3.7 % (2-4); Hematocrit 31.8 % (41-53); Hemoglobin 10.3 g/dL (13.5-17.5); Lymphocytes Absolute Auto 1500 /uL (1100-4500); Lymphocytes Percent Auto 18.1 % (25-40); Mean Corpuscular HGB Conc 32.5 % (30-36); Mean Corpuscular Hemoglobin 26.7 PG (26-34); Monocytes Absolute Auto 800 /uL (0-900); Monocytes Percent Auto 9.5 % (3-14); Neutrophils Absolute Auto 5700 /uL (1500-7000); Neutrophils Percent Auto 68.1 % (50-75); Platelet Count 190 X10^3/uL (150-400); Red Blood Cell Count 3.87 X10^6/uL (4.5-5.9); Red Cell Distribution Width 15.7 % (11.6-14.8); White Blood Cell Count 8.3 X10^3/uL (4.5-11.0)
[2021-03-26 13:43] LABS: Albumin 3.3 g/dL (3.5-5.0); BUN Creatinine Ratio 15.3 (6-22); Blood Urea Nitrogen 28 mg/dL (9-20); Carbon Dioxide 35 mmol/L (22-32); Chloride 102 mmol/L (98-107); Estimated Glomerular Filt Rate 37.7 mL/min (>60); Glucose 228 mg/dL (80-110); HEMOLYSIS < 15 (0-50); Potassium 4.3 mmol/L (3.4-5.1); Sodium 140 mmol/L (137-145)
== END ==
PROVIDERS: PCP Internal Medicine; Referring Provider Internal Medicine; Visit Provider Internal Medicine
DX: N18.30 Chronic kidney disease, stage 3 unspecified (principal); D63.1 Anemia in chronic kidney disease
CPT/HCPCS: 36415; 80069; 85025

== ENCOUNTER → 2021-03-26 12:57 | Outpatient (CLI) | payer MEDICARE, OTHER, SELFPAY ==
[2021-01-15 09:12] VITALS: BMI 30.4
[2021-03-26 13:45] VITALS: BP 151/64; PULSE 64; RESP 15; TEMP 37.1; O2SAT 95
[2021-03-26] MEDS: EPOETIN ALFA 10,000 UNIT/ML VIAL 20000 UNIT SUBCUT (14:06)
--- NOTE | 2021-03-26 17:55 | ONC.PHA ---
EPO Injection: Patient is here for EPO 20,000 units SubQ injection every 2 weeks. Today Hgb/Hct = 10.3/31.8, BP = 151/64 Plan to give EPO dose as written by Dr. Xuan Soriano order on 01/26/2021. Vital Signs Temperature 98.7 F Pulse Rate 64 Respiratory Rate 15 Blood Pressure 151/64 Pulse Oximetry 95 Weight 87.146 kg Allergies Allergy/AdvReac Type Severity Reaction Status Date / Time amitriptyline [AMITRIPTYLINE] Allergy Unknown Verified 11/11/20 12:33 Active Treatment Plan(s) Description Diagnosis Status Date Leukocytosis Acute
== END ==
PROVIDERS: PCP Internal Medicine; Referring Provider Internal Medicine; Visit Provider Internal Medicine
DX: E11.22 Type 2 diabetes mellitus with diabetic chronic kidney disease (principal); N18.30 Chronic kidney disease, stage 3 unspecified; D63.1 Anemia in chronic kidney disease; E11.40 Type 2 diabetes mellitus with diabetic neuropathy, unspecified; L97.412 Non-pressure chronic ulcer of right heel and midfoot with fat layer exposed; E11.621 Type 2 diabetes mellitus with foot ulcer; L97.421 Non-pressure chronic ulcer of left heel and midfoot limited to breakdown of skin
CPT/HCPCS: 36415; 80069; 85025; 96372; G0277; J0885

== ENCOUNTER → 2021-03-27 10:12 | Outpatient (CLI) | payer MEDICARE, OTHER, SELFPAY ==
[2021-01-15 09:12] VITALS: BMI 30.4
== END ==
PROVIDERS: PCP Internal Medicine; Referring Provider Internal Medicine; Visit Provider Nurse Practitioner Family
DX: E11.621 Type 2 diabetes mellitus with foot ulcer (principal); E11.628 Type 2 diabetes mellitus with other skin complications; S91.301A Unspecified open wound, right foot, initial encounter; L97.421 Non-pressure chronic ulcer of left heel and midfoot limited to breakdown of skin; R60.0 Localized edema; L97.412 Non-pressure chronic ulcer of right heel and midfoot with fat layer exposed; E11.40 Type 2 diabetes mellitus with diabetic neuropathy, unspecified; M86.371 Chronic multifocal osteomyelitis, right ankle and foot
CPT/HCPCS: 99183; 99214; G0277

== ENCOUNTER → 2021-03-31 11:47 | Outpatient (CLI) | payer MEDICARE, OTHER, SELFPAY ==
[2021-01-15 09:12] VITALS: BMI 30.4
== END ==
PROVIDERS: PCP Internal Medicine; Referring Provider Internal Medicine; Visit Provider Family Medicine
DX: L97.412 Non-pressure chronic ulcer of right heel and midfoot with fat layer exposed (principal); E11.40 Type 2 diabetes mellitus with diabetic neuropathy, unspecified; L97.421 Non-pressure chronic ulcer of left heel and midfoot limited to breakdown of skin; M86.371 Chronic multifocal osteomyelitis, right ankle and foot; E11.621 Type 2 diabetes mellitus with foot ulcer
CPT/HCPCS: 99183; G0277

== ENCOUNTER → 2021-04-02 10:56 | Outpatient (CLI) | payer MEDICARE, OTHER, SELFPAY ==
[2021-01-15 09:12] VITALS: BMI 30.4
== END ==
PROVIDERS: PCP Internal Medicine; Referring Provider Internal Medicine; Visit Provider Family Medicine
DX: E11.621 Type 2 diabetes mellitus with foot ulcer (principal); L97.512 Non-pressure chronic ulcer of other part of right foot with fat layer exposed; L51.1 Stevens-Johnson syndrome; L97.411 Non-pressure chronic ulcer of right heel and midfoot limited to breakdown of skin; L97.421 Non-pressure chronic ulcer of left heel and midfoot limited to breakdown of skin; E11.40 Type 2 diabetes mellitus with diabetic neuropathy, unspecified; M86.371 Chronic multifocal osteomyelitis, right ankle and foot; T87.89 Other complications of amputation stump; L97.412 Non-pressure chronic ulcer of right heel and midfoot with fat layer exposed
CPT/HCPCS: 11042; 15275; 99183; 99213; G0277; Q4110

== ENCOUNTER → 2021-04-07 07:25 | Outpatient (CLI) | payer MEDICARE, OTHER, SELFPAY ==
[2021-01-15 09:12] VITALS: BMI 30.4
[2021-04-07 08:15] LABS: Add Manual Diff / Slide Review NO; Basophils Absolute Auto 0 /uL (0-100); Basophils Percent Auto 0.7 % (0-2); Eosinophils Absolute Auto 300 /uL (0-450); Eosinophils Percent Auto 5.4 % (2-4); Hematocrit 31.9 % (41-53); Hemoglobin 10.5 g/dL (13.5-17.5); Lymphocytes Absolute Auto 1600 /uL (1100-4500); Lymphocytes Percent Auto 29.9 % (25-40); Mean Corpuscular Hemoglobin 26.7 PG (26-34); Monocytes Absolute Auto 600 /uL (0-900); Monocytes Percent Auto 11.6 % (3-14); Neutrophils Absolute Auto 2800 /uL (1500-7000); Neutrophils Percent Auto 52.4 % (50-75); Platelet Count 210 X10^3/uL (150-400); Red Blood Cell Count 3.94 X10^6/uL (4.5-5.9); Red Cell Distribution Width 15.1 % (11.6-14.8); White Blood Cell Count 5.3 X10^3/uL (4.5-11.0)
[2021-04-07 08:29] LABS: Albumin 3.5 g/dL (3.5-5.0); BUN Creatinine Ratio 12.2 (6-22); Blood Urea Nitrogen 22 mg/dL (9-20); Carbon Dioxide 28 mmol/L (22-32); Chloride 102 mmol/L (98-107); Estimated Glomerular Filt Rate 38.2 mL/min (>60); Glucose 348 mg/dL (80-110); HEMOLYSIS < 15 (0-50); Phosphorous 3.8 mg/dL (2.3-3.7); Potassium 4.6 mmol/L (3.4-5.1); Sodium 138 mmol/L (137-145)
== END ==
PROVIDERS: PCP Internal Medicine; Referring Provider Internal Medicine; Visit Provider Internal Medicine
DX: D63.1 Anemia in chronic kidney disease (principal); N18.30 Chronic kidney disease, stage 3 unspecified; E11.22 Type 2 diabetes mellitus with diabetic chronic kidney disease
CPT/HCPCS: 36415; 80069; 85025

== ENCOUNTER → 2021-04-07 08:03 | Outpatient (CLI) | payer MEDICARE, OTHER, SELFPAY ==
[2021-01-15 09:12] VITALS: BMI 30.4
[2021-04-07] MEDS: EPOETIN ALFA 10,000 UNIT/ML VIAL 20000 UNIT SUBCUT (09:25)
--- NOTE | 2021-04-07 09:37 | ONC.PHA ---
EPO Injection: Patient is here for EPO 20,000 units SubQ injection every 2 weeks per order written by Dr. Xuan Soriano on 01/26/2021. Today Hgb/Hct = 10.5/31.9, BP = 154/66 Plan to give today EPO dose as written. Allergies Allergy/AdvReac Type Severity Reaction Status Date / Time amitriptyline [AMITRIPTYLINE] Allergy Unknown Verified 11/11/20 12:33
== END ==
PROVIDERS: PCP Internal Medicine; Referring Provider Internal Medicine; Visit Provider Internal Medicine
DX: E11.22 Type 2 diabetes mellitus with diabetic chronic kidney disease (principal); N18.30 Chronic kidney disease, stage 3 unspecified; D63.1 Anemia in chronic kidney disease
CPT/HCPCS: 36415; 80069; 85025; 96365; 96372; J0885; J1756

== ENCOUNTER → 2021-04-08 12:12 | Outpatient (CLI) | payer MEDICARE, OTHER, SELFPAY ==
[2021-01-15 09:12] VITALS: BMI 30.4
== END ==
PROVIDERS: PCP Internal Medicine; Referring Provider Internal Medicine; Visit Provider Family Medicine
DX: E11.621 Type 2 diabetes mellitus with foot ulcer (principal); M86.371 Chronic multifocal osteomyelitis, right ankle and foot; L97.411 Non-pressure chronic ulcer of right heel and midfoot limited to breakdown of skin; L97.421 Non-pressure chronic ulcer of left heel and midfoot limited to breakdown of skin; L97.512 Non-pressure chronic ulcer of other part of right foot with fat layer exposed; E11.40 Type 2 diabetes mellitus with diabetic neuropathy, unspecified
CPT/HCPCS: 99183; G0277

== ENCOUNTER → 2021-04-09 13:00 | Outpatient (CLI) | payer MEDICARE, OTHER, SELFPAY ==
[2021-01-15 09:12] VITALS: BMI 30.4
== END ==
PROVIDERS: PCP Internal Medicine; Referring Provider Internal Medicine; Visit Provider Family Medicine
DX: E11.621 Type 2 diabetes mellitus with foot ulcer (principal); L97.411 Non-pressure chronic ulcer of right heel and midfoot limited to breakdown of skin; L97.421 Non-pressure chronic ulcer of left heel and midfoot limited to breakdown of skin; L97.512 Non-pressure chronic ulcer of other part of right foot with fat layer exposed; E11.40 Type 2 diabetes mellitus with diabetic neuropathy, unspecified; M86.371 Chronic multifocal osteomyelitis, right ankle and foot
CPT/HCPCS: 99183; G0277

== ENCOUNTER → 2021-04-10 08:30 | Outpatient (CLI) | payer MEDICARE, OTHER, SELFPAY ==
[2021-01-15 09:12] VITALS: BMI 30.4
== END ==
PROVIDERS: PCP Internal Medicine; Referring Provider Internal Medicine; Visit Provider Family Medicine
DX: E11.621 Type 2 diabetes mellitus with foot ulcer (principal); L97.512 Non-pressure chronic ulcer of other part of right foot with fat layer exposed; T87.89 Other complications of amputation stump; L97.511 Non-pressure chronic ulcer of other part of right foot limited to breakdown of skin; L97.421 Non-pressure chronic ulcer of left heel and midfoot limited to breakdown of skin
CPT/HCPCS: 99214

== ENCOUNTER → 2021-04-13 13:07 | Outpatient (CLI) | payer MEDICARE, OTHER, SELFPAY ==
[2021-01-15 09:12] VITALS: BMI 30.4
== END ==
PROVIDERS: PCP Internal Medicine; Referring Provider Internal Medicine; Visit Provider Family Medicine
DX: E11.621 Type 2 diabetes mellitus with foot ulcer (principal); L97.411 Non-pressure chronic ulcer of right heel and midfoot limited to breakdown of skin; L97.421 Non-pressure chronic ulcer of left heel and midfoot limited to breakdown of skin; L97.512 Non-pressure chronic ulcer of other part of right foot with fat layer exposed; E11.40 Type 2 diabetes mellitus with diabetic neuropathy, unspecified; M86.371 Chronic multifocal osteomyelitis, right ankle and foot
CPT/HCPCS: 99183; G0277

== ENCOUNTER → 2021-04-14 12:50 | Outpatient (CLI) | payer MEDICARE, OTHER, SELFPAY ==
[2021-01-15 09:12] VITALS: BMI 30.4
== END ==
PROVIDERS: PCP Internal Medicine; Referring Provider Internal Medicine; Visit Provider Family Medicine
DX: E11.621 Type 2 diabetes mellitus with foot ulcer (principal); L97.411 Non-pressure chronic ulcer of right heel and midfoot limited to breakdown of skin; L97.421 Non-pressure chronic ulcer of left heel and midfoot limited to breakdown of skin; L97.512 Non-pressure chronic ulcer of other part of right foot with fat layer exposed; E11.40 Type 2 diabetes mellitus with diabetic neuropathy, unspecified; M86.371 Chronic multifocal osteomyelitis, right ankle and foot
CPT/HCPCS: 99183; G0277

== ENCOUNTER → 2021-04-15 14:29 | Outpatient (CLI) | payer MEDICARE, OTHER, SELFPAY ==
[2021-01-15 09:12] VITALS: BMI 30.4
== END ==
PROVIDERS: PCP Internal Medicine; Referring Provider Internal Medicine; Visit Provider Family Medicine
DX: M86.371 Chronic multifocal osteomyelitis, right ankle and foot (principal); E11.621 Type 2 diabetes mellitus with foot ulcer; L97.411 Non-pressure chronic ulcer of right heel and midfoot limited to breakdown of skin; L97.421 Non-pressure chronic ulcer of left heel and midfoot limited to breakdown of skin; L97.512 Non-pressure chronic ulcer of other part of right foot with fat layer exposed; E11.40 Type 2 diabetes mellitus with diabetic neuropathy, unspecified
CPT/HCPCS: 99183; 99213; G0277

== ENCOUNTER → 2021-04-16 14:26 | Outpatient (CLI) | payer MEDICARE, OTHER, SELFPAY ==
[2021-01-15 09:12] VITALS: BMI 30.4
== END ==
PROVIDERS: PCP Internal Medicine; Referring Provider Internal Medicine; Visit Provider Family Medicine
DX: E11.621 Type 2 diabetes mellitus with foot ulcer (principal); L97.512 Non-pressure chronic ulcer of other part of right foot with fat layer exposed; E11.40 Type 2 diabetes mellitus with diabetic neuropathy, unspecified; M86.371 Chronic multifocal osteomyelitis, right ankle and foot
CPT/HCPCS: 99183; G0277

== ENCOUNTER → 2021-04-17 13:18 | Outpatient (CLI) | payer MEDICARE, OTHER, SELFPAY ==
[2021-01-15 09:12] VITALS: BMI 30.4
== END ==
PROVIDERS: PCP Internal Medicine; Referring Provider Internal Medicine; Visit Provider Nurse Practitioner Family
DX: E11.621 Type 2 diabetes mellitus with foot ulcer (principal); L97.512 Non-pressure chronic ulcer of other part of right foot with fat layer exposed; E11.40 Type 2 diabetes mellitus with diabetic neuropathy, unspecified; M86.371 Chronic multifocal osteomyelitis, right ankle and foot
CPT/HCPCS: 99183; G0277

== ENCOUNTER → 2021-04-21 07:14 | Outpatient (CLI) | payer MEDICARE, OTHER, SELFPAY ==
[2021-01-15 09:12] VITALS: BMI 30.4
[2021-04-21 08:02] LABS: Add Manual Diff / Slide Review NO; Basophils Absolute Auto 0 /uL (0-100); Basophils Percent Auto 0.7 % (0-2); Eosinophils Absolute Auto 300 /uL (0-450); Eosinophils Percent Auto 5.8 % (2-4); Hematocrit 32.6 % (41-53); Hemoglobin 10.7 g/dL (13.5-17.5); Lymphocytes Absolute Auto 1500 /uL (1100-4500); Lymphocytes Percent Auto 29.4 % (25-40); Mean Corpuscular HGB Conc 32.9 % (30-36); Mean Corpuscular Hemoglobin 26.8 PG (26-34); Mean Corpuscular Volume 81.7 fL (80-100); Monocytes Absolute Auto 500 /uL (0-900); Monocytes Percent Auto 10.4 % (3-14); Neutrophils Absolute Auto 2800 /uL (1500-7000); Neutrophils Percent Auto 53.7 % (50-75); Platelet Count 164 X10^3/uL (150-400); Red Cell Distribution Width 15.8 % (11.6-14.8); White Blood Cell Count 5.3 X10^3/uL (4.5-11.0)
[2021-04-21 08:45] LABS: Albumin 3.4 g/dL (3.5-5.0); BUN Creatinine Ratio 14.6 (6-22); Blood Urea Nitrogen 31 mg/dL (9-20); Calcium 9.1 mg/dL (8.4-10.2); Carbon Dioxide 33 mmol/L (22-32); Chloride 103 mmol/L (98-107); Estimated Glomerular Filt Rate 31.8 mL/min (>60); Glucose 218 mg/dL (80-110); HEMOLYSIS < 15 (0-50); Phosphorous 4.1 mg/dL (2.3-3.7); Sodium 141 mmol/L (137-145)
== END ==
PROVIDERS: PCP Internal Medicine; Referring Provider Internal Medicine; Visit Provider Internal Medicine
DX: D63.1 Anemia in chronic kidney disease (principal); N18.30 Chronic kidney disease, stage 3 unspecified
CPT/HCPCS: 36415; 80069; 85025

== ENCOUNTER → 2021-04-21 09:17 | Outpatient (CLI) | payer MEDICARE, OTHER, SELFPAY ==
[2021-01-15 09:12] VITALS: BMI 30.4
--- NOTE | 2021-04-21 09:22 | ONC.PHA ---
Allergies Allergy/AdvReac Type Severity Reaction Status Date / Time amitriptyline [AMITRIPTYLINE] Allergy Unknown Verified 11/11/20 12:33 H/H - 10.7/32.6 Scr - 2.12 Procrit 10,000 ordered
[2021-04-21] MEDS: EPOETIN ALFA-EPBX 10,000 UNIT/ML VIAL 10000 UNIT SUBCUT (09:35)
== END ==
PROVIDERS: PCP Internal Medicine; Referring Provider Internal Medicine; Visit Provider Internal Medicine
DX: N18.30 Chronic kidney disease, stage 3 unspecified (principal); D63.1 Anemia in chronic kidney disease; I87.2 Venous insufficiency (chronic) (peripheral); L97.811 Non-pressure chronic ulcer of other part of right lower leg limited to breakdown of skin; E11.622 Type 2 diabetes mellitus with other skin ulcer; I73.9 Peripheral vascular disease, unspecified; L08.9 Local infection of the skin and subcutaneous tissue, unspecified; L95.0 Livedoid vasculitis; L53.8 Other specified erythematous conditions; R60.0 Localized edema; I10 Essential (primary) hypertension
CPT/HCPCS: 36415; 80069; 85025; 96365; 96372; G0277; J1756; Q5106

== ENCOUNTER → 2021-04-21 14:23 | Outpatient (CLI) | payer MEDICARE, OTHER, SELFPAY ==
[2021-01-15 09:12] VITALS: BMI 30.4
== END ==
PROVIDERS: PCP Internal Medicine; Referring Provider Internal Medicine; Visit Provider Family Medicine
DX: E11.621 Type 2 diabetes mellitus with foot ulcer (principal); L97.512 Non-pressure chronic ulcer of other part of right foot with fat layer exposed; E11.40 Type 2 diabetes mellitus with diabetic neuropathy, unspecified; M86.371 Chronic multifocal osteomyelitis, right ankle and foot
CPT/HCPCS: 99183; G0277

== ENCOUNTER → 2021-04-22 09:41 | Outpatient (CLI) | payer MEDICARE, OTHER, SELFPAY ==
[2021-01-15 09:12] VITALS: BMI 30.4
== END ==
PROVIDERS: PCP Internal Medicine; Referring Provider Internal Medicine; Visit Provider Family Medicine
DX: E11.621 Type 2 diabetes mellitus with foot ulcer (principal); L97.512 Non-pressure chronic ulcer of other part of right foot with fat layer exposed; E11.40 Type 2 diabetes mellitus with diabetic neuropathy, unspecified; M86.371 Chronic multifocal osteomyelitis, right ankle and foot
CPT/HCPCS: 15275; 99183; G0277; Q4105

== ENCOUNTER → 2021-04-24 13:03 | Outpatient (CLI) | payer MEDICARE, OTHER, SELFPAY ==
[2021-01-15 09:12] VITALS: BMI 30.4
== END ==
PROVIDERS: PCP Internal Medicine; Referring Provider Internal Medicine; Visit Provider Nurse Practitioner Family
DX: E11.621 Type 2 diabetes mellitus with foot ulcer (principal); L97.512 Non-pressure chronic ulcer of other part of right foot with fat layer exposed; E11.40 Type 2 diabetes mellitus with diabetic neuropathy, unspecified; M86.371 Chronic multifocal osteomyelitis, right ankle and foot
CPT/HCPCS: 99183; G0277

== ENCOUNTER → 2021-04-29 13:03 | Outpatient (CLI) | payer MEDICARE, OTHER, SELFPAY ==
[2021-01-15 09:12] VITALS: BMI 30.4
== END ==
PROVIDERS: PCP Internal Medicine; Referring Provider Internal Medicine; Visit Provider Family Medicine
DX: E11.621 Type 2 diabetes mellitus with foot ulcer (principal); L97.512 Non-pressure chronic ulcer of other part of right foot with fat layer exposed; E11.40 Type 2 diabetes mellitus with diabetic neuropathy, unspecified; M86.371 Chronic multifocal osteomyelitis, right ankle and foot
CPT/HCPCS: 99213; 99214

== ENCOUNTER → 2021-05-05 06:53 | Outpatient (CLI) | payer MEDICARE, OTHER, SELFPAY ==
[2021-01-15 09:12] VITALS: BMI 30.4
[2021-05-05 07:13] LABS: Add Manual Diff / Slide Review NO; Basophils Absolute Auto 0 /uL (0-100); Basophils Percent Auto 0.9 % (0-2); Eosinophils Absolute Auto 300 /uL (0-450); Eosinophils Percent Auto 5.1 % (2-4); Hematocrit 34.2 % (41-53); Hemoglobin 11.3 g/dL (13.5-17.5); Lymphocytes Absolute Auto 1800 /uL (1100-4500); Lymphocytes Percent Auto 34.1 % (25-40); Mean Corpuscular HGB Conc 32.9 % (30-36); Monocytes Absolute Auto 600 /uL (0-900); Monocytes Percent Auto 12.2 % (3-14); Neutrophils Absolute Auto 2500 /uL (1500-7000); Neutrophils Percent Auto 47.7 % (50-75); Platelet Count 164 X10^3/uL (150-400); Red Blood Cell Count 4.17 X10^6/uL (4.5-5.9); Red Cell Distribution Width 15.9 % (11.6-14.8); White Blood Cell Count 5.2 X10^3/uL (4.5-11.0)
[2021-05-05 07:26] LABS: Albumin 3.5 g/dL (3.5-5.0); BUN Creatinine Ratio 15.7 (6-22); Blood Urea Nitrogen 33 mg/dL (9-20); Calcium 8.9 mg/dL (8.4-10.2); Carbon Dioxide 30 mmol/L (22-32); Chloride 104 mmol/L (98-107); Estimated Glomerular Filt Rate 32.2 mL/min (>60); Glucose 244 mg/dL (80-110); HEMOLYSIS < 15 (0-50); Phosphorous 4.5 mg/dL (2.3-3.7); Potassium 5.3 mmol/L (3.4-5.1); Sodium 139 mmol/L (137-145)
== END ==
PROVIDERS: PCP Internal Medicine; Referring Provider Internal Medicine; Visit Provider Internal Medicine
DX: D63.1 Anemia in chronic kidney disease (principal); N18.30 Chronic kidney disease, stage 3 unspecified
CPT/HCPCS: 36415; 80069; 85025

== ENCOUNTER → 2021-05-05 08:03 | Outpatient (CLI) | payer MEDICARE, OTHER, SELFPAY ==
[2021-01-15 09:12] VITALS: BMI 30.4
[2021-05-05 08:25] VITALS: BP 110/63; PULSE 55; RESP 16; TEMP 36.6; O2SAT 99
== END ==
PROVIDERS: PCP Internal Medicine; Referring Provider Physician Assistant; Visit Provider Physician Assistant
DX: E11.22 Type 2 diabetes mellitus with diabetic chronic kidney disease (principal); N18.30 Chronic kidney disease, stage 3 unspecified; D63.1 Anemia in chronic kidney disease

== ENCOUNTER → 2021-05-07 11:40 | Outpatient (CLI) | payer MEDICARE, OTHER, SELFPAY ==
[2021-01-15 09:12] VITALS: BMI 30.4
== END ==
PROVIDERS: PCP Internal Medicine; Referring Provider Internal Medicine; Visit Provider Family Medicine
DX: E11.621 Type 2 diabetes mellitus with foot ulcer (principal); L97.512 Non-pressure chronic ulcer of other part of right foot with fat layer exposed; T87.89 Other complications of amputation stump
CPT/HCPCS: 99214

== ENCOUNTER → 2021-05-12 10:16 | Outpatient (CLI) | payer MEDICARE, OTHER, SELFPAY ==
[2021-01-15 09:12] VITALS: BMI 30.4
== END ==
PROVIDERS: PCP Internal Medicine; Referring Provider Internal Medicine; Visit Provider Family Medicine
DX: E11.621 Type 2 diabetes mellitus with foot ulcer (principal); L97.512 Non-pressure chronic ulcer of other part of right foot with fat layer exposed; E11.40 Type 2 diabetes mellitus with diabetic neuropathy, unspecified; M86.371 Chronic multifocal osteomyelitis, right ankle and foot
CPT/HCPCS: 99183; G0277

== ENCOUNTER → 2021-05-13 08:58 | Outpatient (CLI) | payer MEDICARE, OTHER, SELFPAY ==
[2021-01-15 09:12] VITALS: BMI 30.4
== END ==
PROVIDERS: PCP Internal Medicine; Referring Provider Internal Medicine; Visit Provider Family Medicine
DX: E11.621 Type 2 diabetes mellitus with foot ulcer (principal); L97.512 Non-pressure chronic ulcer of other part of right foot with fat layer exposed; E11.40 Type 2 diabetes mellitus with diabetic neuropathy, unspecified; M86.371 Chronic multifocal osteomyelitis, right ankle and foot
CPT/HCPCS: 99183; G0277

== ENCOUNTER → 2021-05-14 14:33 | Outpatient (CLI) | payer MEDICARE, OTHER, SELFPAY ==
[2021-01-15 09:12] VITALS: BMI 30.4
== END ==
PROVIDERS: PCP Internal Medicine; Referring Provider Internal Medicine; Visit Provider Family Medicine
DX: E11.621 Type 2 diabetes mellitus with foot ulcer (principal); L97.512 Non-pressure chronic ulcer of other part of right foot with fat layer exposed; E11.40 Type 2 diabetes mellitus with diabetic neuropathy, unspecified; M86.371 Chronic multifocal osteomyelitis, right ankle and foot
CPT/HCPCS: 99183; G0277

== ENCOUNTER → 2021-05-15 11:44 | Outpatient (CLI) | payer MEDICARE, OTHER, SELFPAY ==
[2021-01-15 09:12] VITALS: BMI 30.4
== END ==
PROVIDERS: PCP Internal Medicine; Referring Provider Internal Medicine; Visit Provider Nurse Practitioner Family
DX: T87.89 Other complications of amputation stump (principal); E11.621 Type 2 diabetes mellitus with foot ulcer; L97.512 Non-pressure chronic ulcer of other part of right foot with fat layer exposed
CPT/HCPCS: 99183; 99213; G0277

== ENCOUNTER → 2021-05-18 07:54 | Outpatient (CLI) | payer MEDICARE, OTHER, SELFPAY ==
[2021-01-15 09:12] VITALS: BMI 30.4
[2021-05-18 08:50] LABS: Add Manual Diff / Slide Review NO; Basophils Absolute Auto 0 /uL (0-100); Basophils Percent Auto 0.7 % (0-2); Eosinophils Absolute Auto 300 /uL (0-450); Hematocrit 31.9 % (41-53); Hemoglobin 10.6 g/dL (13.5-17.5); Lymphocytes Absolute Auto 1500 /uL (1100-4500); Lymphocytes Percent Auto 25.7 % (25-40); Mean Corpuscular HGB Conc 33.2 % (30-36); Mean Corpuscular Hemoglobin 27.2 PG (26-34); Mean Corpuscular Volume 81.7 fL (80-100); Monocytes Absolute Auto 700 /uL (0-900); Monocytes Percent Auto 11.3 % (3-14); Neutrophils Absolute Auto 3300 /uL (1500-7000); Neutrophils Percent Auto 57.3 % (50-75); Platelet Count 139 X10^3/uL (150-400); Red Cell Distribution Width 16.3 % (11.6-14.8); White Blood Cell Count 5.8 X10^3/uL (4.5-11.0)
[2021-05-18 09:02] LABS: Albumin 3.7 g/dL (3.5-5.0); BUN Creatinine Ratio 17.4 (6-22); Blood Urea Nitrogen 41 mg/dL (9-20); Calcium 9.2 mg/dL (8.4-10.2); Carbon Dioxide 29 mmol/L (22-32); Chloride 102 mmol/L (98-107); Estimated Glomerular Filt Rate 28.2 mL/min (>60); Glucose 329 mg/dL (80-110); HEMOLYSIS < 15 (0-50); Phosphorous 4.4 mg/dL (2.3-3.7); Sodium 136 mmol/L (137-145)
[2021-05-18 09:04] LABS: Potassium 5.7 mmol/L (3.4-5.1)
== END ==
PROVIDERS: PCP Internal Medicine; Referring Provider Internal Medicine Nephrology; Visit Provider Internal Medicine
DX: N18.30 Chronic kidney disease, stage 3 unspecified (principal); D63.1 Anemia in chronic kidney disease
CPT/HCPCS: 36415; 80069; 85025

== ENCOUNTER → 2021-05-18 09:09 | Outpatient (CLI) | payer MEDICARE, OTHER, SELFPAY ==
[2021-01-15 09:12] VITALS: BMI 30.4
== END ==
PROVIDERS: PCP Internal Medicine; Referring Provider Internal Medicine; Visit Provider Family Medicine
DX: E11.621 Type 2 diabetes mellitus with foot ulcer (principal); L97.512 Non-pressure chronic ulcer of other part of right foot with fat layer exposed; E11.40 Type 2 diabetes mellitus with diabetic neuropathy, unspecified; M86.371 Chronic multifocal osteomyelitis, right ankle and foot; N18.30 Chronic kidney disease, stage 3 unspecified; D63.1 Anemia in chronic kidney disease
CPT/HCPCS: 36415; 80069; 85025; 99183; G0277

== ENCOUNTER → 2021-05-19 08:04 | Outpatient (CLI) | payer MEDICARE, OTHER, SELFPAY ==
[2021-01-15 09:12] VITALS: BMI 30.4
[2021-05-19 08:10] VITALS: BP 134/67; PULSE 56; RESP 16; TEMP 36.6; O2SAT 98
[2021-05-19] MEDS: EPOETIN ALFA-EPBX 3,000 UNIT/ML VIAL 6000 UNIT SUBCUT (12:26)
--- NOTE | 2021-05-19 14:19 | ONC.PHA ---
EPO Injection: Patient is here for EPO 6,000 units SubQ injection every 2 weeks per order written by Dr. Barrie Rivera on 05/05/2021. Today Hgb/Hct = 10.6/31.9, BP = 137/67 Plan to give today EPO dose as written. Vital Signs Temperature 98 F Pulse Rate 56 Respiratory Rate 16 Blood Pressure 134/67 Pulse Oximetry 98 Allergies Allergy/AdvReac Type Severity Reaction Status Date / Time amitriptyline [AMITRIPTYLINE] Allergy Unknown Verified 11/11/20 12:33
== END ==
PROVIDERS: PCP Internal Medicine; Referring Provider Internal Medicine Nephrology; Visit Provider Internal Medicine Nephrology
DX: N18.30 Chronic kidney disease, stage 3 unspecified (principal); D63.1 Anemia in chronic kidney disease; E11.22 Type 2 diabetes mellitus with diabetic chronic kidney disease; E11.621 Type 2 diabetes mellitus with foot ulcer; L97.512 Non-pressure chronic ulcer of other part of right foot with fat layer exposed; E11.40 Type 2 diabetes mellitus with diabetic neuropathy, unspecified; M86.371 Chronic multifocal osteomyelitis, right ankle and foot
CPT/HCPCS: 15275; 96372; G0277; Q4105; Q5106

== ENCOUNTER → 2021-05-19 09:04 | Outpatient (CLI) | payer MEDICARE, OTHER, SELFPAY ==
[2021-01-15 09:12] VITALS: BMI 30.4
== END ==
PROVIDERS: PCP Internal Medicine; Referring Provider Internal Medicine; Visit Provider Family Medicine
DX: E11.621 Type 2 diabetes mellitus with foot ulcer (principal); L97.512 Non-pressure chronic ulcer of other part of right foot with fat layer exposed; E11.40 Type 2 diabetes mellitus with diabetic neuropathy, unspecified; M86.371 Chronic multifocal osteomyelitis, right ankle and foot
CPT/HCPCS: 15275; 99183; G0277; Q4105

== ENCOUNTER → 2021-05-20 09:01 | Outpatient (CLI) | payer MEDICARE, OTHER, SELFPAY ==
[2021-01-15 09:12] VITALS: BMI 30.4
== END ==
PROVIDERS: PCP Internal Medicine; Referring Provider Internal Medicine; Visit Provider Family Medicine
DX: E11.621 Type 2 diabetes mellitus with foot ulcer (principal); L97.512 Non-pressure chronic ulcer of other part of right foot with fat layer exposed; E11.40 Type 2 diabetes mellitus with diabetic neuropathy, unspecified; M86.371 Chronic multifocal osteomyelitis, right ankle and foot
CPT/HCPCS: 99183; G0277

== ENCOUNTER → 2021-05-21 13:23 | Outpatient (CLI) | payer MEDICARE, OTHER, SELFPAY ==
[2021-01-15 09:12] VITALS: BMI 30.4
== END ==
PROVIDERS: PCP Internal Medicine; Referring Provider Internal Medicine; Visit Provider Family Medicine
DX: E11.621 Type 2 diabetes mellitus with foot ulcer (principal); L97.512 Non-pressure chronic ulcer of other part of right foot with fat layer exposed; E11.40 Type 2 diabetes mellitus with diabetic neuropathy, unspecified; M86.371 Chronic multifocal osteomyelitis, right ankle and foot
CPT/HCPCS: 99183; G0277

== ENCOUNTER → 2021-05-22 13:14 | Outpatient (CLI) | payer MEDICARE, OTHER, SELFPAY ==
[2021-01-15 09:12] VITALS: BMI 30.4
== END ==
PROVIDERS: PCP Internal Medicine; Referring Provider Internal Medicine; Visit Provider Nurse Practitioner Family
DX: E11.621 Type 2 diabetes mellitus with foot ulcer (principal); L97.512 Non-pressure chronic ulcer of other part of right foot with fat layer exposed; E11.40 Type 2 diabetes mellitus with diabetic neuropathy, unspecified; M86.371 Chronic multifocal osteomyelitis, right ankle and foot
CPT/HCPCS: 99183; G0277

== ENCOUNTER → 2021-05-26 09:10 | Outpatient (CLI) | payer MEDICARE, OTHER, SELFPAY ==
[2021-01-15 09:12] VITALS: BMI 30.4
== END ==
PROVIDERS: PCP Internal Medicine; Referring Provider Internal Medicine; Visit Provider Family Medicine
DX: E11.621 Type 2 diabetes mellitus with foot ulcer (principal); L97.512 Non-pressure chronic ulcer of other part of right foot with fat layer exposed; E11.40 Type 2 diabetes mellitus with diabetic neuropathy, unspecified; M86.371 Chronic multifocal osteomyelitis, right ankle and foot
CPT/HCPCS: 15275; 99183; G0277; Q4110

== ENCOUNTER → 2021-06-02 07:13 | Outpatient (CLI) | payer MEDICARE, OTHER, SELFPAY ==
[2021-01-15 09:12] VITALS: BMI 30.4
[2021-06-02 08:08] LABS: Add Manual Diff / Slide Review NO; Basophils Absolute Auto 0 /uL (0-100); Basophils Percent Auto 0.4 % (0-2); Eosinophils Absolute Auto 400 /uL (0-450); Eosinophils Percent Auto 6.1 % (2-4); Hematocrit 33.2 % (41-53); Lymphocytes Absolute Auto 1500 /uL (1100-4500); Lymphocytes Percent Auto 24.3 % (25-40); Mean Corpuscular HGB Conc 33.3 % (30-36); Mean Corpuscular Hemoglobin 27.3 PG (26-34); Mean Corpuscular Volume 81.9 fL (80-100); Monocytes Absolute Auto 700 /uL (0-900); Neutrophils Absolute Auto 3500 /uL (1500-7000); Neutrophils Percent Auto 57.2 % (50-75); Platelet Count 148 X10^3/uL (150-400); Red Blood Cell Count 4.05 X10^6/uL (4.5-5.9); White Blood Cell Count 6.1 X10^3/uL (4.5-11.0)
[2021-06-02 08:19] LABS: Albumin 3.8 g/dL (3.5-5.0); Blood Urea Nitrogen 48 mg/dL (9-20); Calcium 9.1 mg/dL (8.4-10.2); Carbon Dioxide 28 mmol/L (22-32); Chloride 101 mmol/L (98-107); Estimated Glomerular Filt Rate 26.1 mL/min (>60); Glucose 348 mg/dL (80-110); HEMOLYSIS < 15 (0-50); Potassium 4.7 mmol/L (3.4-5.1); Sodium 136 mmol/L (137-145)
== END ==
PROVIDERS: PCP Internal Medicine; Referring Provider Internal Medicine; Visit Provider Internal Medicine
DX: N18.30 Chronic kidney disease, stage 3 unspecified (principal); D63.1 Anemia in chronic kidney disease
CPT/HCPCS: 36415; 80069; 85025

== ENCOUNTER → 2021-06-02 08:07 | Outpatient (CLI) | payer MEDICARE, OTHER, SELFPAY ==
[2021-01-15 09:12] VITALS: BMI 30.4
[2021-06-02 08:24] VITALS: BP 158/81; PULSE 63; RESP 16; TEMP 37; O2SAT 97
== END ==
PROVIDERS: PCP Internal Medicine; Referring Provider Internal Medicine Nephrology; Visit Provider Internal Medicine Nephrology
DX: E11.22 Type 2 diabetes mellitus with diabetic chronic kidney disease (principal); N18.30 Chronic kidney disease, stage 3 unspecified; D63.1 Anemia in chronic kidney disease

== ENCOUNTER → 2021-06-03 12:23 | Outpatient (CLI) | payer MEDICARE, OTHER, SELFPAY ==
[2021-01-15 09:12] VITALS: BMI 30.4
== END ==
PROVIDERS: PCP Internal Medicine; Referring Provider Internal Medicine; Visit Provider Family Medicine
DX: T87.89 Other complications of amputation stump (principal); E11.621 Type 2 diabetes mellitus with foot ulcer; L97.511 Non-pressure chronic ulcer of other part of right foot limited to breakdown of skin; M86.671 Other chronic osteomyelitis, right ankle and foot
CPT/HCPCS: 11042

== ENCOUNTER → 2021-06-09 13:28 | Outpatient (CLI) | payer MEDICARE, OTHER, SELFPAY ==
[2021-01-15 09:12] VITALS: BMI 30.4
== END ==
PROVIDERS: PCP Internal Medicine; Referring Provider Internal Medicine; Visit Provider Family Medicine
DX: T87.89 Other complications of amputation stump (principal); E11.621 Type 2 diabetes mellitus with foot ulcer; L97.511 Non-pressure chronic ulcer of other part of right foot limited to breakdown of skin; R60.0 Localized edema; M86.671 Other chronic osteomyelitis, right ankle and foot
CPT/HCPCS: 99212; 99213

== ENCOUNTER → 2021-06-16 07:08 | Outpatient (CLI) | payer MEDICARE, OTHER, SELFPAY ==
[2021-01-15 09:12] VITALS: BMI 30.4
[2021-06-16 08:10] LABS: Add Manual Diff / Slide Review NO; Basophils Absolute Auto 0 /uL (0-100); Basophils Percent Auto 0.7 % (0-2); Eosinophils Absolute Auto 300 /uL (0-450); Hematocrit 33.4 % (41-53); Hemoglobin 11.2 g/dL (13.5-17.5); Lymphocytes Absolute Auto 1100 /uL (1100-4500); Lymphocytes Percent Auto 17.6 % (25-40); Mean Corpuscular HGB Conc 33.6 % (30-36); Mean Corpuscular Hemoglobin 27.6 PG (26-34); Mean Corpuscular Volume 82.3 fL (80-100); Monocytes Absolute Auto 800 /uL (0-900); Monocytes Percent Auto 13.3 % (3-14); Neutrophils Absolute Auto 3800 /uL (1500-7000); Neutrophils Percent Auto 63.4 % (50-75); Platelet Count 161 X10^3/uL (150-400); Red Blood Cell Count 4.06 X10^6/uL (4.5-5.9); Red Cell Distribution Width 16.4 % (11.6-14.8)
[2021-06-16 08:30] LABS: Albumin 3.8 g/dL (3.5-5.0); BUN Creatinine Ratio 12.9 (6-22); Blood Urea Nitrogen 37 mg/dL (9-20); Calcium 9.3 mg/dL (8.4-10.2); Carbon Dioxide 33 mmol/L (22-32); Chloride 100 mmol/L (98-107); Estimated Glomerular Filt Rate 22.5 mL/min (>60); Glucose 299 mg/dL (80-110); HEMOLYSIS < 15 (0-50); Phosphorous 4.7 mg/dL (2.3-3.7); Potassium 5.2 mmol/L (3.4-5.1); Sodium 138 mmol/L (137-145)
== END ==
PROVIDERS: PCP Internal Medicine; Referring Provider Internal Medicine; Visit Provider Internal Medicine
DX: N18.30 Chronic kidney disease, stage 3 unspecified (principal); D63.1 Anemia in chronic kidney disease
CPT/HCPCS: 36415; 80069; 85025

== ENCOUNTER → 2021-06-16 08:01 | Outpatient (CLI) | payer MEDICARE, OTHER, SELFPAY ==
[2021-01-15 09:12] VITALS: BMI 30.4
--- NOTE | 2021-06-16 08:40 | PC.NURSE ---
Injection lab: Injection not indicated based on labs.
== END ==
PROVIDERS: PCP Internal Medicine; Referring Provider Physician Assistant; Visit Provider Physician Assistant
DX: E11.22 Type 2 diabetes mellitus with diabetic chronic kidney disease (principal); N18.30 Chronic kidney disease, stage 3 unspecified; D63.1 Anemia in chronic kidney disease

== ENCOUNTER → 2021-06-16 09:53 | Outpatient (CLI) | payer MEDICARE, OTHER, SELFPAY ==
[2021-01-15 09:12] VITALS: BMI 30.4
== END ==
PROVIDERS: PCP Internal Medicine; Referring Provider Internal Medicine; Visit Provider Family Medicine
DX: N18.30 Chronic kidney disease, stage 3 unspecified (principal); D63.1 Anemia in chronic kidney disease; E11.40 Type 2 diabetes mellitus with diabetic neuropathy, unspecified; M86.671 Other chronic osteomyelitis, right ankle and foot
CPT/HCPCS: 36415; 80069; 85025; 99212; 99213

== ENCOUNTER → 2021-06-30 13:15 | Outpatient (CLI) | payer MEDICARE, OTHER, SELFPAY ==
[2021-01-15 09:12] VITALS: BMI 30.4
[2021-06-30 14:24] LABS: Albumin 3.3 g/dL (3.5-5.0); BUN Creatinine Ratio 19.7 (6-22); Blood Urea Nitrogen 37 mg/dL (9-20); Calcium 8.7 mg/dL (8.4-10.2); Carbon Dioxide 34 mmol/L (22-32); Chloride 96 mmol/L (98-107); Estimated Glomerular Filt Rate 36.5 mL/min (>60); Glucose 340 mg/dL (80-110); HEMOLYSIS < 15 (0-50); Phosphorous 3.7 mg/dL (2.3-3.7); Potassium 4.5 mmol/L (3.4-5.1); Sodium 136 mmol/L (137-145)
[2021-06-30 14:40] LABS: Add Manual Diff / Slide Review NO; Basophils Absolute Auto 0 /uL (0-100); Basophils Percent Auto 0.5 % (0-2); Eosinophils Absolute Auto 200 /uL (0-450); Eosinophils Percent Auto 2.8 % (2-4); Hematocrit 31.9 % (41-53); Hemoglobin 10.9 g/dL (13.5-17.5); Lymphocytes Absolute Auto 1200 /uL (1100-4500); Lymphocytes Percent Auto 18.7 % (25-40); Mean Corpuscular HGB Conc 34.2 % (30-36); Mean Corpuscular Hemoglobin 27.8 PG (26-34); Mean Corpuscular Volume 81.3 fL (80-100); Monocytes Absolute Auto 600 /uL (0-900); Monocytes Percent Auto 10.1 % (3-14); Neutrophils Absolute Auto 4200 /uL (1500-7000); Neutrophils Percent Auto 67.9 % (50-75); Platelet Count 204 X10^3/uL (150-400); Red Blood Cell Count 3.93 X10^6/uL (4.5-5.9); White Blood Cell Count 6.2 X10^3/uL (4.5-11.0)
== END ==
PROVIDERS: PCP Internal Medicine; Referring Provider Internal Medicine; Visit Provider Internal Medicine
DX: N18.30 Chronic kidney disease, stage 3 unspecified (principal); D63.1 Anemia in chronic kidney disease
CPT/HCPCS: 36415; 80069; 85025

== ENCOUNTER → 2021-07-14 07:16 | Outpatient (CLI) | payer MEDICARE, OTHER, SELFPAY ==
[2021-01-15 09:12] VITALS: BMI 30.4
[2021-07-14 08:16] LABS: Add Manual Diff / Slide Review NO; Basophils Absolute Auto 0 /uL (0-100); Basophils Percent Auto 0.3 % (0-2); Eosinophils Absolute Auto 200 /uL (0-450); Eosinophils Percent Auto 4.3 % (2-4); Hematocrit 29.4 % (41-53); Hemoglobin 9.8 g/dL (13.5-17.5); Lymphocytes Absolute Auto 1500 /uL (1100-4500); Mean Corpuscular HGB Conc 33.3 % (30-36); Mean Corpuscular Hemoglobin 27.9 PG (26-34); Mean Corpuscular Volume 83.8 fL (80-100); Monocytes Absolute Auto 700 /uL (0-900); Monocytes Percent Auto 12.1 % (3-14); Neutrophils Absolute Auto 3200 /uL (1500-7000); Neutrophils Percent Auto 56.3 % (50-75); Platelet Count 156 X10^3/uL (150-400); Red Blood Cell Count 3.51 X10^6/uL (4.5-5.9); Red Cell Distribution Width 16.2 % (11.6-14.8); White Blood Cell Count 5.6 X10^3/uL (4.5-11.0)
[2021-07-14 08:30] LABS: Albumin 3.4 g/dL (3.5-5.0); BUN Creatinine Ratio 17.2 (6-22); Blood Urea Nitrogen 42 mg/dL (9-20); Calcium 9.3 mg/dL (8.4-10.2); Carbon Dioxide 33 mmol/L (22-32); Chloride 101 mmol/L (98-107); Glucose 248 mg/dL (80-110); HEMOLYSIS < 15 (0-50); Phosphorous 4.7 mg/dL (2.3-3.7); Sodium 138 mmol/L (137-145)
[2021-07-14 08:31] LABS: Potassium 5.5 mmol/L (3.4-5.1)
== END ==
PROVIDERS: PCP Internal Medicine; Referring Provider Internal Medicine; Visit Provider Internal Medicine
DX: D63.1 Anemia in chronic kidney disease (principal); N18.30 Chronic kidney disease, stage 3 unspecified
CPT/HCPCS: 36415; 80069; 85025

== ENCOUNTER → 2021-07-14 08:08 | Outpatient (CLI) | payer MEDICARE, OTHER, SELFPAY ==
[2021-01-15 09:12] VITALS: BMI 30.4
[2021-07-14] MEDS: EPOETIN ALFA-EPBX 3,000 UNIT/ML VIAL 6000 UNIT SUBCUT (08:30)
[2021-07-14 08:47] VITALS: BP 135/63; PULSE 60; RESP 18; TEMP 37.3; O2SAT 98
--- NOTE | 2021-07-14 15:16 | ONC.PHA ---
EPO Injection: Patient is here for EPO 6,000 units SubQ injection every 2 weeks per order written by Barrie Rivera PA-C on 05/05/2021. Today Hgb/Hct = 9.8/29.4, BP = 135/63 Please note, patient missed his EPO injection appointment on 06/30/2021 due to illness. Plan to give today EPO dose as written. Vital Signs Temperature 99.1 F Pulse Rate 60 Respiratory Rate 18 Blood Pressure 135/63 Pulse Oximetry 98 Allergies Allergy/AdvReac Type Severity Reaction Status Date / Time amitriptyline [AMITRIPTYLINE] Allergy Unknown Verified 11/11/20 12:33
== END ==
PROVIDERS: PCP Internal Medicine; Referring Provider Physician Assistant; Visit Provider Physician Assistant
DX: N18.30 Chronic kidney disease, stage 3 unspecified (principal); D63.1 Anemia in chronic kidney disease; E11.22 Type 2 diabetes mellitus with diabetic chronic kidney disease
CPT/HCPCS: 36415; 80069; 85025; 96372; Q5106

== ENCOUNTER → 2021-07-30 11:23 | Outpatient (CLI) | payer MEDICARE, OTHER, SELFPAY ==
[2021-01-15 09:12] VITALS: BMI 30.4
[2021-07-30 13:09] LABS: Add Manual Diff / Slide Review NO; Basophils Absolute Auto 100 /uL (0-100); Eosinophils Absolute Auto 300 /uL (0-450); Eosinophils Percent Auto 5.7 % (2-4); Hematocrit 31.1 % (41-53); Hemoglobin 10.5 g/dL (13.5-17.5); Lymphocytes Absolute Auto 1700 /uL (1100-4500); Lymphocytes Percent Auto 30.8 % (25-40); Mean Corpuscular HGB Conc 33.7 % (30-36); Mean Corpuscular Hemoglobin 28.4 PG (26-34); Mean Corpuscular Volume 84.3 fL (80-100); Monocytes Absolute Auto 600 /uL (0-900); Monocytes Percent Auto 10.3 % (3-14); Neutrophils Absolute Auto 2900 /uL (1500-7000); Neutrophils Percent Auto 52.2 % (50-75); Platelet Count 171 X10^3/uL (150-400); Red Blood Cell Count 3.69 X10^6/uL (4.5-5.9); Red Cell Distribution Width 15.6 % (11.6-14.8); White Blood Cell Count 5.6 X10^3/uL (4.5-11.0)
[2021-07-30 14:02] LABS: HEMOLYSIS < 15 (0-50); Iron 86 ug/dL (49-181)
[2021-07-30 14:06] LABS: BUN Creatinine Ratio 17.9 (6-22); Blood Urea Nitrogen 45 mg/dL (9-20); Calcium 9.5 mg/dL (8.4-10.2); Carbon Dioxide 34 mmol/L (22-32); Chloride 100 mmol/L (98-107); Estimated Glomerular Filt Rate 26.1 mL/min (>60); Glucose 107 mg/dL (80-110); HEMOLYSIS < 15 (0-50); Potassium 4.7 mmol/L (3.4-5.1); Sodium 142 mmol/L (137-145)
[2021-07-30 14:14] LABS: Percent Iron Saturation 34 % (20-50); Total Iron Binding Capacity 250 ug/dL (261-462); Transferrin 193 mg/dL (206-381)
[2021-07-30 14:29] LABS: Ferritin 395 ng/mL (18-464)
== END ==
PROVIDERS: PCP Internal Medicine; Referring Provider Internal Medicine Nephrology; Visit Provider Internal Medicine Nephrology
DX: D63.1 Anemia in chronic kidney disease (principal); N18.4 Chronic kidney disease, stage 4 (severe); D50.9 Iron deficiency anemia, unspecified
CPT/HCPCS: 36415; 80048; 82728; 83540; 83550; 85025

== ENCOUNTER → 2021-07-30 13:30 | Outpatient (CLI) | payer MEDICARE, OTHER, SELFPAY ==
[2021-01-15 09:12] VITALS: BMI 30.4
[2021-07-30 13:37] VITALS: BP 143/64; PULSE 54; RESP 16; TEMP 36.9; O2SAT 98
[2021-07-30] MEDS: EPOETIN ALFA-EPBX 3,000 UNIT/ML VIAL 6000 UNIT SUBCUT (13:57)
--- NOTE | 2021-07-30 16:46 | ONC.PHA ---
EPO Injection: Patient is here for EPO 6000 units SubQ injection every 2 weeks per order written by Barrie Peraza PA-C on 05/05/2021. Received a new faxed order signed today by Barrie Peraza PA-C, today for EPO 10,000 units every 2 weeks. Pharmacist contacted Barrie Peraza PA-C, office ([phone]) and spoke to Helen Deng RN. Reviewed patient?s labs and doses given with Helen as followin. On 04/21/2021, patient?s Hgb = 10.7, EPO 10,000 units was given according order signed on 04/07/2021. 2. On 05/05/2021, patient?s Hgb = 11.3, EPO dose was held. 3. On 05/19/2021, patient?s Hgb = 10.6, EPO 6,000 units was given according order signed on 05/05/2021 4. On 06/02/2021, patient?s Hgb = 11.0, EPO dose was held. 5. On 06/16/2021, patient?s Hgb = 11.2, EPO dose was held. 6. On 06/30/2021, patient?s Hgb 10.5, however, patient cancelled his appointment due to illness. 7. On 07/14/2021, patient?s Hgb = 9.8, EPO 6,000 units dose was given. Per Helen, disregard the EPO 10,000 units order written today and continue the EPO 6000 units order written on 05/05/2021. Today Hgb/Hct = 10.5/31.1, BP = 144/68 Plan to give today EPO dose as written. Vital Signs Temperature 98.4 F Pulse Rate 54 Respiratory Rate 16 Blood Pressure 143/64 Pulse Oximetry 98 Allergies Allergy/AdvReac Type Severity Reaction Status Date / Time amitriptyline [AMITRIPTYLINE] Allergy Unknown Verified 11/11/20 12:33
== END ==
PROVIDERS: PCP Internal Medicine; Referring Provider Physician Assistant; Visit Provider Physician Assistant
DX: N18.4 Chronic kidney disease, stage 4 (severe) (principal); D63.1 Anemia in chronic kidney disease; E11.22 Type 2 diabetes mellitus with diabetic chronic kidney disease
CPT/HCPCS: 36415; 80048; 82728; 83540; 83550; 85025; 96372; Q5106

== ENCOUNTER → 2021-08-11 10:58 | Outpatient (CLI) | payer MEDICARE, OTHER, SELFPAY ==
[2021-01-15 09:12] VITALS: BMI 30.4
[2021-08-11 12:30] LABS: Add Manual Diff / Slide Review NO; Basophils Absolute Auto 0 /uL (0-100); Basophils Percent Auto 0.8 % (0-2); Eosinophils Absolute Auto 400 /uL (0-450); Hematocrit 27.6 % (41-53); Hemoglobin 9.4 g/dL (13.5-17.5); Lymphocytes Absolute Auto 1500 /uL (1100-4500); Lymphocytes Percent Auto 33.3 % (25-40); Mean Corpuscular Hemoglobin 28.9 PG (26-34); Mean Corpuscular Volume 84.9 fL (80-100); Monocytes Absolute Auto 500 /uL (0-900); Neutrophils Absolute Auto 2100 /uL (1500-7000); Neutrophils Percent Auto 46.9 % (50-75); Platelet Count 162 X10^3/uL (150-400); Red Blood Cell Count 3.25 X10^6/uL (4.5-5.9); Red Cell Distribution Width 15.3 % (11.6-14.8); White Blood Cell Count 4.5 X10^3/uL (4.5-11.0)
[2021-08-11 13:05] LABS: HEMOLYSIS < 15 (0-50); Iron 57 ug/dL (49-181)
[2021-08-11 13:11] LABS: BUN Creatinine Ratio 13.3 (6-22); Blood Urea Nitrogen 29 mg/dL (9-20); Calcium 9.2 mg/dL (8.4-10.2); Carbon Dioxide 33 mmol/L (22-32); Chloride 100 mmol/L (98-107); Estimated Glomerular Filt Rate 30.8 mL/min (>60); Glucose 196 mg/dL (80-110); HEMOLYSIS < 15 (0-50); Potassium 4.4 mmol/L (3.4-5.1); Sodium 139 mmol/L (137-145)
[2021-08-11 13:16] LABS: Percent Iron Saturation 23 % (20-50); Total Iron Binding Capacity 247 ug/dL (261-462); Transferrin 186 mg/dL (206-381)
[2021-08-11 13:42] LABS: Ferritin 311 ng/mL (18-464)
== END ==
PROVIDERS: PCP Internal Medicine; Referring Provider Internal Medicine Nephrology; Visit Provider Internal Medicine Nephrology
DX: D50.9 Iron deficiency anemia, unspecified (principal); D63.1 Anemia in chronic kidney disease; N18.4 Chronic kidney disease, stage 4 (severe)
CPT/HCPCS: 36415; 80048; 82728; 83540; 83550; 85025

== ENCOUNTER → 2021-08-11 14:29 | Outpatient (CLI) | payer MEDICARE, OTHER, SELFPAY ==
[2021-01-15 09:12] VITALS: BMI 30.4
[2021-08-11 15:05] VITALS: BP 149/59; PULSE 61; RESP 18; TEMP 36.6; O2SAT 98
[2021-08-11] MEDS: EPOETIN ALFA-EPBX 3,000 UNIT/ML VIAL 6000 UNIT SUBCUT (15:15)
--- NOTE | 2021-08-11 16:08 | ONC.PHA ---
EPO Injection: S/O: 60 y.o. male, with diagnosis of anemia due to CKD, is here for EPO 6,000 units SubQ injection every 2 week with hold dose if Hgb = 11. Order was written by Dr. Barrie Rivera on 05/05/2021. Reviewed today labs: Hgb/Hct = 9.4/27.6 Today iron panel is WNL Today BP = 149/59 A/P: Plan to give today EPO dose as Hgb is below 11. Vital Signs Temperature 97.8 F Pulse Rate 61 Respiratory Rate 18 Blood Pressure 149/59 Pulse Oximetry 98 Allergies Allergy/AdvReac Type Severity Reaction Status Date / Time amitriptyline [AMITRIPTYLINE] Allergy Unknown Verified 11/11/20 12:33
== END ==
PROVIDERS: PCP Internal Medicine; Referring Provider Physician Assistant; Visit Provider Physician Assistant
DX: N18.4 Chronic kidney disease, stage 4 (severe) (principal); D63.1 Anemia in chronic kidney disease
CPT/HCPCS: 36415; 80048; 82728; 83540; 83550; 85025; 96372; Q5106

== ENCOUNTER → 2021-08-25 07:26 | Outpatient (CLI) | payer MEDICARE, OTHER, SELFPAY ==
[2021-01-15 09:12] VITALS: BMI 30.4
[2021-08-25 08:32] LABS: Add Manual Diff / Slide Review NO; Basophils Absolute Auto 0 /uL (0-100); Basophils Percent Auto 0.7 % (0-2); Eosinophils Absolute Auto 300 /uL (0-450); Eosinophils Percent Auto 5.8 % (2-4); Hematocrit 28.1 % (41-53); Hemoglobin 9.8 g/dL (13.5-17.5); Lymphocytes Absolute Auto 1400 /uL (1100-4500); Lymphocytes Percent Auto 26.2 % (25-40); Mean Corpuscular HGB Conc 34.8 % (30-36); Mean Corpuscular Hemoglobin 29.5 PG (26-34); Mean Corpuscular Volume 84.7 fL (80-100); Monocytes Absolute Auto 600 /uL (0-900); Monocytes Percent Auto 10.9 % (3-14); Neutrophils Absolute Auto 2900 /uL (1500-7000); Neutrophils Percent Auto 56.4 % (50-75); Platelet Count 172 X10^3/uL (150-400); Red Blood Cell Count 3.32 X10^6/uL (4.5-5.9); Red Cell Distribution Width 14.9 % (11.6-14.8); White Blood Cell Count 5.2 X10^3/uL (4.5-11.0)
[2021-08-25 08:55] LABS: HEMOLYSIS < 15 (0-50); Iron 44 ug/dL (49-181)
[2021-08-25 08:59] LABS: BUN Creatinine Ratio 13.5 (6-22); Blood Urea Nitrogen 35 mg/dL (9-20); Calcium 9.2 mg/dL (8.4-10.2); Carbon Dioxide 32 mmol/L (22-32); Chloride 102 mmol/L (98-107); Estimated Glomerular Filt Rate 25.1 mL/min (>60); Glucose 103 mg/dL (80-110); HEMOLYSIS < 15 (0-50); Potassium 4.9 mmol/L (3.4-5.1); Sodium 141 mmol/L (137-145)
[2021-08-25 09:07] LABS: Percent Iron Saturation 18 % (20-50); Total Iron Binding Capacity 244 ug/dL (261-462); Transferrin 174 mg/dL (206-381)
[2021-08-25 09:27] LABS: Ferritin 247 ng/mL (18-464)
== END ==
PROVIDERS: PCP Internal Medicine; Referring Provider Internal Medicine Nephrology; Visit Provider Internal Medicine Nephrology
DX: N18.4 Chronic kidney disease, stage 4 (severe) (principal); D50.9 Iron deficiency anemia, unspecified; D63.1 Anemia in chronic kidney disease
CPT/HCPCS: 36415; 80048; 82728; 83540; 83550; 85025

== ENCOUNTER → 2021-08-25 08:03 | Outpatient (CLI) | payer MEDICARE, OTHER, SELFPAY ==
[2021-01-15 09:12] VITALS: BMI 30.4
[2021-08-25 08:38] VITALS: BP 153/65; PULSE 63; RESP 18; TEMP 37.1; O2SAT 100
[2021-08-25] MEDS: EPOETIN ALFA-EPBX 3,000 UNIT/ML VIAL 6000 UNIT SUBCUT (09:25)
== END ==
PROVIDERS: PCP Internal Medicine; Referring Provider Physician Assistant; Visit Provider Physician Assistant
DX: N18.4 Chronic kidney disease, stage 4 (severe) (principal); D63.1 Anemia in chronic kidney disease
CPT/HCPCS: 36415; 80048; 82728; 83540; 83550; 85025; 96372; Q5106

== ENCOUNTER → 2021-09-08 07:08 | Outpatient (CLI) | payer MEDICARE, OTHER, SELFPAY ==
[2021-01-15 09:12] VITALS: BMI 30.4
[2021-09-08 09:15] LABS: Add Manual Diff / Slide Review NO; Basophils Absolute Auto 100 /uL (0-100); Basophils Percent Auto 0.8 % (0-2); Eosinophils Absolute Auto 400 /uL (0-450); Eosinophils Percent Auto 5.7 % (2-4); Hematocrit 28.4 % (41-53); Hemoglobin 9.5 g/dL (13.5-17.5); Lymphocytes Absolute Auto 1400 /uL (1100-4500); Lymphocytes Percent Auto 20.7 % (25-40); Mean Corpuscular HGB Conc 33.6 % (30-36); Mean Corpuscular Hemoglobin 28.7 PG (26-34); Mean Corpuscular Volume 85.6 fL (80-100); Monocytes Absolute Auto 700 /uL (0-900); Monocytes Percent Auto 10.9 % (3-14); Neutrophils Absolute Auto 4200 /uL (1500-7000); Neutrophils Percent Auto 61.9 % (50-75); Platelet Count 250 X10^3/uL (150-400); Red Blood Cell Count 3.31 X10^6/uL (4.5-5.9); Red Cell Distribution Width 13.5 % (11.6-14.8); White Blood Cell Count 6.7 X10^3/uL (4.5-11.0)
[2021-09-08 09:56] LABS: BUN Creatinine Ratio 13.5 (6-22); Blood Urea Nitrogen 35 mg/dL (9-20); Calcium 9.1 mg/dL (8.4-10.2); Carbon Dioxide 38 mmol/L (22-32); Chloride 98 mmol/L (98-107); Estimated Glomerular Filt Rate 25.1 mL/min (>60); Glucose 324 mg/dL (80-110); HEMOLYSIS < 15 (0-50); Potassium 5.1 mmol/L (3.4-5.1); Sodium 141 mmol/L (137-145)
[2021-09-08 10:03] LABS: HEMOLYSIS < 15 (0-50); Iron 43 ug/dL (49-181)
[2021-09-08 10:14] LABS: Total Iron Binding Capacity 230 ug/dL (261-462); Transferrin 160 mg/dL (206-381)
[2021-09-08 10:17] LABS: Percent Iron Saturation 19 % (20-50)
[2021-09-08 10:29] LABS: Ferritin 262 ng/mL (18-464)
== END ==
PROVIDERS: PCP Internal Medicine; Referring Provider Internal Medicine Nephrology; Visit Provider Internal Medicine Nephrology
DX: D63.1 Anemia in chronic kidney disease (principal); N18.4 Chronic kidney disease, stage 4 (severe); D50.8 Other iron deficiency anemias
CPT/HCPCS: 36415; 80048; 82728; 83540; 83550; 85025; 96365; J1756

== ENCOUNTER → 2021-09-08 12:30 | Outpatient (CLI) | payer MEDICARE, OTHER, SELFPAY ==
[2021-01-15 09:12] VITALS: BMI 30.4
[2021-09-08 13:43] VITALS: BP 143/62
[2021-09-08] MEDS: EPOETIN ALFA-EPBX 3,000 UNIT/ML VIAL 6000 UNIT SUBCUT (14:17)
== END ==
PROVIDERS: PCP Internal Medicine; Referring Provider Physician Assistant; Visit Provider Physician Assistant
DX: N18.4 Chronic kidney disease, stage 4 (severe) (principal); D63.1 Anemia in chronic kidney disease
CPT/HCPCS: 36415; 80048; 82728; 83540; 83550; 85025; 96365; 96372; J1756; Q5106

== ENCOUNTER → 2021-09-22 11:40 | Outpatient (CLI) | payer MEDICARE, OTHER, SELFPAY ==
[2021-01-15 09:12] VITALS: BMI 30.4
[2021-09-22 12:17] LABS: Add Manual Diff / Slide Review NO; Basophils Absolute Auto 100 /uL (0-100); Basophils Percent Auto 0.8 % (0-2); Eosinophils Absolute Auto 400 /uL (0-450); Eosinophils Percent Auto 6.3 % (2-4); Hematocrit 29.9 % (41-53); Hemoglobin 10.1 g/dL (13.5-17.5); Lymphocytes Absolute Auto 1400 /uL (1100-4500); Lymphocytes Percent Auto 20.7 % (25-40); Mean Corpuscular HGB Conc 33.8 % (30-36); Mean Corpuscular Hemoglobin 28.2 PG (26-34); Mean Corpuscular Volume 83.7 fL (80-100); Monocytes Absolute Auto 600 /uL (0-900); Monocytes Percent Auto 9.6 % (3-14); Neutrophils Absolute Auto 4100 /uL (1500-7000); Neutrophils Percent Auto 62.6 % (50-75); Platelet Count 219 X10^3/uL (150-400); Red Blood Cell Count 3.58 X10^6/uL (4.5-5.9); Red Cell Distribution Width 14.2 % (11.6-14.8); White Blood Cell Count 6.5 X10^3/uL (4.5-11.0)
[2021-09-22 12:45] LABS: HEMOLYSIS < 15 (0-50); Iron 37 ug/dL (49-181)
[2021-09-22 12:46] LABS: Blood Urea Nitrogen 47 mg/dL (9-20); Calcium 9.1 mg/dL (8.4-10.2); Carbon Dioxide 37 mmol/L (22-32); Chloride 95 mmol/L (98-107); Estimated Glomerular Filt Rate 24.9 mL/min (>60); Glucose 357 mg/dL (80-110); HEMOLYSIS < 15 (0-50); Potassium 4.2 mmol/L (3.4-5.1); Sodium 138 mmol/L (137-145)
[2021-09-22 12:56] LABS: Percent Iron Saturation 15 % (20-50); Total Iron Binding Capacity 240 ug/dL (261-462); Transferrin 159 mg/dL (206-381)
[2021-09-22 13:21] LABS: Ferritin 431 ng/mL (18-464)
== END ==
PROVIDERS: PCP Internal Medicine; Referring Provider Internal Medicine Nephrology; Visit Provider Internal Medicine Nephrology
DX: D50.9 Iron deficiency anemia, unspecified (principal); N18.4 Chronic kidney disease, stage 4 (severe); D63.1 Anemia in chronic kidney disease
CPT/HCPCS: 36415; 80048; 82728; 83540; 83550; 85025

== ENCOUNTER → 2021-09-22 12:32 | Outpatient (CLI) | payer MEDICARE, OTHER, SELFPAY ==
[2021-01-15 09:12] VITALS: BMI 30.4
[2021-09-22] MEDS: EPOETIN ALFA-EPBX 3,000 UNIT/ML VIAL 6000 UNIT SUBCUT (13:28)
== END ==
PROVIDERS: PCP Internal Medicine; Referring Provider Physician Assistant; Visit Provider Physician Assistant
DX: N18.4 Chronic kidney disease, stage 4 (severe) (principal); D63.1 Anemia in chronic kidney disease
CPT/HCPCS: 36415; 80048; 82728; 83540; 83550; 85025; 96365; 96372; J1756; Q5106

== ENCOUNTER → 2021-09-28 14:02 | Outpatient (CLI) | payer MEDICARE, OTHER, SELFPAY ==
[2021-01-15 09:12] VITALS: BMI 30.4
== END ==
PROVIDERS: PCP Internal Medicine; Referring Provider Internal Medicine; Visit Provider Family Medicine
DX: E11.621 Type 2 diabetes mellitus with foot ulcer (principal); L97.422 Non-pressure chronic ulcer of left heel and midfoot with fat layer exposed; E11.40 Type 2 diabetes mellitus with diabetic neuropathy, unspecified; Z79.4 Long term (current) use of insulin
CPT/HCPCS: 11042; 11045; 99214

== ENCOUNTER → 2021-10-06 07:10 | Outpatient (CLI) | payer MEDICARE, OTHER, SELFPAY ==
[2021-01-15 09:12] VITALS: BMI 30.4
[2021-10-06 08:04] LABS: Add Manual Diff / Slide Review NO; Basophils Absolute Auto 0 /uL (0-100); Basophils Percent Auto 0.6 % (0-2); Eosinophils Absolute Auto 300 /uL (0-450); Eosinophils Percent Auto 4.4 % (2-4); Hematocrit 31.7 % (41-53); Hemoglobin 10.9 g/dL (13.5-17.5); Lymphocytes Absolute Auto 1500 /uL (1100-4500); Lymphocytes Percent Auto 21.2 % (25-40); Mean Corpuscular HGB Conc 34.5 % (30-36); Mean Corpuscular Hemoglobin 28.5 PG (26-34); Mean Corpuscular Volume 82.6 fL (80-100); Monocytes Absolute Auto 700 /uL (0-900); Monocytes Percent Auto 9.9 % (3-14); Neutrophils Absolute Auto 4600 /uL (1500-7000); Neutrophils Percent Auto 63.9 % (50-75); Platelet Count 211 X10^3/uL (150-400); Red Blood Cell Count 3.84 X10^6/uL (4.5-5.9); Red Cell Distribution Width 14.5 % (11.6-14.8); White Blood Cell Count 7.1 X10^3/uL (4.5-11.0)
[2021-10-06 08:10] LABS: HEMOLYSIS < 15 (0-50); Iron 60 ug/dL (49-181)
[2021-10-06 08:11] LABS: BUN Creatinine Ratio 12.8 (6-22); Blood Urea Nitrogen 30 mg/dL (9-20); Calcium 9.3 mg/dL (8.4-10.2); Carbon Dioxide 39 mmol/L (22-32); Chloride 98 mmol/L (98-107); Estimated Glomerular Filt Rate 28.3 mL/min (>60); Glucose 290 mg/dL (80-110); HEMOLYSIS < 15 (0-50); Potassium 4.1 mmol/L (3.4-5.1); Sodium 137 mmol/L (137-145)
[2021-10-06 08:22] LABS: Percent Iron Saturation 25 % (20-50); Total Iron Binding Capacity 238 ug/dL (261-462); Transferrin 163 mg/dL (206-381)
[2021-10-06 08:43] LABS: Ferritin 684 ng/mL (18-464)
== END ==
PROVIDERS: PCP Internal Medicine; Referring Provider Internal Medicine Nephrology; Visit Provider Internal Medicine Nephrology
DX: N18.4 Chronic kidney disease, stage 4 (severe); D63.1 Anemia in chronic kidney disease; D50.9 Iron deficiency anemia, unspecified
CPT/HCPCS: 36415; 80048; 82728; 83540; 83550; 85025

== ENCOUNTER → 2021-10-06 10:07 | Outpatient (CLI) | payer MEDICARE, OTHER, SELFPAY ==
[2021-01-15 09:12] VITALS: BMI 30.4
== END ==
PROVIDERS: PCP Internal Medicine; Referring Provider Internal Medicine; Visit Provider Family Medicine
DX: E11.621 Type 2 diabetes mellitus with foot ulcer (principal); L97.422 Non-pressure chronic ulcer of left heel and midfoot with fat layer exposed; E11.40 Type 2 diabetes mellitus with diabetic neuropathy, unspecified
CPT/HCPCS: 11042; 11045

== ENCOUNTER → 2021-10-06 12:15 | Outpatient (CLI) | payer MEDICARE, OTHER, SELFPAY ==
[2021-01-15 09:12] VITALS: BMI 30.4
== END ==
PROVIDERS: PCP Internal Medicine; Referring Provider Physician Assistant; Visit Provider Physician Assistant
DX: E11.22 Type 2 diabetes mellitus with diabetic chronic kidney disease (principal); N18.4 Chronic kidney disease, stage 4 (severe); D63.1 Anemia in chronic kidney disease

== ENCOUNTER → 2021-10-13 16:14 | Outpatient (CLI) | payer MEDICARE, OTHER, SELFPAY ==
[2021-01-15 09:12] VITALS: BMI 30.4
== END ==
PROVIDERS: PCP Internal Medicine; Referring Provider Internal Medicine; Visit Provider Family Medicine
DX: E11.621 Type 2 diabetes mellitus with foot ulcer (principal); L97.422 Non-pressure chronic ulcer of left heel and midfoot with fat layer exposed; E11.40 Type 2 diabetes mellitus with diabetic neuropathy, unspecified; I50.20 Unspecified systolic (congestive) heart failure; N18.9 Chronic kidney disease, unspecified
CPT/HCPCS: 11042; 11045

== ENCOUNTER → 2021-10-16 09:10 | Outpatient (CLI) | payer MEDICARE, OTHER, SELFPAY ==
[2021-01-15 09:12] VITALS: BMI 30.4
== END ==
PROVIDERS: PCP Internal Medicine; Referring Provider Internal Medicine; Visit Provider Nurse Practitioner Family
DX: E11.621 Type 2 diabetes mellitus with foot ulcer (principal); L97.422 Non-pressure chronic ulcer of left heel and midfoot with fat layer exposed; E11.40 Type 2 diabetes mellitus with diabetic neuropathy, unspecified
CPT/HCPCS: 99213

== ENCOUNTER → 2021-10-20 06:56 | Outpatient (CLI) | payer MEDICARE, OTHER, SELFPAY ==
[2021-01-15 09:12] VITALS: BMI 30.4
[2021-10-20 08:15] LABS: Add Manual Diff / Slide Review NO; Basophils Absolute Auto 0 /uL (0-100); Basophils Percent Auto 0.5 % (0-2); Eosinophils Absolute Auto 300 /uL (0-450); Eosinophils Percent Auto 5.1 % (2-4); Hematocrit 31.4 % (41-53); Hemoglobin 10.6 g/dL (13.5-17.5); Lymphocytes Absolute Auto 1100 /uL (1100-4500); Lymphocytes Percent Auto 19.1 % (25-40); Mean Corpuscular HGB Conc 33.8 % (30-36); Mean Corpuscular Hemoglobin 28.2 PG (26-34); Mean Corpuscular Volume 83.5 fL (80-100); Monocytes Absolute Auto 600 /uL (0-900); Monocytes Percent Auto 10.7 % (3-14); Neutrophils Absolute Auto 3700 /uL (1500-7000); Neutrophils Percent Auto 64.6 % (50-75); Platelet Count 210 X10^3/uL (150-400); Red Blood Cell Count 3.76 X10^6/uL (4.5-5.9); Red Cell Distribution Width 14.6 % (11.6-14.8); White Blood Cell Count 5.8 X10^3/uL (4.5-11.0)
[2021-10-20 08:42] LABS: BUN Creatinine Ratio 15.6 (6-22); Blood Urea Nitrogen 38 mg/dL (9-20); Calcium 9.2 mg/dL (8.4-10.2); Carbon Dioxide 39 mmol/L (22-32); Chloride 96 mmol/L (98-107); Glucose 347 mg/dL (80-110); HEMOLYSIS < 15 (0-50); Potassium 4.7 mmol/L (3.4-5.1); Sodium 139 mmol/L (137-145)
[2021-10-20 08:49] LABS: HEMOLYSIS < 15 (0-50); Iron 44 ug/dL (49-181)
[2021-10-20 09:01] LABS: Percent Iron Saturation 21 % (20-50); Total Iron Binding Capacity 209 ug/dL (261-462); Transferrin 166 mg/dL (206-381)
[2021-10-20 10:39] LABS: Hemoglobin A1C% w Est Avg Glu 9.5 % (4.0-6.0)
== END ==
PROVIDERS: PCP Internal Medicine; Referring Provider Internal Medicine Nephrology; Visit Provider Internal Medicine Nephrology
DX: D50.9 Iron deficiency anemia, unspecified (principal); E11.621 Type 2 diabetes mellitus with foot ulcer; N18.4 Chronic kidney disease, stage 4 (severe); D63.1 Anemia in chronic kidney disease
CPT/HCPCS: 36415; 80048; 83036; 83540; 83550; 85025

== ENCOUNTER → 2021-10-20 08:57 | Outpatient (CLI) | payer MEDICARE, OTHER, SELFPAY ==
[2021-01-15 09:12] VITALS: BMI 30.4
== END ==
PROVIDERS: PCP Internal Medicine; Referring Provider Internal Medicine; Visit Provider Family Medicine
DX: E11.621 Type 2 diabetes mellitus with foot ulcer (principal); L97.422 Non-pressure chronic ulcer of left heel and midfoot with fat layer exposed; E11.40 Type 2 diabetes mellitus with diabetic neuropathy, unspecified; L08.9 Local infection of the skin and subcutaneous tissue, unspecified; I50.20 Unspecified systolic (congestive) heart failure; E11.22 Type 2 diabetes mellitus with diabetic chronic kidney disease; N18.4 Chronic kidney disease, stage 4 (severe)
CPT/HCPCS: 11042; 87070; 87077; 87147; 87186; 87205; 99213

== ENCOUNTER → 2021-10-20 09:47 | Outpatient (CLI) | payer MEDICARE, OTHER, SELFPAY ==
[2021-01-15 09:12] VITALS: BMI 30.4
[2021-10-20 10:04] VITALS: BP 161/69; PULSE 59; RESP 18; TEMP 37; O2SAT 100
[2021-10-20 10:51] VITALS: BP 158/69
[2021-10-20] MEDS: EPOETIN ALFA-EPBX 3,000 UNIT/ML VIAL 6000 UNIT SUBCUT (11:01)
== END ==
PROVIDERS: PCP Internal Medicine; Referring Provider Physician Assistant; Visit Provider Physician Assistant
DX: N18.4 Chronic kidney disease, stage 4 (severe); D63.1 Anemia in chronic kidney disease; E11.22 Type 2 diabetes mellitus with diabetic chronic kidney disease; E11.621 Type 2 diabetes mellitus with foot ulcer; L97.422 Non-pressure chronic ulcer of left heel and midfoot with fat layer exposed; E11.40 Type 2 diabetes mellitus with diabetic neuropathy, unspecified; L08.9 Local infection of the skin and subcutaneous tissue, unspecified; I50.20 Unspecified systolic (congestive) heart failure
CPT/HCPCS: 11042; 36415; 80048; 83036; 83540; 83550; 85025; 87070; 87077; 87147; 87186; 87205; 96372; Q5106

== ENCOUNTER → 2021-10-27 14:14 | Outpatient (CLI) | payer MEDICARE, OTHER, SELFPAY ==
[2021-01-15 09:12] VITALS: BMI 30.4
== END ==
PROVIDERS: PCP Internal Medicine; Referring Provider Internal Medicine; Visit Provider Family Medicine
DX: E11.621 Type 2 diabetes mellitus with foot ulcer (principal); L97.422 Non-pressure chronic ulcer of left heel and midfoot with fat layer exposed; L08.9 Local infection of the skin and subcutaneous tissue, unspecified; B95.7 Other staphylococcus as the cause of diseases classified elsewhere; E11.40 Type 2 diabetes mellitus with diabetic neuropathy, unspecified; E11.22 Type 2 diabetes mellitus with diabetic chronic kidney disease; I12.9 Hypertensive chronic kidney disease with stage 1 through stage 4 chronic kidney disease, or unspecified chronic kidney disease; N18.4 Chronic kidney disease, stage 4 (severe); Z79.4 Long term (current) use of insulin
CPT/HCPCS: 11042; 11045; 99214

== ENCOUNTER → 2021-10-30 10:39 | Outpatient (CLI) | payer MEDICARE, OTHER, SELFPAY ==
[2021-01-15 09:12] VITALS: BMI 30.4
== END ==
PROVIDERS: PCP Internal Medicine; Referring Provider Internal Medicine; Visit Provider Nurse Practitioner Family
DX: E11.621 Type 2 diabetes mellitus with foot ulcer (principal); L97.422 Non-pressure chronic ulcer of left heel and midfoot with fat layer exposed; L84 Corns and callosities; R60.0 Localized edema
CPT/HCPCS: 99212

== ENCOUNTER → 2021-11-03 13:42 | Outpatient (CLI) | payer MEDICARE, OTHER, SELFPAY ==
[2021-01-15 09:12] VITALS: BMI 30.4
== END ==
PROVIDERS: PCP Internal Medicine; Referring Provider Internal Medicine; Visit Provider Family Medicine
DX: E11.621 Type 2 diabetes mellitus with foot ulcer (principal); L97.422 Non-pressure chronic ulcer of left heel and midfoot with fat layer exposed; L08.9 Local infection of the skin and subcutaneous tissue, unspecified; S80.212A Abrasion, left knee, initial encounter; R60.0 Localized edema; E11.40 Type 2 diabetes mellitus with diabetic neuropathy, unspecified; E11.22 Type 2 diabetes mellitus with diabetic chronic kidney disease; I12.9 Hypertensive chronic kidney disease with stage 1 through stage 4 chronic kidney disease, or unspecified chronic kidney disease; N18.4 Chronic kidney disease, stage 4 (severe); I11.0 Hypertensive heart disease with heart failure; I50.20 Unspecified systolic (congestive) heart failure
CPT/HCPCS: 11042; 11045; 73650; 87070; 87075; 87077; 87186; 87205; 99213; 99214

== ENCOUNTER → 2021-11-03 14:58 | Outpatient (CLI) | payer MEDICARE, OTHER, SELFPAY ==
[2021-01-15 09:12] VITALS: BMI 30.4
--- NOTE | 2021-11-03 15:01 | DI.RAD.S_ITS ---
PROCEDURE: XR CALCANEOUS LT MIN 2V INDICATIONS: EVAL FOR OSTEOMYELITIS TECHNIQUE: Two views of the calcaneus were acquired. COMPARISON: [facility], CR, XR FOOT RT MIN 3V, 02/20/2021, 16:45. [facility], CR, XR CALCANEOUS LT MIN 2V, 05/06/2020, 9:44. FINDINGS: Bones: No fractures or dislocations. No suspicious bony lesions. Soft tissues: No suspicious calcifications. Achilles tendon appears normal. Vascular calcifications consistent with atherosclerotic peripheral vascular disease. Soft tissue swelling in the posterior plantar soft tissue. IMPRESSION: No acute osseous abnormalities. Radiograph is not sensitive to detect osteomyelitis. If clinical suspicion is high, MRI with and without contrast is recommended. Dictated by: Troy Alston M.D. on 11/03/2021 at 16:46 Approved by: Troy Alston M.D. on 11/03/2021 at 16:47
== END ==
PROVIDERS: PCP Internal Medicine; Referring Provider Family Medicine; Visit Provider Family Medicine
DX: E11.621 Type 2 diabetes mellitus with foot ulcer (principal)
CPT/HCPCS: 73650

== ENCOUNTER → 2021-11-10 09:56 | Outpatient (CLI) | payer MEDICARE, OTHER, SELFPAY ==
[2021-01-15 09:12] VITALS: BMI 30.4
== END ==
PROVIDERS: PCP Internal Medicine; Referring Provider Internal Medicine; Visit Provider Family Medicine
DX: E11.621 Type 2 diabetes mellitus with foot ulcer (principal); L97.422 Non-pressure chronic ulcer of left heel and midfoot with fat layer exposed; L08.9 Local infection of the skin and subcutaneous tissue, unspecified; B96.4 Proteus (mirabilis) (morganii) as the cause of diseases classified elsewhere; E11.40 Type 2 diabetes mellitus with diabetic neuropathy, unspecified; S80.212A Abrasion, left knee, initial encounter; E11.22 Type 2 diabetes mellitus with diabetic chronic kidney disease; N18.4 Chronic kidney disease, stage 4 (severe); I50.20 Unspecified systolic (congestive) heart failure; Z79.4 Long term (current) use of insulin
CPT/HCPCS: 11042; 11045; 99212

== ENCOUNTER → 2021-11-10 10:55 | Outpatient (CLI) | payer MEDICARE, OTHER, SELFPAY ==
[2021-01-15 09:12] VITALS: BMI 30.4
[2021-11-10 12:40] LABS: Add Manual Diff / Slide Review NO; Basophils Absolute Auto 100 /uL (0-100); Basophils Percent Auto 0.7 % (0-2); Eosinophils Absolute Auto 300 /uL (0-450); Eosinophils Percent Auto 3.4 % (2-4); Hematocrit 28.2 % (41-53); Hemoglobin 9.7 g/dL (13.5-17.5); Lymphocytes Absolute Auto 1100 /uL (1100-4500); Lymphocytes Percent Auto 14.2 % (25-40); Mean Corpuscular HGB Conc 34.3 % (30-36); Mean Corpuscular Hemoglobin 28.8 PG (26-34); Mean Corpuscular Volume 83.8 fL (80-100); Monocytes Absolute Auto 600 /uL (0-900); Monocytes Percent Auto 7.8 % (3-14); Neutrophils Absolute Auto 5700 /uL (1500-7000); Neutrophils Percent Auto 73.9 % (50-75); Platelet Count 192 X10^3/uL (150-400); Red Blood Cell Count 3.36 X10^6/uL (4.5-5.9); Red Cell Distribution Width 14.8 % (11.6-14.8); White Blood Cell Count 7.7 X10^3/uL (4.5-11.0)
[2021-11-10 12:58] LABS: HEMOLYSIS < 15 (0-50); Iron 60 ug/dL (49-181)
[2021-11-10 13:08] LABS: BUN Creatinine Ratio 19.6 (6-22); Blood Urea Nitrogen 41 mg/dL (9-20); Calcium 8.4 mg/dL (8.4-10.2); Carbon Dioxide 39 mmol/L (22-32); Chloride 99 mmol/L (98-107); Estimated Glomerular Filt Rate 32.2 mL/min (>60); Glucose 333 mg/dL (80-110); HEMOLYSIS < 15 (0-50); Potassium 4.7 mmol/L (3.4-5.1); Sodium 139 mmol/L (137-145)
[2021-11-10 13:09] LABS: Percent Iron Saturation 32 % (20-50); Total Iron Binding Capacity 190 ug/dL (261-462); Transferrin 145 mg/dL (206-381)
[2021-11-10 13:34] LABS: Ferritin 620 ng/mL (18-464)
== END ==
PROVIDERS: PCP Internal Medicine; Referring Provider Internal Medicine Nephrology; Visit Provider Internal Medicine Nephrology
DX: N18.4 Chronic kidney disease, stage 4 (severe) (principal); D50.9 Iron deficiency anemia, unspecified; D63.1 Anemia in chronic kidney disease
CPT/HCPCS: 36415; 80048; 82728; 83540; 83550; 85025

== ENCOUNTER → 2021-11-10 12:08 | Outpatient (CLI) | payer MEDICARE, OTHER, SELFPAY ==
[2021-01-15 09:12] VITALS: BMI 30.4
[2021-11-10 12:22] VITALS: BP 169/65; PULSE 61; RESP 18; TEMP 36.7; O2SAT 99
[2021-11-10 12:57] VITALS: BP 153/63
[2021-11-10] MEDS: EPOETIN ALFA-EPBX 3,000 UNIT/ML VIAL 6000 UNIT SUBCUT (13:09)
== END ==
PROVIDERS: PCP Internal Medicine; Referring Provider Physician Assistant; Visit Provider Physician Assistant
DX: N18.4 Chronic kidney disease, stage 4 (severe) (principal); D63.1 Anemia in chronic kidney disease; E11.621 Type 2 diabetes mellitus with foot ulcer; L97.422 Non-pressure chronic ulcer of left heel and midfoot with fat layer exposed
CPT/HCPCS: 11042; 11045; 36415; 80048; 82728; 83540; 83550; 85025; 96372; 99212; Q5106

== ENCOUNTER → 2021-11-24 08:48 | Outpatient (CLI) | payer MEDICARE, OTHER, SELFPAY ==
[2021-01-15 09:12] VITALS: BMI 30.4
== END ==
PROVIDERS: PCP Internal Medicine; Referring Provider Internal Medicine; Visit Provider Family Medicine
DX: E11.621 Type 2 diabetes mellitus with foot ulcer (principal); L97.422 Non-pressure chronic ulcer of left heel and midfoot with fat layer exposed; L84 Corns and callosities; L08.9 Local infection of the skin and subcutaneous tissue, unspecified; E11.40 Type 2 diabetes mellitus with diabetic neuropathy, unspecified; E11.69 Type 2 diabetes mellitus with other specified complication; M86.172 Other acute osteomyelitis, left ankle and foot; E11.22 Type 2 diabetes mellitus with diabetic chronic kidney disease; I12.9 Hypertensive chronic kidney disease with stage 1 through stage 4 chronic kidney disease, or unspecified chronic kidney disease; N18.4 Chronic kidney disease, stage 4 (severe); D64.9 Anemia, unspecified; E87.5 Hyperkalemia; Z79.4 Long term (current) use of insulin
CPT/HCPCS: 11042; 11045; 36415; 80053; 83036; 85025; 85651; 86140; 87070; 87075; 87077; 87186; 87205; 99213

== ENCOUNTER → 2021-11-24 10:41 | Outpatient (CLI) | payer MEDICARE, OTHER, SELFPAY ==
[2021-01-15 09:12] VITALS: BMI 30.4
[2021-11-24 12:17] LABS: Add Manual Diff / Slide Review NO; Basophils Absolute Auto 0 /uL (0-100); Basophils Percent Auto 0.6 % (0-2); Eosinophils Absolute Auto 200 /uL (0-450); Eosinophils Percent Auto 2.2 % (2-4); Hematocrit 24.9 % (41-53); Hemoglobin 8.3 g/dL (13.5-17.5); Lymphocytes Absolute Auto 900 /uL (1100-4500); Lymphocytes Percent Auto 13.7 % (25-40); Mean Corpuscular HGB Conc 33.5 % (30-36); Mean Corpuscular Hemoglobin 28.6 PG (26-34); Mean Corpuscular Volume 85.3 fL (80-100); Monocytes Absolute Auto 700 /uL (0-900); Monocytes Percent Auto 9.4 % (3-14); Neutrophils Absolute Auto 5100 /uL (1500-7000); Neutrophils Percent Auto 74.1 % (50-75); Platelet Count 181 X10^3/uL (150-400); Red Blood Cell Count 2.92 X10^6/uL (4.5-5.9); White Blood Cell Count 6.9 X10^3/uL (4.5-11.0)
[2021-11-24 12:37] LABS: Erythrocyte Sedimentation Rate 50 MM/HR (0-15)
[2021-11-24 12:44] LABS: Hemoglobin A1C% w Est Avg Glu 9.6 % (4.0-6.0)
[2021-11-24 13:13] LABS: Alanine Aminotransferase 20 IU/L (<50); Albumin 3.2 g/dL (3.5-5.0); Albumin Globulin Ratio 1.1 (1.0-2.8); Alkaline Phosphatase 117 U/L (38-126); Aspartate Aminotransferase 23 IU/L (17-59); BUN Creatinine Ratio 17.3 (6-22); Bilirubin Total 0.4 mg/dL (0.2-1.3); Blood Urea Nitrogen 44 mg/dL (9-20); C-Reactive Protein Quant 1.1 mg/dL (<1.0); Calcium 8.6 mg/dL (8.4-10.2); Carbon Dioxide 32 mmol/L (22-32); Chloride 101 mmol/L (98-107); Estimated Glomerular Filt Rate 25.6 mL/min (>60); Globulin 2.9 g/dL (1.7-4.1); Glucose 237 mg/dL (80-110); HEMOLYSIS 15 (0-50); Sodium 137 mmol/L (137-145); Total Protein 6.1 g/dL (6.3-8.2)
== END ==
PROVIDERS: PCP Internal Medicine; Referring Provider Family Medicine; Visit Provider Family Medicine
DX: E11.621 Type 2 diabetes mellitus with foot ulcer (principal)
CPT/HCPCS: 36415; 80053; 83036; 85025; 85651; 86140; 87070; 87075; 87077; 87186; 87205

== ENCOUNTER → 2021-11-27 15:24 | Outpatient (CLI) | payer MEDICARE, OTHER, SELFPAY ==
[2021-01-15 09:12] VITALS: BMI 30.4
--- NOTE | 2021-11-27 | DI.MRI.S_ITS ---
PROCEDURE: MR ANKLE LT WO/W CON INDICATIONS: NON HEALING LEFT HEEL ULCER TECHNIQUE: Noncontrast sagittal T1 spin echo and T2 fast spin echo with fat saturation, axial proton density fast spin echo and T2 fast spin echo with fat saturation, axial T1 spin echo with fat saturation, coronal T1 spin echo and T2 fast spin echo with fat saturation through the ankle/hindfoot. Post-contrast axial, coronal, and sagittal T1 spin echo with fat saturation through the ankle/hindfoot. COMPARISON: [facility], MR, MR ANKLE LT WO/W CON, 06/20/2020, 15:26. FINDINGS: Image quality: Excellent. Bones and joints: There is diffuse soft tissue swelling and edema surrounding ankle and hindfoot with overlying skin thickening .. Ulceration involving plantar aspect of left heel is noted with mild surrounding soft tissue enhancement. No discrete drainable abscess collection. There is marrow edema involving underlying plantar aspect of posterior calcaneus with subtle overlying cortical erosive changes concerning for osteomyelitis. Contrast enhancement in this area is also noted. No other area of abnormal marrow signal. No acute fracture or dislocation. No suspicious intraosseous lesion. No significant joint effusion is noted. Osteoarthritic changes are seen in hindfoot and midfoot joints. Medial structures: The posterior tibialis, flexor digitorum longus, and flexor hallucis longus tendons are intact. The posterior tibial neurovascular bundle appears normal within the tarsal tunnel, without extrinsic mass effect. The deep layer (anterior and posterior tibiotalar ligaments) and superficial layer (tibionavicular, tibiospring, and tibiocalcaneal ligaments) of the deltoid ligament appear normal. The spring ligament components (superomedial calcaneonavicular, medioplantar oblique calcaneonavicular, and inferoplantar longitudinal ligaments) are intact. Lateral structures: The anterior talofibular, calcaneofibular, and posterior talofibular ligaments appear intact. More superiorly, the anterior and posterior tibiofibular ligaments appear intact, as is the intermalleolar ligament. The tibiofibular syndesmosis is normal in width at 2 mm or less. The peroneus longus and brevis tendons demonstrate normal location and morphology. Adjacent bony peroneal tubercle and retrotrochlear prominence are normal in size. The sinus tarsi demonstrates normal fatty signal, without edema, fibrosis, or cyst formation. Visualized sinus tarsi components (cervical ligament, interosseous talocalcaneal ligament, roots of the inferior extensor retinaculum) appear normal. The calcaneonavicular and calcaneocuboid components of the bifurcate ligament appear intact. The dorsal calcaneocuboid ligament appears intact. Anterior structures: The tibialis anterior, extensor hallucis longus, and extensor digitorum longus tendons appear intact. The dorsal talonavicular ligament appears intact. Posterior and plantar structures: Achilles tendon is intact. Medial and lateral bands of the plantar fascia are of normal thickness. No abductor digiti quinti muscle atrophy to suggest Quevedo neuropathy. IMPRESSION: 1. Ulceration involving plantar aspect of left heel with surrounding cellulitis. No discrete drainable abscess collection. Osteomyelitis involving underlying posterior and plantar aspect of calcaneus. 2. Diffuse ankle soft tissue swelling and edema. 3. Ankle tendons and ligaments are grossly intact. Dictated by: Bud Lawrence M.D. on 11/30/2021 at 9:48 Approved by: Bud Lawrence M.D. on 11/30/2021 at 9:51
== END ==
PROVIDERS: PCP Internal Medicine; Referring Provider Family Medicine; Visit Provider Family Medicine
DX: E11.621 Type 2 diabetes mellitus with foot ulcer (principal); L97.429 Non-pressure chronic ulcer of left heel and midfoot with unspecified severity; E11.628 Type 2 diabetes mellitus with other skin complications; L03.116 Cellulitis of left lower limb; E11.69 Type 2 diabetes mellitus with other specified complication; M86.9 Osteomyelitis, unspecified; E87.5 Hyperkalemia
CPT/HCPCS: 36415; 73723; 80048; A9579

== ENCOUNTER → 2021-11-27 15:30 | Outpatient (CLI) | payer MEDICARE, OTHER, SELFPAY ==
[2021-01-15 09:12] VITALS: BMI 30.4
[2021-11-27 16:32] LABS: BUN Creatinine Ratio 15.8 (6-22); Blood Urea Nitrogen 43 mg/dL (9-20); Calcium 8.6 mg/dL (8.4-10.2); Carbon Dioxide 39 mmol/L (22-32); Chloride 97 mmol/L (98-107); Estimated Glomerular Filt Rate 23.8 mL/min (>60); Glucose 164 mg/dL (80-110); HEMOLYSIS < 15 (0-50); Potassium 4.6 mmol/L (3.4-5.1); Sodium 137 mmol/L (137-145)
== END ==
PROVIDERS: PCP Internal Medicine; Referring Provider Internal Medicine Nephrology; Visit Provider Internal Medicine Nephrology
DX: E87.5 Hyperkalemia (principal)
CPT/HCPCS: 36415; 80048

== ENCOUNTER → 2021-12-01 08:07 | Outpatient (CLI) | payer MEDICARE, OTHER, SELFPAY ==
[2021-01-15 09:12] VITALS: BMI 30.4
[2021-12-01 10:46] LABS: Add Manual Diff / Slide Review NO; Basophils Absolute Auto 0 /uL (0-100); Basophils Percent Auto 0.5 % (0-2); Eosinophils Absolute Auto 300 /uL (0-450); Eosinophils Percent Auto 4.5 % (2-4); Hematocrit 25.5 % (41-53); Hemoglobin 8.4 g/dL (13.5-17.5); Lymphocytes Absolute Auto 1100 /uL (1100-4500); Lymphocytes Percent Auto 16.9 % (25-40); Mean Corpuscular Hemoglobin 28.7 PG (26-34); Mean Corpuscular Volume 86.9 fL (80-100); Monocytes Absolute Auto 800 /uL (0-900); Monocytes Percent Auto 12.1 % (3-14); Neutrophils Absolute Auto 4200 /uL (1500-7000); Platelet Count 220 X10^3/uL (150-400); Red Blood Cell Count 2.93 X10^6/uL (4.5-5.9); Red Cell Distribution Width 15.4 % (11.6-14.8); White Blood Cell Count 6.3 X10^3/uL (4.5-11.0)
[2021-12-01 11:07] LABS: Albumin 3.5 g/dL (3.5-5.0); BUN Creatinine Ratio 18.7 (6-22); Blood Urea Nitrogen 45 mg/dL (9-20); Calcium 8.6 mg/dL (8.4-10.2); Carbon Dioxide 32 mmol/L (22-32); Chloride 97 mmol/L (98-107); Estimated Glomerular Filt Rate 27.3 mL/min (>60); Glucose 300 mg/dL (80-110); HEMOLYSIS < 15 (0-50); Phosphorous 3.9 mg/dL (2.3-3.7); Sodium 137 mmol/L (137-145)
== END ==
PROVIDERS: PCP Internal Medicine; Referring Provider Internal Medicine; Visit Provider Internal Medicine
DX: D63.1 Anemia in chronic kidney disease (principal); N18.30 Chronic kidney disease, stage 3 unspecified; E87.5 Hyperkalemia
CPT/HCPCS: 36415; 80069; 85025

== ENCOUNTER → 2021-12-01 09:06 | Outpatient (CLI) | payer MEDICARE, OTHER, SELFPAY ==
[2021-01-15 09:12] VITALS: BMI 30.4
== END ==
PROVIDERS: PCP Internal Medicine; Referring Provider Internal Medicine; Visit Provider Family Medicine
DX: E11.621 Type 2 diabetes mellitus with foot ulcer (principal); L97.422 Non-pressure chronic ulcer of left heel and midfoot with fat layer exposed; L03.116 Cellulitis of left lower limb; E11.69 Type 2 diabetes mellitus with other specified complication; M86.172 Other acute osteomyelitis, left ankle and foot; E11.40 Type 2 diabetes mellitus with diabetic neuropathy, unspecified; E11.22 Type 2 diabetes mellitus with diabetic chronic kidney disease; N18.4 Chronic kidney disease, stage 4 (severe); D64.9 Anemia, unspecified; I50.20 Unspecified systolic (congestive) heart failure; Z79.2 Long term (current) use of antibiotics; Z79.4 Long term (current) use of insulin
CPT/HCPCS: 11042; 11045; 99213

== ENCOUNTER → 2021-12-01 09:32 | Outpatient (CLI) | payer MEDICARE, OTHER, SELFPAY ==
[2021-01-15 09:12] VITALS: BMI 30.4
[2021-12-01 10:02] VITALS: BP 171/69; PULSE 62; RESP 18
[2021-12-01] MEDS: EPOETIN ALFA-EPBX 10,000 UNIT/ML VIAL 10000 UNIT SUBCUT (11:09)
--- NOTE | 2021-12-03 16:24 | PC.NURSE ---
Dr. Mota orders: Per Dr. Mota pt is currently inpatient and will need IV antibiotics for osteomyelitis. Dr. Mota faxed over IV abx infusion orders, orders received. Per Dr. Mota pt will likely be dc'd tomorrow and receive dose in hospital but will need scheduled infusions thereafter. Pt placed on weekend schedule starting TuesdayDecember 05 at 1130, Dr. mota will notify pt of time as this clinic is closed tomorro. Coordinator Todd crisostomo.
[2021-12-06] MEDS: cefTRIAXone 2,000 MG in SODIUM CHLORIDE 0.9% 100 ML 200 ML IV (11:26)
[2021-12-06 11:27] VITALS: BP 192/72; PULSE 67; RESP 16; TEMP 36.9; O2SAT 96
[2021-12-07] MEDS: cefTRIAXone 2,000 MG in SODIUM CHLORIDE 0.9% 100 ML 200 ML IV (09:45)
== END ==
PROVIDERS: PCP Internal Medicine; Referring Provider Physician Assistant; Visit Provider Physician Assistant
DX: N18.4 Chronic kidney disease, stage 4 (severe) (principal); D63.1 Anemia in chronic kidney disease; E87.5 Hyperkalemia; E11.621 Type 2 diabetes mellitus with foot ulcer; L97.422 Non-pressure chronic ulcer of left heel and midfoot with fat layer exposed; L03.116 Cellulitis of left lower limb; E11.69 Type 2 diabetes mellitus with other specified complication; M86.172 Other acute osteomyelitis, left ankle and foot; E11.40 Type 2 diabetes mellitus with diabetic neuropathy, unspecified; E11.22 Type 2 diabetes mellitus with diabetic chronic kidney disease; D64.9 Anemia, unspecified; I50.20 Unspecified systolic (congestive) heart failure; Z79.2 Long term (current) use of antibiotics; Z79.4 Long term (current) use of insulin
CPT/HCPCS: 11042; 11045; 36415; 80069; 85025; 96372; Q5106

== ENCOUNTER → 2021-12-08 09:52 | Outpatient (CLI) | payer MEDICARE, OTHER, SELFPAY ==
[2021-01-15 09:12] VITALS: BMI 30.4
== END ==
PROVIDERS: PCP Internal Medicine; Referring Provider Internal Medicine; Visit Provider Family Medicine
DX: E11.621 Type 2 diabetes mellitus with foot ulcer (principal); L97.422 Non-pressure chronic ulcer of left heel and midfoot with fat layer exposed; E11.69 Type 2 diabetes mellitus with other specified complication; M86.172 Other acute osteomyelitis, left ankle and foot; E11.40 Type 2 diabetes mellitus with diabetic neuropathy, unspecified; R60.0 Localized edema; D64.9 Anemia, unspecified; E11.22 Type 2 diabetes mellitus with diabetic chronic kidney disease; I13.0 Hypertensive heart and chronic kidney disease with heart failure and stage 1 through stage 4 chronic kidney disease, or unspecified chronic kidney disease; N18.4 Chronic kidney disease, stage 4 (severe); I50.9 Heart failure, unspecified; Z79.2 Long term (current) use of antibiotics; Z89.421 Acquired absence of other right toe(s)
CPT/HCPCS: 11042; 11045; 99212; 99214

== ENCOUNTER → 2021-12-14 11:25 | Outpatient (CLI) | payer MEDICARE, OTHER, SELFPAY ==
[2021-01-15 09:12] VITALS: BMI 30.4
== END ==
PROVIDERS: PCP Internal Medicine; Referring Provider Internal Medicine; Visit Provider Family Medicine
DX: E11.621 Type 2 diabetes mellitus with foot ulcer (principal); L97.422 Non-pressure chronic ulcer of left heel and midfoot with fat layer exposed; R60.0 Localized edema
CPT/HCPCS: 99214

== ENCOUNTER → 2021-12-15 10:17 | Outpatient (CLI) | payer MEDICARE, OTHER, SELFPAY ==
[2021-01-15 09:12] VITALS: BMI 30.4
[2021-12-15 10:44] VITALS: BP 165/68; PULSE 74; RESP 18; TEMP 37.1; O2SAT 96
[2021-12-15 11:16] VITALS: BP 158/60
[2021-12-15] MEDS: EPOETIN ALFA 10,000 UNIT/ML VIAL 10000 UNIT SUBCUT (11:42)
[2021-12-17 11:32] LABS: Add Manual Diff / Slide Review NO; Basophils Absolute Auto 0 /uL (0-100); Basophils Percent Auto 0.8 % (0-2); Eosinophils Absolute Auto 300 /uL (0-450); Eosinophils Percent Auto 5.3 % (2-4); Hematocrit 25.4 % (41-53); Hemoglobin 8.5 g/dL (13.5-17.5); Lymphocytes Absolute Auto 1300 /uL (1100-4500); Lymphocytes Percent Auto 21.1 % (25-40); Mean Corpuscular HGB Conc 33.6 % (30-36); Mean Corpuscular Hemoglobin 29.1 PG (26-34); Mean Corpuscular Volume 86.6 fL (80-100); Monocytes Absolute Auto 700 /uL (0-900); Monocytes Percent Auto 11.2 % (3-14); Neutrophils Absolute Auto 3800 /uL (1500-7000); Neutrophils Percent Auto 61.6 % (50-75); Platelet Count 152 X10^3/uL (150-400); Red Blood Cell Count 2.93 X10^6/uL (4.5-5.9); Red Cell Distribution Width 15.4 % (11.6-14.8); White Blood Cell Count 6.1 X10^3/uL (4.5-11.0)
[2021-12-17 11:48] LABS: Alanine Aminotransferase 18 IU/L (<50); Albumin 3.2 g/dL (3.5-5.0); Alkaline Phosphatase 120 U/L (38-126); Aspartate Aminotransferase 19 IU/L (17-59); BUN Creatinine Ratio 21.6 (6-22); Bilirubin Total 0.3 mg/dL (0.2-1.3); Blood Urea Nitrogen 58 mg/dL (9-20); C-Reactive Protein Quant 2.6 mg/dL (<1.0); Calcium 8.4 mg/dL (8.4-10.2); Carbon Dioxide 34 mmol/L (22-32); Chloride 97 mmol/L (98-107); Estimated Glomerular Filt Rate 24.2 mL/min (>60); Globulin 3.1 g/dL (1.7-4.1); Glucose 265 mg/dL (80-110); HEMOLYSIS < 15 (0-50); Potassium 4.3 mmol/L (3.4-5.1); Sodium 138 mmol/L (137-145); Total Protein 6.3 g/dL (6.3-8.2)
== END ==
PROVIDERS: PCP Internal Medicine; Referring Provider Physician Assistant; Visit Provider Physician Assistant
DX: M86.172 Other acute osteomyelitis, left ankle and foot (principal); N18.4 Chronic kidney disease, stage 4 (severe); D63.1 Anemia in chronic kidney disease
CPT/HCPCS: 80053; 85025; 86140; 96365; 96372; J0696; J0885

== ENCOUNTER → 2021-12-16 10:31 | Outpatient (CLI) | payer MEDICARE, OTHER, SELFPAY ==
[2021-01-15 09:12] VITALS: BMI 30.4
== END ==
PROVIDERS: PCP Internal Medicine; Referring Provider Internal Medicine; Visit Provider Family Medicine
DX: E11.621 Type 2 diabetes mellitus with foot ulcer (principal); L97.422 Non-pressure chronic ulcer of left heel and midfoot with fat layer exposed; E11.69 Type 2 diabetes mellitus with other specified complication; M86.172 Other acute osteomyelitis, left ankle and foot; B96.4 Proteus (mirabilis) (morganii) as the cause of diseases classified elsewhere; E11.40 Type 2 diabetes mellitus with diabetic neuropathy, unspecified; R09.89 Other specified symptoms and signs involving the circulatory and respiratory systems; E11.22 Type 2 diabetes mellitus with diabetic chronic kidney disease; N18.4 Chronic kidney disease, stage 4 (severe); D64.9 Anemia, unspecified; I50.9 Heart failure, unspecified; Z79.2 Long term (current) use of antibiotics; Z79.4 Long term (current) use of insulin
CPT/HCPCS: 11042; 99214

== ENCOUNTER → 2021-12-16 13:06 | Outpatient (CLI) | payer MEDICARE, OTHER, SELFPAY ==
[2021-01-15 09:12] VITALS: BMI 30.4
--- NOTE | 2021-12-16 13:12 | DI.RAD.S_ITS ---
PROCEDURE: XR CHEST 2V INDICATIONS: Hyperbaric, LLL Rales TECHNIQUE: 2 views of the chest were acquired. COMPARISON: None. FINDINGS: Surgical changes and devices: Dual lumen PICC projects to the cavoatrial junction via right IJ approach. Lungs and pleura: Patchy opacities noted in the left lung base. Trace left-sided pleural fluid collection. No pneumothorax. Mediastinum: Mediastinal contours are normal. Heart size is normal. Bones and chest wall: No suspicious bony abnormalities. Soft tissues appear unremarkable. IMPRESSION: Left lower lobe pneumonia. Dictated by: Cinthia Gray MD, PhD on 12/16/2021 at 16:01 Approved by: Cinthia Gray MD, PhD on 12/16/2021 at 16:02
== END ==
PROVIDERS: PCP Internal Medicine; Referring Provider Family Medicine; Visit Provider Family Medicine
DX: J18.9 Pneumonia, unspecified organism (principal); R09.89 Other specified symptoms and signs involving the circulatory and respiratory systems
CPT/HCPCS: 71046

== ENCOUNTER → 2021-12-23 09:47 | Outpatient (CLI) | payer MEDICARE, OTHER, SELFPAY ==
[2021-01-15 09:12] VITALS: BMI 30.4
== END ==
PROVIDERS: PCP Internal Medicine; Referring Provider Internal Medicine; Visit Provider Family Medicine
DX: E11.621 Type 2 diabetes mellitus with foot ulcer (principal); L97.422 Non-pressure chronic ulcer of left heel and midfoot with fat layer exposed; E11.69 Type 2 diabetes mellitus with other specified complication; M86.172 Other acute osteomyelitis, left ankle and foot; E11.40 Type 2 diabetes mellitus with diabetic neuropathy, unspecified; R60.0 Localized edema; E11.22 Type 2 diabetes mellitus with diabetic chronic kidney disease; N18.4 Chronic kidney disease, stage 4 (severe); I50.9 Heart failure, unspecified; D64.9 Anemia, unspecified; R26.89 Other abnormalities of gait and mobility; R09.89 Other specified symptoms and signs involving the circulatory and respiratory systems; Z79.2 Long term (current) use of antibiotics; Z79.4 Long term (current) use of insulin
CPT/HCPCS: 11042; 99214

== ENCOUNTER → 2021-12-28 11:12 | Outpatient (CLI) | payer MEDICARE, OTHER, SELFPAY ==
[2021-01-15 09:12] VITALS: BMI 30.4
== END ==
PROVIDERS: PCP Internal Medicine; Referring Provider Internal Medicine; Visit Provider Family Medicine
DX: E11.621 Type 2 diabetes mellitus with foot ulcer (principal); L97.422 Non-pressure chronic ulcer of left heel and midfoot with fat layer exposed
CPT/HCPCS: 99213

== ENCOUNTER → 2021-12-29 10:40 | Outpatient (CLI) | payer MEDICARE, OTHER, SELFPAY ==
[2021-01-15 09:12] VITALS: BMI 30.4
--- NOTE | 2021-12-29 11:59 | PC.NURSE ---
BP: 161/60, patient confirmed that he has been taking his medications as prescribed, see confirmed med list under summary. This nurse confirmed that he took he amlodipine, carvedilol and lasix this morning.
[2021-12-29 12:01] VITALS: BP 161/60; PULSE 61; RESP 18; TEMP 36.3; O2SAT 98
[2021-12-29] MEDS: EPOETIN ALFA 10,000 UNIT/ML VIAL 10000 UNIT SUBCUT (12:39)
== END ==
PROVIDERS: PCP Internal Medicine; Referring Provider Physician Assistant; Visit Provider Physician Assistant
DX: N18.4 Chronic kidney disease, stage 4 (severe) (principal); D63.1 Anemia in chronic kidney disease; M86.172 Other acute osteomyelitis, left ankle and foot
CPT/HCPCS: 96365; 96372; 96523; J0696; J0885

== ENCOUNTER → 2021-12-30 08:37 | Outpatient (CLI) | payer MEDICARE, OTHER, SELFPAY ==
[2021-01-15 09:12] VITALS: BMI 30.4
== END ==
PROVIDERS: PCP Internal Medicine; Referring Provider Internal Medicine; Visit Provider Family Medicine
DX: E11.621 Type 2 diabetes mellitus with foot ulcer (principal); L97.425 Non-pressure chronic ulcer of left heel and midfoot with muscle involvement without evidence of necrosis; E11.69 Type 2 diabetes mellitus with other specified complication; M86.172 Other acute osteomyelitis, left ankle and foot; R60.0 Localized edema; E11.40 Type 2 diabetes mellitus with diabetic neuropathy, unspecified; E11.22 Type 2 diabetes mellitus with diabetic chronic kidney disease; N18.4 Chronic kidney disease, stage 4 (severe); I50.9 Heart failure, unspecified; D64.9 Anemia, unspecified; Z79.2 Long term (current) use of antibiotics
CPT/HCPCS: 99212; 99214

== ENCOUNTER → 2022-01-01 08:39 | Outpatient (CLI) | payer MEDICARE, OTHER, SELFPAY ==
[2021-01-15 09:12] VITALS: BMI 30.4
== END ==
PROVIDERS: PCP Internal Medicine; Referring Provider Internal Medicine; Visit Provider Nurse Practitioner Family
DX: E11.621 Type 2 diabetes mellitus with foot ulcer (principal); L97.425 Non-pressure chronic ulcer of left heel and midfoot with muscle involvement without evidence of necrosis; R60.0 Localized edema
CPT/HCPCS: 99212

== ENCOUNTER → 2022-01-04 14:04 | Outpatient (CLI) | payer MEDICARE, OTHER, SELFPAY ==
[2021-01-15 09:12] VITALS: BMI 30.4
== END ==
PROVIDERS: PCP Internal Medicine; Referring Provider Internal Medicine; Visit Provider Family Medicine
DX: E11.621 Type 2 diabetes mellitus with foot ulcer (principal); L97.425 Non-pressure chronic ulcer of left heel and midfoot with muscle involvement without evidence of necrosis
CPT/HCPCS: 99212

== ENCOUNTER → 2022-01-06 09:48 | Outpatient (CLI) | payer MEDICARE, OTHER, SELFPAY ==
[2021-01-15 09:12] VITALS: BMI 30.4
== END ==
PROVIDERS: PCP Internal Medicine; Referring Provider Internal Medicine; Visit Provider Family Medicine
DX: E11.621 Type 2 diabetes mellitus with foot ulcer (principal); L97.425 Non-pressure chronic ulcer of left heel and midfoot with muscle involvement without evidence of necrosis; E11.69 Type 2 diabetes mellitus with other specified complication; M86.172 Other acute osteomyelitis, left ankle and foot; R60.0 Localized edema; E11.40 Type 2 diabetes mellitus with diabetic neuropathy, unspecified; E11.22 Type 2 diabetes mellitus with diabetic chronic kidney disease; N18.4 Chronic kidney disease, stage 4 (severe); D64.9 Anemia, unspecified; R26.89 Other abnormalities of gait and mobility; Z79.2 Long term (current) use of antibiotics; Z79.4 Long term (current) use of insulin
CPT/HCPCS: 11042; 87070; 87205; 99214

== ENCOUNTER → 2022-01-08 08:36 | Outpatient (CLI) | payer MEDICARE, OTHER, SELFPAY ==
[2021-01-15 09:12] VITALS: BMI 30.4
== END ==
PROVIDERS: PCP Internal Medicine; Referring Provider Internal Medicine; Visit Provider Family Medicine
DX: E11.621 Type 2 diabetes mellitus with foot ulcer (principal); L97.425 Non-pressure chronic ulcer of left heel and midfoot with muscle involvement without evidence of necrosis; R60.0 Localized edema; L84 Corns and callosities
CPT/HCPCS: 99212

== ENCOUNTER → 2022-01-11 13:14 | Outpatient (CLI) | payer MEDICARE, OTHER, SELFPAY ==
[2021-01-15 09:12] VITALS: BMI 30.4
== END ==
PROVIDERS: PCP Internal Medicine; Referring Provider Internal Medicine; Visit Provider Family Medicine
DX: E11.621 Type 2 diabetes mellitus with foot ulcer (principal); L97.425 Non-pressure chronic ulcer of left heel and midfoot with muscle involvement without evidence of necrosis; L84 Corns and callosities
CPT/HCPCS: 99213

== ENCOUNTER → 2022-01-12 08:30 | Outpatient (CLI) | payer MEDICARE, OTHER, SELFPAY ==
[2021-01-15 09:12] VITALS: BMI 30.4
== END ==
PROVIDERS: PCP Internal Medicine; Referring Provider Internal Medicine; Visit Provider Family Medicine
DX: E11.621 Type 2 diabetes mellitus with foot ulcer (principal); L97.425 Non-pressure chronic ulcer of left heel and midfoot with muscle involvement without evidence of necrosis; E11.69 Type 2 diabetes mellitus with other specified complication; M86.172 Other acute osteomyelitis, left ankle and foot; R60.0 Localized edema; E11.40 Type 2 diabetes mellitus with diabetic neuropathy, unspecified; E11.22 Type 2 diabetes mellitus with diabetic chronic kidney disease; I13.0 Hypertensive heart and chronic kidney disease with heart failure and stage 1 through stage 4 chronic kidney disease, or unspecified chronic kidney disease; N18.4 Chronic kidney disease, stage 4 (severe); I50.9 Heart failure, unspecified; D64.9 Anemia, unspecified; Z79.2 Long term (current) use of antibiotics; Z79.4 Long term (current) use of insulin
CPT/HCPCS: 99214

== ENCOUNTER → 2022-01-18 13:39 | Outpatient (CLI) | payer MEDICARE, OTHER, SELFPAY ==
[2021-01-15 09:12] VITALS: BMI 30.4
== END ==
PROVIDERS: PCP Internal Medicine; Referring Provider Internal Medicine; Visit Provider Family Medicine
DX: E11.621 Type 2 diabetes mellitus with foot ulcer (principal); L97.422 Non-pressure chronic ulcer of left heel and midfoot with fat layer exposed; E11.40 Type 2 diabetes mellitus with diabetic neuropathy, unspecified; D64.9 Anemia, unspecified; N18.4 Chronic kidney disease, stage 4 (severe); M86.172 Other acute osteomyelitis, left ankle and foot; Z79.2 Long term (current) use of antibiotics
CPT/HCPCS: 99183; 99213; G0277

== ENCOUNTER → 2022-01-19 12:18 | Outpatient (CLI) | payer MEDICARE, OTHER, SELFPAY ==
[2021-01-15 09:12] VITALS: BMI 30.4
[2022-01-19 12:48] VITALS: BP 139/54; PULSE 58; RESP 18; TEMP 36.5; O2SAT 96
== END ==
PROVIDERS: PCP Internal Medicine; Referring Provider Physician Assistant; Visit Provider Physician Assistant
DX: M86.172 Other acute osteomyelitis, left ankle and foot (principal); N18.4 Chronic kidney disease, stage 4 (severe); D63.1 Anemia in chronic kidney disease

== ENCOUNTER → 2022-01-19 13:58 | Outpatient (CLI) | payer MEDICARE, OTHER, SELFPAY ==
[2021-01-15 09:12] VITALS: BMI 30.4
== END ==
PROVIDERS: PCP Internal Medicine; Referring Provider Internal Medicine; Visit Provider Family Medicine
DX: E11.621 Type 2 diabetes mellitus with foot ulcer (principal); L97.422 Non-pressure chronic ulcer of left heel and midfoot with fat layer exposed; E11.40 Type 2 diabetes mellitus with diabetic neuropathy, unspecified; D64.9 Anemia, unspecified; N18.4 Chronic kidney disease, stage 4 (severe); M86.172 Other acute osteomyelitis, left ankle and foot; Z79.2 Long term (current) use of antibiotics
CPT/HCPCS: 99183; G0277

== ENCOUNTER → 2022-01-20 10:35 | Outpatient (CLI) | payer MEDICARE, OTHER, SELFPAY ==
[2021-01-15 09:12] VITALS: BMI 30.4
[2022-01-20 11:39] LABS: Add Manual Diff / Slide Review NO; Basophils Absolute Auto 0 /uL (0-100); Basophils Percent Auto 0.7 % (0-2); Eosinophils Absolute Auto 400 /uL (0-450); Eosinophils Percent Auto 6.7 % (2-4); Hematocrit 29.5 % (41-53); Hemoglobin 9.8 g/dL (13.5-17.5); Lymphocytes Absolute Auto 1200 /uL (1100-4500); Lymphocytes Percent Auto 21.1 % (25-40); Mean Corpuscular HGB Conc 33.2 % (30-36); Mean Corpuscular Hemoglobin 28.4 PG (26-34); Mean Corpuscular Volume 85.4 fL (80-100); Monocytes Absolute Auto 600 /uL (0-900); Monocytes Percent Auto 11.4 % (3-14); Neutrophils Absolute Auto 3300 /uL (1500-7000); Neutrophils Percent Auto 60.1 % (50-75); Platelet Count 151 X10^3/uL (150-400); Red Blood Cell Count 3.46 X10^6/uL (4.5-5.9); White Blood Cell Count 5.5 X10^3/uL (4.5-11.0)
[2022-01-20 11:51] LABS: Alanine Aminotransferase 20 IU/L (<50); Albumin 3.5 g/dL (3.5-5.0); Albumin Globulin Ratio 1.3 (1.0-2.8); Alkaline Phosphatase 171 U/L (38-126); Aspartate Aminotransferase 24 IU/L (17-59); BUN Creatinine Ratio 15.9 (6-22); Bilirubin Total 0.4 mg/dL (0.2-1.3); Blood Urea Nitrogen 45 mg/dL (9-20); Calcium 8.5 mg/dL (8.4-10.2); Carbon Dioxide 39 mmol/L (22-32); Chloride 92 mmol/L (98-107); Estimated Glomerular Filt Rate 24 mL/min (>60); Globulin 2.8 g/dL (1.7-4.1); Glucose 323 mg/dL (80-110); HEMOLYSIS < 15 (0-50); Potassium 4.1 mmol/L (3.4-5.1); Sodium 138 mmol/L (137-145); Total Protein 6.3 g/dL (6.3-8.2)
== END ==
PROVIDERS: PCP Internal Medicine; Referring Provider Internal Medicine Nephrology; Visit Provider Internal Medicine Nephrology
DX: D64.9 Anemia, unspecified (principal); E87.5 Hyperkalemia; N28.9 Disorder of kidney and ureter, unspecified
CPT/HCPCS: 36415; 80053; 85025

== ENCOUNTER → 2022-01-20 15:48 | Outpatient (CLI) | payer MEDICARE, OTHER, SELFPAY ==
[2021-01-15 09:12] VITALS: BMI 30.4
[2022-01-20 15:53] VITALS: BP 152/49; PULSE 60; RESP 18; TEMP 36.4; O2SAT 95
[2022-01-20] MEDS: EPOETIN ALFA-EPBX 10,000 UNIT/ML VIAL 10000 UNIT SUBCUT (16:00)
== END ==
PROVIDERS: PCP Internal Medicine; Referring Provider Physician Assistant; Visit Provider Physician Assistant
DX: E11.22 Type 2 diabetes mellitus with diabetic chronic kidney disease (principal); I12.9 Hypertensive chronic kidney disease with stage 1 through stage 4 chronic kidney disease, or unspecified chronic kidney disease; N18.4 Chronic kidney disease, stage 4 (severe); D63.1 Anemia in chronic kidney disease; E11.621 Type 2 diabetes mellitus with foot ulcer; L97.422 Non-pressure chronic ulcer of left heel and midfoot with fat layer exposed; E11.40 Type 2 diabetes mellitus with diabetic neuropathy, unspecified; M86.172 Other acute osteomyelitis, left ankle and foot; E87.5 Hyperkalemia; Z79.2 Long term (current) use of antibiotics; D64.9 Anemia, unspecified; N28.9 Disorder of kidney and ureter, unspecified
CPT/HCPCS: 36415; 80053; 85025; 96372; G0277; Q5106

== ENCOUNTER → 2022-01-20 15:56 | Outpatient (CLI) | payer MEDICARE, OTHER, SELFPAY ==
[2021-01-15 09:12] VITALS: BMI 30.4
== END ==
PROVIDERS: PCP Internal Medicine; Referring Provider Internal Medicine; Visit Provider Family Medicine
DX: E11.621 Type 2 diabetes mellitus with foot ulcer (principal); L97.422 Non-pressure chronic ulcer of left heel and midfoot with fat layer exposed; E11.40 Type 2 diabetes mellitus with diabetic neuropathy, unspecified; D64.9 Anemia, unspecified; N18.4 Chronic kidney disease, stage 4 (severe); M86.172 Other acute osteomyelitis, left ankle and foot; Z79.2 Long term (current) use of antibiotics; L97.425 Non-pressure chronic ulcer of left heel and midfoot with muscle involvement without evidence of necrosis; R60.0 Localized edema; E11.69 Type 2 diabetes mellitus with other specified complication; B96.4 Proteus (mirabilis) (morganii) as the cause of diseases classified elsewhere; R26.89 Other abnormalities of gait and mobility; E11.22 Type 2 diabetes mellitus with diabetic chronic kidney disease; I50.9 Heart failure, unspecified; Z79.4 Long term (current) use of insulin
CPT/HCPCS: 99183; G0277

== ENCOUNTER → 2022-01-21 13:46 | Outpatient (CLI) | payer MEDICARE, OTHER, SELFPAY ==
[2021-01-15 09:12] VITALS: BMI 30.4
== END ==
PROVIDERS: PCP Internal Medicine; Referring Provider Internal Medicine; Visit Provider Family Medicine
DX: E11.621 Type 2 diabetes mellitus with foot ulcer (principal); L97.422 Non-pressure chronic ulcer of left heel and midfoot with fat layer exposed; E11.40 Type 2 diabetes mellitus with diabetic neuropathy, unspecified; D64.9 Anemia, unspecified; N18.4 Chronic kidney disease, stage 4 (severe); M86.172 Other acute osteomyelitis, left ankle and foot; Z79.2 Long term (current) use of antibiotics
CPT/HCPCS: 99183; G0277

== ENCOUNTER → 2022-01-22 08:17 | Outpatient (CLI) | payer MEDICARE, OTHER, SELFPAY ==
[2021-01-15 09:12] VITALS: BMI 30.4
== END ==
PROVIDERS: PCP Internal Medicine; Referring Provider Internal Medicine; Visit Provider Nurse Practitioner Family
DX: E11.621 Type 2 diabetes mellitus with foot ulcer (principal); L97.422 Non-pressure chronic ulcer of left heel and midfoot with fat layer exposed; L84 Corns and callosities
CPT/HCPCS: 99183; 99212; G0277

== ENCOUNTER → 2022-01-25 15:26 | Outpatient (CLI) | payer MEDICARE, OTHER, SELFPAY ==
[2021-01-15 09:12] VITALS: BMI 30.4
== END ==
PROVIDERS: PCP Internal Medicine; Referring Provider Internal Medicine; Visit Provider Family Medicine
DX: E11.621 Type 2 diabetes mellitus with foot ulcer (principal); L97.422 Non-pressure chronic ulcer of left heel and midfoot with fat layer exposed; L84 Corns and callosities
CPT/HCPCS: 99183; 99213; G0277

== ENCOUNTER → 2022-01-26 11:28 | Outpatient (CLI) | payer MEDICARE, OTHER, SELFPAY ==
[2021-01-15 09:12] VITALS: BMI 30.4
== END ==
PROVIDERS: PCP Internal Medicine; Referring Provider Internal Medicine; Visit Provider Family Medicine
DX: E11.621 Type 2 diabetes mellitus with foot ulcer (principal); L97.422 Non-pressure chronic ulcer of left heel and midfoot with fat layer exposed; E11.40 Type 2 diabetes mellitus with diabetic neuropathy, unspecified; D64.9 Anemia, unspecified; N18.4 Chronic kidney disease, stage 4 (severe); M86.172 Other acute osteomyelitis, left ankle and foot; Z79.2 Long term (current) use of antibiotics
CPT/HCPCS: 99183; G0277

== ENCOUNTER → 2022-01-27 11:36 | Outpatient (CLI) | payer MEDICARE, OTHER, SELFPAY ==
[2021-01-15 09:12] VITALS: BMI 30.4
== END ==
PROVIDERS: PCP Internal Medicine; Referring Provider Internal Medicine; Visit Provider Family Medicine
DX: E11.621 Type 2 diabetes mellitus with foot ulcer (principal); L97.422 Non-pressure chronic ulcer of left heel and midfoot with fat layer exposed; R60.0 Localized edema; E11.69 Type 2 diabetes mellitus with other specified complication; M86.172 Other acute osteomyelitis, left ankle and foot; B96.4 Proteus (mirabilis) (morganii) as the cause of diseases classified elsewhere; R26.89 Other abnormalities of gait and mobility; E11.40 Type 2 diabetes mellitus with diabetic neuropathy, unspecified; E11.22 Type 2 diabetes mellitus with diabetic chronic kidney disease; N18.4 Chronic kidney disease, stage 4 (severe); I50.9 Heart failure, unspecified; D64.9 Anemia, unspecified; Z79.2 Long term (current) use of antibiotics
CPT/HCPCS: 93923; 99183; 99213; 99214; G0277

== ENCOUNTER → 2022-01-28 11:57 | Outpatient (CLI) | payer MEDICARE, OTHER, SELFPAY ==
[2021-01-15 09:12] VITALS: BMI 30.4
== END ==
PROVIDERS: PCP Internal Medicine; Referring Provider Internal Medicine; Visit Provider Family Medicine
DX: E11.621 Type 2 diabetes mellitus with foot ulcer (principal); L97.422 Non-pressure chronic ulcer of left heel and midfoot with fat layer exposed; E11.40 Type 2 diabetes mellitus with diabetic neuropathy, unspecified; D64.9 Anemia, unspecified; N18.4 Chronic kidney disease, stage 4 (severe); M86.172 Other acute osteomyelitis, left ankle and foot; Z79.2 Long term (current) use of antibiotics
CPT/HCPCS: 99183; G0277

== ENCOUNTER → 2022-02-01 13:06 | Outpatient (CLI) | payer MEDICARE, OTHER, SELFPAY ==
[2021-01-15 09:12] VITALS: BMI 30.4
== END ==
PROVIDERS: PCP Internal Medicine; Referring Provider Internal Medicine; Visit Provider Family Medicine
DX: E11.621 Type 2 diabetes mellitus with foot ulcer (principal); L97.422 Non-pressure chronic ulcer of left heel and midfoot with fat layer exposed; L84 Corns and callosities; E11.40 Type 2 diabetes mellitus with diabetic neuropathy, unspecified; D64.9 Anemia, unspecified; N18.4 Chronic kidney disease, stage 4 (severe); M86.172 Other acute osteomyelitis, left ankle and foot; Z79.2 Long term (current) use of antibiotics
CPT/HCPCS: 99183; 99213; G0277

== ENCOUNTER → 2022-02-03 07:12 | Outpatient (CLI) | payer MEDICARE, OTHER, SELFPAY ==
[2021-01-15 09:12] VITALS: BMI 30.4
[2022-02-03 08:31] LABS: Add Manual Diff / Slide Review NO; Basophils Absolute Auto 100 /uL (0-100); Eosinophils Absolute Auto 200 /uL (0-450); Eosinophils Percent Auto 4.7 % (2-4); Hematocrit 33.8 % (41-53); Hemoglobin 11.2 g/dL (13.5-17.5); Lymphocytes Absolute Auto 1000 /uL (1100-4500); Lymphocytes Percent Auto 20.3 % (25-40); Mean Corpuscular HGB Conc 33.2 % (30-36); Mean Corpuscular Volume 84.1 fL (80-100); Monocytes Absolute Auto 400 /uL (0-900); Monocytes Percent Auto 7.6 % (3-14); Neutrophils Absolute Auto 3300 /uL (1500-7000); Neutrophils Percent Auto 66.4 % (50-75); Platelet Count 192 X10^3/uL (150-400); Red Blood Cell Count 4.02 X10^6/uL (4.5-5.9); Red Cell Distribution Width 15.3 % (11.6-14.8)
[2022-02-03 08:58] LABS: BUN Creatinine Ratio 11.7 (6-22); Blood Urea Nitrogen 31 mg/dL (9-20); Calcium 8.6 mg/dL (8.4-10.2); Carbon Dioxide 34 mmol/L (22-32); Chloride 91 mmol/L (98-107); Estimated Glomerular Filt Rate 26 mL/min (>60); Glucose 414 mg/dL (80-110); HEMOLYSIS < 15 (0-50); Potassium 4.4 mmol/L (3.4-5.1); Sodium 131 mmol/L (137-145)
[2022-02-03 09:04] LABS: HEMOLYSIS < 15 (0-50); Iron 82 ug/dL (49-181)
[2022-02-03 09:15] LABS: Percent Iron Saturation 37 % (20-50); Total Iron Binding Capacity 224 ug/dL (261-462); Transferrin 164 mg/dL (206-381)
[2022-02-03 09:29] LABS: Ferritin 394 ng/mL (18-464)
== END ==
PROVIDERS: PCP Internal Medicine; Referring Provider Internal Medicine Nephrology; Visit Provider Internal Medicine Nephrology
DX: D50.9 Iron deficiency anemia, unspecified (principal); N18.4 Chronic kidney disease, stage 4 (severe); D63.1 Anemia in chronic kidney disease
CPT/HCPCS: 36415; 80048; 82728; 83540; 83550; 85025

== ENCOUNTER → 2022-02-03 08:43 | Outpatient (CLI) | payer MEDICARE, OTHER, SELFPAY ==
[2021-01-15 09:12] VITALS: BMI 30.4
--- NOTE | 2022-02-03 14:05 | PC.NURSE ---
Injection: Injection held r/t lab result. Pt verbalized understanding.
== END ==
PROVIDERS: PCP Internal Medicine; Referring Provider Physician Assistant; Visit Provider Physician Assistant
DX: N18.4 Chronic kidney disease, stage 4 (severe) (principal); D63.1 Anemia in chronic kidney disease

== ENCOUNTER → 2022-02-08 11:00 | Outpatient (CLI) | payer MEDICARE, OTHER, SELFPAY ==
[2021-01-15 09:12] VITALS: BMI 30.4
== END ==
PROVIDERS: PCP Internal Medicine; Referring Provider Internal Medicine; Visit Provider Family Medicine
DX: E11.621 Type 2 diabetes mellitus with foot ulcer (principal); L97.422 Non-pressure chronic ulcer of left heel and midfoot with fat layer exposed; L84 Corns and callosities; E11.40 Type 2 diabetes mellitus with diabetic neuropathy, unspecified; D64.9 Anemia, unspecified; N18.4 Chronic kidney disease, stage 4 (severe); M86.172 Other acute osteomyelitis, left ankle and foot; Z79.2 Long term (current) use of antibiotics
CPT/HCPCS: 99183; 99213; G0277

== ENCOUNTER → 2022-02-09 08:40 | Outpatient (CLI) | payer MEDICARE, OTHER, SELFPAY ==
[2021-01-15 09:12] VITALS: BMI 30.4
== END ==
PROVIDERS: PCP Internal Medicine; Referring Provider Internal Medicine; Visit Provider Family Medicine
DX: E11.621 Type 2 diabetes mellitus with foot ulcer (principal); L97.422 Non-pressure chronic ulcer of left heel and midfoot with fat layer exposed; E11.40 Type 2 diabetes mellitus with diabetic neuropathy, unspecified; D64.9 Anemia, unspecified; N18.4 Chronic kidney disease, stage 4 (severe); M86.172 Other acute osteomyelitis, left ankle and foot; Z79.2 Long term (current) use of antibiotics
CPT/HCPCS: 99183; G0277

== ENCOUNTER → 2022-02-10 08:17 | Outpatient (CLI) | payer MEDICARE, OTHER, SELFPAY ==
[2021-01-15 09:12] VITALS: BMI 30.4
== END ==
PROVIDERS: PCP Internal Medicine; Referring Provider Internal Medicine; Visit Provider Family Medicine
DX: E11.621 Type 2 diabetes mellitus with foot ulcer (principal); L97.422 Non-pressure chronic ulcer of left heel and midfoot with fat layer exposed; E11.40 Type 2 diabetes mellitus with diabetic neuropathy, unspecified; D64.9 Anemia, unspecified; N18.4 Chronic kidney disease, stage 4 (severe); M86.172 Other acute osteomyelitis, left ankle and foot; Z79.2 Long term (current) use of antibiotics
CPT/HCPCS: 97597; 97598; 99183; 99213; 99214; G0277

== ENCOUNTER → 2022-02-11 09:13 | Outpatient (CLI) | payer MEDICARE, OTHER, SELFPAY ==
[2021-01-15 09:12] VITALS: BMI 30.4
== END ==
PROVIDERS: PCP Internal Medicine; Referring Provider Internal Medicine; Visit Provider Family Medicine
DX: E11.621 Type 2 diabetes mellitus with foot ulcer (principal); L97.422 Non-pressure chronic ulcer of left heel and midfoot with fat layer exposed; E11.40 Type 2 diabetes mellitus with diabetic neuropathy, unspecified; D64.9 Anemia, unspecified; N18.4 Chronic kidney disease, stage 4 (severe); M86.172 Other acute osteomyelitis, left ankle and foot; Z79.2 Long term (current) use of antibiotics
CPT/HCPCS: 99183; G0277

== ENCOUNTER → 2022-02-12 09:10 | Outpatient (CLI) | payer MEDICARE, OTHER, SELFPAY ==
[2021-01-15 09:12] VITALS: BMI 30.4
== END ==
PROVIDERS: PCP Internal Medicine; Referring Provider Internal Medicine; Visit Provider Nurse Practitioner Family
DX: E11.621 Type 2 diabetes mellitus with foot ulcer (principal); L97.422 Non-pressure chronic ulcer of left heel and midfoot with fat layer exposed; L84 Corns and callosities; R60.0 Localized edema; E11.40 Type 2 diabetes mellitus with diabetic neuropathy, unspecified; D64.9 Anemia, unspecified; N18.4 Chronic kidney disease, stage 4 (severe); M86.172 Other acute osteomyelitis, left ankle and foot; Z79.2 Long term (current) use of antibiotics
CPT/HCPCS: 99183; 99213; G0277

== ENCOUNTER → 2022-02-15 11:47 | Outpatient (CLI) | payer MEDICARE, OTHER, SELFPAY ==
[2021-01-15 09:12] VITALS: BMI 30.4
== END ==
PROVIDERS: PCP Internal Medicine; Referring Provider Internal Medicine; Visit Provider Family Medicine
DX: E11.621 Type 2 diabetes mellitus with foot ulcer (principal); L97.422 Non-pressure chronic ulcer of left heel and midfoot with fat layer exposed; L84 Corns and callosities; E11.40 Type 2 diabetes mellitus with diabetic neuropathy, unspecified; D64.9 Anemia, unspecified; N18.4 Chronic kidney disease, stage 4 (severe); M86.172 Other acute osteomyelitis, left ankle and foot; Z79.2 Long term (current) use of antibiotics
CPT/HCPCS: 99183; 99212; G0277

== ENCOUNTER → 2022-02-16 07:02 | Outpatient (CLI) | payer MEDICARE, OTHER, SELFPAY ==
[2021-01-15 09:12] VITALS: BMI 30.4
[2022-02-16 07:55] LABS: Add Manual Diff / Slide Review NO; Basophils Absolute Auto 200 /uL (0-100); Basophils Percent Auto 3.2 % (0-2); Eosinophils Absolute Auto 400 /uL (0-450); Eosinophils Percent Auto 5.4 % (2-4); Hematocrit 30.7 % (41-53); Hemoglobin 10.2 g/dL (13.5-17.5); Lymphocytes Absolute Auto 1100 /uL (1100-4500); Lymphocytes Percent Auto 15.6 % (25-40); Mean Corpuscular HGB Conc 33.1 % (30-36); Mean Corpuscular Hemoglobin 27.6 PG (26-34); Mean Corpuscular Volume 83.4 fL (80-100); Monocytes Absolute Auto 700 /uL (0-900); Monocytes Percent Auto 9.4 % (3-14); Neutrophils Absolute Auto 4700 /uL (1500-7000); Neutrophils Percent Auto 66.4 % (50-75); Platelet Count 160 X10^3/uL (150-400); Red Blood Cell Count 3.68 X10^6/uL (4.5-5.9); Red Cell Distribution Width 15.3 % (11.6-14.8); White Blood Cell Count 7.1 X10^3/uL (4.5-11.0)
[2022-02-16 08:03] LABS: BUN Creatinine Ratio 16.1 (6-22); Blood Urea Nitrogen 47 mg/dL (9-20); Calcium 8.9 mg/dL (8.4-10.2); Carbon Dioxide 39 mmol/L (22-32); Chloride 98 mmol/L (98-107); Estimated Glomerular Filt Rate 23 mL/min (>60); Glucose 241 mg/dL (80-110); HEMOLYSIS < 15 (0-50); Potassium 3.7 mmol/L (3.4-5.1); Sodium 141 mmol/L (137-145)
[2022-02-16 08:08] LABS: HEMOLYSIS < 15 (0-50); Iron 68 ug/dL (49-181)
[2022-02-16 08:19] LABS: Percent Iron Saturation 32 % (20-50); Total Iron Binding Capacity 210 ug/dL (261-462); Transferrin 145 mg/dL (206-381)
[2022-02-16 08:39] LABS: Ferritin 461 ng/mL (18-464)
== END ==
PROVIDERS: PCP Internal Medicine; Referring Provider Internal Medicine Nephrology; Visit Provider Internal Medicine Nephrology
DX: N18.4 Chronic kidney disease, stage 4 (severe) (principal); D50.9 Iron deficiency anemia, unspecified; D63.1 Anemia in chronic kidney disease
CPT/HCPCS: 36415; 80048; 82728; 83540; 83550; 85025

== ENCOUNTER → 2022-02-16 08:47 | Outpatient (CLI) | payer MEDICARE, OTHER, SELFPAY ==
[2021-01-15 09:12] VITALS: BMI 30.4
== END ==
PROVIDERS: PCP Internal Medicine; Referring Provider Internal Medicine; Visit Provider Family Medicine
DX: E11.621 Type 2 diabetes mellitus with foot ulcer (principal); L97.422 Non-pressure chronic ulcer of left heel and midfoot with fat layer exposed; E11.40 Type 2 diabetes mellitus with diabetic neuropathy, unspecified; D64.9 Anemia, unspecified; N18.4 Chronic kidney disease, stage 4 (severe); M86.172 Other acute osteomyelitis, left ankle and foot; Z79.2 Long term (current) use of antibiotics; D50.9 Iron deficiency anemia, unspecified; D63.1 Anemia in chronic kidney disease
CPT/HCPCS: 36415; 80048; 82728; 83540; 83550; 85025; 99183; G0277

== ENCOUNTER → 2022-02-17 08:30 | Outpatient (CLI) | payer MEDICARE, OTHER, SELFPAY ==
[2021-01-15 09:12] VITALS: BMI 30.4
== END ==
PROVIDERS: PCP Internal Medicine; Referring Provider Internal Medicine; Visit Provider Nurse Practitioner Family
DX: E11.621 Type 2 diabetes mellitus with foot ulcer (principal); L97.422 Non-pressure chronic ulcer of left heel and midfoot with fat layer exposed; L84 Corns and callosities
CPT/HCPCS: 99212

== ENCOUNTER → 2022-02-17 09:32 | Outpatient (CLI) | payer MEDICARE, OTHER, SELFPAY ==
[2021-01-15 09:12] VITALS: BMI 30.4
[2022-02-17 10:03] VITALS: BP 181/71; PULSE 60; RESP 16; TEMP 36.6; O2SAT 98
[2022-02-17 10:15] VITALS: BP 179/70
[2022-02-17 10:46] VITALS: BP 167/64
[2022-02-17] MEDS: EPOETIN ALFA-EPBX 3,000 UNIT/ML VIAL 6000 UNIT SUBCUT (11:00)
== END ==
PROVIDERS: PCP Internal Medicine; Referring Provider Physician Assistant; Visit Provider Physician Assistant
DX: N18.4 Chronic kidney disease, stage 4 (severe) (principal); D63.1 Anemia in chronic kidney disease; E11.621 Type 2 diabetes mellitus with foot ulcer; L97.422 Non-pressure chronic ulcer of left heel and midfoot with fat layer exposed; L84 Corns and callosities
CPT/HCPCS: 96372; 99212; Q5106

== ENCOUNTER → 2022-02-23 11:44 | Outpatient (CLI) | payer MEDICARE, OTHER, SELFPAY ==
[2021-01-15 09:12] VITALS: BMI 30.4
== END ==
PROVIDERS: PCP Internal Medicine; Referring Provider Internal Medicine; Visit Provider Family Medicine
DX: E11.621 Type 2 diabetes mellitus with foot ulcer (principal); L97.422 Non-pressure chronic ulcer of left heel and midfoot with fat layer exposed; E11.40 Type 2 diabetes mellitus with diabetic neuropathy, unspecified; D64.9 Anemia, unspecified; N18.4 Chronic kidney disease, stage 4 (severe); M86.172 Other acute osteomyelitis, left ankle and foot; Z79.2 Long term (current) use of antibiotics
CPT/HCPCS: 99183; G0277

== ENCOUNTER → 2022-02-24 10:15 | Outpatient (CLI) | payer MEDICARE, OTHER, SELFPAY ==
[2021-01-15 09:12] VITALS: BMI 30.4
== END ==
PROVIDERS: PCP Internal Medicine; Referring Provider Internal Medicine; Visit Provider Family Medicine
DX: E11.621 Type 2 diabetes mellitus with foot ulcer (principal); L97.422 Non-pressure chronic ulcer of left heel and midfoot with fat layer exposed; E11.69 Type 2 diabetes mellitus with other specified complication; M86.172 Other acute osteomyelitis, left ankle and foot; B96.4 Proteus (mirabilis) (morganii) as the cause of diseases classified elsewhere; E11.40 Type 2 diabetes mellitus with diabetic neuropathy, unspecified; E11.22 Type 2 diabetes mellitus with diabetic chronic kidney disease; N18.4 Chronic kidney disease, stage 4 (severe); D64.9 Anemia, unspecified; I50.9 Heart failure, unspecified; Z79.2 Long term (current) use of antibiotics
CPT/HCPCS: 11042; 99183; G0277

== ENCOUNTER → 2022-02-25 12:09 | Outpatient (CLI) | payer MEDICARE, OTHER, SELFPAY ==
[2021-01-15 09:12] VITALS: BMI 30.4
== END ==
PROVIDERS: PCP Internal Medicine; Referring Provider Internal Medicine; Visit Provider Family Medicine
DX: E11.621 Type 2 diabetes mellitus with foot ulcer (principal); L97.422 Non-pressure chronic ulcer of left heel and midfoot with fat layer exposed; E11.40 Type 2 diabetes mellitus with diabetic neuropathy, unspecified; D64.9 Anemia, unspecified; N18.4 Chronic kidney disease, stage 4 (severe); M86.172 Other acute osteomyelitis, left ankle and foot; Z79.2 Long term (current) use of antibiotics
CPT/HCPCS: 99183; G0277

== ENCOUNTER → 2022-02-26 10:14 | Outpatient (CLI) | payer MEDICARE, OTHER, SELFPAY ==
[2021-01-15 09:12] VITALS: BMI 30.4
== END ==
PROVIDERS: PCP Internal Medicine; Referring Provider Internal Medicine; Visit Provider Nurse Practitioner Family
DX: E11.621 Type 2 diabetes mellitus with foot ulcer (principal); L97.422 Non-pressure chronic ulcer of left heel and midfoot with fat layer exposed; E11.40 Type 2 diabetes mellitus with diabetic neuropathy, unspecified; D64.9 Anemia, unspecified; N18.4 Chronic kidney disease, stage 4 (severe); M86.172 Other acute osteomyelitis, left ankle and foot; Z79.2 Long term (current) use of antibiotics
CPT/HCPCS: 99183; 99212; G0277

== ENCOUNTER → 2022-03-01 11:26 | Outpatient (CLI) | payer MEDICARE, OTHER, SELFPAY ==
[2021-01-15 09:12] VITALS: BMI 30.4
== END ==
PROVIDERS: PCP Internal Medicine; Referring Provider Internal Medicine; Visit Provider Family Medicine
DX: E11.621 Type 2 diabetes mellitus with foot ulcer (principal); L97.422 Non-pressure chronic ulcer of left heel and midfoot with fat layer exposed; E11.69 Type 2 diabetes mellitus with other specified complication; M86.172 Other acute osteomyelitis, left ankle and foot; B96.4 Proteus (mirabilis) (morganii) as the cause of diseases classified elsewhere; E11.65 Type 2 diabetes mellitus with hyperglycemia; E11.40 Type 2 diabetes mellitus with diabetic neuropathy, unspecified; E11.22 Type 2 diabetes mellitus with diabetic chronic kidney disease; N18.4 Chronic kidney disease, stage 4 (severe); D64.9 Anemia, unspecified; I50.9 Heart failure, unspecified; Z79.2 Long term (current) use of antibiotics; Z79.4 Long term (current) use of insulin
CPT/HCPCS: 99212; 99213

== ENCOUNTER → 2022-03-02 09:42 | Outpatient (CLI) | payer MEDICARE, OTHER, SELFPAY ==
[2021-01-15 09:12] VITALS: BMI 30.4
== END ==
PROVIDERS: PCP Internal Medicine; Referring Provider Internal Medicine; Visit Provider Family Medicine
DX: E11.621 Type 2 diabetes mellitus with foot ulcer (principal); L97.422 Non-pressure chronic ulcer of left heel and midfoot with fat layer exposed; E11.40 Type 2 diabetes mellitus with diabetic neuropathy, unspecified; D64.9 Anemia, unspecified; N18.4 Chronic kidney disease, stage 4 (severe); M86.172 Other acute osteomyelitis, left ankle and foot; Z79.2 Long term (current) use of antibiotics; E11.65 Type 2 diabetes mellitus with hyperglycemia
CPT/HCPCS: 99183; G0277

== ENCOUNTER → 2022-03-03 06:58 | Outpatient (CLI) | payer MEDICARE, OTHER, SELFPAY ==
[2021-01-15 09:12] VITALS: BMI 30.4
[2022-03-03 07:52] LABS: BUN Creatinine Ratio 21.5 (6-22); Blood Urea Nitrogen 58 mg/dL (9-20); Calcium 8.5 mg/dL (8.4-10.2); Carbon Dioxide 35 mmol/L (22-32); Chloride 95 mmol/L (98-107); Estimated Glomerular Filt Rate 26 mL/min (>60); Glucose 287 mg/dL (80-110); HEMOLYSIS < 15 (0-50); Potassium 3.9 mmol/L (3.4-5.1); Sodium 138 mmol/L (137-145)
== END ==
PROVIDERS: PCP Internal Medicine; Referring Provider Internal Medicine Nephrology; Visit Provider Internal Medicine Nephrology
DX: E87.5 Hyperkalemia (principal)
CPT/HCPCS: 36415; 80048

== ENCOUNTER → 2022-03-03 09:31 | Outpatient (CLI) | payer MEDICARE, OTHER, SELFPAY ==
[2021-01-15 09:12] VITALS: BMI 30.4
[2022-03-03 12:23] LABS: Add Manual Diff / Slide Review NO; Basophils Absolute Auto 100 /uL (0-100); Basophils Percent Auto 1.2 % (0-2); Eosinophils Absolute Auto 300 /uL (0-450); Eosinophils Percent Auto 5.4 % (2-4); Hematocrit 31.1 % (41-53); Hemoglobin 10.5 g/dL (13.5-17.5); Lymphocytes Absolute Auto 1500 /uL (1100-4500); Lymphocytes Percent Auto 31.7 % (25-40); Mean Corpuscular HGB Conc 33.8 % (30-36); Mean Corpuscular Hemoglobin 27.9 PG (26-34); Mean Corpuscular Volume 82.7 fL (80-100); Monocytes Absolute Auto 500 /uL (0-900); Monocytes Percent Auto 10.1 % (3-14); Neutrophils Absolute Auto 2400 /uL (1500-7000); Neutrophils Percent Auto 51.6 % (50-75); Platelet Count 148 X10^3/uL (150-400); Red Blood Cell Count 3.76 X10^6/uL (4.5-5.9); Red Cell Distribution Width 15.7 % (11.6-14.8); White Blood Cell Count 4.7 X10^3/uL (4.5-11.0)
== END ==
PROVIDERS: Internal Medicine Nephrology; PCP Internal Medicine; Referring Provider Internal Medicine; Visit Provider Family Medicine
DX: D63.1 Anemia in chronic kidney disease (principal); E11.621 Type 2 diabetes mellitus with foot ulcer; L97.422 Non-pressure chronic ulcer of left heel and midfoot with fat layer exposed; E11.40 Type 2 diabetes mellitus with diabetic neuropathy, unspecified; D64.9 Anemia, unspecified; N18.4 Chronic kidney disease, stage 4 (severe); M86.172 Other acute osteomyelitis, left ankle and foot; Z79.2 Long term (current) use of antibiotics; E11.65 Type 2 diabetes mellitus with hyperglycemia
CPT/HCPCS: 85025; 99183; G0277

== ENCOUNTER → 2022-03-03 13:17 | Outpatient (CLI) | payer MEDICARE, OTHER, SELFPAY ==
[2021-01-15 09:12] VITALS: BMI 30.4
[2022-03-03 13:41] VITALS: BP 177/65; PULSE 57; RESP 16; TEMP 36.6; O2SAT 99
[2022-03-03 13:49] VITALS: BP 170/66
[2022-03-03 14:10] VITALS: BP 176/63
[2022-03-03] MEDS: EPOETIN ALFA-EPBX 3,000 UNIT/ML VIAL 6000 UNIT SUBCUT (14:15)
--- NOTE | 2022-03-03 14:22 | PC.NURSE ---
HYPERTENSION Pt reports to clinic post hyperbaric oxygen treatment for diabetic foot ulcer. Pt states I am always high after being in the tank. BP 177/65. Pt stated he took his BP medications as prescribed this morning. Ten minutes later BP was 170/66. Pt denied chest pain, shortness of breath. Final BP taken 30 minutes post arrival time and was 176/63. Procrit administered per MD orders/parameters. Encouraged Pt to recheck his BP tonight and continue to monitor his BP frequently until his follow-up with Dr. Wood next month. Also instructed Pt to seek medical attention if chest pain, vison changes, shortness of breath. Pt voiced understanding.
== END ==
PROVIDERS: PCP Internal Medicine; Referring Provider Physician Assistant; Visit Provider Physician Assistant
DX: E11.621 Type 2 diabetes mellitus with foot ulcer; N18.4 Chronic kidney disease, stage 4 (severe); D63.1 Anemia in chronic kidney disease; L97.422 Non-pressure chronic ulcer of left heel and midfoot with fat layer exposed; M86.172 Other acute osteomyelitis, left ankle and foot; E11.40 Type 2 diabetes mellitus with diabetic neuropathy, unspecified; E11.65 Type 2 diabetes mellitus with hyperglycemia; Z79.2 Long term (current) use of antibiotics
CPT/HCPCS: 36415; 80048; 85025; 96372; G0277; Q5106

== ENCOUNTER → 2022-03-04 09:16 | Outpatient (CLI) | payer MEDICARE, OTHER, SELFPAY ==
[2021-01-15 09:12] VITALS: BMI 30.4
== END ==
PROVIDERS: PCP Internal Medicine; Referring Provider Internal Medicine; Visit Provider Family Medicine
DX: E11.621 Type 2 diabetes mellitus with foot ulcer (principal); L97.422 Non-pressure chronic ulcer of left heel and midfoot with fat layer exposed; E11.40 Type 2 diabetes mellitus with diabetic neuropathy, unspecified; D64.9 Anemia, unspecified; N18.4 Chronic kidney disease, stage 4 (severe); M86.172 Other acute osteomyelitis, left ankle and foot; Z79.2 Long term (current) use of antibiotics; E11.65 Type 2 diabetes mellitus with hyperglycemia
CPT/HCPCS: 99183; G0277

== ENCOUNTER → 2022-03-08 08:51 | Outpatient (CLI) | payer MEDICARE, OTHER, SELFPAY ==
[2021-01-15 09:12] VITALS: BMI 30.4
== END ==
PROVIDERS: PCP Internal Medicine; Referring Provider Internal Medicine; Visit Provider Family Medicine
DX: E11.621 Type 2 diabetes mellitus with foot ulcer (principal); L97.422 Non-pressure chronic ulcer of left heel and midfoot with fat layer exposed; B35.3 Tinea pedis; E11.65 Type 2 diabetes mellitus with hyperglycemia; E11.40 Type 2 diabetes mellitus with diabetic neuropathy, unspecified; E11.69 Type 2 diabetes mellitus with other specified complication; M86.172 Other acute osteomyelitis, left ankle and foot; B96.4 Proteus (mirabilis) (morganii) as the cause of diseases classified elsewhere; E11.22 Type 2 diabetes mellitus with diabetic chronic kidney disease; N18.4 Chronic kidney disease, stage 4 (severe); D64.9 Anemia, unspecified; I50.9 Heart failure, unspecified; Z79.2 Long term (current) use of antibiotics; Z79.4 Long term (current) use of insulin
CPT/HCPCS: 99183; 99213; 99214; G0277

== ENCOUNTER → 2022-03-09 08:47 | Outpatient (CLI) | payer MEDICARE, OTHER, SELFPAY ==
[2021-01-15 09:12] VITALS: BMI 30.4
== END ==
PROVIDERS: PCP Internal Medicine; Referring Provider Internal Medicine; Visit Provider Family Medicine
DX: E11.621 Type 2 diabetes mellitus with foot ulcer (principal); L97.422 Non-pressure chronic ulcer of left heel and midfoot with fat layer exposed; E11.40 Type 2 diabetes mellitus with diabetic neuropathy, unspecified; D64.9 Anemia, unspecified; N18.4 Chronic kidney disease, stage 4 (severe); M86.172 Other acute osteomyelitis, left ankle and foot; Z79.2 Long term (current) use of antibiotics; E11.65 Type 2 diabetes mellitus with hyperglycemia
CPT/HCPCS: 99183; G0277

== ENCOUNTER → 2022-03-12 08:43 | Outpatient (CLI) | payer MEDICARE, OTHER, SELFPAY ==
[2021-01-15 09:12] VITALS: BMI 30.4
== END ==
PROVIDERS: PCP Internal Medicine; Referring Provider Internal Medicine; Visit Provider Nurse Practitioner Family
DX: E11.621 Type 2 diabetes mellitus with foot ulcer (principal); L97.422 Non-pressure chronic ulcer of left heel and midfoot with fat layer exposed; E11.40 Type 2 diabetes mellitus with diabetic neuropathy, unspecified; D64.9 Anemia, unspecified; N18.4 Chronic kidney disease, stage 4 (severe); M86.172 Other acute osteomyelitis, left ankle and foot; Z79.2 Long term (current) use of antibiotics; E11.65 Type 2 diabetes mellitus with hyperglycemia
CPT/HCPCS: 99183; G0277

== ENCOUNTER → 2022-03-16 11:41 | Outpatient (CLI) | payer MEDICARE, OTHER, SELFPAY ==
[2021-01-15 09:12] VITALS: BMI 30.4
== END ==
PROVIDERS: PCP Internal Medicine; Referring Provider Internal Medicine; Visit Provider Nurse Practitioner Family
DX: E11.621 Type 2 diabetes mellitus with foot ulcer (principal); L97.422 Non-pressure chronic ulcer of left heel and midfoot with fat layer exposed; E11.40 Type 2 diabetes mellitus with diabetic neuropathy, unspecified; D64.9 Anemia, unspecified; N18.4 Chronic kidney disease, stage 4 (severe); M86.172 Other acute osteomyelitis, left ankle and foot; Z79.2 Long term (current) use of antibiotics; E11.65 Type 2 diabetes mellitus with hyperglycemia
CPT/HCPCS: 99183; G0277

== ENCOUNTER → 2022-03-17 09:43 | Outpatient (CLI) | payer MEDICARE, OTHER, SELFPAY ==
[2021-01-15 09:12] VITALS: BMI 30.4
== END ==
PROVIDERS: PCP Internal Medicine; Referring Provider Internal Medicine; Visit Provider Family Medicine
DX: E11.621 Type 2 diabetes mellitus with foot ulcer (principal); L97.422 Non-pressure chronic ulcer of left heel and midfoot with fat layer exposed; E11.40 Type 2 diabetes mellitus with diabetic neuropathy, unspecified; D64.9 Anemia, unspecified; N18.4 Chronic kidney disease, stage 4 (severe); M86.172 Other acute osteomyelitis, left ankle and foot; Z79.2 Long term (current) use of antibiotics; E11.65 Type 2 diabetes mellitus with hyperglycemia; R60.0 Localized edema; E11.69 Type 2 diabetes mellitus with other specified complication; B96.4 Proteus (mirabilis) (morganii) as the cause of diseases classified elsewhere; E11.22 Type 2 diabetes mellitus with diabetic chronic kidney disease; I50.9 Heart failure, unspecified; Z79.4 Long term (current) use of insulin
CPT/HCPCS: 11042; 99183; 99213; 99214; G0277

== ENCOUNTER → 2022-03-17 12:26 | Outpatient (CLI) | payer MEDICARE, OTHER, SELFPAY ==
[2021-01-15 09:12] VITALS: BMI 30.4
[2022-03-17 12:57] VITALS: BP 151/58; PULSE 50; RESP 18; TEMP 36.2
[2022-03-17] MEDS: EPOETIN ALFA-EPBX 3,000 UNIT/ML VIAL 6000 UNIT SUBCUT (13:59)
== END ==
PROVIDERS: PCP Internal Medicine; Referring Provider Physician Assistant; Visit Provider Physician Assistant
DX: I12.9 Hypertensive chronic kidney disease with stage 1 through stage 4 chronic kidney disease, or unspecified chronic kidney disease; N18.4 Chronic kidney disease, stage 4 (severe); D63.1 Anemia in chronic kidney disease; E11.621 Type 2 diabetes mellitus with foot ulcer; L97.422 Non-pressure chronic ulcer of left heel and midfoot with fat layer exposed; E11.40 Type 2 diabetes mellitus with diabetic neuropathy, unspecified; D64.9 Anemia, unspecified; M86.172 Other acute osteomyelitis, left ankle and foot; Z79.2 Long term (current) use of antibiotics; E11.65 Type 2 diabetes mellitus with hyperglycemia; R60.0 Localized edema; E11.69 Type 2 diabetes mellitus with other specified complication; B96.4 Proteus (mirabilis) (morganii) as the cause of diseases classified elsewhere; E11.22 Type 2 diabetes mellitus with diabetic chronic kidney disease; I50.9 Heart failure, unspecified; Z79.4 Long term (current) use of insulin
CPT/HCPCS: 11042; 36415; 80048; 82728; 83540; 83550; 85025; 96372; 99213; G0277; Q5106

== ENCOUNTER → 2022-03-18 09:54 | Outpatient (CLI) | payer MEDICARE, OTHER, SELFPAY ==
[2021-01-15 09:12] VITALS: BMI 30.4
== END ==
PROVIDERS: PCP Internal Medicine; Referring Provider Internal Medicine; Visit Provider Family Medicine
DX: E11.621 Type 2 diabetes mellitus with foot ulcer (principal); L97.422 Non-pressure chronic ulcer of left heel and midfoot with fat layer exposed; E11.40 Type 2 diabetes mellitus with diabetic neuropathy, unspecified; D64.9 Anemia, unspecified; N18.4 Chronic kidney disease, stage 4 (severe); M86.172 Other acute osteomyelitis, left ankle and foot; Z79.2 Long term (current) use of antibiotics; E11.65 Type 2 diabetes mellitus with hyperglycemia
CPT/HCPCS: 99183; G0277

== ENCOUNTER → 2022-03-19 08:58 | Outpatient (CLI) | payer MEDICARE, OTHER, SELFPAY ==
[2021-01-15 09:12] VITALS: BMI 30.4
== END ==
PROVIDERS: PCP Internal Medicine; Referring Provider Internal Medicine; Visit Provider Nurse Practitioner Family
DX: E11.621 Type 2 diabetes mellitus with foot ulcer (principal); L97.422 Non-pressure chronic ulcer of left heel and midfoot with fat layer exposed; E11.40 Type 2 diabetes mellitus with diabetic neuropathy, unspecified; D64.9 Anemia, unspecified; N18.4 Chronic kidney disease, stage 4 (severe); M86.172 Other acute osteomyelitis, left ankle and foot; Z79.2 Long term (current) use of antibiotics; E11.65 Type 2 diabetes mellitus with hyperglycemia
CPT/HCPCS: 99183; 99213; G0277

== ENCOUNTER → 2022-03-22 09:46 | Outpatient (CLI) | payer MEDICARE, OTHER, SELFPAY ==
[2021-01-15 09:12] VITALS: BMI 30.4
== END ==
PROVIDERS: PCP Internal Medicine; Referring Provider Internal Medicine; Visit Provider Family Medicine
DX: E11.621 Type 2 diabetes mellitus with foot ulcer (principal); L97.422 Non-pressure chronic ulcer of left heel and midfoot with fat layer exposed; E11.40 Type 2 diabetes mellitus with diabetic neuropathy, unspecified; D64.9 Anemia, unspecified; N18.4 Chronic kidney disease, stage 4 (severe); M86.172 Other acute osteomyelitis, left ankle and foot; Z79.2 Long term (current) use of antibiotics; E11.65 Type 2 diabetes mellitus with hyperglycemia
CPT/HCPCS: 99183; 99212; 99214; G0277

== ENCOUNTER → 2022-03-23 09:16 | Outpatient (CLI) | payer MEDICARE, OTHER, SELFPAY ==
[2021-01-15 09:12] VITALS: BMI 30.4
== END ==
PROVIDERS: PCP Internal Medicine; Referring Provider Internal Medicine; Visit Provider Family Medicine
DX: E11.621 Type 2 diabetes mellitus with foot ulcer (principal); L97.422 Non-pressure chronic ulcer of left heel and midfoot with fat layer exposed; E11.40 Type 2 diabetes mellitus with diabetic neuropathy, unspecified; D64.9 Anemia, unspecified; N18.4 Chronic kidney disease, stage 4 (severe); M86.172 Other acute osteomyelitis, left ankle and foot; Z79.2 Long term (current) use of antibiotics; E11.65 Type 2 diabetes mellitus with hyperglycemia
CPT/HCPCS: 99183; G0277

== ENCOUNTER → 2022-03-24 08:53 | Outpatient (CLI) | payer MEDICARE, OTHER, SELFPAY ==
[2021-01-15 09:12] VITALS: BMI 30.4
== END ==
PROVIDERS: PCP Internal Medicine; Referring Provider Internal Medicine; Visit Provider Family Medicine
DX: E11.621 Type 2 diabetes mellitus with foot ulcer (principal); L97.422 Non-pressure chronic ulcer of left heel and midfoot with fat layer exposed; E11.65 Type 2 diabetes mellitus with hyperglycemia; E11.69 Type 2 diabetes mellitus with other specified complication; M86.172 Other acute osteomyelitis, left ankle and foot; B96.4 Proteus (mirabilis) (morganii) as the cause of diseases classified elsewhere; L89.153 Pressure ulcer of sacral region, stage 3; E11.40 Type 2 diabetes mellitus with diabetic neuropathy, unspecified; E11.22 Type 2 diabetes mellitus with diabetic chronic kidney disease; N18.4 Chronic kidney disease, stage 4 (severe); D64.9 Anemia, unspecified; I50.9 Heart failure, unspecified; Z79.2 Long term (current) use of antibiotics
CPT/HCPCS: 99214

== ENCOUNTER → 2022-03-31 08:30 | Outpatient (CLI) | payer MEDICARE, OTHER, SELFPAY ==
[2021-01-15 09:12] VITALS: BMI 30.4
[2022-03-31 09:15] LABS: Add Manual Diff / Slide Review NO; Basophils Absolute Auto 0 /uL (0-100); Basophils Percent Auto 0.7 % (0-2); Eosinophils Absolute Auto 200 /uL (0-450); Eosinophils Percent Auto 5.1 % (2-4); Hematocrit 29.9 % (41-53); Hemoglobin 10.2 g/dL (13.5-17.5); Lymphocytes Absolute Auto 1400 /uL (1100-4500); Lymphocytes Percent Auto 29.7 % (25-40); Mean Corpuscular HGB Conc 34.1 % (30-36); Mean Corpuscular Hemoglobin 28.6 PG (26-34); Mean Corpuscular Volume 83.9 fL (80-100); Monocytes Absolute Auto 500 /uL (0-900); Monocytes Percent Auto 10.1 % (3-14); Neutrophils Absolute Auto 2600 /uL (1500-7000); Neutrophils Percent Auto 54.4 % (50-75); Platelet Count 170 X10^3/uL (150-400); Red Blood Cell Count 3.56 X10^6/uL (4.5-5.9); Red Cell Distribution Width 15.8 % (11.6-14.8); White Blood Cell Count 4.7 X10^3/uL (4.5-11.0)
[2022-03-31 09:24] LABS: BUN Creatinine Ratio 19.6 (6-22); Blood Urea Nitrogen 50 mg/dL (9-20); Calcium 8.7 mg/dL (8.4-10.2); Chloride 92 mmol/L (98-107); Estimated Glomerular Filt Rate 28 mL/min (>60); Glucose 347 mg/dL (80-110); HEMOLYSIS < 15 (0-50); Potassium 4.7 mmol/L (3.4-5.1); Sodium 137 mmol/L (137-145)
[2022-03-31 09:49] LABS: Carbon Dioxide 40 mmol/L (22-32)
[2022-03-31 09:58] LABS: Ferritin 398 ng/mL (18-464)
[2022-03-31 13:16] LABS: HEMOLYSIS < 15 (0-50); Iron 72 ug/dL (49-181)
[2022-03-31 13:25] LABS: Percent Iron Saturation 31 % (20-50); Total Iron Binding Capacity 234 ug/dL (261-462); Transferrin 189 mg/dL (206-381)
== END ==
PROVIDERS: PCP Internal Medicine; Referring Provider Internal Medicine Nephrology; Visit Provider Internal Medicine Nephrology
DX: D50.9 Iron deficiency anemia, unspecified (principal); N18.4 Chronic kidney disease, stage 4 (severe); D63.1 Anemia in chronic kidney disease
CPT/HCPCS: 36415; 80048; 82728; 83540; 83550; 85025

== ENCOUNTER → 2022-03-31 10:28 | Outpatient (CLI) | payer MEDICARE, OTHER, SELFPAY ==
[2021-01-15 09:12] VITALS: BMI 30.4
== END ==
PROVIDERS: PCP Internal Medicine; Referring Provider Internal Medicine; Visit Provider Family Medicine
DX: E11.621 Type 2 diabetes mellitus with foot ulcer (principal); L97.422 Non-pressure chronic ulcer of left heel and midfoot with fat layer exposed; E11.69 Type 2 diabetes mellitus with other specified complication; M86.172 Other acute osteomyelitis, left ankle and foot; B96.4 Proteus (mirabilis) (morganii) as the cause of diseases classified elsewhere; L89.153 Pressure ulcer of sacral region, stage 3; E11.65 Type 2 diabetes mellitus with hyperglycemia; E11.40 Type 2 diabetes mellitus with diabetic neuropathy, unspecified; N18.4 Chronic kidney disease, stage 4 (severe); D64.9 Anemia, unspecified; I50.9 Heart failure, unspecified; Z79.2 Long term (current) use of antibiotics; Z79.4 Long term (current) use of insulin
CPT/HCPCS: 11042; 99212

== ENCOUNTER → 2022-03-31 11:41 | Outpatient (CLI) | payer MEDICARE, OTHER, SELFPAY ==
[2021-01-15 09:12] VITALS: BMI 30.4
[2022-03-31 11:55] VITALS: BP 168/61; PULSE 58; RESP 18; TEMP 36.8; O2SAT 99
[2022-03-31] MEDS: EPOETIN ALFA-EPBX 3,000 UNIT/ML VIAL 6000 UNIT SUBCUT (12:03)
== END ==
PROVIDERS: PCP Internal Medicine; Referring Provider Internal Medicine; Visit Provider Physician Assistant
DX: E11.22 Type 2 diabetes mellitus with diabetic chronic kidney disease (principal); N18.4 Chronic kidney disease, stage 4 (severe); D63.1 Anemia in chronic kidney disease; E11.621 Type 2 diabetes mellitus with foot ulcer; L97.422 Non-pressure chronic ulcer of left heel and midfoot with fat layer exposed; M86.172 Other acute osteomyelitis, left ankle and foot; B96.4 Proteus (mirabilis) (morganii) as the cause of diseases classified elsewhere; L89.153 Pressure ulcer of sacral region, stage 3; E11.65 Type 2 diabetes mellitus with hyperglycemia; E11.40 Type 2 diabetes mellitus with diabetic neuropathy, unspecified; Z79.2 Long term (current) use of antibiotics; Z79.4 Long term (current) use of insulin
CPT/HCPCS: 11042; 36415; 80048; 82728; 83540; 83550; 85025; 96372; 99212; Q5106

== ENCOUNTER → 2022-04-02 08:48 | Outpatient (CLI) | payer MEDICARE, OTHER, SELFPAY ==
[2021-01-15 09:12] VITALS: BMI 30.4
== END ==
PROVIDERS: PCP Internal Medicine; Referring Provider Internal Medicine; Visit Provider Family Medicine
DX: E11.621 Type 2 diabetes mellitus with foot ulcer (principal); L97.422 Non-pressure chronic ulcer of left heel and midfoot with fat layer exposed; L84 Corns and callosities; R60.0 Localized edema; L89.153 Pressure ulcer of sacral region, stage 3
CPT/HCPCS: 99213

== ENCOUNTER → 2022-04-06 10:05 | Outpatient (CLI) | payer MEDICARE, OTHER, SELFPAY ==
[2021-01-15 09:12] VITALS: BMI 30.4
== END ==
PROVIDERS: PCP Internal Medicine; Referring Provider Internal Medicine; Visit Provider Family Medicine
DX: E11.621 Type 2 diabetes mellitus with foot ulcer (principal); L97.422 Non-pressure chronic ulcer of left heel and midfoot with fat layer exposed; E11.69 Type 2 diabetes mellitus with other specified complication; M86.172 Other acute osteomyelitis, left ankle and foot; B96.4 Proteus (mirabilis) (morganii) as the cause of diseases classified elsewhere; E11.65 Type 2 diabetes mellitus with hyperglycemia; E11.51 Type 2 diabetes mellitus with diabetic peripheral angiopathy without gangrene; E11.40 Type 2 diabetes mellitus with diabetic neuropathy, unspecified; E11.22 Type 2 diabetes mellitus with diabetic chronic kidney disease; N18.4 Chronic kidney disease, stage 4 (severe); D64.9 Anemia, unspecified; Z79.2 Long term (current) use of antibiotics; Z79.4 Long term (current) use of insulin
CPT/HCPCS: 97597; 99213

== ENCOUNTER → 2022-04-14 09:27 | Outpatient (CLI) | payer MEDICARE, OTHER, SELFPAY ==
[2021-01-15 09:12] VITALS: BMI 30.4
== END ==
PROVIDERS: PCP Internal Medicine; Referring Provider Internal Medicine; Visit Provider Family Medicine
DX: E11.621 Type 2 diabetes mellitus with foot ulcer (principal); L97.422 Non-pressure chronic ulcer of left heel and midfoot with fat layer exposed; R60.0 Localized edema; E11.69 Type 2 diabetes mellitus with other specified complication; M86.172 Other acute osteomyelitis, left ankle and foot; B96.4 Proteus (mirabilis) (morganii) as the cause of diseases classified elsewhere; E11.40 Type 2 diabetes mellitus with diabetic neuropathy, unspecified; E11.22 Type 2 diabetes mellitus with diabetic chronic kidney disease; N18.4 Chronic kidney disease, stage 4 (severe); D64.9 Anemia, unspecified; I50.9 Heart failure, unspecified; Z79.2 Long term (current) use of antibiotics
CPT/HCPCS: 11042; 99214

== ENCOUNTER → 2022-04-14 10:11 | Outpatient (CLI) | payer MEDICARE, OTHER, SELFPAY ==
[2021-01-15 09:12] VITALS: BMI 30.4
[2022-04-14 11:40] LABS: Add Manual Diff / Slide Review NO; Basophils Absolute Auto 0 /uL (0-100); Basophils Percent Auto 0.8 % (0-2); Eosinophils Absolute Auto 200 /uL (0-450); Eosinophils Percent Auto 4.5 % (2-4); Hematocrit 29.2 % (41-53); Lymphocytes Absolute Auto 1400 /uL (1100-4500); Lymphocytes Percent Auto 28.2 % (25-40); Mean Corpuscular HGB Conc 34.2 % (30-36); Mean Corpuscular Hemoglobin 28.6 PG (26-34); Mean Corpuscular Volume 83.7 fL (80-100); Monocytes Absolute Auto 400 /uL (0-900); Neutrophils Absolute Auto 2800 /uL (1500-7000); Neutrophils Percent Auto 57.5 % (50-75); Platelet Count 171 X10^3/uL (150-400); Red Blood Cell Count 3.49 X10^6/uL (4.5-5.9); Red Cell Distribution Width 15.6 % (11.6-14.8); White Blood Cell Count 4.8 X10^3/uL (4.5-11.0)
[2022-04-14 12:04] LABS: BUN Creatinine Ratio 13.8 (6-22); Blood Urea Nitrogen 37 mg/dL (9-20); Calcium 8.2 mg/dL (8.4-10.2); Carbon Dioxide 39 mmol/L (22-32); Chloride 90 mmol/L (98-107); Estimated Glomerular Filt Rate 26 mL/min (>60); Glucose 315 mg/dL (80-110); HEMOLYSIS < 15 (0-50); Potassium 4.4 mmol/L (3.4-5.1); Sodium 134 mmol/L (137-145)
== END ==
PROVIDERS: PCP Internal Medicine; Referring Provider Internal Medicine Nephrology; Visit Provider Internal Medicine Nephrology
DX: N18.4 Chronic kidney disease, stage 4 (severe) (principal); D50.9 Iron deficiency anemia, unspecified; D63.1 Anemia in chronic kidney disease
CPT/HCPCS: 36415; 80048; 85025

== ENCOUNTER → 2022-04-14 11:56 | Outpatient (CLI) | payer MEDICARE, OTHER, SELFPAY ==
[2021-01-15 09:12] VITALS: BMI 30.4
[2022-04-14 12:13] VITALS: BP 165/61; PULSE 66; RESP 18; TEMP 37.3; O2SAT 100
[2022-04-14] MEDS: EPOETIN ALFA-EPBX 3,000 UNIT/ML VIAL 6000 UNIT SUBCUT (12:38)
== END ==
PROVIDERS: PCP Internal Medicine; Referring Provider Physician Assistant; Visit Provider Physician Assistant
DX: E11.22 Type 2 diabetes mellitus with diabetic chronic kidney disease (principal); N18.4 Chronic kidney disease, stage 4 (severe); D63.1 Anemia in chronic kidney disease; E11.621 Type 2 diabetes mellitus with foot ulcer; L97.422 Non-pressure chronic ulcer of left heel and midfoot with fat layer exposed; R60.0 Localized edema; E11.69 Type 2 diabetes mellitus with other specified complication; M86.172 Other acute osteomyelitis, left ankle and foot; B96.4 Proteus (mirabilis) (morganii) as the cause of diseases classified elsewhere; E11.40 Type 2 diabetes mellitus with diabetic neuropathy, unspecified; I50.9 Heart failure, unspecified; Z79.2 Long term (current) use of antibiotics
CPT/HCPCS: 11042; 36415; 80048; 85025; 96372; Q5106

== ENCOUNTER → 2022-04-19 09:10 | Outpatient (CLI) | payer MEDICARE, OTHER, SELFPAY ==
[2021-01-15 09:12] VITALS: BMI 30.4
== END ==
PROVIDERS: PCP Internal Medicine; Referring Provider Internal Medicine; Visit Provider Family Medicine
DX: E11.621 Type 2 diabetes mellitus with foot ulcer (principal); L97.422 Non-pressure chronic ulcer of left heel and midfoot with fat layer exposed; E11.40 Type 2 diabetes mellitus with diabetic neuropathy, unspecified; D64.9 Anemia, unspecified; N18.4 Chronic kidney disease, stage 4 (severe); M86.172 Other acute osteomyelitis, left ankle and foot; Z79.2 Long term (current) use of antibiotics; E11.65 Type 2 diabetes mellitus with hyperglycemia; L89.153 Pressure ulcer of sacral region, stage 3; I73.9 Peripheral vascular disease, unspecified
CPT/HCPCS: 99183; G0277

== ENCOUNTER → 2022-04-20 08:55 | Outpatient (CLI) | payer MEDICARE, OTHER, SELFPAY ==
[2021-01-15 09:12] VITALS: BMI 30.4
== END ==
PROVIDERS: PCP Internal Medicine; Referring Provider Internal Medicine; Visit Provider Family Medicine
DX: E11.621 Type 2 diabetes mellitus with foot ulcer (principal); L97.422 Non-pressure chronic ulcer of left heel and midfoot with fat layer exposed; E11.40 Type 2 diabetes mellitus with diabetic neuropathy, unspecified; D64.9 Anemia, unspecified; N18.4 Chronic kidney disease, stage 4 (severe); M86.172 Other acute osteomyelitis, left ankle and foot; Z79.2 Long term (current) use of antibiotics; E11.65 Type 2 diabetes mellitus with hyperglycemia; L89.153 Pressure ulcer of sacral region, stage 3; I73.9 Peripheral vascular disease, unspecified
CPT/HCPCS: 99183; G0277

== ENCOUNTER → 2022-04-26 08:56 | Outpatient (CLI) | payer MEDICARE, OTHER, SELFPAY ==
[2021-01-15 09:12] VITALS: BMI 30.4
== END ==
PROVIDERS: PCP Internal Medicine; Referring Provider Internal Medicine; Visit Provider Family Medicine
DX: E11.621 Type 2 diabetes mellitus with foot ulcer (principal); L97.422 Non-pressure chronic ulcer of left heel and midfoot with fat layer exposed; E11.40 Type 2 diabetes mellitus with diabetic neuropathy, unspecified; D64.9 Anemia, unspecified; N18.4 Chronic kidney disease, stage 4 (severe); M86.172 Other acute osteomyelitis, left ankle and foot; Z79.2 Long term (current) use of antibiotics; E11.65 Type 2 diabetes mellitus with hyperglycemia; L89.153 Pressure ulcer of sacral region, stage 3; I73.9 Peripheral vascular disease, unspecified
CPT/HCPCS: 99183; G0277

== ENCOUNTER → 2022-04-27 06:59 | Outpatient (CLI) | payer MEDICARE, OTHER, SELFPAY ==
[2021-01-15 09:12] VITALS: BMI 30.4
[2022-04-27 08:11] LABS: Add Manual Diff / Slide Review NO; Basophils Absolute Auto 0 /uL (0-100); Basophils Percent Auto 0.4 % (0-2); Eosinophils Absolute Auto 300 /uL (0-450); Eosinophils Percent Auto 2.8 % (2-4); Hematocrit 30.1 % (41-53); Hemoglobin 10.4 g/dL (13.5-17.5); Lymphocytes Absolute Auto 1000 /uL (1100-4500); Lymphocytes Percent Auto 10.6 % (25-40); Mean Corpuscular HGB Conc 34.7 % (30-36); Mean Corpuscular Hemoglobin 29.1 PG (26-34); Mean Corpuscular Volume 83.8 fL (80-100); Monocytes Absolute Auto 600 /uL (0-900); Monocytes Percent Auto 6.3 % (3-14); Neutrophils Absolute Auto 7600 /uL (1500-7000); Neutrophils Percent Auto 79.9 % (50-75); Platelet Count 223 X10^3/uL (150-400); Red Blood Cell Count 3.59 X10^6/uL (4.5-5.9); Red Cell Distribution Width 14.5 % (11.6-14.8); White Blood Cell Count 9.5 X10^3/uL (4.5-11.0)
[2022-04-27 08:41] LABS: Alanine Aminotransferase 16 IU/L (<50); Albumin 3.7 g/dL (3.5-5.0); Albumin Globulin Ratio 1.1 (1.0-2.8); Alkaline Phosphatase 140 U/L (38-126); Aspartate Aminotransferase 26 IU/L (17-59); BUN Creatinine Ratio 13.2 (6-22); Bilirubin Total 0.3 mg/dL (0.2-1.3); Blood Urea Nitrogen 38 mg/dL (9-20); Calcium 8.6 mg/dL (8.4-10.2); Carbon Dioxide 37 mmol/L (22-32); Chloride 94 mmol/L (98-107); Estimated Glomerular Filt Rate 24 mL/min (>60); Globulin 3.4 g/dL (1.7-4.1); Glucose 298 mg/dL (80-110); HEMOLYSIS < 15 (0-50); Potassium 4.8 mmol/L (3.4-5.1); Sodium 137 mmol/L (137-145); Total Protein 7.1 g/dL (6.3-8.2)
[2022-04-27 09:06] LABS: HEMOLYSIS < 15 (0-50); Iron 42 ug/dL (49-181)
[2022-04-27 09:16] LABS: Percent Iron Saturation 17 % (20-50); Total Iron Binding Capacity 251 ug/dL (261-462); Transferrin 186 mg/dL (206-381)
[2022-04-27 09:16] LABS: Ferritin 491 ng/mL (18-464)
== END ==
PROVIDERS: PCP Internal Medicine; Referring Provider Internal Medicine Nephrology; Visit Provider Internal Medicine Nephrology
DX: N18.4 Chronic kidney disease, stage 4 (severe) (principal); D63.1 Anemia in chronic kidney disease; D50.9 Iron deficiency anemia, unspecified
CPT/HCPCS: 80053; 82728; 83540; 83550; 85025

== ENCOUNTER → 2022-04-27 09:21 | Outpatient (CLI) | payer MEDICARE, OTHER, SELFPAY ==
[2021-01-15 09:12] VITALS: BMI 30.4
== END ==
PROVIDERS: PCP Internal Medicine; Referring Provider Internal Medicine; Visit Provider Family Medicine
DX: N18.4 Chronic kidney disease, stage 4 (severe) (principal); D63.1 Anemia in chronic kidney disease; D50.9 Iron deficiency anemia, unspecified; E11.621 Type 2 diabetes mellitus with foot ulcer; L97.422 Non-pressure chronic ulcer of left heel and midfoot with fat layer exposed; E11.40 Type 2 diabetes mellitus with diabetic neuropathy, unspecified; D64.9 Anemia, unspecified; M86.172 Other acute osteomyelitis, left ankle and foot; Z79.2 Long term (current) use of antibiotics; E11.65 Type 2 diabetes mellitus with hyperglycemia; L89.153 Pressure ulcer of sacral region, stage 3; I73.9 Peripheral vascular disease, unspecified
CPT/HCPCS: 80053; 82728; 83540; 83550; 85025; 99183; G0277

== ENCOUNTER → 2022-04-28 13:40 | Outpatient (CLI) | payer MEDICARE, OTHER, SELFPAY ==
[2021-01-15 09:12] VITALS: BMI 30.4
[2022-04-28 13:57] VITALS: BP 182/69; PULSE 60; RESP 18; TEMP 36.6; O2SAT 97
[2022-04-28 14:24] VITALS: BP 168/64; PULSE 59; RESP 18
[2022-04-28] MEDS: EPOETIN ALFA-EPBX 3,000 UNIT/ML VIAL 6000 UNIT SUBCUT (16:12)
== END ==
PROVIDERS: PCP Internal Medicine; Referring Provider Internal Medicine; Visit Provider Physician Assistant
DX: N18.4 Chronic kidney disease, stage 4 (severe) (principal); D63.1 Anemia in chronic kidney disease
CPT/HCPCS: 96372; Q5106

== ENCOUNTER → 2022-04-29 09:07 | Outpatient (CLI) | payer MEDICARE, OTHER, SELFPAY ==
[2021-01-15 09:12] VITALS: BMI 30.4
== END ==
PROVIDERS: PCP Internal Medicine; Referring Provider Internal Medicine; Visit Provider Family Medicine
DX: E11.621 Type 2 diabetes mellitus with foot ulcer (principal); L97.422 Non-pressure chronic ulcer of left heel and midfoot with fat layer exposed; E11.40 Type 2 diabetes mellitus with diabetic neuropathy, unspecified; D64.9 Anemia, unspecified; N18.4 Chronic kidney disease, stage 4 (severe); M86.172 Other acute osteomyelitis, left ankle and foot; Z79.2 Long term (current) use of antibiotics; E11.65 Type 2 diabetes mellitus with hyperglycemia; L89.153 Pressure ulcer of sacral region, stage 3; I73.9 Peripheral vascular disease, unspecified
CPT/HCPCS: 97597; 99183; 99214; G0277

== ENCOUNTER → 2022-04-30 08:54 | Outpatient (CLI) | payer MEDICARE, OTHER, SELFPAY ==
[2021-01-15 09:12] VITALS: BMI 30.4
== END ==
PROVIDERS: PCP Internal Medicine; Referring Provider Internal Medicine; Visit Provider Family Medicine
DX: E11.621 Type 2 diabetes mellitus with foot ulcer (principal); L97.422 Non-pressure chronic ulcer of left heel and midfoot with fat layer exposed; E11.40 Type 2 diabetes mellitus with diabetic neuropathy, unspecified; D64.9 Anemia, unspecified; N18.4 Chronic kidney disease, stage 4 (severe); M86.172 Other acute osteomyelitis, left ankle and foot; Z79.2 Long term (current) use of antibiotics; E11.65 Type 2 diabetes mellitus with hyperglycemia; L89.153 Pressure ulcer of sacral region, stage 3; I73.9 Peripheral vascular disease, unspecified
CPT/HCPCS: 99183; G0277

== ENCOUNTER → 2022-05-04 11:13 | Outpatient (CLI) | payer MEDICARE, OTHER, SELFPAY ==
[2021-01-15 09:12] VITALS: BMI 30.4
== END ==
PROVIDERS: PCP Internal Medicine; Referring Provider Internal Medicine; Visit Provider Family Medicine
DX: E11.621 Type 2 diabetes mellitus with foot ulcer (principal); L97.422 Non-pressure chronic ulcer of left heel and midfoot with fat layer exposed; E11.40 Type 2 diabetes mellitus with diabetic neuropathy, unspecified; D64.9 Anemia, unspecified; N18.4 Chronic kidney disease, stage 4 (severe); M86.172 Other acute osteomyelitis, left ankle and foot; Z79.2 Long term (current) use of antibiotics; E11.65 Type 2 diabetes mellitus with hyperglycemia; L89.153 Pressure ulcer of sacral region, stage 3; I73.9 Peripheral vascular disease, unspecified
CPT/HCPCS: 99183; G0277

== ENCOUNTER → 2022-05-05 09:07 | Outpatient (CLI) | payer MEDICARE, OTHER, SELFPAY ==
[2021-01-15 09:12] VITALS: BMI 30.4
== END ==
PROVIDERS: PCP Internal Medicine; Referring Provider Internal Medicine; Visit Provider Family Medicine
DX: E11.621 Type 2 diabetes mellitus with foot ulcer (principal); L97.422 Non-pressure chronic ulcer of left heel and midfoot with fat layer exposed
CPT/HCPCS: 99183; G0277

== ENCOUNTER → 2022-05-06 08:31 | Outpatient (CLI) | payer MEDICARE, OTHER, SELFPAY ==
[2021-01-15 09:12] VITALS: BMI 30.4
== END ==
PROVIDERS: PCP Internal Medicine; Referring Provider Internal Medicine; Visit Provider Family Medicine
DX: E11.621 Type 2 diabetes mellitus with foot ulcer (principal); L97.422 Non-pressure chronic ulcer of left heel and midfoot with fat layer exposed; E11.65 Type 2 diabetes mellitus with hyperglycemia; E11.69 Type 2 diabetes mellitus with other specified complication; M86.172 Other acute osteomyelitis, left ankle and foot; B96.4 Proteus (mirabilis) (morganii) as the cause of diseases classified elsewhere; E11.40 Type 2 diabetes mellitus with diabetic neuropathy, unspecified; E11.22 Type 2 diabetes mellitus with diabetic chronic kidney disease; N18.4 Chronic kidney disease, stage 4 (severe); D64.9 Anemia, unspecified; I50.9 Heart failure, unspecified; Z79.2 Long term (current) use of antibiotics
CPT/HCPCS: 11042; 99183; G0277

== ENCOUNTER → 2022-05-07 08:52 | Outpatient (CLI) | payer MEDICARE, OTHER, SELFPAY ==
[2021-01-15 09:12] VITALS: BMI 30.4
== END ==
PROVIDERS: PCP Internal Medicine; Referring Provider Internal Medicine; Visit Provider Nurse Practitioner Family
DX: E11.621 Type 2 diabetes mellitus with foot ulcer (principal); L97.422 Non-pressure chronic ulcer of left heel and midfoot with fat layer exposed; E11.40 Type 2 diabetes mellitus with diabetic neuropathy, unspecified; D64.9 Anemia, unspecified; N18.4 Chronic kidney disease, stage 4 (severe); M86.172 Other acute osteomyelitis, left ankle and foot; Z79.2 Long term (current) use of antibiotics; E11.65 Type 2 diabetes mellitus with hyperglycemia; I73.9 Peripheral vascular disease, unspecified
CPT/HCPCS: 99183; G0277

== ENCOUNTER → 2022-05-11 07:03 | Outpatient (CLI) | payer MEDICARE, OTHER, SELFPAY ==
[2021-01-15 09:12] VITALS: BMI 30.4
[2022-05-11 08:04] LABS: BUN Creatinine Ratio 15.7 (6-22); Blood Urea Nitrogen 49 mg/dL (9-20); Calcium 8.2 mg/dL (8.4-10.2); Carbon Dioxide 35 mmol/L (22-32); Chloride 97 mmol/L (98-107); Estimated Glomerular Filt Rate 22 mL/min (>60); Glucose 245 mg/dL (80-110); HEMOLYSIS < 15 (0-50); Magnesium 2.6 mg/dL (1.6-2.3); Phosphorous 4.8 mg/dL (2.3-3.7); Potassium 5.1 mmol/L (3.4-5.1); Sodium 138 mmol/L (137-145)
[2022-05-12 07:10] LABS: Parathyroid Hormone Int 70 pg/mL (15-65)
[2022-05-13 18:23] LABS: Vitamin D 25 Hydroxy (D3) 34.7 ng/mL (30.0-100.0)
== END ==
PROVIDERS: PCP Internal Medicine; Referring Provider Internal Medicine Nephrology; Visit Provider Internal Medicine Nephrology
DX: N18.4 Chronic kidney disease, stage 4 (severe) (principal)
CPT/HCPCS: 36415; 80048; 82306; 83735; 83970; 84100

== ENCOUNTER → 2022-05-11 09:32 | Outpatient (CLI) | payer MEDICARE, OTHER, SELFPAY ==
[2021-01-15 09:12] VITALS: BMI 30.4
== END ==
PROVIDERS: PCP Internal Medicine; Referring Provider Internal Medicine; Visit Provider Family Medicine
DX: N18.4 Chronic kidney disease, stage 4 (severe) (principal); E11.621 Type 2 diabetes mellitus with foot ulcer; L97.422 Non-pressure chronic ulcer of left heel and midfoot with fat layer exposed; E11.40 Type 2 diabetes mellitus with diabetic neuropathy, unspecified; D64.9 Anemia, unspecified; M86.172 Other acute osteomyelitis, left ankle and foot; Z79.2 Long term (current) use of antibiotics; E11.65 Type 2 diabetes mellitus with hyperglycemia; I73.9 Peripheral vascular disease, unspecified
CPT/HCPCS: 36415; 80048; 82306; 83735; 83970; 84100; 99183; G0277

== ENCOUNTER → 2022-05-12 09:14 | Outpatient (CLI) | payer MEDICARE, OTHER, SELFPAY ==
[2021-01-15 09:12] VITALS: BMI 30.4
[2022-05-12 12:28] LABS: Add Manual Diff / Slide Review NO; Basophils Absolute Auto 0 /uL (0-100); Basophils Percent Auto 0.8 % (0-2); Eosinophils Absolute Auto 200 /uL (0-450); Eosinophils Percent Auto 4.7 % (2-4); Hematocrit 26.7 % (41-53); Hemoglobin 9.2 g/dL (13.5-17.5); Lymphocytes Absolute Auto 1300 /uL (1100-4500); Mean Corpuscular HGB Conc 34.4 % (30-36); Mean Corpuscular Hemoglobin 28.9 PG (26-34); Mean Corpuscular Volume 84.2 fL (80-100); Monocytes Absolute Auto 500 /uL (0-900); Monocytes Percent Auto 10.9 % (3-14); Neutrophils Absolute Auto 2400 /uL (1500-7000); Neutrophils Percent Auto 53.6 % (50-75); Platelet Count 158 X10^3/uL (150-400); Red Blood Cell Count 3.18 X10^6/uL (4.5-5.9); Red Cell Distribution Width 13.9 % (11.6-14.8); White Blood Cell Count 4.4 X10^3/uL (4.5-11.0)
== END ==
PROVIDERS: Internal Medicine Nephrology; PCP Internal Medicine; Referring Provider Internal Medicine; Visit Provider Family Medicine
DX: E11.621 Type 2 diabetes mellitus with foot ulcer (principal); L97.422 Non-pressure chronic ulcer of left heel and midfoot with fat layer exposed; E11.22 Type 2 diabetes mellitus with diabetic chronic kidney disease; N18.4 Chronic kidney disease, stage 4 (severe); D63.1 Anemia in chronic kidney disease; E11.40 Type 2 diabetes mellitus with diabetic neuropathy, unspecified; M86.172 Other acute osteomyelitis, left ankle and foot; Z79.2 Long term (current) use of antibiotics; E11.65 Type 2 diabetes mellitus with hyperglycemia; I73.9 Peripheral vascular disease, unspecified
CPT/HCPCS: 85025; 96372; 99183; G0277; Q5106

== ENCOUNTER → 2022-05-12 12:09 | Outpatient (CLI) | payer MEDICARE, OTHER, SELFPAY ==
[2021-01-15 09:12] VITALS: BMI 30.4
[2022-05-12 12:42] VITALS: BP 157/67; PULSE 55; RESP 18; O2SAT 99
[2022-05-12] MEDS: EPOETIN ALFA-EPBX 3,000 UNIT/ML VIAL 6000 UNIT SUBCUT (12:52)
== END ==
PROVIDERS: PCP Internal Medicine; Referring Provider Physician Assistant; Visit Provider Physician Assistant
DX: N18.4 Chronic kidney disease, stage 4 (severe) (principal); D63.1 Anemia in chronic kidney disease
CPT/HCPCS: 96372; Q5106

== ENCOUNTER → 2022-05-13 09:04 | Outpatient (CLI) | payer MEDICARE, OTHER, SELFPAY ==
[2021-01-15 09:12] VITALS: BMI 30.4
== END ==
PROVIDERS: PCP Internal Medicine; Referring Provider Internal Medicine; Visit Provider Family Medicine
DX: E11.621 Type 2 diabetes mellitus with foot ulcer (principal); L97.422 Non-pressure chronic ulcer of left heel and midfoot with fat layer exposed; E11.40 Type 2 diabetes mellitus with diabetic neuropathy, unspecified; D64.9 Anemia, unspecified; N18.4 Chronic kidney disease, stage 4 (severe); M86.172 Other acute osteomyelitis, left ankle and foot; Z79.2 Long term (current) use of antibiotics; E11.65 Type 2 diabetes mellitus with hyperglycemia; I73.9 Peripheral vascular disease, unspecified
CPT/HCPCS: 99183; G0277

== ENCOUNTER → 2022-05-14 09:07 | Outpatient (CLI) | payer MEDICARE, OTHER, SELFPAY ==
[2021-01-15 09:12] VITALS: BMI 30.4
== END ==
PROVIDERS: PCP Internal Medicine; Referring Provider Internal Medicine; Visit Provider Nurse Practitioner Family
DX: E11.621 Type 2 diabetes mellitus with foot ulcer (principal); L97.422 Non-pressure chronic ulcer of left heel and midfoot with fat layer exposed; E11.40 Type 2 diabetes mellitus with diabetic neuropathy, unspecified; D64.9 Anemia, unspecified; N18.4 Chronic kidney disease, stage 4 (severe); M86.172 Other acute osteomyelitis, left ankle and foot; Z79.2 Long term (current) use of antibiotics; E11.65 Type 2 diabetes mellitus with hyperglycemia; I73.9 Peripheral vascular disease, unspecified
CPT/HCPCS: 99183; G0277

== ENCOUNTER → 2022-05-18 09:56 | Outpatient (CLI) | payer MEDICARE, OTHER, SELFPAY ==
[2021-01-15 09:12] VITALS: BMI 30.4
== END ==
PROVIDERS: PCP Internal Medicine; Referring Provider Internal Medicine; Visit Provider Family Medicine
DX: E11.621 Type 2 diabetes mellitus with foot ulcer (principal); L97.422 Non-pressure chronic ulcer of left heel and midfoot with fat layer exposed; E11.40 Type 2 diabetes mellitus with diabetic neuropathy, unspecified; M86.172 Other acute osteomyelitis, left ankle and foot; E11.51 Type 2 diabetes mellitus with diabetic peripheral angiopathy without gangrene; D64.9 Anemia, unspecified; N18.4 Chronic kidney disease, stage 4 (severe); Z79.2 Long term (current) use of antibiotics
CPT/HCPCS: 99183; 99213; 99214; G0277

== ENCOUNTER → 2022-05-19 09:18 | Outpatient (CLI) | payer MEDICARE, OTHER, SELFPAY ==
[2021-01-15 09:12] VITALS: BMI 30.4
== END ==
PROVIDERS: PCP Internal Medicine; Referring Provider Internal Medicine; Visit Provider Family Medicine
DX: E11.621 Type 2 diabetes mellitus with foot ulcer (principal); L97.422 Non-pressure chronic ulcer of left heel and midfoot with fat layer exposed; E11.40 Type 2 diabetes mellitus with diabetic neuropathy, unspecified; D64.9 Anemia, unspecified; N18.4 Chronic kidney disease, stage 4 (severe); M86.172 Other acute osteomyelitis, left ankle and foot; Z79.2 Long term (current) use of antibiotics; E11.65 Type 2 diabetes mellitus with hyperglycemia; I73.9 Peripheral vascular disease, unspecified
CPT/HCPCS: 99183; G0277

== ENCOUNTER → 2022-05-25 15:19 | Outpatient (CLI) | payer MEDICARE, OTHER, SELFPAY ==
[2021-01-15 09:12] VITALS: BMI 30.4
[2022-05-25 17:02] LABS: BUN Creatinine Ratio 15.3 (6-22); Blood Urea Nitrogen 51 mg/dL (9-20); Calcium 8.2 mg/dL (8.4-10.2); Carbon Dioxide 34 mmol/L (22-32); Chloride 96 mmol/L (98-107); Estimated Glomerular Filt Rate 20 mL/min (>60); Glucose 248 mg/dL (80-110); HEMOLYSIS < 15 (0-50); Magnesium 2.4 mg/dL (1.6-2.3); Phosphorous 3.6 mg/dL (2.3-3.7); Potassium 4.8 mmol/L (3.4-5.1); Sodium 136 mmol/L (137-145)
[2022-05-26 09:56] LABS: Parathyroid Hormone Int 56 pg/mL (15-65)
== END ==
PROVIDERS: PCP Internal Medicine; Referring Provider Internal Medicine Nephrology; Visit Provider Internal Medicine Nephrology
DX: N18.4 Chronic kidney disease, stage 4 (severe) (principal)
CPT/HCPCS: 36415; 80048; 82306; 83735; 83970; 84100

== ENCOUNTER → 2022-05-26 13:41 | Outpatient (CLI) | payer MEDICARE, OTHER, SELFPAY ==
[2021-01-15 09:12] VITALS: BMI 30.4
[2022-05-26 14:18] LABS: Add Manual Diff / Slide Review NO; Basophils Absolute Auto 0 /uL (0-100); Basophils Percent Auto 0.7 % (0-2); Eosinophils Absolute Auto 200 /uL (0-450); Eosinophils Percent Auto 3.7 % (2-4); Hemoglobin 8.5 g/dL (13.5-17.5); Lymphocytes Absolute Auto 1500 /uL (1100-4500); Lymphocytes Percent Auto 24.4 % (25-40); Mean Corpuscular Hemoglobin 29.4 PG (26-34); Mean Corpuscular Volume 86.6 fL (80-100); Monocytes Absolute Auto 700 /uL (0-900); Monocytes Percent Auto 11.8 % (3-14); Neutrophils Absolute Auto 3500 /uL (1500-7000); Neutrophils Percent Auto 59.4 % (50-75); Platelet Count 126 X10^3/uL (150-400); Red Blood Cell Count 2.89 X10^6/uL (4.5-5.9); Red Cell Distribution Width 14.5 % (11.6-14.8)
[2022-05-26 14:34] VITALS: BP 166/58; PULSE 54; RESP 16; TEMP 36.7
[2022-05-26] MEDS: EPOETIN ALFA-EPBX 3,000 UNIT/ML VIAL 6000 UNIT SUBCUT (14:41)
== END ==
PROVIDERS: Internal Medicine Nephrology; PCP Internal Medicine; Referring Provider Internal Medicine; Visit Provider Physician Assistant
DX: N18.4 Chronic kidney disease, stage 4 (severe) (principal); D63.1 Anemia in chronic kidney disease
CPT/HCPCS: 85025; 96372; Q5106

== ENCOUNTER → 2022-06-01 08:55 | Outpatient (CLI) | payer MEDICARE, OTHER, SELFPAY ==
[2021-01-15 09:12] VITALS: BMI 30.4
== END ==
PROVIDERS: PCP Internal Medicine; Referring Provider Internal Medicine; Visit Provider Family Medicine
DX: E11.621 Type 2 diabetes mellitus with foot ulcer (principal); L97.422 Non-pressure chronic ulcer of left heel and midfoot with fat layer exposed; E11.40 Type 2 diabetes mellitus with diabetic neuropathy, unspecified; D64.9 Anemia, unspecified; N18.4 Chronic kidney disease, stage 4 (severe); M86.172 Other acute osteomyelitis, left ankle and foot; Z79.2 Long term (current) use of antibiotics; E11.65 Type 2 diabetes mellitus with hyperglycemia; I73.9 Peripheral vascular disease, unspecified
CPT/HCPCS: 99183; G0277

== ENCOUNTER → 2022-06-04 11:01 | Outpatient (CLI) | payer MEDICARE, OTHER, SELFPAY ==
[2021-01-15 09:12] VITALS: BMI 30.4
== END ==
PROVIDERS: PCP Internal Medicine; Referring Provider Internal Medicine; Visit Provider Family Medicine
DX: E11.621 Type 2 diabetes mellitus with foot ulcer (principal); L97.422 Non-pressure chronic ulcer of left heel and midfoot with fat layer exposed; E11.40 Type 2 diabetes mellitus with diabetic neuropathy, unspecified; D64.9 Anemia, unspecified; N18.4 Chronic kidney disease, stage 4 (severe); M86.172 Other acute osteomyelitis, left ankle and foot; Z79.2 Long term (current) use of antibiotics; E11.65 Type 2 diabetes mellitus with hyperglycemia; E11.51 Type 2 diabetes mellitus with diabetic peripheral angiopathy without gangrene
CPT/HCPCS: 99183; 99213; G0277

== ENCOUNTER → 2022-06-09 07:41 | Outpatient (CLI) | payer MEDICARE, OTHER, SELFPAY ==
[2021-01-15 09:12] VITALS: BMI 30.4
[2022-06-09 08:23] LABS: Add Manual Diff / Slide Review NO; Basophils Absolute Auto 0 /uL (0-100); Basophils Percent Auto 0.6 % (0-2); Eosinophils Absolute Auto 300 /uL (0-450); Eosinophils Percent Auto 3.2 % (2-4); Hematocrit 26.9 % (41-53); Hemoglobin 9.3 g/dL (13.5-17.5); Lymphocytes Absolute Auto 1400 /uL (1100-4500); Lymphocytes Percent Auto 16.5 % (25-40); Mean Corpuscular HGB Conc 34.7 % (30-36); Mean Corpuscular Hemoglobin 29.7 PG (26-34); Mean Corpuscular Volume 85.6 fL (80-100); Monocytes Absolute Auto 800 /uL (0-900); Monocytes Percent Auto 9.2 % (3-14); Neutrophils Absolute Auto 5800 /uL (1500-7000); Neutrophils Percent Auto 70.5 % (50-75); Platelet Count 132 X10^3/uL (150-400); Red Blood Cell Count 3.14 X10^6/uL (4.5-5.9); Red Cell Distribution Width 14.5 % (11.6-14.8); White Blood Cell Count 8.3 X10^3/uL (4.5-11.0)
[2022-06-09 08:54] LABS: BUN Creatinine Ratio 13.2 (6-22); Blood Urea Nitrogen 47 mg/dL (9-20); Calcium 8.2 mg/dL (8.4-10.2); Carbon Dioxide 35 mmol/L (22-32); Chloride 93 mmol/L (98-107); Estimated Glomerular Filt Rate 18 mL/min (>60); Glucose 194 mg/dL (80-110); HEMOLYSIS < 15 (0-50); Potassium 4.5 mmol/L (3.4-5.1); Sodium 136 mmol/L (137-145)
[2022-06-09 08:55] LABS: Magnesium 2.5 mg/dL (1.6-2.3); Phosphorous 3.8 mg/dL (2.3-3.7); Uric Acid 7.5 mg/dL (3.5-8.5)
[2022-06-09 09:17] LABS: Vitamin D 25 Hydroxy (D3) 36.2 ng/mL (30.0-100.0)
[2022-06-09 09:56] LABS: Creatinine Urine Random 48.8 mg/dL; Microalbumi Creatinin Ratio Ur 11844.2 ug/mg CR (<30)
[2022-06-10 06:22] LABS: Parathyroid Hormone Int 77 pg/mL (15-65)
== END ==
PROVIDERS: PCP Internal Medicine; Referring Provider Internal Medicine Nephrology; Visit Provider Internal Medicine Nephrology
DX: N18.4 Chronic kidney disease, stage 4 (severe) (principal); N18.31 Chronic kidney disease, stage 3a
CPT/HCPCS: 36415; 80048; 82043; 82306; 82570; 83735; 83970; 84100; 84550; 85025

== ENCOUNTER → 2022-06-09 14:03 | Outpatient (CLI) | payer MEDICARE, OTHER, SELFPAY ==
[2021-01-15 09:12] VITALS: BMI 30.4
[2022-06-09 14:50] VITALS: BP 174/86; TEMP 35.5; O2SAT 99
[2022-06-09] MEDS: EPOETIN ALFA-EPBX 10,000 UNIT/ML VIAL 10000 UNIT SUBCUT (15:02)
== END ==
PROVIDERS: PCP Internal Medicine; Referring Provider Physician Assistant; Visit Provider Physician Assistant
DX: E11.621 Type 2 diabetes mellitus with foot ulcer (principal); L97.422 Non-pressure chronic ulcer of left heel and midfoot with fat layer exposed; E11.22 Type 2 diabetes mellitus with diabetic chronic kidney disease; N18.4 Chronic kidney disease, stage 4 (severe); D63.1 Anemia in chronic kidney disease; E11.51 Type 2 diabetes mellitus with diabetic peripheral angiopathy without gangrene; E11.69 Type 2 diabetes mellitus with other specified complication; M86.172 Other acute osteomyelitis, left ankle and foot; Z79.2 Long term (current) use of antibiotics
CPT/HCPCS: 11042; 36415; 80048; 82043; 82306; 82570; 83735; 83970; 84100; 84550; 85025; 96372; Q5106

== ENCOUNTER → 2022-06-09 15:22 | Outpatient (CLI) | payer MEDICARE, OTHER, SELFPAY ==
[2021-01-15 09:12] VITALS: BMI 30.4
== END ==
PROVIDERS: PCP Internal Medicine; Referring Provider Internal Medicine; Visit Provider Family Medicine
DX: E11.621 Type 2 diabetes mellitus with foot ulcer (principal); L97.422 Non-pressure chronic ulcer of left heel and midfoot with fat layer exposed; F64.9 Gender identity disorder, unspecified; M86.172 Other acute osteomyelitis, left ankle and foot; E11.51 Type 2 diabetes mellitus with diabetic peripheral angiopathy without gangrene; Z79.2 Long term (current) use of antibiotics
CPT/HCPCS: 11042

== ENCOUNTER → 2022-06-17 09:07 | Outpatient (CLI) | payer MEDICARE, OTHER, SELFPAY ==
[2021-01-15 09:12] VITALS: BMI 30.4
== END ==
PROVIDERS: PCP Internal Medicine; Referring Provider Internal Medicine; Visit Provider Family Medicine
DX: E11.621 Type 2 diabetes mellitus with foot ulcer (principal); L97.422 Non-pressure chronic ulcer of left heel and midfoot with fat layer exposed; E11.40 Type 2 diabetes mellitus with diabetic neuropathy, unspecified; D64.9 Anemia, unspecified; N18.4 Chronic kidney disease, stage 4 (severe); M86.172 Other acute osteomyelitis, left ankle and foot; Z79.2 Long term (current) use of antibiotics; E11.65 Type 2 diabetes mellitus with hyperglycemia; I73.9 Peripheral vascular disease, unspecified; L08.89 Other specified local infections of the skin and subcutaneous tissue
CPT/HCPCS: 87070; 87075; 87077; 87186; 87205; 97597; 99213

== ENCOUNTER → 2022-06-22 07:18 | Outpatient (CLI) | payer MEDICARE, OTHER, SELFPAY ==
[2021-01-15 09:12] VITALS: BMI 30.4
[2022-06-22 09:11] LABS: Add Manual Diff / Slide Review NO; Basophils Absolute Auto 0 /uL (0-100); Basophils Percent Auto 0.6 % (0-2); Eosinophils Absolute Auto 400 /uL (0-450); Eosinophils Percent Auto 6.9 % (2-4); Hematocrit 27.8 % (41-53); Hemoglobin 9.5 g/dL (13.5-17.5); Lymphocytes Absolute Auto 1200 /uL (1100-4500); Lymphocytes Percent Auto 23.4 % (25-40); Mean Corpuscular Hemoglobin 29.3 PG (26-34); Monocytes Absolute Auto 600 /uL (0-900); Neutrophils Absolute Auto 2900 /uL (1500-7000); Neutrophils Percent Auto 57.1 % (50-75); Platelet Count 172 X10^3/uL (150-400); Red Blood Cell Count 3.24 X10^6/uL (4.5-5.9); Red Cell Distribution Width 14.8 % (11.6-14.8); White Blood Cell Count 5.1 X10^3/uL (4.5-11.0)
[2022-06-22 09:36] LABS: BUN Creatinine Ratio 15.5 (6-22); Blood Urea Nitrogen 50 mg/dL (9-20); Calcium 8.3 mg/dL (8.4-10.2); Carbon Dioxide 35 mmol/L (22-32); Chloride 95 mmol/L (98-107); Estimated Glomerular Filt Rate 21 mL/min (>60); Glucose 241 mg/dL (80-110); HEMOLYSIS < 15 (0-50); Magnesium 2.8 mg/dL (1.6-2.3); Phosphorous 3.7 mg/dL (2.3-3.7); Potassium 4.6 mmol/L (3.4-5.1); Sodium 138 mmol/L (137-145); Uric Acid 8.1 mg/dL (3.5-8.5)
[2022-06-22 09:51] LABS: Vitamin D 25 Hydroxy (D3) 44.7 ng/mL (30.0-100.0)
[2022-06-22 11:05] LABS: Creatinine Urine Random 44.2 mg/dL
[2022-06-22 12:38] LABS: Microalbumi Creatinin Ratio Ur 9683.2 ug/mg CR (<30)
[2022-06-24 05:38] LABS: Parathyroid Hormone Int 59 pg/mL (15-65)
== END ==
PROVIDERS: PCP Internal Medicine; Referring Provider Internal Medicine Nephrology; Visit Provider Internal Medicine Nephrology
DX: N18.4 Chronic kidney disease, stage 4 (severe) (principal); N18.31 Chronic kidney disease, stage 3a
CPT/HCPCS: 36415; 80048; 82043; 82306; 82570; 83735; 83970; 84100; 84550; 85025

== ENCOUNTER → 2022-06-23 13:44 | Outpatient (CLI) | payer MEDICARE, OTHER, SELFPAY ==
[2021-01-15 09:12] VITALS: BMI 30.4
[2022-06-23 14:30] VITALS: BP 179/72; PULSE 64; RESP 16; TEMP 37; O2SAT 98
[2022-06-23 14:54] VITALS: BP 179/72
[2022-06-23 15:15] VITALS: BP 179/72
[2022-06-23] MEDS: EPOETIN ALFA-EPBX 10,000 UNIT/ML VIAL 10000 UNIT SUBCUT (15:23)
[2022-07-07 08:18] LABS: Add Manual Diff / Slide Review NO; Basophils Absolute Auto 0 /uL (0-100); Basophils Percent Auto 0.9 % (0-2); Eosinophils Absolute Auto 200 /uL (0-450); Eosinophils Percent Auto 3.8 % (2-4); Hematocrit 29.2 % (41-53); Hemoglobin 9.8 g/dL (13.5-17.5); Lymphocytes Absolute Auto 1300 /uL (1100-4500); Lymphocytes Percent Auto 29.8 % (25-40); Mean Corpuscular HGB Conc 33.4 % (30-36); Mean Corpuscular Hemoglobin 29.1 PG (26-34); Mean Corpuscular Volume 87.2 fL (80-100); Monocytes Absolute Auto 500 /uL (0-900); Monocytes Percent Auto 12.1 % (3-14); Neutrophils Absolute Auto 2300 /uL (1500-7000); Neutrophils Percent Auto 53.4 % (50-75); Platelet Count 152 X10^3/uL (150-400); Red Blood Cell Count 3.35 X10^6/uL (4.5-5.9); Red Cell Distribution Width 14.9 % (11.6-14.8); White Blood Cell Count 4.4 X10^3/uL (4.5-11.0)
== END ==
PROVIDERS: Internal Medicine; PCP Internal Medicine; Referring Provider Physician Assistant; Visit Provider Physician Assistant
DX: N18.4 Chronic kidney disease, stage 4 (severe) (principal); D63.1 Anemia in chronic kidney disease
CPT/HCPCS: 85025; 96372; Q5106

== ENCOUNTER → 2022-06-24 08:43 | Outpatient (CLI) | payer MEDICARE, OTHER, SELFPAY ==
[2021-01-15 09:12] VITALS: BMI 30.4
== END ==
PROVIDERS: PCP Internal Medicine; Referring Provider Internal Medicine; Visit Provider Family Medicine
DX: E11.621 Type 2 diabetes mellitus with foot ulcer (principal); L97.422 Non-pressure chronic ulcer of left heel and midfoot with fat layer exposed; L97.522 Non-pressure chronic ulcer of other part of left foot with fat layer exposed; E11.40 Type 2 diabetes mellitus with diabetic neuropathy, unspecified; M86.172 Other acute osteomyelitis, left ankle and foot; E11.51 Type 2 diabetes mellitus with diabetic peripheral angiopathy without gangrene; L08.89 Other specified local infections of the skin and subcutaneous tissue; Z79.2 Long term (current) use of antibiotics; L60.1 Onycholysis
CPT/HCPCS: 11042; 97597; 99214

== ENCOUNTER → 2022-07-06 08:07 | Outpatient (CLI) | payer MEDICARE, OTHER, SELFPAY ==
[2021-01-15 09:12] VITALS: BMI 30.4
[2022-07-06 10:45] LABS: BUN Creatinine Ratio 14.5 (6-22); Blood Urea Nitrogen 49 mg/dL (9-20); Calcium 8.4 mg/dL (8.4-10.2); Carbon Dioxide 35 mmol/L (22-32); Chloride 94 mmol/L (98-107); Estimated Glomerular Filt Rate 20 mL/min (>60); Glucose 250 mg/dL (80-110); HEMOLYSIS < 15 (0-50); Sodium 138 mmol/L (137-145); Uric Acid 7.1 mg/dL (3.5-8.5)
[2022-07-06 11:40] LABS: Creatinine Urine Random 46.7 mg/dL
[2022-07-06 12:33] LABS: Microalbumi Creatinin Ratio Ur 17237.6 ug/mg CR (<30)
[2022-07-07 07:11] LABS: Parathyroid Hormone Int 62 pg/mL (15-65)
== END ==
PROVIDERS: PCP Internal Medicine; Referring Provider Internal Medicine Nephrology; Visit Provider Internal Medicine Nephrology
DX: N18.4 Chronic kidney disease, stage 4 (severe) (principal)
CPT/HCPCS: 36415; 80048; 82043; 82570; 83735; 83970; 84550

== ENCOUNTER → 2022-07-06 09:20 | Outpatient (CLI) | payer MEDICARE, OTHER, SELFPAY ==
[2021-01-15 09:12] VITALS: BMI 30.4
== END ==
PROVIDERS: PCP Internal Medicine; Referring Provider Internal Medicine; Visit Provider Family Medicine
DX: E11.621 Type 2 diabetes mellitus with foot ulcer (principal); L97.422 Non-pressure chronic ulcer of left heel and midfoot with fat layer exposed; L97.522 Non-pressure chronic ulcer of other part of left foot with fat layer exposed; M86.172 Other acute osteomyelitis, left ankle and foot; E11.40 Type 2 diabetes mellitus with diabetic neuropathy, unspecified; E11.51 Type 2 diabetes mellitus with diabetic peripheral angiopathy without gangrene; E11.65 Type 2 diabetes mellitus with hyperglycemia; N18.4 Chronic kidney disease, stage 4 (severe); D64.9 Anemia, unspecified; Z79.2 Long term (current) use of antibiotics; R60.0 Localized edema
CPT/HCPCS: 11042

== ENCOUNTER → 2022-07-07 13:36 | Outpatient (CLI) | payer MEDICARE, OTHER, SELFPAY ==
[2021-01-15 09:12] VITALS: BMI 30.4
[2022-07-07 13:57] VITALS: BP 194/82; PULSE 60; RESP 16; TEMP 37; O2SAT 95
[2022-07-07 14:10] VITALS: BP 185/78
[2022-07-07 14:33] VITALS: BP 176/78
[2022-07-07 14:55] VITALS: BP 184/78
--- NOTE | 2022-07-07 15:11 | PC.NURSE ---
EPO INJECTION HELD DUE TO HYPERTENSION Pt reports to clinic today for epo injection. Pt's BP upon arrival was 194/72. Pt denies chest pain, palpitations, headache, and vision changes. Allowed Pt to rest in chair for several minutes before reassessing BP. Pt BPs: 1357-- 194/82 1410-- 185/78 1433-- 176/78 1455-- 184/78 Per Pt, he is currently taking the following BP medications: amlodipine 5mg daily, carvedilol 25mg BID, doxazosin 2mg BID, sprinolaction 12.5mg daily and furosemide 80mg daily. This RN and clinic Pharmacist tried multiple times to reach Dr. Wood's office ([phone]) to notify them of BP values, but calls went straight to busy signal. Epo injection was held due to parameters stating to hold epo if BP > 180/90. This RN discussed rationale for holding epo injection with Pt. Pt voiced understanding. Encouraged Pt to reach out to Dr. Wood about his hypertension if he does not hear from them in the next few days. Dr. Wood's office made aware via this faxed note.
--- NOTE | 2022-07-07 15:34 | ONC.PHA ---
EPO injection: S/O: 61 y.o male, with diagnosis for anemia secondary to CKD, is here to start EPO 10,000 units SubQ injection every 2 weeks with hold dose if Hgb > or = 11 and/or BP > 180/90. Order was written by Dr. Barrie Wood on 05/28/2022. Please note, patient was on EPO 6,000 units every 2 weeks, last dose was given on 05/26/2022 A/P: Reviewed today labs: Hgb/Hct = 9.8/29.2 Last Iron Panel (04/27/2022): Ferritin = 491, Transferrin = 186, % Saturation = 17, TIBC = 251, Iron = 22 Today BP = 194/82 @ 1357 upon arrival. Patient's BP was re-checked four times, however, was persistent. Attempted to contact Dr. Wood's office ([phone] and [phone]), however, received busy signal with both telephone numbers. Please see pharmacist 06/23/2022 note regarding to discussion with MARCELA Cervantes, at Dr. Kwok's office, patient's currently list of BP medications. Discussed with Alisha Bowen, User Interface Developer, and Isela Kelly RN, all agreed to hold today EPO dose and RN will fax a note to Dr. Wood's office to notify of the patient's BP today and EPO dose is held for today. Allergies Allergy/AdvReac Type Severity Reaction Status Date / Time amitriptyline [AMITRIPTYLINE] Allergy Unknown Verified 11/11/20 12:33 Vital Signs Temperature 98.6 F 07/07/22 13:57 Pulse Rate 60 07/07/22 13:57 Respiratory Rate 16 07/07/22 13:57 Blood Pressure 184/78 07/07/22 14:55 Blood Pressure 176/78 07/07/22 14:33 Blood Pressure 185/78 07/07/22 14:10 Blood Pressure 194/82 07/07/22 13:57 Pulse Oximetry 95 07/07/22 13:57
== END ==
PROVIDERS: PCP Internal Medicine; Referring Provider Physician Assistant; Visit Provider Physician Assistant
DX: N18.4 Chronic kidney disease, stage 4 (severe) (principal); D63.1 Anemia in chronic kidney disease

== ENCOUNTER → 2022-07-13 09:44 | Outpatient (CLI) | payer MEDICARE, OTHER, SELFPAY ==
[2021-01-15 09:12] VITALS: BMI 30.4
== END ==
PROVIDERS: PCP Internal Medicine; Referring Provider Internal Medicine; Visit Provider Family Medicine
DX: E11.621 Type 2 diabetes mellitus with foot ulcer (principal); L97.422 Non-pressure chronic ulcer of left heel and midfoot with fat layer exposed; L97.522 Non-pressure chronic ulcer of other part of left foot with fat layer exposed; E11.40 Type 2 diabetes mellitus with diabetic neuropathy, unspecified; M86.172 Other acute osteomyelitis, left ankle and foot; E11.51 Type 2 diabetes mellitus with diabetic peripheral angiopathy without gangrene; Z79.2 Long term (current) use of antibiotics; D64.9 Anemia, unspecified; N18.4 Chronic kidney disease, stage 4 (severe); E11.22 Type 2 diabetes mellitus with diabetic chronic kidney disease
CPT/HCPCS: 97597; 99212

== ENCOUNTER → 2022-07-20 11:01 | Outpatient (CLI) | payer MEDICARE, OTHER, SELFPAY ==
[2021-01-15 09:12] VITALS: BMI 30.4
[2022-07-20 12:25] LABS: Add Manual Diff / Slide Review NO; Basophils Absolute Auto 0 /uL (0-100); Basophils Percent Auto 0.7 % (0-2); Eosinophils Absolute Auto 200 /uL (0-450); Eosinophils Percent Auto 5.4 % (2-4); Hematocrit 28.1 % (41-53); Hemoglobin 9.6 g/dL (13.5-17.5); Lymphocytes Absolute Auto 1200 /uL (1100-4500); Lymphocytes Percent Auto 28.1 % (25-40); Mean Corpuscular Hemoglobin 29.1 PG (26-34); Mean Corpuscular Volume 85.5 fL (80-100); Monocytes Absolute Auto 400 /uL (0-900); Monocytes Percent Auto 8.6 % (3-14); Neutrophils Absolute Auto 2400 /uL (1500-7000); Neutrophils Percent Auto 57.2 % (50-75); Platelet Count 135 X10^3/uL (150-400); Red Blood Cell Count 3.29 X10^6/uL (4.5-5.9); Red Cell Distribution Width 14.9 % (11.6-14.8); White Blood Cell Count 4.2 X10^3/uL (4.5-11.0)
--- NOTE | 2022-08-24 09:59 | ONC.MSW ---
*Sent bereavement card.
== END ==
PROVIDERS: PCP Internal Medicine; Referring Provider Internal Medicine Nephrology; Visit Provider Internal Medicine Nephrology
DX: N18.9 Chronic kidney disease, unspecified (principal); D63.1 Anemia in chronic kidney disease
CPT/HCPCS: 36415; 85025

== ENCOUNTER → 2022-07-21 09:39 | Outpatient (CLI) | payer MEDICARE, OTHER, SELFPAY ==
[2021-01-15 09:12] VITALS: BMI 30.4
[2022-07-21 09:54] VITALS: BP 157/57; PULSE 55; RESP 16; TEMP 36.5; O2SAT 97
[2022-07-21] MEDS: EPOETIN ALFA-EPBX 10,000 UNIT/ML VIAL 10000 UNIT SUBCUT (10:13)
--- NOTE | 2022-07-21 11:47 | ONC.PHA ---
EPO injection: S/O: 61 y.o male, with diagnosis for anemia secondary to CKD, is here to start EPO 10,000 units SubQ injection every 2 weeks with hold dose if Hgb > or = 11 and/or BP > 180/90. Order was written by Dr. Barrie Wood on 05/28/2022. Please note, patient was on EPO 10,000 units every 2 weeks, last dose was given on 06/23/2022 and EPO dose was HELD on 07/07/2022 due patient's SBP > 180. A/P: Reviewed 07/20/2022 labs: Hgb/Hct = 9.6/28.1 Last Iron Panel (04/27/2022): Ferritin = 491, Transferrin = 186, % Saturation = 17, TIBC = 251, Iron = 22 Today BP = 157/57 Per RN, patient reported currently taking BP medications as following: (1) amlodipine 10mg daily, (2) carvedilol 25mg BID, (3) torsemide 20mg QID, and furosemide 20mg QID. Received telephone call from MARCELA Cervantes, from Dr. Wood's office. Confirmed with Helen that on 07/20/2022 Dr. Wood cancelled new EPO 13,000 units every 2 weeks order and continues the EPO 10,000 units every 2 weeks order. Per Helen, patient had OV with Dr. Wood on 07/16/2022 and his BP medications were adjusted as following: (1) amlodipine 10mg daily (dose increased on 07/16 OV), (2) carvedilol 25mg BID, (3) Doxazosin 4mg at bedtime (dose increased in May 2022) and (4) torsemide 80mg daily (new med added on 07/16 OV); patient is to stop his furosemide medication and start torsemide. Informed Helen that there are discrepancies in patient's reported his BP medications vs MD prescribing BP medications. Helen will contact patient to reinforce how patient should take his BP medications. Plan to give today EPO dose as Hgb is below 11 and per MD request. Allergies Allergy/AdvReac Type Severity Reaction Status Date / Time amitriptyline [AMITRIPTYLINE] Allergy Unknown Verified 11/11/20 12:33 Vital Signs Temperature 97.7 F 07/21/22 09:54 Pulse Rate 55 07/21/22 09:54 Respiratory Rate 16 07/21/22 09:54 Blood Pressure 157/57 07/21/22 09:54 Pulse Oximetry 97 07/21/22 09:54
== END ==
PROVIDERS: PCP Internal Medicine; Referring Provider Physician Assistant; Visit Provider Physician Assistant
DX: E11.22 Type 2 diabetes mellitus with diabetic chronic kidney disease (principal); N18.4 Chronic kidney disease, stage 4 (severe); D63.1 Anemia in chronic kidney disease; E11.621 Type 2 diabetes mellitus with foot ulcer; L97.422 Non-pressure chronic ulcer of left heel and midfoot with fat layer exposed; L97.522 Non-pressure chronic ulcer of other part of left foot with fat layer exposed; E11.40 Type 2 diabetes mellitus with diabetic neuropathy, unspecified; R60.0 Localized edema; E11.51 Type 2 diabetes mellitus with diabetic peripheral angiopathy without gangrene; M86.9 Osteomyelitis, unspecified
CPT/HCPCS: 96372; 99214; Q5106

== ENCOUNTER → 2022-07-21 10:40 | Outpatient (CLI) | payer MEDICARE, OTHER, SELFPAY ==
[2021-01-15 09:12] VITALS: BMI 30.4
== END ==
PROVIDERS: PCP Internal Medicine; Referring Provider Internal Medicine; Visit Provider Family Medicine
DX: E11.621 Type 2 diabetes mellitus with foot ulcer (principal); L97.422 Non-pressure chronic ulcer of left heel and midfoot with fat layer exposed; L97.522 Non-pressure chronic ulcer of other part of left foot with fat layer exposed; E11.40 Type 2 diabetes mellitus with diabetic neuropathy, unspecified; R60.0 Localized edema; D64.9 Anemia, unspecified; N18.4 Chronic kidney disease, stage 4 (severe); E11.51 Type 2 diabetes mellitus with diabetic peripheral angiopathy without gangrene; M86.9 Osteomyelitis, unspecified
CPT/HCPCS: 99212; 99214

== ENCOUNTER → 2022-07-28 09:33 | Outpatient (CLI) | payer MEDICARE, OTHER, SELFPAY ==
[2021-01-15 09:12] VITALS: BMI 30.4
== END ==
PROVIDERS: PCP Internal Medicine; Referring Provider Internal Medicine; Visit Provider Family Medicine
DX: E11.621 Type 2 diabetes mellitus with foot ulcer (principal); L97.422 Non-pressure chronic ulcer of left heel and midfoot with fat layer exposed; E11.40 Type 2 diabetes mellitus with diabetic neuropathy, unspecified; E11.51 Type 2 diabetes mellitus with diabetic peripheral angiopathy without gangrene; D64.9 Anemia, unspecified; N18.4 Chronic kidney disease, stage 4 (severe); E11.65 Type 2 diabetes mellitus with hyperglycemia; E11.22 Type 2 diabetes mellitus with diabetic chronic kidney disease
CPT/HCPCS: 15275; Q4196

== ENCOUNTER → 2022-08-03 07:11 | Outpatient (CLI) | payer MEDICARE, OTHER, SELFPAY ==
[2021-01-15 09:12] VITALS: BMI 30.4
[2022-08-03 08:45] LABS: Add Manual Diff / Slide Review NO; Basophils Absolute Auto 0 /uL (0-100); Basophils Percent Auto 0.6 % (0-2); Eosinophils Absolute Auto 300 /uL (0-450); Eosinophils Percent Auto 5.3 % (2-4); Hematocrit 29.7 % (41-53); Hemoglobin 9.9 g/dL (13.5-17.5); Lymphocytes Absolute Auto 1200 /uL (1100-4500); Lymphocytes Percent Auto 20.1 % (25-40); Mean Corpuscular HGB Conc 33.4 % (30-36); Mean Corpuscular Volume 86.6 fL (80-100); Monocytes Absolute Auto 600 /uL (0-900); Monocytes Percent Auto 9.8 % (3-14); Neutrophils Absolute Auto 3800 /uL (1500-7000); Neutrophils Percent Auto 64.2 % (50-75); Platelet Count 155 X10^3/uL (150-400); Red Blood Cell Count 3.43 X10^6/uL (4.5-5.9); Red Cell Distribution Width 15.4 % (11.6-14.8); White Blood Cell Count 5.9 X10^3/uL (4.5-11.0)
[2022-08-03 09:17] LABS: HEMOLYSIS < 15 (0-50); Iron 30 ug/dL (49-181)
[2022-08-03 09:20] LABS: BUN Creatinine Ratio 15.8 (6-22); Blood Urea Nitrogen 59 mg/dL (9-20); Carbon Dioxide 36 mmol/L (22-32); Chloride 99 mmol/L (98-107); Estimated Glomerular Filt Rate 17 mL/min (>60); Glucose 151 mg/dL (80-110); HEMOLYSIS < 15 (0-50); Potassium 4.2 mmol/L (3.4-5.1); Sodium 142 mmol/L (137-145)
[2022-08-03 09:28] LABS: Percent Iron Saturation 13 % (20-50); Total Iron Binding Capacity 239 ug/dL (261-462); Transferrin 200 mg/dL (206-381)
[2022-08-03 09:56] LABS: Ferritin 286 ng/mL (18-464)
== END ==
PROVIDERS: PCP Internal Medicine; Referring Provider Internal Medicine Nephrology; Visit Provider Internal Medicine Nephrology
DX: N18.9 Chronic kidney disease, unspecified (principal); D63.1 Anemia in chronic kidney disease
CPT/HCPCS: 36415; 80048; 82728; 83540; 83550; 85025

== ENCOUNTER → 2022-08-04 10:32 | Outpatient (CLI) | payer MEDICARE, OTHER, SELFPAY ==
[2021-01-15 09:12] VITALS: BMI 30.4
== END ==
PROVIDERS: PCP Internal Medicine; Referring Provider Internal Medicine; Visit Provider Family Medicine
DX: E11.621 Type 2 diabetes mellitus with foot ulcer (principal); L97.422 Non-pressure chronic ulcer of left heel and midfoot with fat layer exposed; E11.40 Type 2 diabetes mellitus with diabetic neuropathy, unspecified; R60.0 Localized edema; E11.65 Type 2 diabetes mellitus with hyperglycemia; E11.51 Type 2 diabetes mellitus with diabetic peripheral angiopathy without gangrene; I50.9 Heart failure, unspecified; N18.4 Chronic kidney disease, stage 4 (severe); D64.9 Anemia, unspecified
CPT/HCPCS: 15275; Q4195

== ENCOUNTER → 2022-08-04 11:57 | Outpatient (CLI) | payer MEDICARE, OTHER, SELFPAY ==
[2021-01-15 09:12] VITALS: BMI 30.4
[2022-08-04 12:58] VITALS: BP 162/66; PULSE 58; RESP 18; TEMP 36.9; O2SAT 97
[2022-08-04] MEDS: EPOETIN ALFA-EPBX 10,000 UNIT/ML VIAL 10000 UNIT SUBCUT (13:20)
== END ==
PROVIDERS: PCP Internal Medicine; Referring Provider Internal Medicine; Visit Provider Physician Assistant
DX: N18.4 Chronic kidney disease, stage 4 (severe) (principal); D63.1 Anemia in chronic kidney disease; E11.621 Type 2 diabetes mellitus with foot ulcer; L97.422 Non-pressure chronic ulcer of left heel and midfoot with fat layer exposed; E11.40 Type 2 diabetes mellitus with diabetic neuropathy, unspecified; R60.0 Localized edema; E11.65 Type 2 diabetes mellitus with hyperglycemia; E11.51 Type 2 diabetes mellitus with diabetic peripheral angiopathy without gangrene; I50.9 Heart failure, unspecified; D64.9 Anemia, unspecified
CPT/HCPCS: 15275; 96372; Q4195; Q5106

== ENCOUNTER 2022-08-08 07:13 | Observation (INO) | payer MEDICARE, OTHER, SELFPAY ==
[2021-01-15 09:12] VITALS: BMI 30.4
[2022-08-08] VITALS (36 sets, daily range): BP systolic 142–181; BP diastolic 54–81; PULSE 48–70; RESP 10–19; TEMP 35.6–36.7; O2SAT 88–100; BMI 33.7
--- NOTE | 2022-08-08 07:21 | ED_ITS ---
HPI - General Adult General Chief complaint: Altered Mental Status Stated complaint: AMS/Hypoglycemia Time Seen by Provider: 08/08/22 07:16 Source: EMS Mode of arrival: EMS History of Present Illness HPI narrative: 61-year-old gentleman with history of diabetes with recent surgeries for osteomyelitis complications with his lower extremities as well as significant kidney dysfunction, hypertension, chronic pain with large doses of opiate that apparently has been dramatically changed and [place], hyperlipidemia, peripheral vascular disease comes in after an episode of severe hypoglycemia and altered mental status this morning. He states he ate usual amount yesterday took his usual amount of 18 units of insulin last night. When medics arrived today they found his initial blood sugar to be 20. Was given glucose and blood sugar went up to 150 and on arrival in the emergency department is at 119. He is still somewhat sluggish and feels off. Initially was having trouble remembering basic facts but this is slowly resolving. He notes increasing edema recently does not describe any difficulty with urination, states he has been taking his medications regularly, denies fever, cough, chills. He notes that he has been somewhat dyspneic with exertion and does complain of mild orthopnea. Related Data Home Medications Medication Instructions Recorded Confirmed aspirin 81 mg tablet,delayed 81 mg PO QDAY ##0 05/31/16 08/08/22 release esomeprazole magnesium 40 mg 20 mg PO QDAY ##0 05/31/16 08/08/22 capsule,delayed release (Nexium) amlodipine 10 mg tablet (Norvasc) 10 mg PO QDAY ##0 11/02/16 08/08/22 oxycodone 10 mg tablet 10 mg PO Q4HR PRN pain 12/01/20 08/08/22 atorvastatin 20 mg tablet 20 mg PO DAILY 01/19/21 08/08/22 carvedilol 12.5 mg tablet 25 mg PO BID 01/19/21 08/08/22 ferrous sulfate 325 mg (65 mg 325 mg PO DAILY 01/19/21 08/08/22 iron) tablet (iron) glucagon HCl 1 mg solution for 1 mg SUBCUT Q20M PRN Hypoglycemia 01/19/21 08/08/22 injection (Glucagon (HCl) Emergency Kit) insulin glargine 100 unit/mL (3 20 unit SUBCUT DAILY 01/19/21 08/08/22 mL) subcutaneous pen (Lantus Solostar U-100 Insulin) loperamide 2 mg capsule 2 mg PO PRN PRN Diarrhea 01/19/21 08/08/22 naloxone 4 mg/actuation nasal 4 mg intranasal DIRECTED 01/19/21 08/08/22 spray (Narcan) oxycodone 10 mg tablet,crush 30 mg PO Q12H 12/29/21 08/08/22 resistant,extended release 12 hr vit C 250 mg-vit E 90 mg-zinc 40 1 tab PO BID 12/29/21 08/08/22 mg-copper 1 dd-zutovo-tirdta capsule (PreserVision AREDS-2) doxazosin 4 mg tablet (Cardura) 4 mg PO BEDTIME 07/21/22 08/08/22 torsemide 20 mg tablet 100 mg PO DAILY 07/21/22 08/08/22 gabapentin 300 mg tablet 300 mg PO DAILY 08/08/22 08/08/22 metolazone 5 mg tablet 10 mg PO 3XW 08/08/22 08/08/22 tamsulosin 0.4 mg capsule 0.4 mg PO DAILY 08/08/22 08/08/22 Allergies Allergy/AdvReac Type Severity Reaction Status Date / Time amitriptyline [AMITRIPTYLINE] Allergy Unknown Verified 08/08/22 07:20 Review of Systems Review of Systems Narrative: Remainder of complete review of systems is otherwise unremarkable except for that included in the HPI. Patient History Medical History Diabetes mellitus type 2 in nonobese Diabetic foot ulcer Fracture of left great toe Hyperlipidemia Hypertension Kidney disease, chronic, stage III (GFR 30-59 ml/min) Neuropathy Peripheral vascular disease Surgical History H/O cervical spine surgery History of appendectomy History of partial amputation of toe Family History Father Diabetes mellitus Mother Alcohol abuse Smoker Hypertension Social History household members: spouse Smoking Status: Never smoker alcohol intake: former Smoking Status: Never smoker alcohol intake frequency: 0-2 drinks per day Substance Use Type: does not use Exam Initial Vital Signs Initial Vital Signs: Vital Signs Temperature 97.6 F 08/08/22 07:14 Pulse Rate 53 L 08/08/22 07:14 Respiratory Rate 16 08/08/22 07:14 Blood Pressure 177/73 H 08/08/22 07:14 Pulse Oximetry 95 08/08/22 07:14 Oxygen Delivery Method 08/08/22 07:14 General: Disheveled, mildly confused, significant edema to the point of anasarca, chronically ill-appearing. HEENT: Moist mucous membranes, normal sclera with reactive pupils, Neck: No JVD, supple Respiratory: Lungs with minor bibasilar crackles. No wheezing Full and symmetrical air movement Cardiac: Regular rate and rhythm no murmurs no bruits Abdomen: Soft, nontender, good bowel tones, no flank pain Skin: Warm and dry, no rashes Neurologic: Globally slurred but Grossly neurologically intact with no obvious asymmetries or abnormalities Extremities: Wound dressings to both lower extremities. Significant edema including scrotal and penile edema to the upper chest also including upper extremities. Face to is somewhat puffy. Psych: Cooperative, slightly confused, Course Orders Ordered: ED Orders 08/08/22 09:46 COVID19 -Nasal RAPID/Pre-Proc Stat Acetaminophen (Acetaminophen 325 Mg Tablet) 975 mg PO Q8H PRN PRN Reason: Fever/Mild Pain (1-3) Amlodipine Besylate (Amlodipine 5 Mg Tablet) 10 mg PO DAILY [facility] Last Admin: 08/08/22 13:30 Dose: 10 mg Documented By: EM Aspirin (Aspirin Ec 81 Mg Tablet) 81 mg PO DAILY [facility] Atorvastatin Calcium (Atorvastatin 20 Mg Tablet) 20 mg PO BEDTIME [facility] Carvedilol (Carvedilol 12.5 Mg Tablet) 25 mg PO BID [facility] Last Admin: 08/08/22 13:31 Dose: 25 mg Documented By: EM Dextrose (Dextrose 50 % In Water 25 Gm/50 Ml Syringe) 25 gm IV PRN PRN PRN Reason: Hypoglycemia Doxazosin Mesylate (Doxazosin 4 Mg Tablet) 4 mg PO BEDTIME [facility] Enoxaparin Sodium (Enoxaparin 30 Mg/0.3 Ml Syringe) 30 mg SUBCUT DAILY [facility] Ferrous Sulfate (Ferrous Sulfate 325 Mg Tablet) 325 mg PO DAILY [facility] Gabapentin (Gabapentin 300 Mg Capsule) 300 mg PO DAILY [facility] Last Admin: 08/08/22 13:30 Dose: 300 mg Documented By: DWIGHT Insulin Human Lispro (Insulin Lispro 100 Unit/Ml 3ml Vial) 0 unit SUBCUT ACHS [facility]; Protocol Last Admin: 08/08/22 16:39 Dose: Not Given Documented By: MAGGI Lidocaine (Lidocaine Patch 1 Each Adh..Patch) 1 each TOP DAILY [facility] Naloxone HCl (Naloxone 0.4 Mg/Ml Vial) 0.2 mg IV Q2MIN PRN PRN Reason: Opiate Reversal Ondansetron HCl (Ondansetron 4 Mg/2 Ml Inj) 4 mg IV Q8HR PRN PRN Reason: Nausea And Vomiting Oxycodone HCl (Oxycodone Ir 10 Mg Tablet) 10 mg PO Q4HR PRN PRN Reason: pain Last Admin: 08/08/22 18:01 Dose: 10 mg Documented By: Admin: 08/08/22 14:09 Dose: 10 mg Documented By: MAGGI Oxycodone HCl (Oxycodone Er 10 Mg Tab) 30 mg PO BID [facility] Last Admin: 08/08/22 13:31 Dose: 30 mg Documented By: DWIGHT Polyethylene Glycol (Polyethylene Glycol 3350 17 Gm Powd.Pack) 17 gm PO DAILY [facility] Last Admin: 08/08/22 14:02 Dose: 17 gm Documented By: MAGGI Sennosides (Sennosides 8.6 Mg Tablet) 8.6 mg PO BID [facility] Last Admin: 08/08/22 14:02 Dose: 8.6 mg Documented By: MAGGI Sodium Chloride (Sodium Chloride 0.9% Flush) 10 ml IV PRN PRN PRN Reason: Flush Sodium Chloride (Sodium Chloride 0.9% Flush) 10 ml IV BID [facility] Tamsulosin HCl (Tamsulosin 0.4 Mg Capsule) 0.4 mg PO DAILY [facility] Torsemide (Torsemide 100 Mg Tablet) 100 mg PO DAILY [facility] Discontinued Medications Amlodipine Besylate (Amlodipine 5 Mg Tablet) 10 mg PO DAILY [facility] Carvedilol (Carvedilol 12.5 Mg Tablet) 25 mg PO BID [facility] Gabapentin (Gabapentin 300 Mg Capsule) 300 mg PO DAILY [facility] Furosemide 200 mg/ Sodium (Chloride) 70 mls @ 140 mls/hr IV NOW ONE Stop: 08/08/22 08:24 Last Infusion: 08/08/22 09:42 Dose: 0 mls/hr Documented By: Admin: 08/08/22 09:02 Dose: 140 mls/hr Documented By: MC(2) Insulin Glargine (Insulin Glargine 100 Unit/Ml 3ml Pen) 15 unit SUBCUT DAILY [facility] Lidocaine (Lidocaine Patch 1 Each Adh..Patch) 1 each TOP NOW ONE Stop: 08/08/22 17:55 Last Admin: 08/08/22 18:05 Dose: 1 each Documented By: MAGGI Oxycodone HCl (Oxycodone Er 10 Mg Tab) 30 mg PO BID [facility] Vital Signs Vital signs: Vital Signs - 8 hr 08/08/22 07:14 08/08/22 07:46 08/08/22 07:16 Temperature 97.6 F 97.6 F Pulse Rate 53 L 54 L Respiratory Rate 16 12 Blood Pressure 177/73 H Pulse Oximetry 95 98 95 Oxygen Delivery Method Room Air Nasal Cannula Room Air Oxygen Flow Rate 2 08/08/22 07:17 08/08/22 07:17 08/08/22 07:30 Temperature Pulse Rate 53 L 53 L Respiratory Rate 10 L Blood Pressure 177/73 H Pulse Oximetry 95 95 Oxygen Delivery Method Room Air Room Air Oxygen Flow Rate 08/08/22 07:40 08/08/22 07:40 08/08/22 07:45 Temperature Pulse Rate 48 L Respiratory Rate 10 L Blood Pressure 143/66 H 144/68 H Pulse Oximetry 88 L Oxygen Delivery Method Room Air Oxygen Flow Rate 08/08/22 07:45 08/08/22 08:00 08/08/22 08:00 Temperature Pulse Rate 48 L 57 L Respiratory Rate 12 13 Blood Pressure 152/74 H Pulse Oximetry 97 99 Oxygen Delivery Method Nasal Cannula Nasal Cannula Oxygen Flow Rate 2 2 Medical Decision Making Lab Data Result diagrams: 08/08/22 07:20 08/08/22 07:20 Labs: Lab Results 08/08/22 08/08/22 08/08/22 Range/Units 07:20 07:20 07:20 WBC 3.0 L (4.5-11.0) X10^3/uL RBC 3.46 L (4.5-5.9) X10^6/uL Hgb 10.0 L (13.5-17.5) g/dL Hct 29.8 L (41-53) % MCV 86.1 (80-100) fL MCH 28.9 (26-34) PG MCHC 33.6 (30-36) % RDW 14.7 (11.6-14.8) % Plt Count 115 L (150-400) X10^3/uL Neut % (Auto) 71.0 (50-75) % Lymph % (Auto) 22.2 L (25-40) % [place] % (Auto) 3.5 (3-14) % Eos % (Auto) 2.7 (2-4) % Baso % (Auto) 0.6 (0-2) % Neut # (Auto) 2100 (1318-6400) /uL Lymph # (Auto) 700 L (9317-7835) /uL [place] # (Auto) 100 (0-900) /uL Eos # (Auto) 100 (0-450) /uL Baso # (Auto) 0 (0-100) /uL Sodium 143 (137-145) mmol/L Potassium 4.1 (3.4-5.1) mmol/L Chloride 100 (98-107) mmol/L Carbon Dioxide 37 H (22-32) mmol/L BUN 67 H (9-20) mg/dL Creatinine 3.75 H (0.66-1.25) mg/dL Estimated GFR 17 L (>60) mL/min BUN/Creatinine Ratio 17.9 (6-22) Glucose 135 H (80-110) mg/dL Calcium 8.2 L (8.4-10.2) mg/dL Total Bilirubin 0.3 (0.2-1.3) mg/dL AST 38 (17-59) IU/L ALT 23 (<50) IU/L Alkaline Phosphatase 87 (38-126) U/L Ammonia (9-30) umol/L Troponin I < 0.012 (0.01-0.034) ng/mL NT-Pro-B Natriuret Pep 8290 H (<125) pg/mL Total Protein 6.2 L (6.3-8.2) g/dL Albumin 3.1 L (3.5-5.0) g/dL Globulin 3.1 (1.7-4.1) g/dL Albumin/Globulin Ratio 1.0 (1.0-2.8) Urine RBC (0-5/HPF) Urine WBC (0-5/HPF) Ur Squamous Epith Cells (0-5/HPF) Urine Bacteria (None) Hyaline Casts (None) Granular Casts (None) Ur Culture Indicated? U Opiates 300ng/mL cut (Negative) Ur Oxycodone Screen (Negative) Urine Methadone Screen (Negative) Ur Barbiturates Screen (Negative) U Tricyclic Antidepress (Negative) Ur Phencyclidine Scrn (Negative) Ur Amphetamines Screen (Negative) U Methamphetamines Scrn (Negative) Ur MDMA Scrn (Ecstasy) (Negative) U Benzodiazepines Scrn (Negative) Urine Cocaine Screen (Negative) U Marijuana (THC) Screen (Negative) SARS-CoV-2 (PCR) (Negative) 08/08/22 08/08/22 08/08/22 Range/Units 08:04 08:06 08:26 WBC (4.5-11.0) X10^3/uL RBC (4.5-5.9) X10^6/uL Hgb (13.5-17.5) g/dL Hct (41-53) % MCV (80-100) fL MCH (26-34) PG MCHC (30-36) % RDW (11.6-14.8) % Plt Count (150-400) X10^3/uL Neut % (Auto) (50-75) % Lymph % (Auto) (25-40) % [place] % (Auto) (3-14) % Eos % (Auto) (2-4) % Baso % (Auto) (0-2) % Neut # (Auto) (7744-9496) /uL Lymph # (Auto) (4149-8310) /uL [place] # (Auto) (0-900) /uL Eos # (Auto) (0-450) /uL Baso # (Auto) (0-100) /uL Sodium (137-145) mmol/L Potassium (3.4-5.1) mmol/L Chloride (98-107) mmol/L Carbon Dioxide (22-32) mmol/L BUN (9-20) mg/dL Creatinine (0.66-1.25) mg/dL Estimated GFR (>60) mL/min BUN/Creatinine Ratio (6-22) Glucose (80-110) mg/dL Calcium (8.4-10.2) mg/dL Total Bilirubin (0.2-1.3) mg/dL AST (17-59) IU/L ALT (<50) IU/L Alkaline Phosphatase (38-126) U/L Ammonia < 9 L (9-30) umol/L Troponin I (0.01-0.034) ng/mL NT-Pro-B Natriuret Pep (<125) pg/mL Total Protein (6.3-8.2) g/dL Albumin (3.5-5.0) g/dL Globulin (1.7-4.1) g/dL Albumin/Globulin Ratio (1.0-2.8) Urine RBC None seen (0-5/HPF) Urine WBC None seen (0-5/HPF) Ur Squamous Epith Cells 1-5 /hpf (0-5/HPF) Urine Bacteria None seen (None) Hyaline Casts 1-5/lpf (None) Granular Casts 0-1/lpf (None) Ur Culture Indicated? Cult not indicated U Opiates 300ng/mL cut Positive H (Negative) Ur Oxycodone Screen Positive H (Negative) Urine Methadone Screen Negative (Negative) Ur Barbiturates Screen Negative (Negative) U Tricyclic Antidepress Negative (Negative) Ur Phencyclidine Scrn Negative (Negative) Ur Amphetamines Screen Negative (Negative) U Methamphetamines Scrn Negative (Negative) Ur MDMA Scrn (Ecstasy) Negative (Negative) U Benzodiazepines Scrn Negative (Negative) Urine Cocaine Screen Negative (Negative) U Marijuana (THC) Screen Negative (Negative) SARS-CoV-2 (PCR) (Negative) 08/08/22 Range/Units 09:46 WBC (4.5-11.0) X10^3/uL RBC (4.5-5.9) X10^6/uL Hgb (13.5-17.5) g/dL Hct (41-53) % MCV (80-100) fL MCH (26-34) PG MCHC (30-36) % RDW (11.6-14.8) % Plt Count (150-400) X10^3/uL Neut % (Auto) (50-75) % Lymph % (Auto) (25-40) % [place] % (Auto) (3-14) % Eos % (Auto) (2-4) % Baso % (Auto) (0-2) % Neut # (Auto) (8257-5595) /uL Lymph # (Auto) (0460-3585) /uL [place] # (Auto) (0-900) /uL Eos # (Auto) (0-450) /uL Baso # (Auto) (0-100) /uL Sodium (137-145) mmol/L Potassium (3.4-5.1) mmol/L Chloride (98-107) mmol/L Carbon Dioxide (22-32) mmol/L BUN (9-20) mg/dL Creatinine (0.66-1.25) mg/dL Estimated GFR (>60) mL/min BUN/Creatinine Ratio (6-22) Glucose (80-110) mg/dL Calcium (8.4-10.2) mg/dL Total Bilirubin (0.2-1.3) mg/dL AST (17-59) IU/L ALT (<50) IU/L Alkaline Phosphatase (38-126) U/L Ammonia (9-30) umol/L Troponin I (0.01-0.034) ng/mL NT-Pro-B Natriuret Pep (<125) pg/mL Total Protein (6.3-8.2) g/dL Albumin (3.5-5.0) g/dL Globulin (1.7-4.1) g/dL Albumin/Globulin Ratio (1.0-2.8) Urine RBC (0-5/HPF) Urine WBC (0-5/HPF) Ur Squamous Epith Cells (0-5/HPF) Urine Bacteria (None) Hyaline Casts (None) Granular Casts (None) Ur Culture Indicated? U Opiates 300ng/mL cut (Negative) Ur Oxycodone Screen (Negative) Urine Methadone Screen (Negative) Ur Barbiturates Screen (Negative) U Tricyclic Antidepress (Negative) Ur Phencyclidine Scrn (Negative) Ur Amphetamines Screen (Negative) U Methamphetamines Scrn (Negative) Ur MDMA Scrn (Ecstasy) (Negative) U Benzodiazepines Scrn (Negative) Urine Cocaine Screen (Negative) U Marijuana (THC) Screen (Negative) SARS-CoV-2 (PCR) Negative (Negative) Point of Care Testing Glucose POC 119 Urine Dip Bedside Urine Glucose Negative Bedside Urine Bilirubin - Negative Bedside Urine Ketone - Negative Urine Specific [employer] 1.015 Bedside Urine Occult Blood +/- Bedside Urine pH 6.0 Bedside Urine Protein +++ 300 Bedside Urine Urobilinogen - Negative Bedside Urine Nitrite - Negative Bedside Urine Leukocytes - Negative Esterase Point of care testing: Point of Care Testing Glucose POC 119 Urine Dip Bedside Urine Glucose Negative Bedside Urine Bilirubin - Negative Bedside Urine Ketone - Negative Urine Specific [employer] 1.015 Bedside Urine Occult Blood +/- Bedside Urine pH 6.0 Bedside Urine Protein +++ 300 Bedside Urine Urobilinogen - Negative Bedside Urine Nitrite - Negative Bedside Urine Leukocytes - Negative Esterase MDM Narrative Medical decision making narrative: Patient attempted to void and got approximately 100 cc out. Bladder scan was done and showed over a L still in his bladder. [place] catheter was placed with slight bit of difficulty as he had a mild stricture at the meatus. Total of well 50 cc of clear urine returned. Labs do not suggest significant infection, his chronic anemia is stable. Chemistries show chronic and continued kidney disease with creatinine at 3.75. Ammonia level is normal, no elevated troponin. ProBNP is elevated at over 8000. Chest x-ray shows moderate cardiomegaly with no obvious congestive heart failure. This gentleman has anasarca, prostate enlargement with acute urinary retention likely exacerbating symptoms. I suspect that kidney function is causing his insulin to not be eliminated as quickly. He states that he has quite a few low sugars. His Lantus had been at 20 mg b.i.d. he is currently using 18 b.i.d. and likely should go down to 16. He is given 200 mg IV Lasix. Given the dramatic swelling, this slowly improving cognitive function after his significant hypoglycemia and the acute urinary retention I am going to suggest hospitalization for diuresis and continued evaluation of cognitive function and renal function in light of the [place] catheter placement and high doses of diuretics. Discharge Plan Departure Patient Disposition: Admitted As Inpatient Clinical Impression: Anasarca, Chronic renal insufficiency, stage IV (severe), Lower obstructive uropathy, Acute on chronic urinary retention Acute exacerbation of CHF (congestive heart failure) Qualifiers: Heart failure type: unspecified Qualified Code(s): I50.9 - Heart failure, unspecified Admit Date/Time: 08/08/22 10:24 Admit Provider: Santy Le
--- NOTE | 2022-08-08 07:43 | DI.RAD.S_ITS ---
PROCEDURE: XR CHEST 1V INDICATIONS: altered mental status TECHNIQUE: One view of the chest was acquired. COMPARISON: [facility], CR, XR CHEST 1 VIEW, 12/04/2021, 12:09. [facility], CR, XR CHEST 2V, 12/16/2021, 13:10. FINDINGS: Surgical changes and devices: Lower cervical spine fixation hardware is partially seen. Lungs and pleura: An incomplete inspiratory result is noted, causing a crowded appearance to the lung markings. No focal infiltrates are seen. No pneumothorax or significant pleural effusions are seen. Mediastinum: Mediastinal contours appear normal. Heart size is moderately large. Bones and chest wall: No suspicious bony lesions. Age-appropriate bony degenerative changes are seen. Overlying soft tissues appear unremarkable. IMPRESSION: Moderate cardiomegaly. Clear lungs, with low lung volumes. Dictated by: Hayes Seals M.D. on 08/08/2022 at 7:38 Approved by: Hayes Seals M.D. on 08/08/2022 at 7:39
[2022-08-08 07:50] LABS: Add Manual Diff / Slide Review NO; Basophils Absolute Auto 0 /uL (0-100); Basophils Percent Auto 0.6 % (0-2); Eosinophils Absolute Auto 100 /uL (0-450); Eosinophils Percent Auto 2.7 % (2-4); Hematocrit 29.8 % (41-53); Lymphocytes Absolute Auto 700 /uL (1100-4500); Lymphocytes Percent Auto 22.2 % (25-40); Mean Corpuscular HGB Conc 33.6 % (30-36); Mean Corpuscular Hemoglobin 28.9 PG (26-34); Mean Corpuscular Volume 86.1 fL (80-100); Monocytes Absolute Auto 100 /uL (0-900); Monocytes Percent Auto 3.5 % (3-14); Neutrophils Absolute Auto 2100 /uL (1500-7000); Platelet Count 115 X10^3/uL (150-400); Red Blood Cell Count 3.46 X10^6/uL (4.5-5.9); Red Cell Distribution Width 14.7 % (11.6-14.8)
[2022-08-08 07:56] LABS: Alanine Aminotransferase 23 IU/L (<50); Albumin 3.1 g/dL (3.5-5.0); Alkaline Phosphatase 87 U/L (38-126); Aspartate Aminotransferase 38 IU/L (17-59); BUN Creatinine Ratio 17.9 (6-22); Bilirubin Total 0.3 mg/dL (0.2-1.3); Blood Urea Nitrogen 67 mg/dL (9-20); Calcium 8.2 mg/dL (8.4-10.2); Carbon Dioxide 37 mmol/L (22-32); Chloride 100 mmol/L (98-107); Estimated Glomerular Filt Rate 17 mL/min (>60); Globulin 3.1 g/dL (1.7-4.1); Glucose 135 mg/dL (80-110); HEMOLYSIS < 15 (0-50); Potassium 4.1 mmol/L (3.4-5.1); Sodium 143 mmol/L (137-145); Total Protein 6.2 g/dL (6.3-8.2)
[2022-08-08 08:14] LABS: Bacteria Urine None Seen; Culture Indicated Urine Cult Not Indicated; Granular Casts Urine 0-1/LPF; Hyaline Casts Urine 1-5/LPF; RBC Urine None Seen (0-5/HPF); Squamous Epithelial Cell Urine 1-5 /HPF (0-5/HPF); WBC Urine None Seen (0-5/HPF)
[2022-08-08 08:15] LABS: Urine Cocaine Negative (Negative); Urine Tetrahydrocannabinol Negative (Negative)
[2022-08-08 08:17] LABS: UR Morphine/Opiate cutoff 300 Positive (Negative); Urine Amphetamines Negative (Negative); Urine MDMA Negative (Negative); Urine Methamphetamines Negative (Negative); Urine Phencyclidine Negative (Negative)
[2022-08-08 08:18] LABS: Urine Barbiturates Negative (Negative); Urine Benzodiazepines Negative (Negative); Urine Methadone Negative (Negative); Urine Oxycodone Positive (Negative); Urine Tricyclic Antidepressant Negative (Negative)
[2022-08-08 08:43] LABS: Ammonia (NH3) < 9 umol/L (9-30)
[2022-08-08] MEDS: FUROSEMIDE 200 MG in SODIUM CHLORIDE 0.9% 50 ML 140 MG IV (09:02)
[2022-08-08 09:19] LABS: NT-proBNP (BNP-Adult 18+) 8290 pg/mL (<125); Troponin I < 0.012 ng/mL (0.01-0.034)
[2022-08-08 10:22] LABS: COVID19 -Nasal RAPID Negative (Negative)
--- NOTE | 2022-08-08 12:21 | PC.NURSE ---
Day shift: Pt on unit from ED at approx 1215. Slider board used to transfer Pt to bed. Felton in place. RA 98%.BP elevated 177/78. Generalized edema present. Reports generalized pain also. Denies ay nausea. Oriented to room and call light. He will be a high fall risk for now. Also reports needing to have a BM. Call light in reach and bed alarm is on.
--- NOTE | 2022-08-08 12:24 | P.HP_ITS ---
History of Present Illness History of Present Illness Date Patient Seen: 08/08/22 Time Patient Seen: 13:29 Chief complaint: AMS/Hypoglycemia Narrative: Mr. Yasmany Ann is a 60-year-old male with past medical history significant for insulin-dependent diabetes type 2, CKD stage III, opioid dependence on chronic pain medications, hypertension, hyperlipidemia and peripheral vascular disease, prior osteomyelitis and chronic lower extremity wounds who presented to the emergency room with altered mentation and hypoglycemia. His roommates found the patient and called EMS, his glucose was 20. He was given glucose and sugar improved to 150 and in the ER was 119, but he continued to be somewhat lethargic and confused despite improved glucose. He now recalls that he took his lantus but didn't eat. He states when he takes his lantus his sugar has been dropping. He normally feels hypoglycemia when his sugar is in the low 80s. He states his leg sweeling has been slightly worsened recently, but has been taking all of his medications regularly. He denies fever, chills, cough and has baseline dyspnea with exertion that mary is slightly worse. In the ER, patient was hypertensive, briefly hypoxic to 88% on room air but improved on 2L. CBC was not significantly changed from baseline values, but does show a pancytopenia. Creatinine was mildly elevated at 3.75 from his baseline which appears to be 2.8 - 3.3. CO2 chronically elevated at 37. ProBNP 8290 also likely chronically elevated. CXR showed cardiomegaly without focal infiltrates. He was admitted for continued monitoring of encephalopathy and hypoglycemia, along with mild heart failure exacerbation. Patient History Medical History Diabetes mellitus type 2 in nonobese Diabetic foot ulcer Fracture of left great toe Hyperlipidemia Hypertension Kidney disease, chronic, stage III (GFR 30-59 ml/min) Neuropathy Peripheral vascular disease Surgical History H/O cervical spine surgery History of appendectomy History of partial amputation of toe Family & Social History Family History Father Diabetes mellitus Mother Alcohol abuse Smoker Hypertension Social History: household members spouse Safety & Behavioral: Feels Safe in Current Yes Environment Been Physically Hurt or No Threatened By a Person Tobacco & Substance use: Smoking Status Never smoker alcohol intake current alcohol intake frequency 0-2 drinks per day Substance Use Type does not use Meds Home Medications and Allergies Home Medications Medication Instructions Recorded Confirmed Type aspirin 81 mg tablet,delayed 81 mg PO QDAY ##0 05/31/16 08/08/22 History release esomeprazole magnesium 40 mg 20 mg PO QDAY ##0 05/31/16 08/08/22 History capsule,delayed release (Nexium) amlodipine 10 mg tablet (Norvasc) 10 mg PO QDAY ##0 11/02/16 08/08/22 History oxycodone 10 mg tablet 10 mg PO Q4HR PRN pain 12/01/20 08/08/22 History atorvastatin 20 mg tablet 20 mg PO DAILY 01/19/21 08/08/22 History carvedilol 12.5 mg tablet 25 mg PO BID 01/19/21 08/08/22 History ferrous sulfate 325 mg (65 mg 325 mg PO DAILY 01/19/21 08/08/22 History iron) tablet (iron) glucagon HCl 1 mg solution for 1 mg SUBCUT Q20M PRN Hypoglycemia 01/19/21 08/08/22 History injection (Glucagon (HCl) Emergency Kit) insulin glargine 100 unit/mL (3 20 unit SUBCUT DAILY 01/19/21 08/08/22 History mL) subcutaneous pen (Lantus Solostar U-100 Insulin) loperamide 2 mg capsule 2 mg PO PRN PRN Diarrhea 01/19/21 08/08/22 History naloxone 4 mg/actuation nasal 4 mg intranasal DIRECTED 01/19/21 08/08/22 History spray (Narcan) oxycodone 10 mg tablet,crush 30 mg PO Q12H 12/29/21 08/08/22 History resistant,extended release 12 hr vit C 250 mg-vit E 90 mg-zinc 40 1 tab PO BID 12/29/21 08/08/22 History mg-copper 1 on-czgzer-uuviai capsule (PreserVision AREDS-2) doxazosin 4 mg tablet (Cardura) 4 mg PO BEDTIME 07/21/22 08/08/22 History torsemide 20 mg tablet 100 mg PO DAILY 07/21/22 08/08/22 History gabapentin 300 mg tablet 300 mg PO DAILY 08/08/22 08/08/22 History metolazone 5 mg tablet 10 mg PO 3XW 08/08/22 08/08/22 History tamsulosin 0.4 mg capsule 0.4 mg PO DAILY 08/08/22 08/08/22 History Allergies Allergy/AdvReac Type Severity Reaction Status Date / Time amitriptyline [AMITRIPTYLINE] Allergy Unknown Verified 08/08/22 07:20 Review of Systems Review of Systems Narrative: All other systems reviewed with the patient and are negative unless otherwise stated. Exam Vital Signs (past 8 hours): - 08/08/22 07:14 08/08/22 07:46 08/08/22 07:16 Temperature 97.6 F 97.6 F Pulse Rate 53 L 54 L Respiratory Rate 16 12 Blood Pressure 177/73 H Pulse Oximetry 95 98 95 Oxygen Delivery Method Room Air Nasal Cannula Room Air Oxygen Flow Rate 2 08/08/22 07:17 08/08/22 07:17 08/08/22 07:30 Temperature Pulse Rate 53 L 53 L Respiratory Rate 10 L Blood Pressure 177/73 H Pulse Oximetry 95 95 Oxygen Delivery Method Room Air Room Air Oxygen Flow Rate 08/08/22 07:40 08/08/22 07:40 08/08/22 07:45 Temperature Pulse Rate 48 L Respiratory Rate 10 L Blood Pressure 143/66 H 144/68 H Pulse Oximetry 88 L Oxygen Delivery Method Room Air Oxygen Flow Rate 08/08/22 07:45 08/08/22 08:00 08/08/22 08:00 Temperature Pulse Rate 48 L 57 L Respiratory Rate 12 13 Blood Pressure 152/74 H Pulse Oximetry 97 99 Oxygen Delivery Method Nasal Cannula Nasal Cannula Oxygen Flow Rate 2 2 08/08/22 08:15 08/08/22 08:16 08/08/22 08:16 Temperature Pulse Rate 58 L 58 L Respiratory Rate 16 17 Blood Pressure 165/70 H Pulse Oximetry 99 99 Oxygen Delivery Method Oxygen Flow Rate 08/08/22 08:30 08/08/22 08:30 08/08/22 08:45 Temperature Pulse Rate 56 L Respiratory Rate 15 Blood Pressure 172/79 H 175/79 H Pulse Oximetry 99 Oxygen Delivery Method Oxygen Flow Rate 08/08/22 08:45 08/08/22 09:00 08/08/22 09:00 Temperature Pulse Rate 58 L 60 Respiratory Rate 15 12 Blood Pressure 181/76 H Pulse Oximetry 99 98 Oxygen Delivery Method Oxygen Flow Rate 08/08/22 09:15 08/08/22 09:15 08/08/22 09:30 Temperature Pulse Rate 61 Respiratory Rate 12 Blood Pressure 163/74 H 170/81 H Pulse Oximetry 97 Oxygen Delivery Method Oxygen Flow Rate 08/08/22 09:30 08/08/22 09:45 08/08/22 09:46 Temperature Pulse Rate 62 57 L 58 L Respiratory Rate 12 14 12 Blood Pressure Pulse Oximetry 97 99 98 Oxygen Delivery Method Oxygen Flow Rate 08/08/22 09:46 08/08/22 10:00 08/08/22 10:00 Temperature Pulse Rate 55 L Respiratory Rate 12 Blood Pressure 175/75 H 154/71 H Pulse Oximetry 99 Oxygen Delivery Method Oxygen Flow Rate 08/08/22 10:15 08/08/22 10:15 08/08/22 10:30 Temperature Pulse Rate 53 L Respiratory Rate 12 Blood Pressure 156/66 H 159/69 H Pulse Oximetry 100 Oxygen Delivery Method Oxygen Flow Rate 08/08/22 10:30 08/08/22 10:45 08/08/22 10:46 Temperature Pulse Rate 59 L 54 L 53 L Respiratory Rate 19 15 14 Blood Pressure Pulse Oximetry 100 99 99 Oxygen Delivery Method Oxygen Flow Rate 08/08/22 10:46 08/08/22 11:00 08/08/22 11:00 Temperature Pulse Rate 55 L Respiratory Rate 12 Blood Pressure 159/76 H 155/74 H Pulse Oximetry 99 Oxygen Delivery Method Oxygen Flow Rate 08/08/22 11:15 08/08/22 11:15 08/08/22 11:30 Temperature Pulse Rate 55 L Respiratory Rate 12 Blood Pressure 145/70 H 142/69 H Pulse Oximetry 99 Oxygen Delivery Method Oxygen Flow Rate 08/08/22 11:30 08/08/22 11:45 08/08/22 11:45 Temperature Pulse Rate 54 L 56 L Respiratory Rate 12 12 Blood Pressure 162/76 H Pulse Oximetry 99 99 Oxygen Delivery Method Oxygen Flow Rate Oxygen Delivery Method Nasal Cannula Oxygen Flow Rate 2 Narrative Exam Narrative: GENERAL APPEARANCE: well developed, overweight male in mild discomfort but in no acute distress. HEENT: Normocephalic, PERRLA, conjunctiva clear, EOMs intact without nystagmus, mucous membranes are moist and pink. NECK/THYROID: neck supple, no JVD, no thyromegaly, trachea midline. LYMPH NODES: no cervical or supraclavicular lymphadenopathy. HEART: regular rate and rhythm, S1-S2, no murmur, no rubs or gallops, brisk capillary refill, 1+ bilateral lower extremity edema LUNGS: clear to auscultation bilaterally, no coarseness crackles or wheezing, no cough present CHEST: Symmetrical movement, no accessory muscle use, good tidal volume. ABDOMEN: Soft, no distention, no abdominal tenderness, no guarding or peritoneal signs, no organomegaly, no flank or suprapubic tenderness, active bowel tones. BACK: Normal curvature, nontender to palpation. EXTREMITIES: moves all extremities, strength is 5/5 and symmetrical, no deformities or joint effusions. NEUROLOGIC: AAO x 3, cranial nerves II-XII grossly intact, fine tremors bilateral hands, peripheral neuropathy in all extremities, hearing grossly n ormal to speech. PSYCH: Hyperverbal, tangential thought process, cooperative Objective ECG Impression: Sinus bradycardia, prolonged QT Labs Result Diagrams: 08/08/22 07:20 08/08/22 07:20 Labs: Laboratory Results - last 24 hr 08/08/22 08/08/22 08/08/22 07:20 07:20 07:20 WBC 3.0 L RBC 3.46 L Hgb 10.0 L Hct 29.8 L MCV 86.1 MCH 28.9 MCHC 33.6 RDW 14.7 Plt Count 115 L Neut % (Auto) 71.0 Lymph % (Auto) 22.2 L [place] % (Auto) 3.5 Eos % (Auto) 2.7 Baso % (Auto) 0.6 Neut # (Auto) 2100 Lymph # (Auto) 700 L [place] # (Auto) 100 Eos # (Auto) 100 Baso # (Auto) 0 Sodium 143 Potassium 4.1 Chloride 100 Carbon Dioxide 37 H BUN 67 H Creatinine 3.75 H Estimated GFR 17 L BUN/Creatinine Ratio 17.9 Glucose 135 H Calcium 8.2 L Total Bilirubin 0.3 AST 38 ALT 23 Alkaline Phosphatase 87 Ammonia Troponin I < 0.012 NT-Pro-B Natriuret Pep 8290 H Total Protein 6.2 L Albumin 3.1 L Globulin 3.1 Albumin/Globulin Ratio 1.0 Urine RBC Urine WBC Ur Squamous Epith Cells Urine Bacteria Hyaline Casts Granular Casts Ur Culture Indicated? U Opiates 300ng/mL cut Ur Oxycodone Screen Urine Methadone Screen Ur Barbiturates Screen U Tricyclic Antidepress Ur Phencyclidine Scrn Ur Amphetamines Screen U Methamphetamines Scrn Ur MDMA Scrn (Ecstasy) U Benzodiazepines Scrn Urine Cocaine Screen U Marijuana (THC) Screen SARS-CoV-2 (PCR) 08/08/22 08/08/22 08/08/22 08:04 08:06 08:26 WBC RBC Hgb Hct MCV MCH MCHC RDW Plt Count Neut % (Auto) Lymph % (Auto) [place] % (Auto) Eos % (Auto) Baso % (Auto) Neut # (Auto) Lymph # (Auto) [place] # (Auto) Eos # (Auto) Baso # (Auto) Sodium Potassium Chloride Carbon Dioxide BUN Creatinine Estimated GFR BUN/Creatinine Ratio Glucose Calcium Total Bilirubin AST ALT Alkaline Phosphatase Ammonia < 9 L Troponin I NT-Pro-B Natriuret Pep Total Protein Albumin Globulin Albumin/Globulin Ratio Urine RBC None seen Urine WBC None seen Ur Squamous Epith Cells 1-5 /hpf Urine Bacteria None seen Hyaline Casts 1-5/lpf Granular Casts 0-1/lpf Ur Culture Indicated? Cult not indicated U Opiates 300ng/mL cut Positive H Ur Oxycodone Screen Positive H Urine Methadone Screen Negative Ur Barbiturates Screen Negative U Tricyclic Antidepress Negative Ur Phencyclidine Scrn Negative Ur Amphetamines Screen Negative U Methamphetamines Scrn Negative Ur MDMA Scrn (Ecstasy) Negative U Benzodiazepines Scrn Negative Urine Cocaine Screen Negative U Marijuana (THC) Screen Negative SARS-CoV-2 (PCR) 08/08/22 09:46 WBC RBC Hgb Hct MCV MCH MCHC RDW Plt Count Neut % (Auto) Lymph % (Auto) [place] % (Auto) Eos % (Auto) Baso % (Auto) Neut # (Auto) Lymph # (Auto) [place] # (Auto) Eos # (Auto) Baso # (Auto) Sodium Potassium Chloride Carbon Dioxide BUN Creatinine Estimated GFR BUN/Creatinine Ratio Glucose Calcium Total Bilirubin AST ALT Alkaline Phosphatase Ammonia Troponin I NT-Pro-B Natriuret Pep Total Protein Albumin Globulin Albumin/Globulin Ratio Urine RBC Urine WBC Ur Squamous Epith Cells Urine Bacteria Hyaline Casts Granular Casts Ur Culture Indicated? U Opiates 300ng/mL cut Ur Oxycodone Screen Urine Methadone Screen Ur Barbiturates Screen U Tricyclic Antidepress Ur Phencyclidine Scrn Ur Amphetamines Screen U Methamphetamines Scrn Ur MDMA Scrn (Ecstasy) U Benzodiazepines Scrn Urine Cocaine Screen U Marijuana (THC) Screen SARS-CoV-2 (PCR) Negative Assessment & Plan Assessment & Plan narrative: 1. Acute Metabolic encephalopathy, improving - appears to be improving quickly after arrival to the hospital floor - likely result of hypoglycemia, continue to monitor ACHS. Hold lantus. Likely increased effect of insulin with worsening renal function. - no obvious signs or symptoms of infection. - may have been in setting of acute heart failure / volume overload from urinary obstruction. 2. Possible acute on chronic diastolic heart failure with acute respiratory failure with hypoxia. - prior TTE with normal EF but evidence of diastolic dysfunction. - continue home medications, was given 200 mg IV lasix, though volume may be increased due to urinary obstruction as well. - O2 saturation documented 88% on RA in the ER, now improved after initial lasix dosing and wooten placement. - respiratory failure may have been in setting of hypoglycemia as well. 3. IDDM with hypoglycemia - Medium correctional insulin dosing, can hold long acting for now. Adjust as needed. 4. RUPINDER on CKD 3, present on admission ?- Creatinine 3.75, likely acutely worsening in setting of obstruction, continue to follow. 5. Acute urinary retention with hx of BPH - continue wooten, restart home medications prior to trial of void. May be retention in setting of opiate use or hypoglycemia. - had 1L of urine - restart home tamsulosin and doxazosin. 6. Opioid dependence for chronic pain syndrome - Continue home dose of oxycodone 30 mg po q 6 hours, may need adjustments. He complaints his PCP has been slowly declining his pain meds and he has been taking less lof them recently. 7. Essential hypertension, chronic - Continue home dose of amlodipine 10 mg po daily along with diuertic therapy. 8. Hyperlipidemia, chronic - Continue home dose of atorvastatin 80 po daily 9. Peripheral vascular disease Code: Full, surrogate is patient's spouse. DVT Lovenox daily Dispo: probable discharge home tomorrow, if stable and improved possibly could go home this evening. I have utilized all available immediate resources to obtain, update, or review the patient's current medications. Time Spent With Patient Critical Care time: I spent a total of [] minutes of critical care time on this patient's care today; this time is exclusive of procedural time. Quality MIPS - Admit I confirm the patient?s Advance Care Plan is present, Code status is documented, Surrogate decision maker is in patient?s record [If Yes, STOP here]: Yes
[2022-08-08] MEDS: AMLODIPINE 5 MG TABLET 10 MG PO (13:30)
[2022-08-08] MEDS: GABAPENTIN 300 MG CAPSULE PO (13:30)
[2022-08-08] MEDS: carvediloL 12.5 MG TABLET 25 MG PO ×2 (13:31→21:26)
[2022-08-08] MEDS: OXYCODONE ER 10 MG TAB 30 MG PO ×2 (13:31→21:24)
[2022-08-08] MEDS: polyethylene glycoL 3350 17 GM POWD.PACK PO (14:02)
[2022-08-08] MEDS: SENNOSIDES 8.6 MG TABLET PO ×2 (14:02→21:26)
[2022-08-08] MEDS: OXYCODONE IR 10 MG TABLET PO ×3 (14:09→22:49)
[2022-08-08] MEDS: LIDOCAINE PATCH 1 EACH ADH..PATCH TOP (18:05)
[2022-08-08] MEDS: DOXAZOSIN 4 MG TABLET PO (21:25)
[2022-08-08] MEDS: ATORVASTATIN 20 MG TABLET PO (21:26)
[2022-08-08] MEDS: SODIUM CHLORIDE 0.9% FLUSH 10 ML IV (21:27)
[2022-08-09 01:00] VITALS: O2SAT 96
[2022-08-09 03:00] VITALS: BP 161/67; PULSE 66; RESP 17; TEMP 36.9; O2SAT 96
[2022-08-09] MEDS: ACETAMINOPHEN 325 MG TABLET 975 MG PO (03:10)
[2022-08-09] MEDS: OXYCODONE IR 10 MG TABLET PO ×3 (03:11→12:15)
[2022-08-09 05:00] VITALS: O2SAT 96
[2022-08-09 05:31] LABS: Alanine Aminotransferase 22 IU/L (<50); Albumin 2.9 g/dL (3.5-5.0); Alkaline Phosphatase 80 U/L (38-126); Aspartate Aminotransferase 23 IU/L (17-59); BUN Creatinine Ratio 17.3 (6-22); Bilirubin Total 0.2 mg/dL (0.2-1.3); Blood Urea Nitrogen 66 mg/dL (9-20); Carbon Dioxide 37 mmol/L (22-32); Chloride 96 mmol/L (98-107); Estimated Glomerular Filt Rate 17 mL/min (>60); Globulin 2.8 g/dL (1.7-4.1); Glucose 197 mg/dL (80-110); HEMOLYSIS < 15 (0-50); Magnesium 2.3 mg/dL (1.6-2.3); Potassium 4.4 mmol/L (3.4-5.1); Sodium 141 mmol/L (137-145); Total Protein 5.7 g/dL (6.3-8.2)
[2022-08-09 05:46] LABS: Add Manual Diff / Slide Review NO; Basophils Absolute Auto 0 /uL (0-100); Basophils Percent Auto 0.5 % (0-2); Eosinophils Absolute Auto 100 /uL (0-450); Eosinophils Percent Auto 1.2 % (2-4); Hematocrit 27.7 % (41-53); Hemoglobin 9.4 g/dL (13.5-17.5); Lymphocytes Absolute Auto 1100 /uL (1100-4500); Lymphocytes Percent Auto 15.7 % (25-40); Mean Corpuscular Hemoglobin 29.3 PG (26-34); Mean Corpuscular Volume 86.2 fL (80-100); Monocytes Absolute Auto 500 /uL (0-900); Monocytes Percent Auto 7.6 % (3-14); Neutrophils Absolute Auto 5100 /uL (1500-7000); Platelet Count 129 X10^3/uL (150-400); Red Blood Cell Count 3.21 X10^6/uL (4.5-5.9); Red Cell Distribution Width 15.1 % (11.6-14.8); White Blood Cell Count 6.9 X10^3/uL (4.5-11.0)
[2022-08-09 07:00] VITALS: BP 166/69; PULSE 67; RESP 17; TEMP 36.9; O2SAT 96
[2022-08-09] MEDS: OXYCODONE ER 10 MG TAB 30 MG PO (08:40)
[2022-08-09] MEDS: AMLODIPINE 5 MG TABLET 10 MG PO (08:41)
[2022-08-09] MEDS: GABAPENTIN 300 MG CAPSULE PO (08:42)
[2022-08-09] MEDS: ASPIRIN EC 81 MG TABLET PO (08:42)
[2022-08-09] MEDS: LIDOCAINE PATCH 1 EACH ADH..PATCH TOP (08:42)
[2022-08-09] MEDS: carvediloL 12.5 MG TABLET 25 MG PO (08:42)
[2022-08-09] MEDS: ENOXAPARIN 30 MG/0.3 ML SYRINGE SUBCUT (08:42)
[2022-08-09] MEDS: polyethylene glycoL 3350 17 GM POWD.PACK PO (08:43)
[2022-08-09] MEDS: SENNOSIDES 8.6 MG TABLET PO (08:43)
[2022-08-09] MEDS: TORSEMIDE 100 MG TABLET PO (08:43)
[2022-08-09] MEDS: TAMSULOSIN 0.4 MG CAPSULE PO (08:43)
--- NOTE | 2022-08-09 09:12 | CM.DANOTE ---
Addendum entered by Odilia Bravo R.N. 08/09/22 12:17: Gave patient phone number for [facility] here in [place] for providers, and [facility] next door. Was unable to print out material from intranet, as is down. Asked patient if he is interested in home health nursing, and stated, it would not hurt to order it. Patient feels that he just needs nursing. Did update Mira at [facility], she is aware. Currently, last she was informed, nursing was out until the 18th of this month, but may have an update and will let this DC Ultrasound Technologist know if earlier time. Will fax face sheet, face to face, DC Summary, and orders. Confirmed with Dr. Le that home health is to be ordered. Original Note: DCP: Case received, EMR reviewed and met with patient. Introduced self and role. Was able to obtain information regarding patient's baseline activity status at home prior to hospitalization. DCP assessment completed with information currently available. Patient is a 61 year old male who admitted yesterday morning to the care of the hospitalist team. PCP: Dr. White ([facility]). Payer: confirmed: [email or web address]. Patient came to the hospital via ambulance secondary to increased confusion, initial blood sugar at home of 20 when EMS arrived. Patient had anasarca, acute urinary retention. Patient has history of insulin-dependent diabetes type 2, CKD stage 3, opioid dependence on chronic pain medications, HTN. Patient diagnosed with acute metabolic encephalopathy, hypoglycemia. Met with patient in his room. He was sitting up in chair eating his breakfast, alert and oriented. Confirmed that he resides in [place] with his spouse, Jacob. Patient confirmed that his new primary care [place] for now [place] [facility]. He indicated, he wants to find another doctor that can tend to his many medical needs. Patient also sees an ab initio etl developer, has seen ortho. At his baseline he uses a FWW, does still drive, and has a boot on his left foot. Patient indicated that he used [facility] before, with dressings on his foot. He may want to use [facility] again. P: DCP to continue to follow for needs. Patient should be able to go home when stable. Odilia Shelly, RN/Matrix Bath Attendant Discharge Planning/Care Management CM Discharge Assessment Start: 08/09/22 09:09 Freq: Status: Active Protocol: Document 08/09/22 09:10 (Rec: 08/09/22 09:12 [id number]) Discharge Planning Assessment Assigned Psychologist Private Practice Odilia Bravo RN/Matrix Bath Attendant Advance Directives? No History Provided By Patient,Medical Record Prior Living Arrangements House Household Members spouse Type of transporation used prior to Drives own vehicle admit Independent with ADL's Yes Is patient alert and oriented? Yes Needs Assistance With Home Chores / Shopping Caregiver for Another No DME Already Rented / Owned FWW / Walker Comment Has a boot for his foot. Barriers to Discharge No Discharge Plan Home Transportation Arrangement Spouse Referrals Initiated Other Additional Comment Patient was under [facility] at one time, will see if he may need services again. If patient plan is home with home health No: Currently under [facility] : Has signed face to face form been completed? If patient plan is SNF: Has PASSR been No completed? Whiteboard Updated in Patient Room with Yes name and ext. # of Psychologist Private Practice Review Status In Process Next Review Type Continued Stay Review
[2022-08-09 11:00] VITALS: BP 153/62; PULSE 88; RESP 18; TEMP 36.7; O2SAT 95
--- NOTE | 2022-08-09 11:14 | PM.DS.1 ---
History of Present Illness History of Present Illness Date Patient Seen: 08/09/22 Chief complaint: AMS/Hypoglycemia Narrative: Mr. Yasmany Ann is a 60-year-old male with past medical history significant for insulin-dependent diabetes type 2, CKD stage III, opioid dependence on chronic pain medications, hypertension, hyperlipidemia and peripheral vascular disease, prior osteomyelitis and chronic lower extremity wounds who presented to the emergency room with altered mentation and hypoglycemia. His roommates found the patient and called EMS, his glucose was 20. He was given glucose and sugar improved to 150 and in the ER was 119, but he continued to be somewhat lethargic and confused despite improved glucose. He now recalls that he took his lantus but didn't eat. He states when he takes his lantus his sugar has been dropping. He normally feels hypoglycemia when his sugar is in the low 80s. He states his leg sweeling has been slightly worsened recently, but has been taking all of his medications regularly. He denies fever, chills, cough and has baseline dyspnea with exertion that mary is slightly worse. In the ER, patient was hypertensive, briefly hypoxic to 88% on room air but improved on 2L. CBC was not significantly changed from baseline values, but does show a pancytopenia. Creatinine was mildly elevated at 3.75 from his baseline which appears to be 2.8 - 3.3. CO2 chronically elevated at 37. ProBNP 8290 also likely chronically elevated. CXR showed cardiomegaly without focal infiltrates. He was admitted for continued monitoring of encephalopathy and hypoglycemia, along with mild heart failure exacerbation. Discharge Providers Provider Date of admission: 08/08/22 10:24 Discharge Date: 08/09/22 Primary care physician: Sofie Orozco MD Discharge provider: Santy Le DO Summary Hospital Course Discharge Diagnosis: 1. Acute Metabolic encephalopathy, resolved 2. Possible acute on chronic diastolic heart failure with acute respiratory failure with hypoxia. 3. IDDM with hypoglycemia 4. RUPINDER on CKD 3, present on admission, possible progression to CKD IV 5. Acute urinary retention with hx of BPH 6. Opioid dependence for chronic pain syndrome 7. Essential hypertension, chronic 8. Hyperlipidemia, chronic 9. Peripheral vascular disease Hospital Course: 61 year old male with PMH of diastolic heart failure, IDDM, CKD, chronic pain with opioid dependence admitted after being found down with a glucose of 20 and profoundly encephalopathic. He was also noted to have urinary retention in the ER and a wooten catheter was placed. Urine culture currently has gram negative bacilli and he was treated with ceftriaxone while here and will discharge home on augmentin. His mental status slowly improved and his sugars no longer dropped. He was also slightly hypoxic in the emergency room but this improved with a 200 mg dose of IV lasix given in the ER. He was resumed on his home diuretics after. His home lantus was held given worsening creatining which likely resulted in his hypoglycemia. He was feeling much improved the following day without complaints. He did not wish to discharge home with wooten catheter, and did pass trial of void prior to discharge home with home health. I recommend close follow up with his PCP and stock control clerk for further monitoring of his creatinine and close insulin adjustments. Exam Vital Signs (past 8 hours): - 08/09/22 05:00 08/09/22 07:00 08/09/22 08:30 Temperature 98.4 F Pulse Rate 67 Respiratory Rate 17 Blood Pressure 166/69 H Pulse Oximetry 96 96 Oxygen Delivery Method Room Air Room Air Oxygen Flow Rate 0 Oxygen Delivery Method Room Air Oxygen Flow Rate 0 Narrative Exam Narrative: GENERAL APPEARANCE: well developed, overweight male in no acute distress. HEENT: Normocephalic, PERRLA, conjunctiva clear, EOMs intact without nystagmus, mucous membranes are moist and pink. NECK/THYROID: neck supple, no JVD, no thyromegaly, trachea midline. LYMPH NODES: no cervical or supraclavicular lymphadenopathy. HEART: regular rate and rhythm, S1-S2, no murmur, no rubs or gallops, brisk capillary refill, 1+ bilateral lower extremity edema LUNGS: clear to auscultation bilaterally, no coarseness crackles or wheezing, no cough present CHEST: Symmetrical movement, no accessory muscle use, good tidal volume. ABDOMEN: Soft, no distention, no abdominal tenderness, no guarding or peritoneal signs, no organomegaly, no flank or suprapubic tenderness, active bowel tones. BACK: Normal curvature, nontender to palpation. EXTREMITIES: moves all extremities, strength is 5/5 and symmetrical, no deformities or joint effusions. NEUROLOGIC: AAO x 3, cranial nerves II-XII grossly intact, fine tremors bilateral hands, peripheral neuropathy in all extremities, hearing grossly normal to speech. PSYCH: Hyperverbal, tangential thought process, cooperative Objective Labs Result Diagrams: 08/09/22 05:09 08/09/22 05:09 Labs: Laboratory Results - last 24 hr 08/09/22 08/09/22 05:09 05:09 WBC 6.9 D RBC 3.21 L Hgb 9.4 L Hct 27.7 L MCV 86.2 MCH 29.3 MCHC 34.0 RDW 15.1 H Plt Count 129 L Neut % (Auto) 75.0 Lymph % (Auto) 15.7 L [place] % (Auto) 7.6 Eos % (Auto) 1.2 L Baso % (Auto) 0.5 Neut # (Auto) 5100 Lymph # (Auto) 1100 [place] # (Auto) 500 Eos # (Auto) 100 Baso # (Auto) 0 Sodium 141 Potassium 4.4 Chloride 96 L Carbon Dioxide 37 H BUN 66 H Creatinine 3.82 H Estimated GFR 17 L BUN/Creatinine Ratio 17.3 Glucose 197 H Calcium 8.0 L Magnesium 2.3 Total Bilirubin 0.2 AST 23 ALT 22 Alkaline Phosphatase 80 Total Protein 5.7 L Albumin 2.9 L Globulin 2.8 Albumin/Globulin Ratio 1.0 PFSH Medical History Diabetes mellitus type 2 in nonobese Diabetic foot ulcer Fracture of left great toe Hyperlipidemia Hypertension Kidney disease, chronic, stage III (GFR 30-59 ml/min) Neuropathy Peripheral vascular disease Surgical History H/O cervical spine surgery History of appendectomy History of partial amputation of toe Family History Father Diabetes mellitus Mother Alcohol abuse Smoker Hypertension Social History household members: spouse Smoking Status: Never smoker alcohol intake: former Discharge Plan Discharge Plan Patient Disposition: Home Provider Discharge Comment: You were admitted to the hospital with low blood sugar. For now stop your lantus, follow up with PCP and continue to check glucose levels. If you resume lantus, restart first at 5 units then increase slowly if glucose levels are consistently greater than 200. Discharge orders & Medications Prescriptions: New amoxicillin-pot clavulanate 875-125 mg tablet 1 tab PO BID 5 Days Qty: 10 0RF Continued aspirin 81 MG tablet,delayed release (DR/EC) 81 mg PO QDAY Qty: 0 esomeprazole magnesium [Nexium] 40 MG capsule,delayed release(DR/EC) 20 mg PO QDAY Qty: 0 amlodipine [Norvasc] 10 MG tablet 10 mg PO QDAY Qty: 0 PreserVision AREDS-2 250-90-40-1 mg Capsule 1 tab PO BID atorvastatin 20 mg tablet 20 mg PO DAILY carvedilol 12.5 mg Tablet 25 mg PO BID loperamide 2 mg Capsule 2 mg PO PRN PRN (Reason: Diarrhea) ferrous sulfate [iron] 325 mg (65 mg iron) Tablet 325 mg PO DAILY Rx Instructions: on hold naloxone [Narcan] 4 mg/actuation spray,non-aerosol 4 mg INTRANASAL DIRECTED Glucagon (HCl) Emergency Kit 1 mg Recon Soln 1 mg SUBCUT Q20M PRN (Reason: Hypoglycemia) torsemide 20 mg Tablet 100 mg PO DAILY doxazosin [Cardura] 4 mg Tablet 4 mg PO BEDTIME metolazone 5 mg Tablet 10 mg PO 3XW Rx Instructions: 3x weekly on Tuesday, Tuesday, and Tuesday tamsulosin 0.4 mg Capsule 0.4 mg PO DAILY gabapentin 300 mg Tablet 300 mg PO DAILY oxycodone 10 mg Tablet,Oral Only,Ext.Rel.12 Hr 30 mg PO Q12H 7 Days Qty: 42 0RF oxycodone 10 mg Tablet 10 mg PO Q4HR PRN (Reason: pain) 7 Days Qty: 40 0RF Discontinued insulin glargine [Lantus Solostar U-100 Insulin] 100 unit/mL (3 mL) insulin pen 20 unit SUBCUT DAILY Follow up/Referrals: Sofie Orozco MD [Primary Care Provider] - Diet/Activity/Treatments Diet: Diet as Tolerated Activity: As tolerated Visit Report/Discharge Packet Instructions: DI for Heart Failure, DI for Hypoglycemia, How to Prevent Falls, DI for Urinary Retention in Men Discharge Data Primary Care Provider: Sofie Orozco Attending Provider: Santy Le
--- NOTE | 2022-08-09 11:36 | PC.NURSE ---
Patient alert, oriented and talkative. Tolerated breakfast, refused SSI as ordered. States he discussed his insulin with Dr. Le and he knows how he is telling me to take it. Patient agrees he will increase his monitoring of his blood glucose at home to at least 3 times a day. Order to remove wooten for voiding trial received, and catheter discontinued. Urinal placed within reach and patient instructed to call when he feels urge to urinate. Patient has no other questions at this time, and is hoping to go home soon. Patient states he has weekly appointments with wound clinic on Wednesdays. Call light within reach, will continue to monitor.
[2022-08-09] MEDS: INSULIN LISPRO 100 UNIT/ML 3ML VIAL SUBCUT (12:09)
== END 2022-08-09 15:30 | disposition home or self-care (01) ==
LOC: ED 09:42 → AC 10:24
PROVIDERS: Admitting Provider Internal Medicine; Emergency Provider Emergency Medicine; PCP Internal Medicine; Visit Provider Internal Medicine
DX: G93.41 Metabolic encephalopathy (principal); I13.0 Hypertensive heart and chronic kidney disease with heart failure and stage 1 through stage 4 chronic kidney disease, or unspecified chronic kidney disease; I50.30 Unspecified diastolic (congestive) heart failure; E11.649 Type 2 diabetes mellitus with hypoglycemia without coma; N18.30 Chronic kidney disease, stage 3 unspecified; R33.9 Retention of urine, unspecified; N17.9 Acute kidney failure, unspecified; E11.22 Type 2 diabetes mellitus with diabetic chronic kidney disease; I73.9 Peripheral vascular disease, unspecified; E78.5 Hyperlipidemia, unspecified; G89.4 Chronic pain syndrome; F11.20 Opioid dependence, uncomplicated; Z79.4 Long term (current) use of insulin; Z20.822 Contact with and (suspected) exposure to COVID-19
CPT/HCPCS: 36415; 51798; 71045; 80053; 80305; 81003; 81015; 82140; 82962; 83735; 83880; 84484; 85025; 87077; 87086; 87186; 87635; 93005; 96365; 96372; 99285; C9803; G0378; J1650; J1815; J1940

== ENCOUNTER → 2022-08-11 12:53 | Outpatient (CLI) | payer MEDICARE, OTHER, SELFPAY ==
[2022-08-08 12:25] VITALS: BMI 33.7
== END ==
PROVIDERS: PCP Internal Medicine; Referring Provider Internal Medicine; Visit Provider Surgery
DX: E11.621 Type 2 diabetes mellitus with foot ulcer (principal); L97.422 Non-pressure chronic ulcer of left heel and midfoot with fat layer exposed; E11.40 Type 2 diabetes mellitus with diabetic neuropathy, unspecified; E11.51 Type 2 diabetes mellitus with diabetic peripheral angiopathy without gangrene
CPT/HCPCS: 15275; Q4196

== ENCOUNTER → 2022-08-17 08:11 | Outpatient (CLI) | payer MEDICARE, OTHER, SELFPAY ==
[2022-08-08 12:25] VITALS: BMI 33.7
[2022-08-17 08:44] LABS: Add Manual Diff / Slide Review NO; Basophils Absolute Auto 0 /uL (0-100); Basophils Percent Auto 0.7 % (0-2); Eosinophils Absolute Auto 200 /uL (0-450); Eosinophils Percent Auto 5.2 % (2-4); Hematocrit 27.5 % (41-53); Hemoglobin 9.3 g/dL (13.5-17.5); Lymphocytes Absolute Auto 1100 /uL (1100-4500); Lymphocytes Percent Auto 23.3 % (25-40); Mean Corpuscular HGB Conc 33.7 % (30-36); Mean Corpuscular Volume 85.9 fL (80-100); Monocytes Absolute Auto 600 /uL (0-900); Neutrophils Absolute Auto 2800 /uL (1500-7000); Neutrophils Percent Auto 58.8 % (50-75); Platelet Count 167 X10^3/uL (150-400); White Blood Cell Count 4.7 X10^3/uL (4.5-11.0)
[2022-08-17 09:45] LABS: BUN Creatinine Ratio 19.9 (6-22); Blood Urea Nitrogen 94 mg/dL (9-20); Calcium 8.2 mg/dL (8.4-10.2); Carbon Dioxide 36 mmol/L (22-32); Chloride 96 mmol/L (98-107); Creatinine Urine Random 43.1 mg/dL; Estimated Glomerular Filt Rate 13 mL/min (>60); Glucose 269 mg/dL (80-110); HEMOLYSIS < 15 (0-50); Magnesium 2.6 mg/dL (1.6-2.3); Potassium 3.9 mmol/L (3.4-5.1); Sodium 139 mmol/L (137-145)
[2022-08-17 12:59] LABS: Uric Acid 9.6 mg/dL (3.5-8.5)
[2022-08-17 16:53] LABS: Protein (Total) Urine Random 302 mg/dL (0-12)
[2022-08-18 07:42] LABS: Parathyroid Hormone Int 118 pg/mL (15-65)
== END ==
PROVIDERS: PCP Internal Medicine; Referring Provider Internal Medicine Nephrology; Visit Provider Internal Medicine Nephrology
DX: N18.4 Chronic kidney disease, stage 4 (severe) (principal); D63.1 Anemia in chronic kidney disease
CPT/HCPCS: 36415; 80048; 82570; 83735; 83970; 84156; 84550; 85025

== ENCOUNTER → 2022-08-18 08:27 | Outpatient (CLI) | payer MEDICARE, OTHER, SELFPAY ==
[2021-01-15 09:12] VITALS: BMI 30.4
[2022-08-08 12:25] VITALS: BMI 33.7
[2022-08-18 08:37] VITALS: BP 166/73; PULSE 62; RESP 18; TEMP 36.9; O2SAT 97
[2022-08-18] MEDS: EPOETIN ALFA-EPBX 10,000 UNIT/ML VIAL 10000 UNIT SUBCUT (08:52)
== END ==
PROVIDERS: PCP Internal Medicine; Referring Provider Internal Medicine; Visit Provider Physician Assistant
DX: N18.4 Chronic kidney disease, stage 4 (severe) (principal); D63.1 Anemia in chronic kidney disease; E11.621 Type 2 diabetes mellitus with foot ulcer; E11.40 Type 2 diabetes mellitus with diabetic neuropathy, unspecified; D64.9 Anemia, unspecified; E11.65 Type 2 diabetes mellitus with hyperglycemia; I73.9 Peripheral vascular disease, unspecified; L97.422 Non-pressure chronic ulcer of left heel and midfoot with fat layer exposed; S80.811A Abrasion, right lower leg, initial encounter; E11.51 Type 2 diabetes mellitus with diabetic peripheral angiopathy without gangrene; R60.0 Localized edema
CPT/HCPCS: 87070; 87077; 87186; 87205; 96372; 97597; Q5106

== ENCOUNTER → 2022-08-18 11:36 | Outpatient (CLI) | payer MEDICARE, OTHER, SELFPAY ==
[2022-08-08 12:25] VITALS: BMI 33.7
== END ==
PROVIDERS: PCP Internal Medicine; Referring Provider Internal Medicine; Visit Provider Surgery
DX: E11.621 Type 2 diabetes mellitus with foot ulcer (principal); L97.422 Non-pressure chronic ulcer of left heel and midfoot with fat layer exposed; E11.40 Type 2 diabetes mellitus with diabetic neuropathy, unspecified; D64.9 Anemia, unspecified; N18.4 Chronic kidney disease, stage 4 (severe); E11.65 Type 2 diabetes mellitus with hyperglycemia; I73.9 Peripheral vascular disease, unspecified; S80.811A Abrasion, right lower leg, initial encounter; E11.51 Type 2 diabetes mellitus with diabetic peripheral angiopathy without gangrene; R60.0 Localized edema
CPT/HCPCS: 87070; 87075; 87077; 87186; 87205; 97597; 99213